=== PATIENT | female | born 1945 | race Caucasian/White ===

== ENCOUNTER 2021-01-14 06:03 | Outpatient (REF) | payer MEDICARE, OTHER, SELFPAY ==
--- NOTE | ~2021-01-14 | XR_ITS ---
EXAMINATION: XR CHEST CLINICAL INFORMATION: ESSential hypertension COMPARISON: Chest x-ray June 2020 TECHNIQUE: 2 views of the chest were obtained. FINDINGS: No significant abnormality is noted involving the heart, lungs, mediastinum, bony thorax or soft tissues. XR/XR chest 2V IMPRESSION: No acute disease. Previously noted left lung opacity and volume loss has cleared
[2021-01-14 11:03] LABS: MANUAL DIFF FLAG NO
[2021-01-14 11:14] LABS: Basophils Absolute Auto 0.1 X10*3/uL (0.0-0.2); Basophils Percent Auto 1.5 % (0-2); Eosinophils Absolute Auto 0.1 X10*3/uL (0.0-0.4); Eosinophils Percent Auto 1.8 % (0-4); Hematocrit 38.4 % (37-47); Hemoglobin 12.8 g/dl (12.0-16.0); Lymphocytes Absolute Auto 1.3 X10*3/uL (1.2-4.9); Mean Corpuscular HGB Conc 33.3 g/dl (31.0-35.0); Mean Platelet Volume 9.9 fL (9.4-12.3); Monocytes Absolute Auto 0.4 X10*3/uL (0.1-1.2); Monocytes Percent Auto 11.3 % (2-11); Neutrophils Percent Auto 51.4 % (45-73); Platelet Count 297 X10*3/uL (160-400); Red Blood Count 4.13 X10*6/uL (4.20-5.50); Red Cell Distribution Width 12.7 % (11.0-16.0); White Blood Count 3.9 X10*3/uL (4.8-10.8)
[2021-01-14 11:22] LABS: Glucose Urine UA NEG (NEG); Leukocyte Esterase Urine 2+ (NEG); Nitrite Urine POS (NEG); Urine Blood TRACE (NEG); Urine Ketones NEG (NEG); Urine Protein NEG (NEG-TRACE)
[2021-01-14 11:25] LABS: Appearance Urine HAZY; Color Urine YELLOW
[2021-01-14 11:35] LABS: Bacteria Urine 2+ /LPF; Mucus Urine 1+ /LPF; Squamous Epithelial Cell Urine 1+ /LPF; WBC Urine 30-49 /HPF (0-4)
[2021-01-14 11:41] LABS: Creatinine Urine 94.22 mg/dL; Microalbum/Creatinine Ratio Ur 8.4 ug/mg cr
[2021-01-14 11:45] LABS: Estimated Average Glucose 131 mg/dL; Hemoglobin A1C 150.6971 umol/L; Hemoglobin A1c % 6.2 %
[2021-01-14 11:46] LABS: Alanine Aminotransferase 21 U/L (0-31); Albumin Level 4.1 g/dL (3.5-5.0); Alkaline Phosphatase 73 U/L (39-117); Anion Gap 12 (12-20); Aspartate Amino Transferase 22 U/L (5-31); Bilirubin Total 0.5 mg/dL (0.0-1.0); Blood Urea Nitrogen 12 mg/dL (9-16); Calcium 9.1 mg/dL (8.4-10.2); Carbon Dioxide 28 mmol/L (22-29); Chloride 105 mmol/L (96-108); Cholesterol 255 mg/dL; Estimated Glomerular Filt Rate 59; Glucose Fasting 129 mg/dL (60-99); Potassium 4.2 mmol/L (3.3-5.1); Sodium 141 mmol/L (135-145); Total Protein 7.2 g/dL (6.5-8.0); Triglycerides 74 mg/dL
[2021-01-14 11:49] LABS: Thyroid Stimulating Hormone 2.24 uIU/mL (0.32-4.0); Vitamin D 25-OH Total 48.8 ng/mL (>30)
[2021-01-14 12:09] LABS: HDL Cholesterol 86 mg/dL; LDL Cholesterol Calculated 155 mg/dl
== END 2021-01-14 06:04 | disposition home or self-care (01) ==
LOC: HO.HMGCLDS 06:03
PROVIDERS: PCP Internal Medicine; Visit Provider Internal Medicine
DX: I10 Essential (primary) hypertension (principal); E78.00 Pure hypercholesterolemia, unspecified; E03.9 Hypothyroidism, unspecified; E11.9 Type 2 diabetes mellitus without complications
CPT/HCPCS: 36415; 71046; 80053; 80061; 81001; 82043; 82306; 83036; 84443; 85025

== ENCOUNTER 2021-04-05 11:02 | Outpatient (REF) | payer MEDICARE, OTHER, SELFPAY ==
[2021-04-05 14:02] LABS: Glucose Urine UA NEG (NEG); Leukocyte Esterase Urine 3+ (NEG); Nitrite Urine POS (NEG); UACC Culture Trigger YES; Urine Blood TRACE (NEG); Urine Ketones NEG (NEG); Urine Protein NEG (NEG-TRACE)
[2021-04-05 14:04] LABS: Appearance Urine CLOUDY; Color Urine YELLOW
[2021-04-05 14:24] LABS: RBC Urine 0-2 /HPF (0); UACC CULT YES; WBC Urine TNTC /HPF (0-4)
[2021-04-05 14:25] LABS: Bacteria Urine 3+ /LPF; Renal Epithelial Cells Urine TRACE /LPF; Squamous Epithelial Cell Urine 1+ /LPF; WBC Clumps Urine NOTED
== END 2021-04-05 11:03 | disposition home or self-care (01) ==
LOC: HO.HMGCLDS 11:02
PROVIDERS: PCP Internal Medicine; Visit Provider Internal Medicine
DX: R30.0 Dysuria (principal)
CPT/HCPCS: 81001; 87086; 87088; 87186

== ENCOUNTER 2021-07-27 06:47 | Outpatient (REF) | payer MEDICARE, OTHER, SELFPAY ==
[2021-07-27 11:23] LABS: MANUAL DIFF FLAG NO
[2021-07-27 11:25] LABS: Appearance Urine HAZY; Color Urine STRAW; Glucose Urine UA NEG (NEG); Leukocyte Esterase Urine 3+ (NEG); Nitrite Urine POS (NEG); PH 5.5 (5.0-8.0); Urine Blood TRACE (NEG); Urine Ketones NEG (NEG); Urine Protein NEG (NEG-TRACE)
[2021-07-27 11:32] LABS: Basophils Percent Auto 0.9 % (0-2); Eosinophils Absolute Auto 0.1 X10*3/uL (0.0-0.4); Eosinophils Percent Auto 2.1 % (0-4); Hematocrit 36.8 % (37-47); Imm Gran Abs Auto 0.01 X10*3/uL (0.00-0.03); Imm Gran Pct Auto 0.2 % (0.0-0.4); Lymphocytes Absolute Auto 0.4 X10*3/uL (1.2-4.9); Lymphocytes Percent Auto 8.9 % (20-40); Mean Corpuscular HGB Conc 32.6 g/dl (31.0-35.0); Mean Corpuscular Hemoglobin 30.3 pg (27.0-33.0); Mean Corpuscular Volume 92.9 fL (80-98); Mean Platelet Volume 9.7 fL (9.4-12.3); Monocytes Absolute Auto 0.4 X10*3/uL (0.1-1.2); Monocytes Percent Auto 8.3 % (2-11); Neutrophils Absolute Auto 3.7 X10*3/uL (2.0-8.3); Neutrophils Percent Auto 79.6 % (45-73); Platelet Count 282 X10*3/uL (160-400); Red Blood Count 3.96 X10*6/uL (4.20-5.50); Red Cell Distribution Width 13.3 % (11.0-16.0); White Blood Count 4.7 X10*3/uL (4.8-10.8)
[2021-07-27 11:49] LABS: Alanine Aminotransferase 16 U/L (0-31); Albumin Level 3.9 g/dL (3.5-5.0); Alkaline Phosphatase 65 U/L (39-117); Anion Gap 16 (12-20); Aspartate Amino Transferase 21 U/L (5-31); Bilirubin Total 0.5 mg/dL (0.0-1.0); Blood Urea Nitrogen 12 mg/dL (9-16); Calcium 9.4 mg/dL (8.4-10.2); Carbon Dioxide 26 mmol/L (22-29); Chloride 105 mmol/L (96-108); Cholesterol 242 mg/dL; Estimated Glomerular Filt Rate 48; Glucose Fasting 97 mg/dL (60-99); HDL Cholesterol 80 mg/dL; LDL Cholesterol Calculated 148 mg/dl; Potassium 4.5 mmol/L (3.3-5.1); Sodium 142 mmol/L (135-145); Triglycerides 72 mg/dL
[2021-07-27 12:00] LABS: Estimated Average Glucose 128 mg/dL; Hemoglobin A1c % 6.1 %
[2021-07-27 12:07] LABS: Creatinine Urine 49.22 mg/dL; Microalbum/Creatinine Ratio Ur 81.2 ug/mg cr
[2021-07-27 12:14] LABS: Thyroid Stimulating Hormone 2.38 uIU/mL (0.32-4.0); Vitamin D 25-OH Total 49.6 ng/mL (>30)
[2021-07-27 12:35] LABS: Squamous Epithelial Cell Urine TRACE /LPF; WBC Clumps Urine NOTED
[2021-07-27 12:36] LABS: Bacteria Urine 2+ /LPF; Renal Epithelial Cells Urine TRACE /LPF
[2021-07-27 12:37] LABS: WBC Urine 50-75 /HPF (0-4)
[2021-07-27 12:38] LABS: RBC Urine 0 /HPF (0)
[2021-07-27 16:58] LABS: Appearance Urine HAZY; Color Urine YELLOW; Glucose Urine UA NEG (NEG); Leukocyte Esterase Urine 2+ (NEG); Nitrite Urine POS (NEG); Specific Gravity - Urine 1.015 (1.005-1.025); UACC Culture Trigger YES; Urine Blood NEG (NEG); Urine Ketones NEG (NEG); Urine Protein NEG (NEG-TRACE)
[2021-07-27 17:52] LABS: Mucus Urine 1+ /LPF; Renal Epithelial Cells Urine 1+ /LPF; Squamous Epithelial Cell Urine 2+ /LPF; WBC Clumps Urine NOTED
[2021-07-27 17:53] LABS: Bacteria Urine 3+ /LPF; RBC Urine 0-2 /HPF (0)
== END 2021-07-27 06:48 | disposition home or self-care (01) ==
LOC: HO.HMGCLDS 06:47
PROVIDERS: PCP Internal Medicine; Visit Provider Internal Medicine
DX: N39.0 Urinary tract infection, site not specified (principal); I10 Essential (primary) hypertension; E78.00 Pure hypercholesterolemia, unspecified; E03.9 Hypothyroidism, unspecified; E11.9 Type 2 diabetes mellitus without complications
CPT/HCPCS: 36415; 80053; 80061; 81001; 81003; 82043; 82306; 83036; 84443; 85025; 87086; 87088; 87186

== ENCOUNTER 2021-12-29 14:11 | Outpatient (REF) | payer MEDICARE, OTHER, SELFPAY ==
--- NOTE | ~2021-12-29 | MM_ITS ---
EXAMINATION: MM SCREENING DIGITAL BREAST TOMOSYNTHESIS, RIGHT CLINICAL INFORMATION: Screening. Asymptomatic. Status post left mastectomy. COMPARISON: Mammography: June 01, 2020 and studies dating back to November 24, 2013 TECHNIQUE: Digital breast tomosynthesis is performed in both the craniocaudal and mediolateral oblique views along with computer-aided detection (CAD). Synthesized 2D images are generated from the tomosynthesis. FINDINGS: The right breast is heterogeneously dense, which may obscure small masses (ACR BI-RADS breast composition Category c). There are no significant masses, abnormal calcifications, or other abnormalities. MM/MM tomosynthesis screening RT IMPRESSION: There are no significant changes from prior study. ASSESSMENT: BI-RADS 1: Negative RECOMMENDATION: Routine annual mammography screening. This patient's information was entered into a reminder system with a target due date for their next mammogram.
== END 2021-12-29 14:12 | disposition home or self-care (01) ==
LOC: HO.MAMMO 14:11
PROVIDERS: PCP Nurse Practitioner Family; Visit Provider Nurse Practitioner Family
DX: Z12.31 Encounter for screening mammogram for malignant neoplasm of breast (principal)
CPT/HCPCS: 77063; 77067

== ENCOUNTER 2022-02-15 06:10 | Outpatient (REF) | payer MEDICARE, OTHER, SELFPAY ==
[2022-02-15 11:15] LABS: MANUAL DIFF FLAG NO
[2022-02-15 11:33] LABS: Basophils Absolute Auto 0.1 X10*3/uL (0.0-0.2); Basophils Percent Auto 1.3 % (0-2); Eosinophils Absolute Auto 0.1 X10*3/uL (0.0-0.4); Hematocrit 38.3 % (37.0-47.0); Hemoglobin 12.8 g/dl (12.0-16.0); Imm Gran Abs Auto 0.01 X10*3/uL (0.00-0.03); Imm Gran Pct Auto 0.2 % (0.0-0.4); Lymphocytes Absolute Auto 1.2 X10*3/uL (1.2-4.9); Lymphocytes Percent Auto 27.2 % (20-40); Mean Corpuscular HGB Conc 33.4 g/dl (31.0-35.0); Mean Corpuscular Hemoglobin 30.6 pg (27.0-33.0); Mean Corpuscular Volume 91.6 fL (80.0-98.0); Monocytes Absolute Auto 0.5 X10*3/uL (0.1-1.2); Monocytes Percent Auto 11.9 % (2-11); Neutrophils Absolute Auto 2.6 x10*3/uL (2.0-8.3); Neutrophils Percent Auto 57.4 % (45-73); Platelet Count 344 X10*3/uL (160-400); Red Blood Count 4.18 X10*6/uL (4.20-5.50); Red Cell Distribution Width 12.6 % (11.0-16.0); White Blood Count 4.5 X10*3/uL (4.8-10.8)
[2022-02-15 11:53] LABS: Alanine Aminotransferase 17 U/L (0-31); Alkaline Phosphatase 70 U/L (39-117); Anion Gap 14 (12-20); Aspartate Amino Transferase 23 U/L (5-31); Bilirubin Total 0.7 mg/dL (0.0-1.0); Blood Urea Nitrogen 13 mg/dL (9-16); Calcium 9.4 mg/dL (8.4-10.2); Carbon Dioxide 26 mmol/L (22-29); Chloride 105 mmol/L (96-108); Cholesterol 310 mg/dL; Estimated Glomerular Filt Rate 42; Glucose Fasting 132 mg/dL (60-99); HDL Cholesterol 78 mg/dL; LDL Cholesterol Calculated 217 mg/dl; Potassium 3.9 mmol/L (3.3-5.1); Sodium 141 mmol/L (135-145); Total Protein 7.4 g/dL (6.5-8.0); Triglycerides 78 mg/dL
[2022-02-15 11:59] LABS: TSH reflex Free T4 2.46 uIU/mL (0.32-4.0)
[2022-02-15 12:08] LABS: Creatinine Urine 68.69 mg/dL; Microalbum/Creatinine Ratio Ur 52.4 ug/mg cr
[2022-02-15 12:10] LABS: Estimated Average Glucose 123 mg/dL; Hemoglobin A1c % 5.9 %
== END 2022-02-15 06:11 | disposition home or self-care (01) ==
LOC: HO.HMGCLDS 06:10
PROVIDERS: Visit Provider Nurse Practitioner Family
DX: I10 Essential (primary) hypertension (principal); E03.9 Hypothyroidism, unspecified; R73.03 Prediabetes; E78.00 Pure hypercholesterolemia, unspecified; Z76.89 Persons encountering health services in other specified circumstances
CPT/HCPCS: 36415; 80053; 80061; 82043; 82306; 83036; 84443; 85025

== ENCOUNTER 2022-05-22 06:11 | Emergency (ER) | payer MEDICARE, OTHER, SELFPAY ==
--- NOTE | 2022-05-22 | ECG_ITS ---
Test Reason : SOB Blood Pressure : / mmHG Vent. Rate : 077 BPM Atrial Rate : 077 BPM P-R Int : 188 ms QRS Dur : 086 ms QT Int : 408 ms P-R-T Axes : 085 -13 059 degrees QTc Int : 461 ms Normal sinus rhythm with sinus arrhythmia Moderate voltage criteria for LVH, may be normal variant ( R in aVL , [place] product ) Nonspecific ST abnormality Abnormal ECG When compared with ECG of 07-AUG-2008 14:18, No significant change was found Referred By: Generic ED Physician Electronically Signed By:Jose Osorio
[2022-05-22] MEDS: diphenhydrAMINE HCL 50 MG/ML VIAL IVPUSH (06:19)
[2022-05-22] MEDS: methylPREDNISolone Sod Succ 125 MG/2 ML VIAL IVPUSH (06:20)
[2022-05-22] MEDS: EPINEPHrine 1 MG/ML VIAL 0.3 MG IM (06:21)
[2022-05-22] MEDS: Famotidine/PF 20 MG/2 ML VIAL IVPUSH (06:22)
[2022-05-22 06:23] VITALS: BP 196/81; PULSE 82; RESP 12; O2SAT 99; BMI 24.7
[2022-05-22 06:25] VITALS: BP 185/74; PULSE 89; RESP 22; O2SAT 98
--- NOTE | 2022-05-22 06:35 | PC.NURSE ---
pt is alert and verbal, at bedside. pt has extensive tongue swelling new onset this morning. reports not being able to understand pt earlier this morning.
--- NOTE | 2022-05-22 07:19 | ED.SOB ---
HPI - SOB/Dyspnea General Chief Complaint: Dyspnea Stated Complaint: swollen tongue, can't swallow or breathe Time Seen by Provider: 05/22/22 07:19 Source: patient Mode of arrival: ambulatory History of Present Illness HPI Narrative: 76-year-old female with history of hypertension currently on losartan who presents who presents with a waking at 04:00 with tongue swelling, woke her who immediately brought her in. Patient denies any new medications or foods, but not torse is that she takes losartan for her blood pressure. At this time patient denies any chest pain, palpitations and denies any shortness of breath but does have some difficulty with swallowing. She denies any rash Related Data Home Medications Medication Instructions Recorded Confirmed cholecalciferol (vitamin D3) 25 25 mcg PO DAILY 12/05/21 03/06/22 mcg (1,000 unit) capsule [id number]-[id number]-crhjiw tablet 1 tab PO DAILY 12/05/21 03/06/22 Previous Rx's Medication Instructions Recorded omega-3 fatty acids 1,000 mg 1,000 mg PO DAILY #90 caps 02/20/22 capsule levothyroxine 50 mcg tablet 50 mcg PO DAILY #90 tabs 03/06/22 losartan 100 mg tablet 100 mg PO DAILY #90 tabs 03/06/22 hydrochlorothiazide 12.5 mg tablet 12.5 mg PO DAILY #14 tabs 05/22/22 Allergies Allergy/AdvReac Type Severity Reaction Status Date / Time Sulfa (Sulfonamide Allergy Unknown ITCHING Verified 03/06/22 14:18 Antibiotics) Review of Systems Review of Systems: pertinent positives and negatives as stated in HPI and 10 point review of systems is otherwise negative. [facility] Past Medical History Source: nursing notes reviewed Surgical History History of cataract surgery History of colonoscopy History of hysterectomy History of lumpectomy History of mastectomy History of tibial fracture Family History Family History Mother Breast cancer Father Dementia Social History Social History Housing: House Alcohol intake: current Alcohol intake frequency: a few times a month Alcohol type: other Patient Tobacco Use Status: Never used Tobacco e-Cigarette/Vaping Use: Never Used Second Hand Smoke Exposure: No Advance Directives: No Advance Directives Information Provided: Yes service: No Current occupational status: employed Current occupational exposures/hazards: No Cognitive needs: No Hearing needs: No Vision needs: No Physical Exam Vital Signs: Vital Signs: Last Vital Signs Pulse 89 05/22/22 06:25 Resp 22 H 05/22/22 06:25 BP 185/74 H 05/22/22 06:25 Pulse Ox 98 05/22/22 06:25 O2 Del Method 05/22/22 06:25 BMI result Body Mass Index 24.7 VITAL SIGNS: Reviewed. GENERAL: Well developed, well nourished, in no acute distress. HEAD: Normocephalic/atraumatic EYES: PERRLA, EOMI EARS: Ext canals without abnormality OROPHARYNX: no oral lesions noted, posterior pharynx clear, enlarged tongue with some involvement of the oral floor, no lip or facial swelling NECK: Supple, no adenopathy LUNGS: Normal breath sounds. No adventitious sounds or accessory muscle use. SpO2<98> CARDIOVASCULAR: Regular rate and rhythm without noted murmurs ABDOMEN: Soft, non-tender, non-distended with bowel sounds. MUSCULOSKELETAL: No tenderness, deformities, or effusions noted on gross inspection. EXTREMITIES: No cyanosis, clubbing or edema. SKIN: Inspection of the skin reveals no rashes NEUROLOGIC: Alert and oriented x 4. Strength and sensation to light touch were grossly intact x 4. Course Course Course Narrative: 76-year-old female with history and clinical presentation consistent with Mat/ Arb associated angioedema and patient received Solu-Medrol, Benadryl, Pepcid, and 0.3 epi IM. Two peripheral lines were obtained and patient was observed for a short period of time to ensure improvement no evidence of stridor and patient continued to improve with the ability to protrude the tongue and speech became more legible. Patient will be observed for 4 hours and total and instructed to stay off of losartan. Sign-out to Dr Nair f/u Obs for 4hrs which will end at 1030. MDM - SOB/Dyspnea ECG Data Attestation: I personally reviewed and interpreted this ECG as follows: Prior ECG tracings: available for review Interpretation: Sinus rhythm with sinus arrhythmia, HR- 77, no STEMI, normal sinus rhythm with sinus arrhythmia, HR- 77, no STEMI, MO / QRS /QTC is within normal limits. Critical Care Time Critical Care Time Critical Care Time: Yes Total Critical Care Time: 30 Attestation: I personally attest to this time spent taking care of the patient. 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 - You have been provided 14 days of an alternative - please call your primary care provider today to discuss the swelling of her tongue and the switch in blood pressure medications. Return to the ER with worsening symptoms. Prescriptions: New hydrochlorothiazide 12.5 mg tablet 12.5 mg PO DAILY Qty: 14 0RF No Action omega-3 fatty acids 1,000 mg capsule 1,000 mg PO DAILY Qty: 90 0RF utuhjryjglww-jbfelwhc-zeraga Tablet 1 tab PO DAILY cholecalciferol (vitamin D3) 25 mcg (1,000 unit) capsule 25 mcg PO DAILY levothyroxine 50 mcg tablet 50 mcg PO DAILY Qty: 90 0RF losartan 100 mg tablet 100 mg PO DAILY Qty: 90 0RF
--- NOTE | 2022-05-22 08:08 | PC.NURSE ---
pt feeling better, sts tongue is less swollen after medicinces. rr even/unlabored, tolerating water through straw without issue, good swallow. per provider, pt needs to be monitored until 1030 this am. wctm.
[2022-05-22 08:31] VITALS: BP 132/60; PULSE 75; RESP 17; O2SAT 97
== END 2022-05-22 09:37 | disposition home or self-care (01) ==
PROVIDERS: Emergency Provider Student in an Organized Health Care Education/Training Program
DX: R06.02 Shortness of breath (principal); Z79.899 Other long term (current) drug therapy
CPT/HCPCS: 93005; 96372; 96374; 96375; 99284; 99285; J0171; J1200; J2930

== ENCOUNTER 2022-06-13 10:33 | Outpatient (REF) | payer MEDICARE, OTHER, SELFPAY ==
--- NOTE | ~2022-06-13 | XR_ITS ---
EXAMINATION: XR SHOULDER, RIGHT CLINICAL INFORMATION: Pain COMPARISON: None TECHNIQUE: Four views of the right shoulder. FINDINGS: Bone alignment is normal. No fracture or dislocation is seen. The glenohumeral joint is normal. There is arthritis at the acromioclavicular joint. Soft tissues are normal. There is question of small pulmonary nodules, particularly appreciated on the [place] view. XR/XR shoulder RT min 2V IMPRESSION: Arthritis at the acromioclavicular joint. Question pulmonary nodules. Follow-up chest x-ray recommended. Findings will be communicated by the [place] work flow skill labor.
== END 2022-06-13 10:34 | disposition home or self-care (01) ==
LOC: HO.HMGCX 10:33
PROVIDERS: PCP Physician Assistant; Visit Provider Physician Assistant
DX: M25.511 Pain in right shoulder (principal)
CPT/HCPCS: 73030

== ENCOUNTER 2022-06-15 07:47 | Outpatient (REF) | payer MEDICARE, OTHER, SELFPAY ==
--- NOTE | ~2022-06-15 | XR_ITS ---
EXAMINATION: XR CHEST CLINICAL INFORMATION: Solitary pulmonary nodule COMPARISON: Right shoulder radiograph from 06/13/2022, chest radiograph from 01/14/2021 TECHNIQUE: 2 views of the chest were obtained. FINDINGS: Chronic interstitial lung markings. Biapical pleural parenchymal scarring. Stable elevation the right hemidiaphragm. No pneumothorax. Trachea is midline. Cardiac mediastinal silhouette is not enlarged. Aorta demonstrates tortuosity. No large pleural effusion. Degenerative changes of the thoracolumbar spine. Soft tissues are unremarkable. XR/XR chest 2V IMPRESSION: 1. Chronic interstitial lung markings. 2. Biapical pleural parenchymal scarring. 3. Stable elevation the right hemidiaphragm. 4. If high clinical concern for pulmonary nodules can consider cross-sectional imaging for further evaluation.
== END 2022-06-15 07:48 | disposition home or self-care (01) ==
LOC: HO.HMGCX 07:47
PROVIDERS: PCP Physician Assistant; Visit Provider Physician Assistant
DX: R91.1 Solitary pulmonary nodule (principal)
CPT/HCPCS: 71046

== ENCOUNTER 2022-07-06 12:57 | Outpatient (REF) | payer MEDICARE, OTHER, SELFPAY ==
--- NOTE | ~2022-07-06 | US_ITS ---
EXAMINATION: US EXTRACRANIAL CAROTID DUPLEX, BILATERAL CLINICAL INFORMATION: Left carotid bruit COMPARISON: None TECHNIQUE: Real-time ultrasound and Doppler techniques (integrating B-mode 2-D vascular images, Doppler spectral analysis and color-flow Doppler imaging) were utilized to interrogate the extracranial carotid arteries, the vertebral arteries and proximal subclavian arteries bilaterally. The degree of stenosis is determined by criteria similar to NASCET. FINDINGS: Right Side: 1. There is mild atherosclerotic plaque seen in the bifurcation/proximal ICA region. 2. The common carotid artery PSV proximally is 124 cm/s and distally 101 cm/s. 3. The proximal internal carotid artery velocities are 70 cm/s systolic and 18 cm/s diastolic. 4. The proximal external carotid artery PSV is 139 cm/s. 5. The vertebral artery shows antegrade flow. 6. The subclavian artery waveforms are normal. Left Side: 1. There is mild atherosclerotic plaque seen in the bifurcation/proximal ICA region. 2. The common carotid artery PSV proximally is 127 cm/s and distally 83 cm/s. 3. The proximal internal carotid artery velocities are 122 cm/s systolic and 24 cm/s diastolic. 4. The proximal external carotid artery PSV is 87 cm/s. 5. The vertebral artery shows antegrade flow. 6. The subclavian artery waveforms are normal. US/US carotid duplex BI IMPRESSION: 1. RIGHT: Minimal, non-hemodynamically significant stenosis of the proximal right internal carotid artery corresponding to a 0-49% stenosis by velocity criteria. 2. LEFT: Minimal, non-hemodynamically significant stenosis of the proximal left internal carotid artery corresponding to a 0-49% stenosis by velocity criteria.
== END 2022-07-06 12:58 | disposition home or self-care (01) ==
LOC: HO.HMGCX 12:57
PROVIDERS: PCP Physician Assistant; Visit Provider Physician Assistant
DX: R09.89 Other specified symptoms and signs involving the circulatory and respiratory systems (principal)
CPT/HCPCS: 93880

== ENCOUNTER 2022-07-12 07:04 | Outpatient (REF) | payer MEDICARE, OTHER, SELFPAY ==
[2022-07-12 11:34] LABS: Hematocrit 36.1 % (37.0-47.0); Mean Corpuscular HGB Conc 33.2 g/dl (31.0-35.0); Mean Corpuscular Hemoglobin 30.2 pg (27.0-33.0); Mean Corpuscular Volume 90.7 fL (80.0-98.0); Mean Platelet Volume 9.2 fL (9.4-12.3); Platelet Count 367 X10*3/uL (160-400); Red Blood Count 3.98 X10*6/uL (4.20-5.50); Red Cell Distribution Width 13.2 % (11.0-16.0); White Blood Count 4.6 X10*3/uL (4.8-10.8)
[2022-07-12 11:38] LABS: Estimated Average Glucose 131 mg/dL; Hemoglobin A1c % 6.2 %
[2022-07-12 12:06] LABS: TSH reflex Free T4 2.57 uIU/mL (0.32-4.0)
[2022-07-12 12:22] LABS: Alanine Aminotransferase 15 U/L (0-31); Albumin Level 4.1 g/dL (3.5-5.0); Alkaline Phosphatase 85 U/L (39-117); Anion Gap 16 (12-20); Aspartate Amino Transferase 19 U/L (5-31); Bilirubin Total 0.3 mg/dL (0.0-1.0); Blood Urea Nitrogen 13 mg/dL (9-16); Calcium 9.7 mg/dL (8.4-10.2); Carbon Dioxide 29 mmol/L (22-29); Chloride 101 mmol/L (96-108); Cholesterol 320 mg/dL; Estimated Glomerular Filt Rate 44; Glucose Fasting 143 mg/dL (60-99); HDL Cholesterol 82 mg/dL; LDL Cholesterol Calculated 218 mg/dl; Potassium 4.4 mmol/L (3.3-5.1); Sodium 142 mmol/L (135-145); Total Protein 7.7 g/dL (6.5-8.0); Triglycerides 101 mg/dL
== END 2022-07-12 07:05 | disposition home or self-care (01) ==
LOC: HO.HMGCLDS 07:04
PROVIDERS: PCP Physician Assistant; Visit Provider Physician Assistant
DX: E03.9 Hypothyroidism, unspecified (principal); R73.03 Prediabetes; I10 Essential (primary) hypertension
CPT/HCPCS: 36415; 80053; 80061; 83036; 84443; 85027

== ENCOUNTER → 2022-08-09 07:46 | Outpatient (BNVA) | payer MEDICARE, OTHER, SELFPAY | PROVIDERS: PCP Physician Assistant; Visit Provider Physician Assistant | DX: M19.011 Primary osteoarthritis, right shoulder (principal); M75.81 Other shoulder lesions, right shoulder | CPT/HCPCS: 20610; 99202; J1040 ==

== ENCOUNTER 2022-08-11 09:00 | Outpatient (RCR) | payer MEDICARE, OTHER, SELFPAY ==
[2022-07-07 08:49] VITALS: BP 160/84
--- NOTE | 2022-07-07 11:00 | MHC.PT.EP ---
[facility] [place] Office [place] Office [place] Office [address] [phone] F: [phone] F: [phone] F: [phone] F: [phone] Physical Therapy Plan of Care Date of Evaluation: Date of Surgery: Diagnosis: pain in R shoulder Assessment: 76 y/o RHD female referred to PT with R shoulder pain. Her anterior R shoulder pain started one month after she retired in which she had increased weedwhacking and yardwork. It is worse at night and early in the morning. It disturbs her sleep. 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 Examination shows decreased R shoulder A/PROM with pain, decreased R shoulder strength, increased pain, (+) drop arm test, and impaired postural awareness. S/s consistent with impingement and possible RTC tear. SHe is a god candidate for PT due to motivation and PLOF. Frequency and Duration: The patient will be seen 2x/week for 6 weeks Short Term Goals: 3 weeks COmpliant and I with HEP Improve R shoulder active flexion to 130 with pain < 3/10 Community Nurse Goals: 6 weeks 1. I with HEP and self management of sx 2. Pt will be able to don/doff clothing with pain < 3/10 3. Pt will improve R shoulder strength to 4/5 to faciliate lifting Treatment Plan: Modalities to reduce pain, spasms and effusion. Manual therapy to restore motion and function. Therapeutic exercise to improve strength and flexibility. Neuromuscular re-education for posture and balance. Therapeutic activities to return to functional activities of daily living. Electronically signed by: Christy Juares PT Please sign and return to therapist. Thank you for your referral.
--- NOTE | 2022-08-11 11:09 | MHC.PT.DC ---
[facility] [place] Office [place] Office [place] Office [address] [phone] F: [phone] F: [phone] F: [phone] F: [phone] Physical Therapy Discharge Report Diagnosis: pain in R shoulder Date of Surgery: Date of Evaluation: 07/07/22 Date of Discharge: 08/11/22 Treatments to Date: 11 Cancellations to Date: 0 No Shows to Date: 0 Discharge Status: Achieved Goals Improved Function Independent with HEP Discharge Summary: Pt has made good progress and feels ready for d/c to I HEP. 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 Reviewed HEP and no further questions. Electronically signed by: Christy Juares PT Please sign and return to therapist. Thank you for your referral.
== END 2022-08-11 11:09 | disposition home or self-care (01) ==
LOC: HO.PTCHIC 09:00
PROVIDERS: PCP Physician Assistant; Visit Provider Physician Assistant
DX: M25.511 Pain in right shoulder (principal); G89.29 Other chronic pain
CPT/HCPCS: 97035; 97110; 97140; 97162

== ENCOUNTER 2022-08-18 07:19 | Outpatient (REF) | payer MEDICARE, OTHER, SELFPAY ==
[2022-08-18 11:46] LABS: Hemoglobin 12.2 g/dl (12.0-16.0); Mean Corpuscular HGB Conc 32.1 g/dl (31.0-35.0); Mean Corpuscular Hemoglobin 29.1 pg (27.0-33.0); Mean Corpuscular Volume 90.7 fL (80.0-98.0); Mean Platelet Volume 9.1 fL (9.4-12.3); Platelet Count 396 X10*3/uL (160-400); Red Blood Count 4.19 X10*6/uL (4.20-5.50); Red Cell Distribution Width 13.9 % (11.0-16.0); White Blood Count 7.1 X10*3/uL (4.8-10.8)
[2022-08-18 12:22] LABS: TSH reflex Free T4 1.29 uIU/mL (0.32-4.0)
[2022-08-18 12:29] LABS: Alanine Aminotransferase 18 U/L (0-31); Albumin Level 4.2 g/dL (3.5-5.0); Alkaline Phosphatase 84 U/L (39-117); Anion Gap 17 (12-20); Aspartate Amino Transferase 17 U/L (5-31); Bilirubin Total 0.3 mg/dL (0.0-1.0); Blood Urea Nitrogen 13 mg/dL (9-16); Calcium 9.6 mg/dL (8.4-10.2); Carbon Dioxide 28 mmol/L (22-29); Chloride 103 mmol/L (96-108); Cholesterol 276 mg/dL; Estimated Glomerular Filt Rate 51; Glucose Fasting 124 mg/dL (60-99); HDL Cholesterol 92 mg/dL; LDL Cholesterol Calculated 170 mg/dl; Potassium 4.8 mmol/L (3.3-5.1); Sodium 143 mmol/L (135-145); Total Protein 7.5 g/dL (6.5-8.0); Triglycerides 70 mg/dL
== END 2022-08-18 07:20 | disposition home or self-care (01) ==
LOC: HO.HMGCLDS 07:19
PROVIDERS: PCP Physician Assistant; Visit Provider Physician Assistant
DX: E78.2 Mixed hyperlipidemia (principal); R91.1 Solitary pulmonary nodule; E03.9 Hypothyroidism, unspecified
CPT/HCPCS: 36415; 80048; 80053; 80061; 84443; 85027

== ENCOUNTER 2022-08-23 09:41 | Outpatient (REF) | payer MEDICARE, OTHER, SELFPAY ==
--- NOTE | ~2022-08-23 | MR_ITS ---
EXAMINATION: MR SHOULDER WITHOUT CONTRAST, RIGHT CLINICAL INFORMATION: Right shoulder pain COMPARISON: Radiographs 06/13/2022 TECHNIQUE: MRI of the shoulder without contrast was performed on a high-field scanner. FINDINGS: ROTATOR CUFF: Supraspinatus tendinosis with mild ill-defined undersurface partial tearing and a small interstitial insertional partial tear. The rotator cuff is otherwise intact. No muscle atrophy or fatty infiltration. BICEPS: Normal. CORACOACROMIAL ARCH: The undersurface of the acromion is laterally downsloping with no subacromial spur. 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 Mild subacromial subdeltoid bursitis. LABRUM/CAPSULE: No definite labral tear. The anterior inferior labrum is slightly thickened and intermediate in signal. There is also intermediate signal throughout the rotator cuff interval. These findings could indicate adhesive capsulitis. GLENOHUMERAL JOINT/MARROW: Small degenerative cyst of the anterior superior humeral head. Small joint effusion with prominent fluid in the subcoracoid bursa. MR/MR shoulder RT wo con IMPRESSION: 1. Supraspinatus tendinosis with mild ill-defined undersurface partial tearing and a small interstitial insertional partial tear. 2. Laterally downsloping acromion. 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 3. Possible adhesive capsulitis. 4. Mild glenohumeral osteoarthritis with a small joint effusion.
== END 2022-08-23 09:42 | disposition home or self-care (01) ==
LOC: HO.MRI 09:41
PROVIDERS: Visit Provider Physician Assistant
DX: M75.101 Unspecified rotator cuff tear or rupture of right shoulder, not specified as traumatic (principal)
CPT/HCPCS: 73221

== ENCOUNTER 2022-08-28 07:43 | Outpatient (REF) | payer MEDICARE, OTHER, SELFPAY ==
--- NOTE | ~2022-08-28 | CT_ITS ---
EXAMINATION: CT CHEST WITH CONTRAST CLINICAL INFORMATION: Pulmonary nodule COMPARISON: Previous chest x-ray most recent June 2022 and right shoulder x-ray June 2022 TECHNIQUE: Multidetector volumetric CT imaging of the chest was obtained after the administration of 65 mL of Omnipaque 350 intravenous contrast without immediate adverse reactions. Axial MIP volume rendering provided. Sagittal and coronal reformatted images were obtained. This CT examination was performed using dose optimization techniques as appropriate, variously including the following: *Automated exposure control *Adjustment of mA and/or kV according to patient size (this includes techniques or standardized protocols for targeted exams where dose is matched to indication/reason for exam; i.e. extremities or head) *Use of iterative reconstruction technique DLP: 83 mGy-cm FINDINGS: LUNGS: There is asymmetric left apical pleural and parenchymal scarring. There are some bronchograms seen. There is a 4 mm calcified left upper lobe nodule axial image 102 series 5. There is a 7 mm calcified superior segment right lower lobe nodule axial image 102 series 5. There is a 5 mm calcified superior segment right lower lobe nodule axial image 126 series 5. MEDIASTINUM: The mediastinum is normal. CORONARY ARTERY CALCIFICATION: Mild coronary artery and aortic valve calcification. PLEURA: There is no pleural effusion. No pleural mass or thickening. AXILLA: No lymphadenopathy. Postsurgical changes to the left breast. UPPER ABDOMEN: Unremarkable OSSEOUS STRUCTURES: There are degenerative changes of the spine. There may be an old right superior third rib fracture near the articulation with the transverse process. CT/CT chest w IV con IMPRESSION: Calcified bilateral pulmonary nodules probably representing calcified granulomas. Asymmetric left apical pleural thickening with air bronchograms. This is gradually increasing compared to older exams. The left breast is absent related to previous chest wall radiation. Clinical correlation recommended. Continued chest CT follow-up recommended. Mild coronary artery and aortic valve calcification. Fleischner guidelines were followed.
[2022-08-28] MEDS: iohexoL 350 MG/ML 100 ML INFUS..BTL IV (08:39)
== END 2022-08-28 07:44 | disposition home or self-care (01) ==
LOC: HO.CT 07:43
PROVIDERS: PCP Physician Assistant; Visit Provider Physician Assistant
DX: R91.1 Solitary pulmonary nodule (principal)
CPT/HCPCS: 71260; Q9967

== ENCOUNTER 2022-11-09 08:08 | Outpatient (REF) | payer MEDICARE, OTHER, SELFPAY ==
[2022-11-09 11:25] LABS: Appearance Urine Sl Cloudy; Color Urine Yellow; Glucose Urine UA Negative (Negative); Leukocyte Esterase Urine Large (3+) (Negative); Nitrite Urine Positive (Negative); UMIC TRIGGER UACC YES; Urine Blood Trace (Negative); Urine Ketones Negative (Negative); Urine Protein Negative (Neg-Trace)
[2022-11-09 11:26] LABS: Bacteria Urine 4+ (None Seen); Hyaline Casts Urine 0-2 /LPF (0-2); RBC Urine 0-2 /HPF (0-2); UACC Culture Trigger YES; WBC Urine 21-50 /HPF (0-5)
[2022-11-09 11:38] LABS: Hematocrit 37.2 % (37.0-47.0); Hemoglobin 12.1 g/dl (12.0-16.0); Mean Corpuscular HGB Conc 32.5 g/dl (31.0-35.0); Mean Corpuscular Hemoglobin 28.9 pg (27.0-33.0); Mean Platelet Volume 9.4 fL (9.4-12.3); Platelet Count 315 X10*3/uL (160-400); Red Blood Count 4.18 X10*6/uL (4.20-5.50); Red Cell Distribution Width 14.1 % (11.0-16.0)
[2022-11-09 12:18] LABS: Alanine Aminotransferase 20 U/L (0-31); Albumin Level 4.3 g/dL (3.5-5.0); Alkaline Phosphatase 81 U/L (39-117); Anion Gap 16 (12-20); Aspartate Amino Transferase 24 U/L (5-31); Bilirubin Total 0.5 mg/dL (0.0-1.0); Blood Urea Nitrogen 11 mg/dL (9-16); Calcium 9.4 mg/dL (8.4-10.2); Carbon Dioxide 26 mmol/L (22-29); Chloride 102 mmol/L (96-108); Cholesterol 275 mg/dL; Estimated Glomerular Filt Rate 47; Glucose Fasting 149 mg/dL (60-99); HDL Cholesterol 96 mg/dL; LDL Cholesterol Calculated 166 mg/dl; Potassium 4.4 mmol/L (3.3-5.1); Sodium 140 mmol/L (135-145); TSH reflex Free T4 1.27 uIU/mL (0.32-4.0); Total Protein 7.5 g/dL (6.5-8.0); Triglycerides 66 mg/dL
== END 2022-11-09 08:09 | disposition home or self-care (01) ==
LOC: HO.HMGCLDS 08:08
PROVIDERS: PCP Physician Assistant; Visit Provider Physician Assistant
DX: E78.2 Mixed hyperlipidemia (principal); N39.0 Urinary tract infection, site not specified
CPT/HCPCS: 36415; 80053; 80061; 81001; 84443; 85027; 87086; 87088; 87186

== ENCOUNTER 2023-01-04 09:16 | Outpatient (REF) | payer MEDICARE, OTHER, SELFPAY ==
--- NOTE | ~2023-01-04 | MM_ITS ---
EXAMINATION: MM SCREENING DIGITAL BREAST TOMOSYNTHESIS, RIGHT CLINICAL INFORMATION: Screening. Asymptomatic. Status post left mastectomy. COMPARISON: Mammography: December 29, 2021 and studies dating back to November 06, 2013 TECHNIQUE: Digital breast tomosynthesis is performed in both the craniocaudal and mediolateral oblique views along with computer-aided detection (CAD). Synthesized 2D images are generated from the tomosynthesis. FINDINGS: There are scattered areas of fibroglandular density (ACR BI-RADS breast composition Category b). There are no significant masses, abnormal calcifications, or other abnormalities. MM/MM tomosynthesis screening RT IMPRESSION: No significant changes from prior exam. ASSESSMENT: BI-RADS 1: Negative RECOMMENDATION: Routine annual mammography screening. This patient's information was entered into a reminder system with a target due date for their next mammogram.
== END 2023-01-04 09:17 | disposition home or self-care (01) ==
LOC: HO.MAMMO 09:16
PROVIDERS: PCP Physician Assistant; Visit Provider Nurse Practitioner Family
DX: Z12.31 Encounter for screening mammogram for malignant neoplasm of breast (principal)
CPT/HCPCS: 77063; 77067

== ENCOUNTER 2023-02-06 09:52 | Outpatient (REF) | payer MEDICARE, OTHER, SELFPAY ==
--- NOTE | ~2023-02-06 | XR_ITS ---
EXAMINATION: XR HUMERUS, LEFT XR SHOULDER, LEFT CLINICAL INDICATION: Strain. Pain. COMPARISON: None available. TECHNIQUE: 3 views left humerus and 4 views left shoulder. FINDINGS: LEFT SHOULDER: The glenohumeral joint and AC joint space is maintained. No visible fracture, dislocation or subluxation seen. The soft tissues are normal. LEFT HUMERUS: There is no visible acute fracture or bony abnormality. 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 XR/XR humerus LT IMPRESSION: 1. Unremarkable left shoulder exam. 2. Unremarkable left humerus exam. 3. 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
--- NOTE | ~2023-02-06 | XR_ITS ---
EXAMINATION: XR HUMERUS, LEFT XR SHOULDER, LEFT CLINICAL INDICATION: Strain. Pain. COMPARISON: None available. TECHNIQUE: 3 views left humerus and 4 views left shoulder. FINDINGS: LEFT SHOULDER: The glenohumeral joint and AC joint space is maintained. No visible fracture, dislocation or subluxation seen. The soft tissues are normal. LEFT HUMERUS: There is no visible acute fracture or bony abnormality. 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 XR/XR shoulder LT min 2V IMPRESSION: 1. Unremarkable left shoulder exam. 2. Unremarkable left humerus exam. 3. 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
--- NOTE | 2023-02-06 09:57 | ECG_ITS ---
Test Reason : preop Blood Pressure : / mmHG Vent. Rate : 068 BPM Atrial Rate : 068 BPM P-R Int : 196 ms QRS Dur : 090 ms QT Int : 406 ms P-R-T Axes : 091 022 074 degrees QTc Int : 431 ms Normal sinus rhythm Normal ECG When compared with ECG of 22-MAY-2022 06:34, No significant change was found Referred By: Rehan Guillaume Electronically Signed By:Jose Osorio
[2023-02-06 10:56] LABS: Hemoglobin 13.5 g/dl (12.0-16.0); Mean Corpuscular HGB Conc 34.6 g/dl (31.0-35.0); Mean Corpuscular Hemoglobin 29.8 pg (27.0-33.0); Mean Corpuscular Volume 86.1 fL (80.0-98.0); Mean Platelet Volume 9.3 fL (9.4-12.3); Platelet Count 349 X10*3/uL (160-400); Red Blood Count 4.53 X10*6/uL (4.20-5.50); Red Cell Distribution Width 13.6 % (11.0-16.0); White Blood Count 5.5 X10*3/uL (4.8-10.8)
[2023-02-06 11:00] LABS: Estimated Average Glucose 137 mg/dL; Hemoglobin A1c % 6.4 %
[2023-02-06 11:07] LABS: Appearance Urine Clear; Color Urine Yellow; Glucose Urine UA Negative (Negative); Leukocyte Esterase Urine Large (3+) (Negative); Nitrite Urine Positive (Negative); Specific Gravity - Urine <= 1.005 (1.005-1.025); UMIC TRIGGER UACC YES; Urine Blood Negative (Negative); Urine Ketones Negative (Negative); Urine Protein Negative (Neg-Trace)
[2023-02-06 11:08] LABS: Prothrombin Time 11.3 SEC (10.0-13.1)
[2023-02-06 11:12] LABS: Anion Gap 14 (12-20); Blood Urea Nitrogen 12 mg/dL (9-16); Calcium 10.1 mg/dL (8.4-10.2); Carbon Dioxide 31 mmol/L (22-29); Chloride 97 mmol/L (96-108); Estimated Glomerular Filt Rate 47; Glucose Random 133 mg/dL (60-115); Potassium 3.8 mmol/L (3.3-5.1); Sodium 138 mmol/L (135-145)
[2023-02-06 11:29] LABS: Bacteria Urine 4+ (None Seen); Hyaline Casts Urine 0-2 /LPF (0-2); RBC Urine 0-2 /HPF (0-2); UACC Culture Trigger YES; WBC Urine >50 /HPF (0-5)
== END 2023-02-06 09:53 | disposition home or self-care (01) ==
LOC: HO.LAB 09:52
PROVIDERS: PCP Physician Assistant; Visit Provider Physician Assistant
DX: Z01.818 Encounter for other preprocedural examination (principal); R73.03 Prediabetes; S46.212A Strain of muscle, fascia and tendon of other parts of biceps, left arm, initial encounter
CPT/HCPCS: 36415; 73030; 73060; 80048; 81001; 81003; 83036; 85027; 85610; 87086; 87088; 87186; 93005

== ENCOUNTER 2023-05-30 10:52 | Outpatient (REF) | payer MEDICARE, OTHER, SELFPAY ==
[2023-05-30 13:07] LABS: Appearance Urine Clear; Color Urine Yellow; Glucose Urine UA Negative (Negative); Leukocyte Esterase Urine Large (3+) (Negative); Nitrite Urine Negative (Negative); Specific Gravity - Urine <= 1.005 (1.005-1.025); UMIC TRIGGER UA YES; Urine Blood Negative (Negative); Urine Ketones Negative (Negative); Urine Protein Negative (Neg-Trace)
[2023-05-30 13:10] LABS: Bacteria Urine 1+ (None Seen); Hyaline Casts Urine 0-2 /LPF (0-2); RBC Urine 0-2 /HPF (0-2); Squamous Epithelial Cell Urine 0-2 /HPF (0-2); WBC Urine 21-50 /HPF (0-5)
== END 2023-05-30 10:53 | disposition home or self-care (01) ==
LOC: HO.HMGCLDS 10:52
PROVIDERS: PCP Physician Assistant; Visit Provider Physician Assistant
DX: N39.0 Urinary tract infection, site not specified (principal)
CPT/HCPCS: 81001; 87086; 87088; 87186

== ENCOUNTER 2023-06-11 10:00 | Outpatient (AMB) | payer MEDICARE, OTHER, SELFPAY ==
[2023-06-11 10:33] VITALS: BP 134/62; PULSE 63; TEMP 35.6; O2SAT 98
--- NOTE | 2023-06-11 10:33 | MHC.OFFWIV ---
Intake Vital Signs 06/11/23 10:33 Height 5 ft 2 in BP 134/62 Blood Pressure Location Lt brachial Position Sitting Pulse 63 Pulse Source Pulse Oximeter Temp 96.1 F L Temp Source Temporal Artery Scan Pulse Oximetry (%) 98 Oxygen Delivery Method Room Air Intake Visit Reasons: EST/uti since sunday Intake Note: Pt is here c/o frequent urination and burning sensation since Sunday. Patient Tobacco Use Status: Never used Tobacco Allergies Hycgukh-YCQ-JcO Reductase Inhibitor Allergy (Intermediate, Verified 06/11/23 11:21) Itching Sulfa (Sulfonamide Antibiotics) Allergy (Unknown, Verified 06/11/23 11:21) ITCHING Losartan Allergy (Severe, Uncoded 06/11/23 11:21) Anaphylaxis Medication List - Last Reconciled 06/11/23 by Osei Wooten MD amlodipine 10 mg PO DAILY 90 days cholecalciferol (vitamin D3) 25 mcg PO DAILY ciprofloxacin HCl 250 mg PO BID 3 days epinephrine 0.3 mg (0.3 mL) IM Q10M PRN ezetimibe (Zetia) 10 mg PO DAILY 90 days hydrochlorothiazide 12.5 mg PO DAILY 90 days levothyroxine 50 mcg PO DAILY metformin ER 500 mg PO DAILY 30 days svdctjsaujpb-guyofein-wrbxdb 1 tab PO DAILY omega-3 fatty acids 1,000 mg PO DAILY NS Do you need a note to return to daycare/school/sports/work: No HPI EST/uti since sunday HPI Details Patient presents for a sick visit. Reports symptoms of increased frequency of urination, burning on urination and discomfort in the suprapubic area. Symptoms started in the past few days. No fevers or chills. No nausea or vomiting. [facility] Surgical History History of cataract surgery History of colonoscopy History of hysterectomy History of lumpectomy History of mastectomy History of tibial fracture Family History Mother Breast cancer Father Dementia Social History Housing: House Alcohol intake: current Alcohol intake frequency: a few times a month Alcohol type: other Patient Tobacco Use Status: Never used Tobacco e-Cigarette/Vaping Use: Never Used Second Hand Smoke Exposure: No service: No Current occupational status: employed Current occupational exposures/hazards: No Cognitive needs: No Hearing needs: No Vision needs: No Physical Exam Vital Signs: Last Vital Signs Temp 96.1 F L 06/11/23 10:33 Pulse 63 06/11/23 10:33 BP 134/62 06/11/23 10:33 Pulse Ox 98 06/11/23 10:33 Oxygen Delivery Method Room Air 06/11/23 10:33 General: Yes bladder normal to inspection, Yes bladder normal to palpation and Yes no CVA tenderness Bimanual exam- vagina & uterus: bladder normal to palpation Back/Spine/Pelvis Back: no CVA tenderness Results AMB Urinalysis, Automated UA Leukoctes 500 Renard/uL Last Edit by Bee Whitaker CMA on 06/11/23 10:38 UA Nitrite Negative Last Edit by Bee Whitaker CMA on 06/11/23 10:38 UA Urobilinogen 0.2 mg/dL Last Edit by Bee Whitaker CMA on 06/11/23 10:38 UA Protein 0 mg/dL Last Edit by Bee Whitaker CMA on 06/11/23 10:38 UA pH 7.0 Last Edit by Bee Whitaker CMA on 06/11/23 10:38 UA Blood 0 Jose/uL Last Edit by Bee Whitaker CMA on 06/11/23 10:38 UA Specific [place] 1.010 Last Edit by Bee Whitaker CMA on 06/11/23 10:38 UA Ketone Negative Last Edit by Bee Whitaker CMA on 06/11/23 10:38 UA Bilirubin 0 mg/dL Last Edit by Bee Whitaker CMA on 06/11/23 10:38 UA Glucose 0 mg/dL Last Edit by Bee Whitaker CMA on 06/11/23 10:38 Results Reviewed Results Reviewed: Laboratory Last Values Urine pH (Auto) 7.0 06/11/23 10:37 Specific [place] (Auto) 1.010 06/11/23 10:37 Urine Protein (Auto) 0 mg/dL 06/11/23 10:37 Glucose (UA)(Auto) 0 mg/dL 06/11/23 10:37 Urine Ketones (Auto) Negative 06/11/23 10:37 Urine Blood (Auto) 0 Jose/uL 06/11/23 10:37 Urine Nitrite (Auto) Negative 06/11/23 10:37 Urine Bilirubin (Auto) 0 mg/dL 06/11/23 10:37 Urine Urobilinogen (Auto) 0.2 mg/dL 06/11/23 10:37 Leukocyte Esterase (Auto) 500 Renard/uL 06/11/23 10:37 Assessment & Plan Assessment & Plan (1) Recurrent urinary tract infection: Code(s): N39.0 - Urinary tract infection, site not specified Plan: Take antibiotics and Pyridium as directed. Increase fluid intake. If symptoms of burning persist, new onset of fever or lower back pain, to follow-up at the clinic. Orders: Orders AMB Urinalysis Automated Today Z13.9 - Encounter for screening, unspecified Coding Level of Care Code Est Pt Level 3 (58375) Diagnoses Recurrent urinary tract infection N39.0
== END 2023-06-11 12:32 | disposition home or self-care (01) ==
PROVIDERS: PCP Physician Assistant; Visit Provider Internal Medicine
DX: N39.0 Urinary tract infection, site not specified (principal); R35.0 Frequency of micturition
CPT/HCPCS: 81003; 99213

== ENCOUNTER 2023-07-16 10:34 | Outpatient (AMB) | payer MEDICARE, OTHER, SELFPAY ==
--- NOTE | 2023-07-16 10:39 | A.OFFPC_ITS ---
Vital Signs 07/16/23 10:41 Height 5 ft 2 in Weight 136 lb 8 oz BMI 25.0 BP 144/68 H Blood Pressure Location Lt brachial Position Sitting Respiration 15 Pulse 60 Pulse Source Pulse Oximeter Pulse Oximetry (%) 97 Oxygen Delivery Method Room Air Intake Visit Reasons: f/u HTN/ HLD Intake Note: Patient is here to follow up on HTN AND HLD. Service Tester Required: No Accompanied by: Self / Same As Patient Allergies Eyogrkv-JBH-HoI Reductase Inhibitor Allergy (Intermediate, Verified 07/16/23 10:49) Itching Sulfa (Sulfonamide Antibiotics) Allergy (Unknown, Verified 07/16/23 10:49) ITCHING Losartan Allergy (Severe, Uncoded 07/16/23 10:43) Anaphylaxis Medication List - Last Reconciled 07/16/23 by Rehan Guillaume PA-C amlodipine 10 mg PO DAILY 90 days cholecalciferol (vitamin D3) 25 mcg PO DAILY epinephrine 0.3 mg (0.3 mL) IM Q10M PRN hydrochlorothiazide 12.5 mg PO DAILY 90 days levothyroxine 50 mcg PO DAILY metformin ER 500 mg PO DAILY 30 days dxuzakftaasg-xscnfrgo-zenwtt 1 tab PO DAILY omega-3 fatty acids 1,000 mg PO DAILY NS Tobacco use date assessed: 01/11/23 Fall risk assessment: No Falls in past year Last assessed Fall Risk: 07/16/23 Dental Screening Dental Screen Date: 07/16/23 Did you have a dental visit in the last 12 months?: Yes Did you have a dental problem in the last 6 months where you did not have access to dental care?: No Was dental information given to patient?: Patient has dentist HPI f/u HTN/ HLD HPI Details Patient is a 77-year-old female here today for follow-up visit. Patient has a past medical history significant for pre diabetes, uncontrolled hypertension, hypothyroidism, history breast cancer. Concerns--> reports having chronic left foot pain. Has seen a rock splitter in the past and was told she has a bone issue in the 5th metatarsal. Would like to reestablish care with a rock splitter for evaluation. ..Hypertension:? Has been suboptimally c ontrolled. ?.? She does monitor at times at home and does report systolic readings 140-150. She continues on amlodipine 10 mg.?. .. Impaired glucose metabolism: Most recent A1c is 6.4 , Todays A1c is 5.9.. Patient continues on metformin 500 mg ER. .. Hyperlipidemia:? Patient continues to have elevated total cholesterol and LDL.? Has not been able to tolerate statins due to GI upset and itching.? She has started using [place] threes [facility] Medical History (Updated 07/17/23 @ 07:39 by Rehan Guillaume PA-C) Recurrent urinary tract infection Surgical History History of mastectomy History of lumpectomy History of tibial fracture History of colonoscopy History of cataract surgery History of hysterectomy Family History Mother Breast cancer Father Dementia Social History Housing: House Alcohol intake: current Alcohol intake frequency: a few times a month Alcohol type: other Patient Tobacco Use Status: Never used Tobacco e-Cigarette/Vaping Use: Never Used Second Hand Smoke Exposure: No service: No Current occupational status: employed Current occupational exposures/hazards: No Cognitive needs: No Hearing needs: No Vision needs: No Questionnaire Thrive Questionnaire Date Thrive assessed: 01/11/23 ELFEGO-7 AMB Questionnaire ELFEGO-7 Date ELFEGO - 7 assessed: 01/11/23 Source: Developed by Drs. Martin Johnson, Constance Ross, Juan Garrido and colleagues, with an educational louis from [employer]. Review of Systems Const Denies headache(s) Eyes Denies loss of vision ENT Denies vertigo, Denies dizziness, Denies headache(s) and Denies sore throat Card Denies chest pain, Denies leg edema and Denies lightheadedness Resp Denies cough, Denies hemoptysis and Denies wheezing GI Denies abdominal pain, Denies melena, Denies constipation, Denies diarrhea and Denies vomiting Denies urinary frequency, Denies dysuria and Denies urinary urgency Musc Denies arthralgias, Denies joint swelling, Denies numbness and Denies tingling Neuro Denies Abnormal speech present, Denies behavioral changes, Denies vertigo, Denies dizziness, Denies headache(s), Denies loss of vision, Denies memory loss, Denies numbness and Denies tingling Psych Denies anxiety, Denies behavioral changes, Denies depression, Denies memory loss and Denies panic attacks Hal/Lymph Denies easy bleeding and Denies easy bruising Aller/Immun Denies wheezing Physical exam (Primary Care) Vital Signs: Last Vital Signs Pulse 60 07/16/23 10:41 Resp 15 07/16/23 10:41 BP 144/68 H 07/16/23 10:41 Pulse Ox 97 07/16/23 10:41 Oxygen Delivery Method Room Air 07/16/23 10:41 BMI result Body Mass Index 25.0 Tobacco/Smoking Status: Tobacco use Status Tobacco use date assessed 01/11/23 07/16/23 10:48 Patient Tobacco Use Status Never used Tobacco 07/16/23 10:48 e-Cigarette/Vaping Use Never Used 07/16/23 10:48 Thrive Assessment: Date of Thrive Assessment Date Thrive assessed 01/11/23 07/16/23 10:48 Const General: healthy appearing, no acute distress, alert and awake Nutritional Appearance: well nourished Orientation/consciousness: oriented to person, oriented to place and oriented to time HENMT Ears: TM's normal bilaterally General nose exam: Normal nasal mucous membranes and turbinates present Eyes Conjunctivae: conjunctivae normal Sclerae: sclerae normal Pupils: Equal, round and reactive pupils present Neck Neck: Yes no lymphadenopathy and Yes no JVD Thyroid: Thyroid normal Carotids: no bruits Resp Effort & Inspection: normal respiratory effort and not tachypneic Auscultation: no crackles, no rales, no rhonchi and no wheezes Cardio Rate: regular rate Rhythm: regular rhythm Heart sounds: no murmurs and normal S1 and S2 GI Palpation (GI): Soft to palpation, nontender, no hepatomegaly and no splenomegaly Auscultation: normal bowel sounds Skin General skin exam: no rashes or lesions noted and dry skin Neuro General: oriented to person, oriented to place and oriented to time Cranial nerves: Yes Equal, round and reactive pupils present Speech: No Abnormal speech present Gait exam (Neuro): Normal gait present Motor exam (neuro): no tremor noted Extrem Right upper extremity: full ROM Left upper extremity: full ROM Right lower extremity: full ROM; no edema Left lower extremity: full ROM; no edema Psych Mental Status: mental status grossly normal Speech and movement: Normal speech and movement present Affect: normal affect Attitude: cooperative Thought process: Normal thought process present Results AMB Hemoglobin A1c AMB Hemoglobin A1c 5.7 % Last Edit by MORAIMA Hampton on 07/16/23 10:50 Results Reviewed Results Reviewed: Laboratory Last Values Hgb A1c (Clinic) 5.7 % (4.0-6.0) 07/16/23 10:36 Assessment and Plan Assessment & Plan (1) HLD (hyperlipidemia): Code(s): E78.5 - Hyperlipidemia, unspecified Qualifiers: Hyperlipidemia type: mixed hyperlipidemia Qualified Code(s): E78.2 - Mixed hyperlipidemia Plan: Patient's most recent labs continues to show elevated total cholesterol. Has not been able to tolerate statin therapy. Has been using [place] threes. Again advised on lifestyle modifications of her diet to reduce high cholesterol foods. Will continue to follow lipid panel (2) Essential hypertension: Code(s): I10 - Essential (primary) hypertension Plan: Patient's blood pressure acceptable today in office. Will continue her current dose antihypertensive medication with goal blood pressure to be below 140/90 (3) Impaired glucose metabolism: Code(s): R73.09 - Other abnormal glucose Plan: Patient's A1c today of 5.9 from 6.4. Continues on metformin 500 mg daily. Will continue to follow fasting blood sugar and A1c to assure normal. (4) Arthralgia of left foot: Code(s): M25.572 - Pain in left ankle and joints of left foot Plan: Patient continues to have left foot pain particularly over her 5th toe. Has seen a rock splitter in the past and was told she needed surgery for bone issue. She would like to reestablish care with a rock splitter as she continues to have left foot pain. Has modified her shoes to wearing wider set shoes. Orders: Orders AMB Hemoglobin A1c 07/16/23 Z13.1 - Encounter for screening for diabetes mellitus TSH reflex Free T4 07/16/23 E03.9 - Hypothyroidism, unspecified Comprehensive [place]. Panel Fast 07/16/23 I10 - Essential (primary) hypertension Lipid Panel 07/16/23 E78.2 - Mixed hyperlipidemia Referrals Podiatry Referral M25.572 - Pain in left ankle and joints of left foot Coding Level of Care Code Est Pt Level 4 (89111) Diagnoses Mixed hyperlipidemia E78.2 Hyperlipidemia type: mixed hyperlipidemia Essential hypertension I10 Impaired glucose metabolism R73.09 Arthralgia of left foot M25.572
[2023-07-16 10:41] VITALS: BP 144/68; PULSE 60; RESP 15; O2SAT 97; BMI 25.0
== END 2023-07-16 11:06 | disposition home or self-care (01) ==
PROVIDERS: Visit Provider Physician Assistant
DX: R73.09 Other abnormal glucose (principal)
CPT/HCPCS: 83036; 99214

== ENCOUNTER 2023-07-18 08:15 | Outpatient (REF) | payer MEDICARE, OTHER, SELFPAY ==
[2023-07-18 12:32] LABS: Alanine Aminotransferase 15 U/L (0-31); Albumin Level 4.2 g/dL (3.5-5.0); Alkaline Phosphatase 73 U/L (39-117); Anion Gap 13 (12-20); Aspartate Amino Transferase 23 U/L (5-31); Bilirubin Total 0.4 mg/dL (0.0-1.0); Blood Urea Nitrogen 11 mg/dL (9-16); Calcium 9.7 mg/dL (8.4-10.2); Carbon Dioxide 29 mmol/L (22-29); Chloride 104 mmol/L (96-108); Cholesterol 279 mg/dL (<200); Estimated Glomerular Filt Rate 47; Glucose Fasting 133 mg/dL (60-99); HDL Cholesterol 92 mg/dL (>40); LDL Cholesterol Calculated 168 mg/dL (<100); Potassium 3.5 mmol/L (3.3-5.1); Sodium 142 mmol/L (135-145); Total Protein 7.7 g/dL (6.5-8.0); Triglycerides 96 mg/dL (<150)
[2023-07-18 12:54] LABS: TSH reflex Free T4 3.14 uIU/mL (0.32-4.0)
== END 2023-07-18 08:16 | disposition home or self-care (01) ==
LOC: HO.HMGCLDS 08:15
PROVIDERS: PCP Physician Assistant; Visit Provider Physician Assistant
DX: E03.9 Hypothyroidism, unspecified (principal); I10 Essential (primary) hypertension; E78.2 Mixed hyperlipidemia
CPT/HCPCS: 36415; 80053; 80061; 84443

== ENCOUNTER 2023-07-20 08:50 | Outpatient (AMB) | payer MEDICARE, OTHER, SELFPAY ==
--- NOTE | 2023-07-20 08:51 | A.OFFVIS_ITS ---
Intake Intake Visit Reasons: recurrent UTIs Intake Note: New pt seen in office today for recurrent UTI's. Accompanied by: Self / Same As Patient Allergies Bqxsnos-TRN-NrA Reductase Inhibitor Allergy (Intermediate, Verified 07/20/23 08:55) Itching Sulfa (Sulfonamide Antibiotics) Allergy (Unknown, Verified 07/20/23 08:55) ITCHING Losartan Allergy (Severe, Uncoded 07/20/23 08:55) Anaphylaxis HPI HPI Comments History of Present Illness Details Lizzeth is a 77-year-old female who presents today to the office to establish as a new patient for an evaluation of recurrent urinary tract infections. 07/20/2023? She presents today for an evaluation of recurrent urinary tract infections. She has seen Edwin Sparks for urinary tract infections. She was advised to take antibiotics and Pyridium as directed during that time. She states that she had urinary tract infections in the past. She denies any burning sensation while urination today. She has not been taking Pyridium. Patient has a history of total vaginal hysterectomy, apical repair, with left uterosacral ligament suspension and right sacrospinous ligament suspen, with midurethral sling TVT done on 11/18/2017. She states about a week later they had to reoperate to loosen the sling as she was in retention. Currently she is asymptomatic, denies dysuria, urgency. urine is nitrite positive I have discussed sending urine for Microgen I reviewed the urine culture results from 05/30/2023 which came back Enteroc occus faecalis? > 100,000 cfu/mL. Bladder scan PVR today 0 mL. Plan: Will send urine for culture and Microgen US of the kidneys was ordered. Follow-up in office Cystoscopy in 1 month. [facility] Medical History (Updated 07/20/23 @ 10:13 by Tina Vela MD) Recurrent urinary tract infection Surgical History History of mastectomy History of lumpectomy History of tibial fracture History of colonoscopy History of cataract surgery History of hysterectomy Family History Mother Breast cancer Father Dementia Social History Housing: House Alcohol intake: current Alcohol intake frequency: a few times a month Alcohol type: other Patient Tobacco Use Status: Never used Tobacco e-Cigarette/Vaping Use: Never Used Second Hand Smoke Exposure: No service: No Current occupational status: employed Current occupational exposures/hazards: No Cognitive needs: No Hearing needs: No Vision needs: No Review of Systems Const All systems reviewed & are unremarkable except as noted in HPI and below Reports no additional complaints Eyes Reports no additional complaints ENT Reports no additional complaints Card Denies dyspnea Resp Denies cough and Denies dyspnea GI Reports no additional complaints Reports no additional complaints Musc Reports no additional complaints Skin/Breast Denies rash and Denies unusual bruising Neuro Reports no additional complaints Psych Reports no additional complaints Endo Reports no additional complaints Hal/Lymph Reports no additional complaints Aller/Immun Reports no additional complaints Physical Exam Const General: cooperative, healthy appearing and no acute distress Orientation/consciousness: patient oriented x3 HEENT Head: Yes normal to inspection, Yes normocephalic and Yes atraumatic Eyes Conjunctivae: conjunctivae normal Neck Neck: Yes normal visual inspection and Yes trachea midline Chest Chest palpation & inspection: normal inspection of the chest Resp Effort & Inspection: normal respiratory effort Cardio Rate: regular rate GI Inspection: Yes normal to inspection Palpation (GI): Soft to palpation Skin General skin exam: no rashes or lesions noted Neuro General: patient oriented x3 Extrem General: No edema Psych Appearance: grossly normal Office Procedures Post Void Residual Post Residual Void Post Void Residual (PVR): 0 12001-[id number] Void Residual by ultrasound Results AMB Urinalysis, Automated UA Leukoctes 500 Renard/uL Last Edit by MORAIMA Rodriguez on 07/20/23 09:12 UA Nitrite Positive Last Edit by MORAIMA Rodriguez on 07/20/23 09: 12 UA Urobilinogen 0.2 mg/dL Last Edit by MORAIMA Rodriguez on 3 09:12 UA Protein 0 mg/dL Last Edit by MORAIMA Rodriguez on 07/20/23 09:12 UA pH 6.0 Last Edit by MORAIMA Rodriguez on 07/20/23 09:12 UA Blood 0 Jose/uL Last Edit by MORAIMA Rodriguez on 07/20/23 09:12 UA Specific [place] 1.010 Last Edit by Clare Pagan MORAIMA on 09:12 UA Ketone Negative Last Edit by Clare Pagan MORAIMA on 07/20/23 09:1 2 UA Bilirubin 0 mg/dL Last Edit by Clare Pagan MOARIMA on 07/20/23 09: 12 UA Glucose 0 mg/dL Last Edit by Clare Luoca [facility] on 07/20/23 09:12 Results Reviewed Results Reviewed: Laboratory Last Values Urine pH (Auto) 6.0 07/20/23 09:03 Specific [place] (Auto) 1.010 07/20/23 09:03 Urine Protein (Auto) 0 mg/dL 07/20/23 09:03 Glucose (UA)(Auto) 0 mg/dL 07/20/23 09:03 Urine Ketones (Auto) Negative 07/20/23 09:03 Urine Blood (Auto) 0 Jose/uL 07/20/23 09:03 Urine Nitrite (Auto) Positive 07/20/23 09:03 Urine Bilirubin (Auto) 0 mg/dL 07/20/23 09:03 Urine Urobilinogen (Auto) 0.2 mg/dL 07/20/23 09:03 Leukocyte Esterase (Auto) 500 Renard/uL 07/20/23 09:03 Ordered:? Urine Culture? Procedure?Result?Verified?Site ? Urine Culture? Final?06/01/23 ? ? ?Organism 1?Enterococcus faecalis ? Quant?> 100,000 cfu/mL ? E faecalis? M.I.C.? ? RX? --------- ---?Ampicillin?<=2? S?Levofloxacin?0.5? S?Nitrofurantoin?<=16?S?Tetracycline?>=16?R?Vancomycin?1? S? ? ? Assessment & Plan Assessment & Plan (1) Recurrent urinary tract infection: Code(s): N39.0 - Urinary tract infection, site not specified (2) Cystitis: Code(s): N30.90 - Cystitis, unspecified without hematuria Plan Will send urine for culture. US of the kidneys was ordered. Follow-up in office Cystoscopy in 1 month. Orders: Orders AMB Post Void Residual by ultrasound Today Z13.9 - Encounter for screening, unspecified AMB Urinalysis Automated Today Z13.9 - Encounter for screening, unspecified Patient Instructions: The patient had an opportunity to ask questions regarding treatment plan. All questions were answered. Imaging, Laboratory studies and physical exam results were discussed and reviewed in detail. No major barriers to understanding were identified. The patient expressed understanding and agreement with the above treatment plan.? ? ? The patient is aware they should contact our office by phone for worsening of their current condition or the appearance of new symptoms. Compliance is encouraged with any medications and followup testing that is ordered.? ? ? It is a privilege to be allowed the opportunity to participate in the urologic care of your patient. If you have any questions or concerns regarding treatment for the above conditions please do not hesitate to contact me. The office telephone contact is [phone].? ? ? This note is constructed in part using voice recognition software. While every e ffort has been made to ensure accuracy jute bag clipper errors may have been included.? ? ? Yours sincerely,? ? ? Tina Vela MD? ? ? Coding Level of Care Code New Pt Level 4 (88224) Diagnoses Recurrent urinary tract infection N39.0 Cystitis N30.90 CPT Codes Post Residual Void - PVR CPT Code: 46712-Tpyf Void Residual by ultrasound ([id number])
== END 2023-07-20 10:19 | disposition home or self-care (01) ==
PROVIDERS: PCP Physician Assistant; Visit Provider Urology
DX: N39.0 Urinary tract infection, site not specified (principal); N30.90 Cystitis, unspecified without hematuria; Z13.9 Encounter for screening, unspecified
CPT/HCPCS: 99204

== ENCOUNTER 2023-07-20 08:50 | Outpatient (REF) | payer MEDICARE, OTHER, SELFPAY | END 2023-07-20 08:51 | disposition home or self-care (01) | LOC: HO.LNP 08:50 | PROVIDERS: PCP Physician Assistant; Visit Provider Urology | DX: N30.90 Cystitis, unspecified without hematuria (principal) | CPT/HCPCS: 51798; 81003; 87086; 87088; 87186 ==

== ENCOUNTER 2023-08-03 09:35 | Outpatient (REF) | payer MEDICARE, OTHER, SELFPAY ==
--- NOTE | ~2023-08-03 | US_ITS ---
EXAMINATION: US RETROPERITONEAL LIMITED (RENAL ONLY) CLINICAL INFORMATION: Cystitis, unspecified without hematuria. COMPARISON: Ultrasound abdomen complete 07/04/2018. TECHNIQUE: Real-time imaging of the kidneys. FINDINGS: RIGHT KIDNEY: 8.2 x 5.5 x 5.0 cm (SAG x AP x TRV). The kidney is normal in size, contour, and echogenicity. There are persistent lobulations. Renal cortical thickness is normal. No calculi or focal parenchymal lesions. No hydronephrosis. LEFT KIDNEY: 9.4 x 5.9 x 5.0 cm (SAG x AP x TRV). The kidney is normal in size, contour, and echogenicity. There are persistent lobulations. Renal cortical thickness is normal. No calculi or focal parenchymal lesions. There is mild pelviectasis, without adore hydronephrosis. US/US renal BI IMPRESSION: Unremarkable examination.
== END 2023-08-03 09:36 | disposition home or self-care (01) ==
LOC: HO.HMGCX 09:35
PROVIDERS: PCP Physician Assistant; Visit Provider Urology
DX: N30.90 Cystitis, unspecified without hematuria (principal)
CPT/HCPCS: 76775

== ENCOUNTER 2023-08-22 10:14 | Outpatient (AMB) | payer MEDICARE, OTHER, SELFPAY ==
--- NOTE | 2023-08-22 10:16 | A.OFFVIS_ITS ---
Intake Intake Visit Reasons: 1m/cysto/US Intake Note: Patient presents today for a CYSTOSCOPY Procedure: US Booked for 08/03/2023. Meds: Nitro & Augmentin Allergies to Antibiotic: Sulfa Blood Thinner: None Urinalysis test cleared for Cysto Disposable Uro-G Cystoscope Cannula: Lot: [id number] Exp: 03/18/2025 Allergies Jghlqkx-BWW-AiI Reductase Inhibitor Allergy (Intermediate, Verified 07/20/23 08:55) Itching Sulfa (Sulfonamide Antibiotics) Allergy (Unknown, Verified 07/20/23 08:55) ITCHING Losartan Allergy (Severe, Uncoded 07/20/23 08:55) Anaphylaxis Medication List - Last Reconciled 08/22/23 by Tina Vela MD amlodipine 10 mg PO DAILY 90 days amoxicillin-pot clavulanate 500-125 mg (Augmentin) 1 tab PO BID 5 days cholecalciferol (vitamin D3) 25 mcg PO DAILY cranberry extract 425 mg orally one to 2 x daily with meals; administer with meals doxycycline hyclate 100 mg PO BID 5 days epinephrine 0.3 mg (0.3 mL) IM Q10M PRN hydrochlorothiazide 12.5 mg PO DAILY 90 days levothyroxine 50 mcg PO DAILY metformin ER 500 mg PO DAILY 30 days mztzswiiykjk-uhhyngxx-ygwxbe 1 tab PO DAILY nitrofurantoin monohyd/m-cryst 100 mg (Macrobid) 100 mg PO BID 7 days omega-3 fatty acids 1,000 mg PO DAILY NS HPI HPI Comments History of Present Illness Details Lizzeth is a 77-year-old female who presents today to the office for a follow-up. 08/22/23? She is followed today for a Cystoscopy procedure. She was last seen by me on 07/20/23 for cystitis.? Urine for culture and Microgen was sent at that time. US of the kidneys was ordered and she was advised to follow-up in office Cystoscopy. The Patient has a history of total vaginal hysterectomy, apical repair, with left uterosacral ligament suspension and right sacrospinous ligament suspen, with midurethral sling TVT done on 11/18/2017. She states about a week later they had to reoperate to loosen the sling as she was in retention. I reviewed the renal US results from 08/03/23 revealed? no calculi or focal parenchymal lesions.? I reviewed the urine culture results from 07/20/23 which came back Escherichia coli > 100,000 cfu/mL. 08/22/23: Cystoscopy procedure: Consent was obtained for cystoscopy procedure. Cystoscopy findings: Urethral meatus was tight and required urethral dilation, it was dilated from 14 [place] to 20 [place]; bladder was visualized; there was no suspicious bladder lesions noted; there was no mesh visualized in the bladder, on the left lateral wall there were some changes of the bladder wall to small diverticuli. Review of charts: Last visit: 07/20/2023? reviewed the urine culture results from 05/30/2023 which came back Enterococcus faecalis? > 100,000 cfu/mL. Bladder scan PVR today 0 mL. 08/22/23: Plan: I will empirically place her on Doxycycline 100 mg BID for 5 days due to urethral dilation. Pt has history of breast cancer and I will hold on any estrogen therapy. Empirically start her on cranberry supplementation. Follow up in 3 months. [facility] Medical History (Updated 08/30/23 @ 20:46 by Tina Vela MD) Recurrent urinary tract infection Surgical History History of mastectomy History of lumpectomy History of tibial fracture History of colonoscopy History of cataract surgery History of hysterectomy Family History Mother Breast cancer Father Dementia Social History Housing: House Alcohol intake: current Alcohol intake frequency: a few times a month Alcohol type: other Patient Tobacco Use Status: Never used Tobacco e-Cigarette/Vaping Use: Never Used Second Hand Smoke Exposure: No service: No Current occupational status: employed Current occupational exposures/hazards: No Cognitive needs: No Hearing needs: No Vision needs: No Office Procedures Cystoscopy Consent Discussed risk and benefit or proposed procedure with the patient. Information consent for procedure given to the patient. Discussed technical aspects, risks, benefits and alternatives in full. Addressed all of the patient's questions and concerns regarding the procedure. The patient demonstrated knowledge and understanding. They wish to proceed with this procedure. Preparation The patient was prepped in the usual manner. A asbestos siding installer was present and in the room. Genitalia was prepped with betadine solution in a sterile manner. Lidocaine Jelly 2% was placed into the urethra and 16Fr flexible Olympus cystoscope was inserted into the meatus after adequate lubrication. Procedure Time out per protocol performed. Bladder Inspection Bladder Inspection: The bladder was inspected in its entirety with utilization retroflexion displaying: Tumor(s): none Trabeculation: mild Mucosal Erthema: N/A Orifices: normal shape and position Urethra: normal Cystoscopy findings: Urethral meatus was tight and required urethral dilation, it was dilated from 14 [place] to 20 [place]; bladder was visualized; there was no suspicious bladder lesions noted; there was no mesh visualized in the bladder, on the left lateral wall there were some changes of the bladder wall to small diverticuli. [id number] DISPOSABLE SCOPE URO-G FLEXIBLE SCOPE Procedure code (CPT) selection complete Office Meds lidocaine HCl 2 % mucosal jelly in applicator Performing Provider: Tina Vela MD [place] [facility] [place] [facility] [place] [facility] Administered by: Arian Bowden LPN on 08/22/23 10:58 Dose Route Admin Location Dispensed Lot Number Expiration Date ND Research Statistician 10 mL intra-urethral 20 mL naproxen 500 mg tablet Performing Provider: Tina Vela MD Performing Location: [facility] [place] [place] [facility] Administered by: Arian Bowden LPN on 08/22/23 10:58 Dose Route Admin Location Dispensed Lot Number Expiration Date ND Research Statistician 500 mg PO 1 tab ciprofloxacin HCl 500 mg tablet Performing Provider: Tina Vela MD Performing Location: [facility] [place] [facility] Administered by: Arian Bowden LPN on 08/22/23 10:58 Dose Route Admin Location Dispensed Lot Number Expiration Date ND Research Statistician 500 mg PO 1 tab Results AMB Urinalysis, Automated UA Leukoctes 0 Renard/uL Last Edit by JOSE Harkins on 08/22/23 10:50 UA Nitrite Negative Last Edit by Agustina Calvo, RMA on 08/22/23 10:50 UA Urobilinogen 0.2 mg/dL Last Edit by Agustina Calvo, RMA on 08/22/23 10:5 0 UA Protein 0 mg/dL Last Edit by Agustina Calvo, RMA on 08/22/23 10:50 UA pH 6.5 Last Edit by Agustina Calvo, RMA on 08/22/23 10:50 UA Blood 0 Jose/uL Last Edit by Agustina Calvo, RMA on 08/22/23 10:50 UA Specific [place] 1.010 Last Edit by Agustina Calvo, A on 08/22/23 10: 50 UA Ketone Negative Last Edit by Agustina Calvo, RMA on 08/22/23 10:50 UA Bilirubin 0 mg/dL Last Edit by Agustina Calvo, A on 08/22/23 10:50 UA Glucose 0 mg/dL Last Edit by Agustina Calvo, A on 08/22/23 10:50 Results Reviewed Results Reviewed: Laboratory Last Values Urine pH (Auto) 6.5 08/22/23 10:49 Specific [place] (Auto) 1.010 08/22/23 10:49 Urine Protein (Auto) 0 mg/dL 08/22/23 10:49 Glucose (UA)(Auto) 0 mg/dL 08/22/23 10:49 Urine Ketones (Auto) Negative 08/22/23 10:49 Urine Blood (Auto) 0 Jose/uL 08/22/23 10:49 Urine Nitrite (Auto) Negative 08/22/23 10:49 Urine Bilirubin (Auto) 0 mg/dL 08/22/23 10:49 Urine Urobilinogen (Auto) 0.2 mg/dL 08/22/23 10:49 Leukocyte Esterase (Auto) 0 Renard/uL 08/22/23 10:49 Ordered:? Urine Culture? Procedure?Result?Verified?Site ? Urine Culture? Final?07/22/23-834 ? ? ?Organism 1?Escherichia coli ? Quant?> 100,000 cfu/mL ? E coli? M.I.C.? ? RX? --------- ---?Ampicillin?8? S?Ceftriaxone? <=0.25? ? ?S?Gentamicin?<=1? S?Levofloxacin?>=8? R?Nitrofurantoin?<=16?S?Trimethoprim/Sulfamethoxazole? >=320? ? ? R?? Date of Service: 08/03/23 EXAMINATION:? US RETROPERITONEAL LIMITED (RENAL ONLY) CLINICAL INFORMATION: Cystitis, unspecified without hematuria. COMPARISON:? Ultrasound abdomen complete 07/04/2018. FINDINGS: RIGHT KIDNEY: 8.2 x 5.5 x 5.0 cm (SAG x AP x TRV). The kidney is normal in size, contour, and echogenicity. There are persistent lobulations. Renal cortical thickness is normal. No calculi or focal parenchymal lesions. No hydronephrosis. LEFT KIDNEY: 9.4 x 5.9 x 5.0 cm (SAG x AP x TRV). The kidney is normal in size, contour, and echogenicity. There are persistent lobulations. Renal cortical thickness is normal. No calculi or focal parenchymal lesions. There is mild pelviectasis, without adore hydronephrosis. IMPRESSION:? Unremarkable examination. 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 Pt has history of breast cancer and I will hold on any estrogen therapy. Empirically start her on cranberry supplementation. Follow up in 3 months. Orders: Orders AMB Urinalysis Automated 08/22/23 Z13.9 - Encounter for screening, unspecified AMB Cystoscopy 08/22/23 N30.90 - Cystitis, unspecified without hematuria Medications: New doxycycline hyclate 100 mg PO BID 10 tabs 0RF 5 days cranberry extract 425 mg orally one to 2 x daily with meals; administer with meals 60 caps 3RF Patient Instructions: The patient had an opportunity to ask questions regarding treatment plan. All questions were answered. Imaging, Laboratory studies and physical exam results were discussed and reviewed in detail. No major barriers to understanding were identified. The patient expressed understanding and agreement with the above treatment plan.? ? ? The patient is aware they should contact our office by phone for worsening of their current condition or the appearance of new symptoms. Compliance is encouraged with any medications and followup testing that is ordered.? ? ? It is a privilege to be allowed the opportunity to participate in the urologic care of your patient. If you have any questions or concerns regarding treatment for the above conditions please do not hesitate to contact me. The office telephone contact is [phone].? ? ? This note is constructed in part using voice recognition software. While every effort has been made to ensure accuracy typesetting supervisor errors may have been included.? ? ? Yours sincerely,? ? ? Tina Vela MD? ? 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
== END 2023-08-22 11:50 | disposition home or self-care (01) ==
PROVIDERS: PCP Physician Assistant; Visit Provider Urology
DX: N30.90 Cystitis, unspecified without hematuria (principal); Z13.9 Encounter for screening, unspecified
CPT/HCPCS: 52000

== ENCOUNTER → 2023-08-22 10:14 | Outpatient (BNVA) | payer MEDICARE, OTHER, SELFPAY | PROVIDERS: PCP Physician Assistant; Visit Provider Urology | DX: N39.0 Urinary tract infection, site not specified (principal); N30.90 Cystitis, unspecified without hematuria; Q64.31 Congenital bladder neck obstruction | CPT/HCPCS: 52000; 81003 ==

== ENCOUNTER 2023-09-20 08:54 | Outpatient (REF) | payer MEDICARE, OTHER, SELFPAY ==
[2023-09-20 11:16] LABS: Hemoglobin 13.4 g/dl (12.0-16.0); Mean Corpuscular HGB Conc 34.4 g/dl (31.0-35.0); Mean Corpuscular Hemoglobin 30.2 pg (27.0-33.0); Mean Corpuscular Volume 87.8 fL (80.0-98.0); Mean Platelet Volume 9.6 fL (9.4-12.3); Platelet Count 348 X10*3/uL (160-400); Red Blood Count 4.44 X10*6/uL (4.20-5.50); Red Cell Distribution Width 13.6 % (11.0-16.0); White Blood Count 4.1 X10*3/uL (4.8-10.8)
[2023-09-20 11:54] LABS: Alanine Aminotransferase 22 U/L (0-31); Albumin Level 4.4 g/dL (3.5-5.0); Alkaline Phosphatase 78 U/L (39-117); Anion Gap 13 (12-20); Aspartate Amino Transferase 31 U/L (5-31); Bilirubin Total 0.6 mg/dL (0.0-1.0); Blood Urea Nitrogen 10 mg/dL (9-16); Calcium 9.6 mg/dL (8.4-10.2); Carbon Dioxide 29 mmol/L (22-29); Chloride 101 mmol/L (96-108); Cholesterol 289 mg/dL (<200); Estimated Glomerular Filt Rate 50; Glucose Fasting 130 mg/dL (60-99); HDL Cholesterol 96 mg/dL (>40); LDL Cholesterol Calculated 176 mg/dL (<100); Potassium 3.3 mmol/L (3.3-5.1); Sodium 140 mmol/L (135-145); Total Protein 8.1 g/dL (6.5-8.0); Triglycerides 88 mg/dL (<150)
[2023-09-20 11:56] LABS: TSH reflex Free T4 2.26 uIU/mL (0.32-4.0)
[2023-09-20 17:04] LABS: Creatinine Urine 86.07 mg/dL
== END 2023-09-20 08:55 | disposition home or self-care (01) ==
LOC: HO.HMGCLDS 08:54
PROVIDERS: PCP Physician Assistant; Visit Provider Physician Assistant
DX: Z13.89 Encounter for screening for other disorder (principal)
CPT/HCPCS: 36415; 80053; 80061; 82043; 82570; 84443; 85027

== ENCOUNTER 2023-09-20 11:03 | Outpatient (AMB) | payer MEDICARE, OTHER, SELFPAY ==
[2023-09-20 11:33] VITALS: BP 150/82; PULSE 77; O2SAT 98; BMI 24.9
--- NOTE | 2023-09-20 11:33 | A.OFFPC_ITS ---
Vital Signs 09/20/23 11:33 Height 5 ft 2 in Weight 136 lb BMI 24.9 BP 150/82 H Blood Pressure Location Lt brachial Position Sitting Pulse 77 Pulse Source Pulse Oximeter Pulse Oximetry (%) 98 Oxygen Delivery Method Room Air Intake Visit Reasons: 10/03 hammer toe repair/ exostectomy surgery Allergies Peqmebv-ZGJ-YlY Reductase Inhibitor Allergy (Intermediate, Verified 09/20/23 11:34) Itching Sulfa (Sulfonamide Antibiotics) Allergy (Unknown, Verified 09/20/23 11:34) ITCHING Losartan Allergy (Severe, Uncoded 09/20/23 11:34) Anaphylaxis Medication List - Last Reconciled 09/20/23 by Prabhjot Flores MD amlodipine 10 mg PO DAILY 90 days cholecalciferol (vitamin D3) 25 mcg PO DAILY cranberry extract 425 mg orally one to 2 x daily with meals; administer with meals epinephrine 0.3 mg (0.3 mL) IM Q10M PRN hydrochlorothiazide 12.5 mg PO DAILY 90 days levothyroxine 50 mcg PO DAILY metformin ER 500 mg PO DAILY 30 days iqjfdbjgoxtr-nwrmxsji-pxzjix 1 tab PO DAILY omega-3 fatty acids 1,000 mg PO DAILY NS Tobacco use date assessed: 01/11/23 Fall risk assessment: No Falls in past year Last assessed Fall Risk: 09/20/23 Dental Screening Dental Screen Date: 09/20/23 Did you have a dental visit in the last 12 months?: Yes Did you have a dental problem in the last 6 months where you did not have access to dental care?: No Was dental information given to patient?: Patient has dentist HPI 10/03 hammer toe repair/ exostectomy surgery HPI Details 77-year-old female with a history of hyp ertension impaired glucose tolerance hypothyroidism left breast cancer status post mastectomy hammertoe hy percholesterolemia coming in for follow-up today. This is the 1st time I am seeing the patient. Patient follows up with urology following cystoscopy history of vaginal hysterectomy noted to have urethral Najma jacob type and dilatation done no suspicious lesions. pre op planned surgery L foot surgery 10/03/2023 Dr. Florina Clarke podiatry. 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 Cystitis Arthralgia of left foot Strain of left biceps Pre-op evaluation Right shoulder pain Pre-diabetes Recurrent urinary tract infection Surgical History History of mastectomy History of lumpectomy History of tibial fracture History of colonoscopy History of cataract surgery History of hysterectomy Family History Mother Breast cancer Father Dementia Social History (Updated 09/20/23 @ 12:20 by Prabhjot Flores MD) Housing: House Alcohol intake: current Alcohol intake frequency: a few times a month Alcohol type: other Patient Tobacco Use Status: Never used Tobacco e-Cigarette/Vaping Use: Never Used Second Hand Smoke Exposure: No service: No Current occupational status: employed Current occupational exposures/hazards: No Cognitive needs: No Hearing needs: No Vision needs: No Questionnaire PHQ-9 Over the last 2 weeks, how often have you been bothered by any of the following problems? 1. Little interest or pleasure in doing things: not at all 2. Feeling down, depressed, or hopeless: not at all 3. Trouble falling or staying asleep, or sleeping too much: not at all 4. Feeling tired or having little energy: not at all 5. Poor appetite or overeating: not at all 6. Feeling bad about yourself - or that you are a failure or have let yourself or your family down: not at all 7. Trouble concentrating on things, such as reading the newspaper or watching television: not at all 8. Moving or speaking so slowly that other people could have noticed. Or the opposite - being so fidgety or restless that you have been moving around a lot more than usual: not at all 9. Thoughts that you would be better off or of hurting yourself in some w ay: not at all Total score: 0 Depression Screening Interpretation: Negative Depression Screening Done: Yes 68035 - PHQ-9 Billing: Yes Source: Developed by Drs. Martin Johnson, Constance Ross, Juan Garrido and colleagues, with an educational louis from [employer]. Thrive Questionnaire Date Thrive assessed: 01/11/23 AUDIT C Alcohol Use Questionnaire (AUDIT-C) 1. How often do you have a drink containing alcohol?: Never 3. How often do you have six or more drinks on one occasion?: Never Total Score: 0 ELFEGO-7 AMB Questionnaire ELFEGO-7 Date ELFEGO - 7 assessed: 01/11/23 Source: Developed by Drs. Martin Johnson, Constance Ross, Juan Garrido and colleagues, with an educational luois from [employer]. Review of Systems Const Denies poor appetite and Denies weakness Eyes Denies no additional complaints ENT Reports Normal hearing present, Denies dizziness, Denies nasal congestion, D enies tinnitus and Denies sore throat Card Denies chest pain, Denies syncope, Denies rapid heart rate and Denies dyspnea Resp Denies cough and Denies dyspnea GI Denies change in stool character, Reports constipation, Denies diarrhea, Denies nausea and Denies vomiting Denies urinary frequency, Denies difficulty voiding and Denies dysuria Neuro Reports Normal hearing present, Denies confusion, Denies dizziness, Denies syncope and Denies weakness Psych Denies confusion Physical exam (Primary Care) Vital Signs: Last Vital Signs Pulse 77 09/20/23 11:33 BP 150/82 H 09/20/23 11:33 Pulse Ox 98 09/20/23 11:33 Oxygen Delivery Method Room Air 09/20/23 11:33 BMI result Body Mass Index 24.9 Tobacco/Smoking Status: Tobacco use Status Tobacco use date assessed 01/11/23 09/20/23 11:35 Patient Tobacco Use Status Never used Tobacco 09/20/23 12:20 e-Cigarette/Vaping Use Never Used 09/20/23 12:20 PHQ-9: PHQ-9 Score PHQ-9: Total score 0 09/20/23 18:55 Depression Screening Interpretation: Negative Thrive Assessment: Date of Thrive Assessment Date Thrive assessed 01/11/23 09/20/23 11:35 Const General: alert; No acute distress or confusion Orientation/consciousness: No confusion Eyes Conjunctivae: conjunctivae normal Resp Auscultation: clear to auscultation bilaterally Cardio Rate: regular rate Rhythm: regular rhythm GI Inspection: Yes normal to inspection Neuro General: No confusion Cranial nerves: Yes Normal hearing present Extrem General: Yes normal to inspection and No edema Assessment and Plan Assessment & Plan (1) Preop exam for internal medicine: Code(s): Z01.818 - Encounter for other preprocedural examination Plan: Patient with the age belong to the intermediate risk group for any cardiac complications. Blood work evaluated, ekg pending (2) Impaired glucose metabolism: Code(s): R73.09 - Other abnormal glucose Plan: Decrease the amount of carbohydrate intake, pasta, bread, rice and potatoes are all sugar and that is aside from all the sweet stuff, remember that fruits are good but they are Sweet also. Discussed with the patient the hemoglobin A1c as well as the metformin medication (3) HLD (hyperlipidemia): Code(s): E78.5 - Hyperlipidemia, unspecified Qualifiers: Hyperlipidemia type: mixed hyperlipidemia Qualified Code(s): E78.2 - Mixed hyperlipidemia Plan: Avoid fried foods, chicken skin, eggs, butter margarine, pastries and meat. Be it pork or beef they have a lot of cholesterol LDL goal of less than 130 and patient's number is very high at 176 again discussed about diet as patient is statin intolerant and declined taking the Zetia (4) Hx of hammer toe correction: Comment: implant and arthroplast of right foot in 03/2001 Code(s): Z98.890 - Other specified postprocedural states; Z87.39 - Personal history of other diseases of the musculoskeletal system and connective tissue Plan: EKG result pending (5) Hypothyroidism: Code(s): E03.9 - Hypothyroidism, unspecified Qualifiers: Hypothyroidism type: unspecified Qualified Code(s): E03.9 - Hypothyroidism, unspecified Plan: Continue with thyroid medication (6) Essential hypertension: Code(s): I10 - Essential (primary) hypertension Plan: Continue with blood pressure medication. Decrease salt intake and exercise patient was advised to take the blood pressure medication and continue to monitor at home. Patient states blood pressure at home is controlled. Orders: Orders ECG 12 lead EKG Today Z01.818 - Encounter for other preprocedural examination Medications: Changed From metformin ER 500 mg PO DAILY 30 days 30 tabs 3RF R73.03 - Prediabetes To metformin ER 500 mg PO DAILY 90 tabs 3RF 90 days R73.03 - Prediabetes Coding Level of Care Code Est Pt Level 4 (59443) Diagnoses Preop exam for internal medicine Z01.818 Impaired glucose metabolism R73.09 Mixed hyperlipidemia E78.2 Hyperlipidemia type: mixed hyperlipidemia Hx of hammer toe correction Z98.890; Z87.39 Hypothyroidism, unspecified type E03.9 Hypothyroidism type: unspecified Essential hypertension I10
== END 2023-09-20 12:35 | disposition home or self-care (01) ==
PROVIDERS: PCP Physician Assistant; Visit Provider Internal Medicine
DX: Z01.818 Encounter for other preprocedural examination (principal); R73.09 Other abnormal glucose; E78.2 Mixed hyperlipidemia; Z98.890 Other specified postprocedural states; Z87.39 Personal history of other diseases of the musculoskeletal system and connective tissue; E03.9 Hypothyroidism, unspecified; I10 Essential (primary) hypertension
CPT/HCPCS: 99214

== ENCOUNTER → 2023-09-20 13:43 | Outpatient (REF) | payer MEDICARE, OTHER, SELFPAY ==
--- NOTE | 2023-09-20 13:50 | ECG_ITS ---
Test Reason : preop Blood Pressure : / mmHG Vent. Rate : 070 BPM Atrial Rate : 070 BPM P-R Int : 202 ms QRS Dur : 090 ms QT Int : 410 ms P-R-T Axes : 090 021 086 degrees QTc Int : 442 ms Normal sinus rhythm Nonspecific ST abnormality Inferior leads Lateral leads Nonspecific T wave abnormality Abnormal ECG When compared with ECG of 06-FEB-2023 10:09, Nonspecific T wave abnormality, worse in Lateral leads Referred By: Prabhjot Flores Electronically Signed By:LOLIS BRUNO MD
== END ==
LOC: HO.CARD 13:43
PROVIDERS: PCP Internal Medicine; Visit Provider Internal Medicine
DX: Z01.818 Encounter for other preprocedural examination (principal)
CPT/HCPCS: 36415; 80053; 80061; 82043; 82570; 84443; 85027; 93005

== ENCOUNTER 2023-11-23 13:30 | Outpatient (AMB) | payer MEDICARE, OTHER, SELFPAY ==
--- NOTE | 2023-11-23 13:57 | MHC.OFFVIS ---
Intake Intake Visit Reasons: 3m/recuurent UTIs Intake Note: Patient presents today for a follow-up on: Recurrent UTI's Meds- none Allergies to Antibiotic- Sulfa Blood Thinner- None Patient Symptoms: Patient stated finished taking AZO and and is doing very well. 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 Accompanied by: Self / Same As Patient Allergies Ogqqkat-END-FdW Reductase Inhibitor Allergy (Intermediate, Verified 09/20/23 11:34) Itching Sulfa (Sulfonamide Antibiotics) Allergy (Unknown, Verified 09/20/23 11:34) ITCHING Losartan Allergy (Severe, Uncoded 09/20/23 11:34) Anaphylaxis Medication List - Last Reconciled 11/23/23 by Tina Vela MD amlodipine 10 mg PO DAILY 90 days cholecalciferol (vitamin D3) 25 mcg PO DAILY cranberry extract 425 mg orally one to 2 x daily with meals; administer with meals epinephrine 0.3 mg (0.3 mL) IM Q10M PRN ezetimibe (Zetia) 10 mg PO DAILY 90 days hydrochlorothiazide 12.5 mg PO DAILY 90 days levothyroxine 50 mcg PO DAILY metformin ER 500 mg PO DAILY 90 days jjkggbvhcnjz-mqcedsil-bqdjav 1 tab PO DAILY omega-3 fatty acids 1,000 mg PO DAILY NS HPI HPI Comments History of Present Illness Details Lizzeth is a 77-year-old female who presents today to the office for a follow-up. 11/23/23- - Lizzeth states she is doing well. Denies recurrent UTI symptoms. She ran out of cranberry and had a problem getting it refilled, she has changed her insurance coverage. I will still send a new script but if it is not covered she will get it OTC. Review of chart: 08/22/23? She is followed today for a Cystoscopy procedure. She was last seen by me on 07/20/23 for cystitis.? The Patient has a history of total vaginal hysterectomy, apical repair, with left uterosacral ligament suspension and right sacrospinous ligament suspen, with midurethral sling TVT done on 11/18/2017. She states about a week later they had to re-operate to loosen the sling as she was in retention. 08/22/23: Cystoscopy findings: Urethral meatus was tight and required urethral dilation, it was dilated from 14 Beninese to 20 [place]; bladder was visualized; there was no suspicious bladder lesions noted; there was no mesh visualized in the bladder, on the left lateral wall there were some changes of the bladder wall to small diverticuli. US results from 08/03/23 revealed? no calculi or focal parenchymal lesions.? Urine culture results from 07/20/23 which came back Escherichia coli > 100,000 cfu/mL. Urine culture results from 05/30/2023 which came back Enterococcus faecalis? > 100,000 cfu/mL. 08/22/23: Plan: I will empirically place her on Doxycycline 100 mg BID for 5 days due to urethral dilation. Pt has history of breast cancer and I will hold on any estrogen therapy. Empirically start her on cranberry supplementation. Follow up in 3 months. 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 Cystitis Arthralgia of left foot Strain of left biceps Pre-op evaluation Right shoulder pain Pre-diabetes Recurrent urinary tract infection Surgical History History of mastectomy History of lumpectomy History of tibial fracture History of colonoscopy History of cataract surgery History of hysterectomy Family History Mother Breast cancer Father Dementia Social History Housing: House Alcohol intake: current Alcohol intake frequency: a few times a month Alcohol type: other Patient Tobacco Use Status: Never used Tobacco e-Cigarette/Vaping Use: Never Used Second Hand Smoke Exposure: No service: No Current occupational status: employed Current occupational exposures/hazards: No Cognitive needs: No Hearing needs: No Vision needs: No Review of Systems Const All systems reviewed & are unremarkable except as noted in HPI and below Reports no additional complaints Eyes Reports no additional complaints ENT Reports no additional complaints Card Denies dyspnea Resp Denies cough and Denies dyspnea GI Reports no additional complaints Reports no additional complaints Musc Reports no additional complaints Skin/Breast Denies rash and Denies unusual bruising Neuro Reports no additional complaints Psych Reports no additional complaints Endo Reports no additional complaints Hal/Lymph Reports no additional complaints Aller/Immun Reports no additional complaints Results AMB Urinalysis, Automated UA Leukoctes 0 Renard/uL Last Edit by [facility], [facility] on 11/23/23 14:21 UA Nitrite Negative Last Edit by [facility], [facility] on 11/23/23 14:21 UA Urobilinogen 0.2 mg/dL Last Edit by [facility], [facility] on 11/23/23 14:21 UA Protein 0 mg/dL Last Edit by [facility], [facility] on 11/23/23 14:21 UA pH 7.0 Last Edit by [facility], [facility] on 11/23/23 14:21 UA Blood 0 Jose/uL Last Edit by [facility], [facility] on 11/23/23 14:21 UA Specific [place] 1.015 Last Edit by [facility], [facility] on 11/23/23 14:21 UA Ketone Negative Last Edit by [facility], [facility] on 11/23/23 14:21 UA Bilirubin 0 mg/dL Last Edit by [facility], [facility] on 11/23/23 14:21 UA Glucose 0 mg/dL Last Edit by [facility], [facility] on 11/23/23 14:21 Results Reviewed Results Reviewed: Laboratory Last Values Urine pH (Auto) 7.0 11/23/23 14:00 Specific [place] (Auto) 1.015 11/23/23 14:00 Urine Protein (Auto) 0 mg/dL 11/23/23 14:00 Glucose (UA)(Auto) 0 mg/dL 11/23/23 14:00 Urine Ketones (Auto) Negative 11/23/23 14:00 Urine Blood (Auto) 0 Jose/uL 11/23/23 14:00 Urine Nitrite (Auto) Negative 11/23/23 14:00 Urine Bilirubin (Auto) 0 mg/dL 11/23/23 14:00 Urine Urobilinogen (Auto) 0.2 mg/dL 11/23/23 14:00 Leukocyte Esterase (Auto) 0 Renard/uL 11/23/23 14:00 Assessment & Plan Assessment & Plan (1) Recurrent urinary tract infection: Code(s): N39.0 - Urinary tract infection, site not specified (2) Cystitis: Code(s): N30.90 - Cystitis, unspecified without hematuria (3) 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
== END 2023-11-23 14:52 | disposition home or self-care (01) ==
PROVIDERS: PCP Physician Assistant; Visit Provider Urology
DX: N39.0 Urinary tract infection, site not specified (principal); N30.90 Cystitis, unspecified without hematuria; Q64.31 Congenital bladder neck obstruction; R33.9 Retention of urine, unspecified
CPT/HCPCS: 99214

== ENCOUNTER → 2023-11-23 13:30 | Outpatient (BNVA) | payer MEDICARE, OTHER, SELFPAY | PROVIDERS: PCP Physician Assistant; Visit Provider Urology | DX: N39.0 Urinary tract infection, site not specified (principal); Q64.31 Congenital bladder neck obstruction | CPT/HCPCS: 81003; 99212 ==

== ENCOUNTER 2024-01-03 09:44 | Outpatient (REF) | payer MEDICARE, OTHER, SELFPAY ==
[2024-01-03 13:41] LABS: Appearance Urine Clear; Color Urine Yellow; Glucose Urine UA Negative (Negative); Leukocyte Esterase Urine Large (3+) (Negative); Nitrite Urine Negative (Negative); Specific Gravity - Urine <= 1.005 (1.005-1.025); UMIC TRIGGER UA YES; Urine Blood Negative (Negative); Urine Ketones Negative (Negative); Urine Protein Negative (Neg-Trace)
[2024-01-03 13:44] LABS: Bacteria Urine Trace (None Seen); Hyaline Casts Urine 0-2 /LPF (0-2); RBC Urine 0-2 /HPF (0-2); Squamous Epithelial Cell Urine 0-2 /HPF (0-2); WBC Urine >50 /HPF (0-5)
== END 2024-01-03 09:45 | disposition home or self-care (01) ==
LOC: HO.HMGCLDS 09:44
PROVIDERS: PCP Physician Assistant; Visit Provider Urology
DX: N39.0 Urinary tract infection, site not specified (principal)
CPT/HCPCS: 81001; 87086; 87088; 87186

== ENCOUNTER 2024-01-07 06:36 | Outpatient (REF) | payer MEDICARE, OTHER, SELFPAY ==
--- NOTE | ~2024-01-07 | MM_ITS ---
EXAMINATION: MM SCREENING DIGITAL BREAST TOMOSYNTHESIS, BILATERAL CLINICAL INFORMATION: Screening. Asymptomatic. The patient is status post left mastectomy. COMPARISON: Mammography: This study is compared with prior exams dating back to 2018. TECHNIQUE: Digital breast tomosynthesis is performed in both the craniocaudal and mediolateral oblique views along with computer-aided detection (CAD). Synthesized 2D images are generated from the tomosynthesis. FINDINGS: There are scattered areas of fibroglandular density (ACR BI-RADS breast composition Category b). There are no significant masses, abnormal calcifications, or other abnormalities. MM/MM tomosynthesis screening RT IMPRESSION: No mammographic evidence of malignancy. ASSESSMENT: BI-RADS BI-RADS 1 - Negative RECOMMENDATION: Routine annual mammography screening. 1 year F/U This examination should not preclude the clinical evaluation of a suspicious palpable abnormality. This patient's information was entered into a reminder system with a target due date for their next mammogram.
[2024-01-07 12:17] LABS: Alanine Aminotransferase 19 U/L (0-31); Alkaline Phosphatase 73 U/L (39-117); Anion Gap 15 (12-20); Aspartate Amino Transferase 23 U/L (5-31); Bilirubin Total 0.4 mg/dL (0.0-1.0); Blood Urea Nitrogen 11 mg/dL (9-16); Calcium 9.5 mg/dL (8.4-10.2); Carbon Dioxide 29 mmol/L (22-29); Chloride 102 mmol/L (96-108); Cholesterol 260 mg/dL (<200); Estimated Glomerular Filt Rate 58; Glucose Fasting 131 mg/dL (60-99); HDL Cholesterol 90 mg/dL (>40); LDL Cholesterol Calculated 154 mg/dL (<100); Potassium 3.6 mmol/L (3.3-5.1); Sodium 142 mmol/L (135-145); TSH reflex Free T4 3.42 uIU/mL (0.32-4.0); Total Protein 7.4 g/dL (6.5-8.0); Triglycerides 80 mg/dL (<150)
[2024-01-07 12:35] LABS: Creatinine Urine 61.94 mg/dL; Microalbum/Creatinine Ratio Ur 24.2 ug/mg cr (<30)
== END 2024-01-07 06:37 | disposition home or self-care (01) ==
LOC: HO.MAMMO 06:36
PROVIDERS: PCP Physician Assistant; Visit Provider Physician Assistant
DX: I10 Essential (primary) hypertension (principal); E78.2 Mixed hyperlipidemia; E03.9 Hypothyroidism, unspecified; Z12.31 Encounter for screening mammogram for malignant neoplasm of breast
CPT/HCPCS: 36415; 77063; 77067; 80053; 80061; 82043; 82570; 84443

== ENCOUNTER → 2024-01-07 08:45 | Outpatient (BNV) | payer MEDICARE, OTHER, SELFPAY | PROVIDERS: PCP Physician Assistant; Visit Provider Radiology Diagnostic Radiology | DX: Z12.31 Encounter for screening mammogram for malignant neoplasm of breast (principal) | CPT/HCPCS: 77063; 77067 ==

== ENCOUNTER 2024-01-16 10:08 | Outpatient (AMB) | payer MEDICARE, OTHER, SELFPAY ==
--- NOTE | 2024-01-16 10:55 | MHC.PC.OV ---
Vital Signs 01/16/24 11:07 Height 5 ft 2 in Weight 138 lb 8 oz BMI 25.3 BP 142/68 H Blood Pressure Location Lt brachial Position Sitting Respiration 16 Pulse 78 Pulse Source Pulse Oximeter Pulse Oximetry (%) 98 Oxygen Delivery Method Room Air Intake Visit Reasons: pe Intake Note: Patient is here today for a physical. 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 Accompanied by: Self / Same As Patient Allergies Ozwaztg-ONU-HeM Reductase Inhibitor Allergy (Intermediate, Verified 01/16/24 11:23) Itching Sulfa (Sulfonamide Antibiotics) Allergy (Unknown, Verified 01/16/24 11:23) ITCHING Losartan Allergy (Severe, Uncoded 01/16/24 10:56) Anaphylaxis Medication List - Last Reconciled 01/16/24 by Rehan Guillaume PA-C amlodipine 10 mg PO DAILY 90 days cholecalciferol (vitamin D3) 25 mcg PO DAILY cranberry extract 425 mg orally one to 2 x daily with meals; administer with meals epinephrine 0.3 mg (0.3 mL) IM Q10M PRN ezetimibe (Zetia) 10 mg PO DAILY 90 days hydrochlorothiazide 12.5 mg PO DAILY 90 days levothyroxine 50 mcg PO DAILY metformin ER 500 mg PO DAILY 90 days jrwbaumxkesb-vopcpzmc-lfdbxe 1 tab PO DAILY omega-3 fatty acids 1,000 mg PO DAILY NS Tobacco use date assessed: 01/16/24 Fall risk assessment: No Falls in past year Last assessed Fall Risk: 01/16/24 Dental Screening Dental Screen Date: 01/16/24 Did you have a dental visit in the last 12 months?: Yes Did you have a dental problem in the last 6 months where you did not have access to dental care?: No Was dental information given to patient?: Patient has dentist HPI pe HPI Details Patient is a 77-year-old female here today for follow-up visit. Patient has a past medical history significant for pre diabetes, uncontrolled hypertension, hypothyroidism, history breast cancer. Concerns--> ..Hypertension:? Has been fairly well controlled according to home readings which are ranging 110 to 130 systolic she is asymptomatic without any chest pain, headaches or vision issues. Today's blood pressure slightly elevated in office ? She continues on amlodipine 10 mg.?. .. Impaired glucose metabolism: Most recent A1c is 6.4 Patient continues on metformin 500 mg ER. She does report some dietary indiscretion over the winter months. .. Hyperlipidemia:? Patient continues to have elevated total cholesterol and LDL though has improved since starting Zetia on a few time a week basis.. ? Has not been able to tolerate statins due to GI upset and itching.? She is also using [place] threes. Fortunately HDL above 90 .. Vaccines:Up-to-date with COVID vaccines, declines flu and pneumonia vaccines, Had shingles (zostavax), Needs Td though declines at this time. . 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 Cystitis Arthralgia of left foot Strain of left biceps Pre-op evaluation Right shoulder pain Pre-diabetes Recurrent urinary tract infection Surgical History History of mastectomy History of lumpectomy History of tibial fracture History of colonoscopy History of cataract surgery History of hysterectomy Family History Mother Breast cancer Father Dementia Social History (Updated 01/16/24 @ 11:29 by Rehan Guillaume PA-C) Housing: House Alcohol intake: current Alcohol intake frequency: a few times a month Alcohol type: other Patient Tobacco Use Status: Never used Tobacco e-Cigarette/Vaping Use: Never Used Second Hand Smoke Exposure: No service: No Current occupational status: retired Current occupational exposures/hazards: No Cognitive needs: No Hearing needs: No Vision needs: No Questionnaire PHQ-9 Over the last 2 weeks, how often have you been bothered by any of the following problems? 1. Little interest or pleasure in doing things: not at all 2. Feeling down, depressed, or hopeless: not at all 3. Trouble falling or staying asleep, or sleeping too much: not at all 4. Feeling tired or having little energy: not at all 5. Poor appetite or overeating: not at all 6. Feeling bad about yourself - or that you are a failure or have let yourself or your family down: not at all 7. Trouble concentrating on things, such as reading the newspaper or watching television: not at all 8. Moving or speaking so slowly that other people could have noticed. Or the opposite - being so fidgety or restless that you have been moving around a lot more than usual: not at all 9. Thoughts that you would be better off or of hurting yourself in some way: not at all Total score: 0 Depression Screening Interpretation: Negative Depression Screening Done: Yes 78450 - PHQ-9 Billing: Yes Source: Developed by Drs. Martin Johnson, Constance Ross, Juan Garrido and colleagues, with an educational louis from [employer]. Thrive Questionnaire Date Thrive assessed: 01/16/24 I am a: Patient What is your living situation today?: I have a steady place to live Within the past 12 months, did the food you bought not last and you didn't have the money to get more?: Never true Within the past 12 months, did you worry whether your food would run out before you got money to buy more?: Never true Do you have trouble paying for medicines?: No Do you have trouble getting transportation to medical appointments?: No Do you have trouble paying your heating and electricity bill?: No Do you have trouble taking care of your child, family member or friend?: No Do you have trouble with day-to-day activities such as bathing, preparing meals, shopping, managing finances, etc.?: No Are you currently unemployed and looking for a job?: No Are you interested in more education?: No Please select the resources that you would like help with: None Currently or been in a relationship where the following occur: no concerns reported THRIVE Score: 0 AUDIT C Alcohol Use Questionnaire (AUDIT-C) 1. How often do you have a drink containing alcohol?: Never 3. How often do you have six or more drinks on one occasion?: Never Total Score: 0 ELFEGO-7 AMB Questionnaire ELFEGO-7 Date ELFEGO - 7 assessed: 01/16/24 Feeling nervous, anxious, or on edge: 0 = Not at all Not being able to stop or control worryin = Not at all Worrying too much about different things: 0 = Not at all Trouble relaxin = Not at all Being so restless that it is hard to sit still: 0 = Not at all Becoming easily annoyed or irritable: 0 = Not at all Feeling afraid as if something awful might happen: 0 = Not at all Total ELFEGO-7 score (0-4 normal; 5-9 mild; 10-14 moderate; 15-21 severe): 0 Source: Developed by Drs. Martin Johnson, Constance Ross, Juan Garrido and colleagues, with an educational louis from [employer]. ELFEGO-7 Assessment Billing ELFEGO-7 Assessment Tool: ELFEGO-7 Assessment 65531 Review of Systems Const Denies body aches, Denies chills, Denies excessive sweating, Denies fatigue, Denies fever(s) and Denies headache(s) Eyes Denies blurry vision ENT Denies dysphagia, Denies vertigo, Denies dizziness, Denies headache(s), Denies hearing loss and Denies tinnitus Card Denies chest pain, Denies chest pain with activity, Denies syncope, Denies irregular heart rhythm and Denies dyspnea Resp Denies chest congestion, Denies cough, Denies hemoptysis, Denies dyspnea and Denies wheezing GI Denies abdominal pain, Denies melena, Denies hematochezia, Denies coffee ground emesis, Denies dysphagia, Denies diarrhea, Denies nausea and Denies vomiting Denies urinary frequency, Denies dysuria, Denies urinary hesitancy and Denies urinary urgency Musc Denies arthralgias, Denies limited range of motion, Denies muscle cramps and Denies muscle weakness Skin/Breast Denies rash and Denies skin ulcer Neuro Denies Abnormal speech present, Denies confusion, Denies vertigo, Denies dizziness, Denies syncope, Denies headache(s), Denies memory loss and Denies seizure-like activity Psych Denies anxiety, Denies confusion, Denies depression, Denies memory loss, Denies panic attacks and Denies paranoia Endo Denies excessive sweating, Denies fatigue, Denies flushing, Denies polydipsia and Denies polyuria Aller/Immun Denies wheezing Physical exam (Primary Care) Vital Signs: Last Vital Signs Pulse 78 01/16/24 11:07 Resp 16 01/16/24 11:07 BP 142/68 H 01/16/24 11:07 Pulse Ox 98 01/16/24 11:07 Oxygen Delivery Method Room Air 01/16/24 11:07 BMI result Body Mass Index 25.3 Tobacco/Smoking Status: Tobacco use Status Tobacco use date assessed 01/16/24 01/16/24 10:57 Patient Tobacco Use Status Never used Tobacco 01/16/24 10:57 e-Cigarette/Vaping Use Never Used 01/16/24 10:57 PHQ-9: PHQ-9 Score PHQ-9: Total score 0 01/16/24 11:06 Depression Screening Interpretation: Negative Thrive Assessment: Date of Thrive Assessment Date Thrive assessed 01/16/24 01/16/24 10:57 Currently or been in a relationship where the following occur: no concerns reported Const General: cooperative, comfortable, no acute distress, alert and awake; No confusion Orientation/consciousness: oriented to person, oriented to place, patient oriented x3 and No confusion HENMT Head: Yes normocephalic Ears: external ears normal and TM's normal bilaterally Face and sinus: No sinus tenderness Mouth: Normal oral and palatal mucosa present and tongue normal Teeth and gingiva: dentition normal and gingiva normal Throat: Yes posterior oropharynx normal, Yes tonsils normal and Yes uvula midline Eyes Conjunctivae: conjunctivae normal Sclerae: sclerae normal Pupils: Equal, round and reactive pupils present EOM: EOMs intact bilaterally Direct Ophthalmoscopy: No no photophobia Neck Neck: Yes no lymphadenopathy, No tender and Yes no JVD Thyroid: Thyroid normal Carotids: no bruits Chest Chest palpation & inspection: no tenderness Resp Effort & Inspection: normal respiratory effort, no audible wheezes, not labored and no stridor Auscultation: no crackles, no rales, no rhonchi and no wheezes Cardio Jugular venous distension: no JVD Rate: regular rate, not bradycardic and not tachycardic Rhythm: regular rhythm Bruits: no carotid bruits Peripheral pulses: Peripheral pulses 2+ throughout GI Inspection: Yes normal to inspection, No abdominal wall ecchymosis and No visible herniation Palpation (GI): Soft to palpation, nontender, no guarding, not rigid and No hepatosplenomegaly present Auscultation: normoactive bowel sounds General: Yes no CVA tenderness Back/Spine/Pelvis Back: no CVA tenderness and No back tenderness Cervical Spine: cervical ROM normal Thoracic/Lumbar Spine: thoracic and lumbar spine normal to inspection, straight leg raise negative bilaterally, No thoraco-lumbar ROM limited and No lumbar spinal tenderness Skin Lesions: no lesions Rashes: no rashes Wounds: no wounds Neuro General: oriented to person, oriented to place, patient oriented x3, CN's II-XI intact bilaterally and No confusion Cranial nerves: Yes Equal, round and reactive pupils present and Yes Normal accommodation reflex present Cognition (Neuro): normal cognition Speech: No Abnormal speech present Gait exam (Neuro): Normal gait present Motor exam (neuro): 5/5 motor strength present throughout Extrem Right upper extremity: full ROM; no cyanosis Left upper extremity: full ROM; no cyanosis Right lower extremity: no edema Left lower extremity: no edema Psych Appearance: grossly normal Mental Status: mental status grossly normal Affect: normal affect Attitude: cooperative Thought process: Normal thought process present Results AMB Hemoglobin A1c AMB Hemoglobin A1c 6.4 % Last Edit by MORAIMA Hampton on 01/16/24 11:14 Results Reviewed Results Reviewed: Laboratory Last Values Hgb A1c (Clinic) 6.4 % (4.0-6.0) H 01/16/24 10:54 Assessment and Plan Assessment & Plan (1) Annual physical exam: Code(s): Z00.00 - Encounter for general adult medical examination without abnormal findings (2) HLD (hyperlipidemia): Code(s): E78.5 - Hyperlipidemia, unspecified Qualifiers: Hyperlipidemia type: mixed hyperlipidemia Qualified Code(s): E78.2 - Mixed hyperlipidemia Plan: Patient's most recent labs continues to remain elevated total cholesterol though has improved. Has not been able to tolerate statin therapy. Has been using [place] threes in using Zetia 3 to 4 times a week. Again advised on lifestyle modifications of her diet to reduce high cholesterol foods. Will continue to follow lipid panel (3) Essential hypertension: Code(s): I10 - Essential (primary) hypertension Plan: Patient's blood pressure slightly elevated today in office, she does bring in home readings which range 110 to 130 systolic.. She otherwise is asymptomatic without any headache, dizziness or vision issues. Will continue her current dose antihypertensive medication with goal blood pressure to be below 140/90 (4) Impaired glucose metabolism: Code(s): R73.09 - Other abnormal glucose Plan: Most recent A1c is 6.4. Continues on metformin 500 mg daily. Will continue to follow fasting blood sugar and A1c to assure normal. Orders: Orders Lipid Panel Today E78.2 - Mixed hyperlipidemia Hemoglobin A1c Today R73.09 - Other abnormal glucose Comprehensive [place]. Panel Fast Today I10 - Essential (primary) hypertension Complete Blood Count no Diff Today I10 - Essential (primary) hypertension AMB Hemoglobin A1c Today R73.09 - Other abnormal glucose TSH reflex Free T4 Today E03.9 - Hypothyroidism, unspecified Coding Level of Care Code Est Pt Prev Care >65y(31879) Diagnoses Annual physical exam Z00.00 Mixed hyperlipidemia E78.2 Hyperlipidemia type: mixed hyperlipidemia Essential hypertension I10 Impaired glucose metabolism R73.09 Additional Codes ELFEGO-7 Assessment Billing - ELFEGO-7 Assessment Tool: ELFEGO-7 Assessment [id number] ([id number])
[2024-01-16 11:07] VITALS: BP 142/68; PULSE 78; RESP 16; O2SAT 98; BMI 25.3
== END 2024-01-16 11:41 | disposition home or self-care (01) ==
PROVIDERS: PCP Physician Assistant; Visit Provider Physician Assistant
DX: Z00.00 Encounter for general adult medical examination without abnormal findings (principal); E78.2 Mixed hyperlipidemia; I10 Essential (primary) hypertension; R73.09 Other abnormal glucose
CPT/HCPCS: 83036; 99397

== ENCOUNTER 2024-01-25 09:49 | Outpatient (REF) | payer MEDICARE, OTHER, SELFPAY ==
[2024-01-25 13:09] LABS: Appearance Urine Clear; Color Urine Yellow; Glucose Urine UA Negative (Negative); Leukocyte Esterase Urine Large (3+) (Negative); Nitrite Urine Negative (Negative); PH 7.5 (5.0-9.0); Specific Gravity - Urine <= 1.005 (1.005-1.025); UMIC TRIGGER UA YES; Urine Blood Negative (Negative); Urine Ketones Negative (Negative); Urine Protein Negative (Neg-Trace)
[2024-01-25 13:12] LABS: Bacteria Urine 4+ (None Seen); Hyaline Casts Urine 0-2 /LPF (0-2); RBC Urine 0-2 /HPF (0-2); Squamous Epithelial Cell Urine 0-2 /HPF (0-2); WBC Urine >50 /HPF (0-5)
== END 2024-01-25 09:50 | disposition home or self-care (01) ==
LOC: HO.HMGCLDS 09:49
PROVIDERS: PCP Physician Assistant; Visit Provider Urology
DX: N39.0 Urinary tract infection, site not specified (principal)
CPT/HCPCS: 81001; 87086; 87088; 87186

== ENCOUNTER 2024-03-05 11:10 | Outpatient (AMB) | payer MEDICARE, OTHER, SELFPAY ==
--- NOTE | 2024-03-05 11:18 | AM.OFFWIN_ITS ---
Intake Vital Signs 03/05/24 11:22 Height 5 ft 2 in Weight 140 lb BMI 25.6 BP 132/82 Blood Pressure Location Rt brachial Position Sitting Pulse 72 Pulse Source Pulse Oximeter Temp 97.4 F Temp Source Temporal Artery Scan Pulse Oximetry (%) 97 Oxygen Delivery Method Room Air Intake Visit Reasons: EP cough congestion Intake Note: pt is here for cough, congestion for few days Patient Tobacco Use Status: Never used Tobacco Allergies [id number] Reductase Inhibitor Allergy (Intermediate, Verified 03/05/24 11:22) Itching Sulfa (Sulfonamide Antibiotics) Allergy (Unknown, Verified 03/05/24 11:22) ITCHING Losartan Allergy (Severe, Uncoded 01/16/24 10:56) Anaphylaxis Do you need a note to return to daycare/school/sports/work: No HPI HPI Comments History of Present Illness Details 78 y/o female patient who presents to [facility] in clinic with c/o cough and chest congestion for few days now. home with similar symptoms. Denies fevers, chills, nausea or vomiting. She has been using OTC remedies with no relief. 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 Cystitis Arthralgia of left foot Strain of left biceps Pre-op evaluation Right shoulder pain Pre-diabetes Recurrent urinary tract infection Surgical History History of mastectomy History of lumpectomy History of tibial fracture History of colonoscopy History of cataract surgery History of hysterectomy Family History Mother Breast cancer Father Dementia Social History (Updated 01/16/24 @ 11:29 by Rehan Guillaume PA-C) Housing: House Alcohol intake: current Alcohol intake frequency: a few times a month Alcohol type: other Patient Tobacco Use Status: Never used Tobacco e-Cigarette/Vaping Use: Never Used Second Hand Smoke Exposure: No service: No Current occupational status: retired Current occupational exposures/hazards: No Cognitive needs: No Hearing needs: No Vision needs: No Review of Systems Const All systems reviewed & are unremarkable except as noted in HPI and below Physical Exam Vital Signs: Last Vital Signs Temp 97.4 F 03/05/24 11:22 Pulse 72 03/05/24 11:22 BP 132/82 03/05/24 11:22 Pulse Ox 97 03/05/24 11:22 Oxygen Delivery Method Room Air 03/05/24 11:22 BMI result Body Mass Index 25.6 Const General: comfortable and no acute distress Orientation/consciousness: patient oriented x3 HEENT Head: Yes normocephalic and Yes atraumatic Ears: external ears normal and TM's normal bilaterally General nose exam: Normal nasal mucous membranes and turbinates present Face and sinus: Yes sinuses nontender Mouth: moist mucous membranes Throat: Yes posterior oropharynx normal Resp Effort & Inspection: normal respiratory effort, able to speak in complete sentences, no audible wheezes and Actively coughing Auscultation: clear to auscultation bilaterally, no crackles, no rales, no rhonchi and no wheezes Cardio Rate: regular rate Rhythm: regular rhythm Neuro General: patient oriented x3, gait normal and moves all extremities Psych Speech and movement: Normal speech and movement present Assessment & Plan Assessment & Plan (1) Cough in adult: Code(s): R05.9 - Cough, unspecified Plan: - OTC cough remedies - Hydrate with warm fluids - Take medication as directed (2) Upper respiratory infection: Code(s): J06.9 - Acute upper respiratory infection, unspecified Qualifiers: URI type: acute pharyngitis Pharyngitis/tonsillitis etiology: unsp ecified etiology Qualified Code(s): J02.9 - Acute pharyngitis, unspecified Plan: - SARs - Rest Orders: Orders SARS-CoV2/FLU/RSV Today J02.9 - Acute pharyngitis, unspecified, R05.9 - Cough, unspecified Medications: New acetaminophen 1,000 mg (2 x 500 mg) PO Q6H PRN 30 caps 0RF pain (scale score 4- 6) J02.9 - Acute pharyngitis, unspecified azithromycin 500 mg PO DAILY 3 days 3 tabs 0RF cough J02.9 - Acute pharyngitis, unspecified, R05.9 - Cough, unspecified benzonatate 100 mg PO TID 30 caps 0RF cough R05.9 - Cough, unspecified Coding Level of Care Code Est Pt Level 3 (74275) Diagnoses Cough in adult R05.9 Acute pharyngitis, unspecified etiology J02.9 URI type: acute pharyngitis Pharyngitis/tonsillitis etiology: unspecified etiology Time Spent (min) 15
[2024-03-05 11:22] VITALS: BP 132/82; PULSE 72; TEMP 36.3; O2SAT 97; BMI 25.6
== END 2024-03-05 12:14 | disposition home or self-care (01) ==
PROVIDERS: PCP Physician Assistant; Visit Provider Nurse Practitioner Family
DX: R05.9 Cough, unspecified (principal); J02.9 Acute pharyngitis, unspecified
CPT/HCPCS: 99213

== ENCOUNTER 2024-03-05 11:32 | Outpatient (REF) | payer MEDICARE, OTHER, SELFPAY ==
[2024-03-05 14:16] LABS: Influenza A PCR NEGATIVE (Negative); Influenza B PCR NEGATIVE (Negative); Resp Syncy Virus RNA Qual PCR NEGATIVE (Negative); SARS COV2 PCR INHOUSE NEGATIVE (Negative)
== END 2024-03-05 11:33 | disposition home or self-care (01) ==
LOC: HO.LAB 11:32
PROVIDERS: Visit Provider Nurse Practitioner Family
DX: R05.9 Cough, unspecified (principal); J02.9 Acute pharyngitis, unspecified
CPT/HCPCS: 0241U

== ENCOUNTER 2024-03-25 08:55 | Outpatient (AMB) | payer MEDICARE, OTHER, SELFPAY ==
--- NOTE | 2024-03-25 08:58 | AM.OFFWIN_ITS ---
Intake Vital Signs 03/25/24 08:59 Height 5 ft 2 in Weight 138 lb BMI 25.2 BP 130/70 Blood Pressure Location Lt brachial Position Sitting Pulse 83 Pulse Source Pulse Oximeter Temp 97.2 F Temp Source Temporal Artery Scan Pulse Oximetry (%) 97 Oxygen Delivery Method Room Air Intake Visit Reasons: EST/ dry heaving/throwing up (lobby masked) Intake Note: pt is here today for dry heaving and throwing up started yesterday Patient Tobacco Use Status: Never used Tobacco Allergies [id number] Reductase Inhibitor Allergy (Intermediate, Verified 03/25/24 10:10) Itching Sulfa (Sulfonamide Antibiotics) Allergy (Unknown, Verified 03/25/24 10:10) ITCHING Losartan Allergy (Severe, Uncoded 01/16/24 10:56) Anaphylaxis Do you need a note to return to daycare/school/sports/work: No HPI HPI Comments History of Present Illness Details 78-year-old female presents today compla ining of 2 days of nausea vomiting and diarrhea. She is also complaining of right lower quadrant pain. She states she is unable to keep down water. 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 Cystitis Arthralgia of left foot Strain of left biceps Pre-op evaluation Right shoulder pain Pre-diabetes Recurrent urinary tract infection Surgical History History of mastectomy History of lumpectomy History of tibial fracture History of colonoscopy History of cataract surgery History of hysterectomy Family History Mother Breast cancer Father Dementia Social History Housing: House Alcohol intake: current Alcohol intake frequency: a few times a month Alcohol type: other Patient Tobacco Use Status: Never used Tobacco e-Cigarette/Vaping Use: Never Used Second Hand Smoke Exposure: No Advance Directives: No Advance Directives Information Provided: No service: No Current occupational status: retired Current occupational exposures/hazards: No Cognitive needs: No Hearing needs: No Vision needs: No Review of Systems Const All systems reviewed & are unremarkable except as noted in HPI and below Reports poor appetite Eyes Reports no additional complaints ENT Reports no additional complaints Card Reports no additional complaints Resp Reports no additional complaints GI Reports abdominal pain, Reports diarrhea, Reports nausea and Reports vomiting Physical Exam Vital Signs: Last Vital Signs Temp 97.2 F 03/25/24 08:59 Pulse 83 03/25/24 08:59 BP 130/70 03/25/24 08:59 Pulse Ox 97 03/25/24 08:59 Oxygen Delivery Method Room Air 03/25/24 08:59 BMI result Body Mass Index 25.2 Const General: in distress mild HEENT Head: Yes normal to inspection, Yes normocephalic and Yes atraumatic Ears: hearing grossly normal bilaterally General nose exam: Normal external nose present Resp Effort & Inspection: normal respiratory effort Auscultation: clear to auscultation bilaterally Cardio Rate: regular rate Rhythm: regular rhythm Heart sounds: S1 normal heart sound present and S2 normal heart sound present GI Inspection: Yes normal to inspection Palpation (GI): Tenderness to palpation present (GI) in the RLQ Auscultation: Hyperactive bowel sounds present Assessment & Plan Assessment & Plan (1) Dehydration: Code(s): E86.0 - Dehydration Plan: The patient was sent to the emergency department for evaluation or abdominal pain but also probable IVs for her dehydration. The patient understood and was transported by her (2) Abdominal pain: Code(s): R10.9 - Unspecified abdominal pain Plan: See plan Plan See plan Coding Level of Care Code Est Pt Level 3 (24201) Diagnoses Dehydration E86.0 Abdominal pain R10.9
[2024-03-25 08:59] VITALS: BP 130/70; PULSE 83; TEMP 36.2; O2SAT 97; BMI 25.2
== END 2024-03-25 09:51 | disposition home or self-care (01) ==
PROVIDERS: PCP Physician Assistant; Visit Provider Physician Assistant Medical
DX: E86.0 Dehydration (principal); R10.9 Unspecified abdominal pain
CPT/HCPCS: 99213

== ENCOUNTER 2024-03-25 09:59 | Emergency (ER) | payer MEDICARE, OTHER, SELFPAY ==
--- NOTE | ~2024-03-25 | CT_ITS ---
EXAMINATION: CT ABDOMEN AND PELVIS WITH CONTRAST CLINICAL INFORMATION: Right lower quadrant pain, concern for appendicitis. COMPARISON: Abdominal ultrasound 07/04/2018. TECHNIQUE: Multidetector volumetric images were obtained from the superior aspect of the liver through the pubic symphysis following administration 85 mL of Omnipaque 350 intravenous contrast. Sagittal and coronal reformatted images were obtained on the technologist's workstation. Oral contrast: No This CT examination was performed using dose optimization techniques as appropriate, variously including the following: *Automated exposure control *Adjustment of mA and/or kV according to patient size (this includes techniques or standardized protocols for targeted exams where dose is matched to indication/reason for exam; i.e. extremities or head) *Use of iterative reconstruction technique DLP: 415 mGy-cm FINDINGS: LUNG BASES: A coarse subpleural reticular opacities are present in left right lung bases and are most likely represent subpleural scarring and/or atelectasis. LIVER, GALLBLADDER, AND BILIARY TREE: The liver is normal in size, shape, and attenuation. No focal hepatic lesion or biliary ductal dilatation is present. The gallbladder is unremarkable with no evidence of radiopaque gallstones, gallbladder wall thickening, or obvious pericholecystic inflammatory changes. PANCREAS: Unremarkable. SPLEEN: Unremarkable. ADRENAL GLANDS: Unremarkable. KIDNEYS AND URETERS: A 2 mm calculus is present in the inferior pole the left kidney. No left-sided hydronephrosis or perinephric inflammatory changes. Bilaterally symmetric nephrographic enhancement is visualized. No right-sided hydronephrosis or perinephric inflammatory changes. No right-sided ureterectasis. No no ureteral calculi identified making allowances for minimal scattered pelvic phleboliths. BLADDER: Unremarkable. GASTROINTESTINAL TRACT: The appendix is normal in appearance (series 3 image 439). Concentric mural thickening of the sigmoid colon and descending colon is identified mild reticulation of the sigmoid mesentery is visualized. A small number of sigmoid diverticula are noted. No free intraperitoneal fluid or gas collections identified. Small hiatal hernia is present. No pneumatosis intestinalis. No portal venous gas. ABDOMINAL WALL: Right lower quadrant abdominal wall sutures are noted. LYMPH NODES: Normal. VASCULAR: Moderate scattered calcific atherosclerosis. The origin of the superior mesenteric artery is patent. Inferior mesenteric artery origin is not visualized though this examination is not tailored for precise angiographic evaluation of structures at this size. PELVIC VISCERA: Uterus is absent. No adnexal lesions noted. OSSEOUS STRUCTURES: Diffuse osteopenia. No vertebral body compression deformities identified. CT/CT abdomen pelvis w IV con IMPRESSION: *Findings suspicious for uncomplicated diverticulitis or ischemic colitis. Concentric mural thickening and inflammatory changes are present throughout the proximal sigmoid colon and distal descending colon. A small number scattered sigmoid diverticula are noted. Inflammatory changes are most pronounced within the proximal sigmoid colon. No free to peritoneal fluid or gas collections identified. The relative focal prominence of inflammatory changes within the sigmoid colon and sigmoid mesentery suggest that findings are more likely to represent uncomplicated diverticulitis. *Normal appearance of the appendix. *Single nonobstructing punctate 2 mm calculus within the inferior pole the left kidney. No hydronephrosis or ureterectasis.
[2024-03-25 10:08] VITALS: BP 157/53; PULSE 76; RESP 16; TEMP 36.4; O2SAT 97; BMI 24.5
[2024-03-25 10:24] LABS: MANUAL DIFF FLAG NO
[2024-03-25 10:25] LABS: Appearance Urine Clear; Basophils Percent Auto 0.3 % (0-2); Color Urine Yellow; Eosinophils Percent Auto 0.1 % (0-4); Glucose Urine UA Negative (Negative); Hematocrit 39.5 % (37.0-47.0); Hemoglobin 14.1 g/dl (12.0-16.0); Imm Gran Abs Auto 0.02 X10*3/uL (0.00-0.03); Imm Gran Pct Auto 0.2 % (0.0-0.4); Leukocyte Esterase Urine Moderate (2+) (Negative); Lymphocytes Absolute Auto 0.7 X10*3/uL (1.2-4.9); Lymphocytes Percent Auto 7.8 % (20-40); Mean Corpuscular HGB Conc 35.7 g/dl (31.0-35.0); Mean Corpuscular Hemoglobin 31.5 pg (27.0-33.0); Mean Corpuscular Volume 88.2 fL (80.0-98.0); Monocytes Absolute Auto 0.5 X10*3/uL (0.1-1.2); Neutrophils Absolute Auto 7.8 x10*3/uL (2.0-8.3); Neutrophils Percent Auto 86.6 % (45-73); Nitrite Urine Negative (Negative); PH 7.5 (5.0-9.0); Platelet Count 382 X10*3/uL (160-400); Red Blood Count 4.48 X10*6/uL (4.20-5.50); Red Cell Distribution Width 13.5 % (11.0-16.0); Specific Gravity - Urine 1.015 (1.005-1.025); UMIC TRIGGER UACC YES; Urine Blood Negative (Negative); Urine Ketones Negative (Negative); Urine Protein Trace mg/dL (Neg-Trace)
[2024-03-25 10:28] LABS: Bacteria Urine None Seen (None Seen); Hyaline Casts Urine 0-2 /LPF (0-2); RBC Urine 0-2 /HPF (0-2); UACC Culture Trigger YES
[2024-03-25 10:38] LABS: Alanine Aminotransferase 25 U/L (0-31); Albumin Level 4.3 g/dL (3.5-5.0); Alkaline Phosphatase 83 U/L (39-117); Anion Gap 17 (12-20); Aspartate Amino Transferase 30 U/L (5-31); Bilirubin Direct 0.2 mg/dL (0.0-0.5); Bilirubin Total 0.6 mg/dL (0.0-1.0); Blood Urea Nitrogen 11 mg/dL (9-16); Calcium 9.9 mg/dL (8.4-10.2); Carbon Dioxide 29 mmol/L (22-29); Chloride 101 mmol/L (96-108); Creatinine Clr Calc Pharmacy 37.8; Estimated Glomerular Filt Rate 52; Glucose Random 170 mg/dL (60-115); Lipase 19 U/L (8-78); Potassium 3.5 mmol/L (3.3-5.1); Sodium 143 mmol/L (135-145); Total Protein 8.2 g/dL (6.5-8.0)
--- NOTE | 2024-03-25 11:59 | ED_ITS ---
HPI - General Adult General Chief complaint: Abdominal Pain Stated complaint: Vomiting, abd pain Time Seen by Provider: 03/25/24 11:59 Source: patient and family (patient's ) Mode of arrival: ambulatory Limitations: no limitations History of Present Illness ED Provider: Olivia Qiu PA-C HPI narrative: Patient is a 78 year old assigned female at with a history of breast cancer s/p left mastectomy, HTN, and hypothyroidism presenting to the emergency department today with right lower quadrant abdominal pain, nausea, and vomiting. Patient states that over the last day she has had right lower quadrant abdominal pain with nausea and vomiting. Patient states that she continues to have normal bowel movements. Patient denies any dizziness, lightheadedness, fever, chills, blurry vision, double vision, loss of vision, chest pain, difficulty breathing, shortness of breath, back pain, night sweats, pain with urination, increased urinary frequency, increased urinary urgency, blood in her urine or stool, syncope or a near syncopal episode, recent trauma or falls, bowel incontinence, bladder incontinence, bowel retention, bladder retention, or any other complaints at this time. Onset (ago): day(s) (1) Location: abdomen Radiation: non-radiation Severity: moderate Severity scale (1-10): 5 Quality: aching Pain Consistency: constant Relieving factors: none Exacerbating factors: none Associated symptoms: nausea/vomiting Treatments prior to arrival: none Related Data Home Medications ?Medication ?Instructions ?Recorded ?Confirmed cholecalciferol (vitamin D3) 25 25 mcg PO DAILY 12/05/21 01/16/24 mcg (1,000 unit) capsule [id number]-[id number] tablet 1 tab PO DAILY 12/05/21 01/16/24 Previous Rx's ?Medication ?Instructions ?Recorded epinephrine 0.3 mg/0.3 mL 0.3 mg (0.3 mL) IM Q10M PRN 05/11/23 injection syringe anaphylaxis #2 ea metformin 500 mg tablet,extended 500 mg PO DAILY 90 days #90 tabs 09/20/23 release 24 hr ezetimibe 10 mg tablet (Zetia) 10 mg PO DAILY 90 days #90 tabs 10/17/23 amlodipine 10 mg tablet 10 mg PO DAILY 90 days #90 tabs 11/22/23 cranberry extract 425 mg capsule 425 mg PO .COMPLEX #60 caps 11/23/23 levothyroxine 50 mcg tablet 50 mcg PO DAILY #90 tabs 12/10/23 hydrochlorothiazide 12.5 mg tablet 12.5 mg PO DAILY 90 days #90 tabs 02/11/24 acetaminophen 500 mg capsule 1,000 mg (2 x 500 mg) PO Q6H PRN 03/05/24 pain (scale score 4-6) #30 caps cephalexin 500 mg capsule 500 mg PO Q8H #21 caps 04/15/24 Allergies Allergy/AdvReac Type Severity Reaction Status Date / Time Chhmvny-VVI-KwU Reductase Allergy Intermediate Itching Verified 04/15/24 08:27 Inhibitor Sulfa (Sulfonamide Allergy Unknown ITCHING Verified 04/15/24 08:27 Antibiotics) Losartan Allergy Severe Anaphylaxis Uncoded 04/15/24 08:27 Review of Systems 2 Constitutional: Constitutional: Reports no additional constitutional complaints, Denies chills, Denies fever(s) and Denies night sweats Eyes: Eyes: Reports no additional eye complaints, Denies blurry vision, Denies change in vision, Denies diplopia, Denies eye discharge, Denies loss of vision and Denies eye pain ENT: Denies dizziness Cardiovascular: Cardiovascular: Reports no additional cardiovascular complaints, Denies chest pain, Denies lightheadedness, Denies Loss of Consciousness and Denies dyspnea Respiratory: Respiratory: Reports no additional respiratory complaints and Denies dyspnea Gastrointestinal: Gastrointestinal: Reports no additional gastrointestinal complaints, Reports abdominal pain, Denies melena, Denies hematochezia, Denies change in bowel habits, Denies change in stool character, Reports nausea and Reports vomiting Genitourinary: Genitourinary: Denies hematuria, Denies urinary frequency, Denies dysuria, Denies urinary incontinence, Denies urinary hesitancy and Denies urinary urgency Musculoskeletal: Musculoskeletal: Reports no additional musculoskeletal complaints, Denies numbness and Denies tingling Neurologic: Denies dizziness, Denies loss of vision, Denies numbness and Denies tingling Psychiatric: Psychiatric: Reports no additional psychiatric complaints Endocrine: Endocrine: Reports no additional endocrine complaints Hematologic/Lymphatic: Hematologic/Lymphatic: Reports no additional hematologic/lymphatic complaints Allergic/Immunologic: Allergic/Immunologic: Reports no additional allergic/immunologic complaints PMFSH Past Medical History Attestation statement: The following information was validated with the patient. 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 Cystitis Arthralgia of left foot Strain of left biceps Pre-op evaluation Right shoulder pain Pre-diabetes Recurrent urinary tract infection Surgical History History of mastectomy History of lumpectomy History of tibial fracture History of colonoscopy History of cataract surgery History of hysterectomy Family History Family History Mother Breast cancer Father Dementia Social History Social History Housing: House Alcohol intake: current Alcohol intake frequency: a few times a month Alcohol type: other Patient Tobacco Use Status: Never used Tobacco e-Cigarette/Vaping Use: Never Used Second Hand Smoke Exposure: No service: No Current occupational status: retired Current occupational exposures/hazards: No Cognitive needs: No Hearing needs: No Vision needs: No Physical Exam ED Vital Signs: Vital Signs - 24 hr 03/25/24 10:08 03/25/24 15:14 03/25/24 15:47 Temperature 97.6 F 98.2 F 98.2 F Pulse Rate 76 68 68 Respiratory Rate 16 16 16 Blood Pressure 157/53 H 147/61 H 147/61 H Pulse Oximetry 97 97 97 Oxygen Delivery Method Room Air Room Air Room Air BMI result Body Mass Index 24.5 Const General: cooperative, no acute distress, alert and awake Nutritional Appearance: well nourished Orientation/consciousness: patient oriented x3 Limitations: no limitations HENMT Head: Yes normal to inspection and Yes atraumatic Ears: hearing grossly normal bilaterally and external ears normal General nose exam: Normal external nose present, no nasal discharge noted and no epistaxis Face and sinus: Yes normal facial exam, No abrasion and No laceration Mouth: Normal oral and palatal mucosa present, no drooling and no muffled voice Eyes General: appearance normal, both eyes and all related structures Periorbital: periorbital findings normal Eyelids: Yes eyelids normal Conjunctivae: conjunctivae normal Pupils: Equal, round and reactive pupils present EOM: EOMs intact bilaterally Neck Neck: Yes normal visual inspection, Yes full ROM and Yes no lymphadenopathy Chest Chest palpation & inspection: normal inspection of the chest Resp Effort & Inspection: normal respiratory effort and able to speak in complete sentences GI Inspection: Yes normal to inspection Palpation (GI): Soft to palpation, not firm, Tenderness to palpation present (GI) in the RLQ, no guarding and not rigid Neuro General: patient oriented x3 and moves all extremities Cranial nerves: Yes Equal, round and reactive pupils present Cognition (Neuro): normal cognition Motor exam (neuro): 5/5 motor strength present throughout Sensory Exam: Normal double simultaneous stimulation for sensation Coordination: [id number]-[id number] test normal Extrem General: Yes normal to inspection, Yes full ROM and Yes capillary refill normal Psych Appearance: grossly normal Mental Status: mental status grossly normal Affect: normal affect Attitude: cooperative Thought process: Normal thought process present Thought content: Normal thought content present Insight: Good insight present (Psych) Medications Administered Discontinued Medications Generic Name Dose Route Start Last Admin Trade Name Freq PRN Reason Stop Dose Admin Amoxicillin/Clavulanate Potassium 875 mg 03/25/24 15:23 03/25/24 15:42 Amoxicillin/Potassium Clav 875 Mg Tablet PO 03/25/24 15:24 875 mg ONCE ONE Administration Sodium Chloride 1,000 mls @ 999 mls/hr 03/25/24 12:15 03/25/24 15:32 Ns IV 03/25/24 13:15 Infused .Q1H1M SG Infusion Iohexol 100 ml 03/25/24 12:42 03/25/24 12:43 Iohexol 350 Mg/Ml 100 Ml Infus..Btl IV 03/25/24 12:43 85 ml ONCE ONE Administration Ondansetron HCl 4 mg 03/25/24 12:04 03/25/24 12:33 Ondansetron Hcl 4 Mg/2 Ml Vial IVPUSH 03/25/24 12:05 4 mg ONCE ONE Administration Ondansetron HCl 4 mg 03/25/24 15:23 03/25/24 15:42 Ondansetron Hcl 4 Mg/2 Ml Vial IVPUSH 03/25/24 15:24 4 mg ONCE ONE Administration Medical Decision Making Medical Decision Making MDM Narrative: Patient is a 78 year old assigned female at with a history of breast cancer s/p left mastectomy, HTN, and hypothyroidism presenting to the emergency department today with abdominal pain, nausea, and vomiting. Patient's physical exam was as noted in the physical exam portion of this note. Patient's blood work was unremarkable. Patient's urine showed no acute process. Patient's abdomen/pelvis CT showed diverticulitis. I explained my physical exam findings as well as all test results to the patient and the patient's . I answered all questions asked by the patient and the patient's . I stressed the importance of the patient taking her medication as prescribed. I stressed the importance of the patient following up with her primary care provider. I stressed the importance of the patient returning to the emergency department immediately if her symptoms were to worsen or if she were to develop any dizziness, shortness of breath, difficulty breathing, chest pain, blurry vision, loss of vision, nausea, vomiting, abdominal pain, fever, chills, back pain, or any other complaints. Patient and the patient's verbalized agreement and understanding with this treatment plan and discharge. Differential Diagnosis Differential Diagnoses: The differential diagnosis associated with the presentation includes Abdominal pain Diverticulitis Appendicitis Admission/Observation Consideration of admission/observation: Escalation of care including admission/observation considered Patient would have been admitted to the hospital had her work up had any findings where hospital admission was appropriate and her clinical presentation warranted hospital admission. Lab Data [facility] Lab Attestation statement: I reviewed the patient's lab results. My interpretation of these results are in the [facility] Rationale portion of this note. 03/25/24 10:19 03/25/24 10:18 Labs: Lab Results 03/25/24 03/25/24 Range/Units 10:18 10:19 WBC 9.0 (4.8-10.8) X10*3/uL RBC 4.48 (4.20-5.50) X10*6/uL Hgb 14.1 (12.0-16.0) g/dl Hct 39.5 (37.0-47.0) % MCV 88.2 (80.0-98.0) fL MCH 31.5 (27.0-33.0) pg MCHC 35.7 H (31.0-35.0) g/dl RDW 13.5 (11.0-16.0) % Plt Count 382 (160-400) X10*3/uL MPV 9.0 L (9.4-12.3) fL Immature Gran % (Auto) 0.2 (0.0-0.4) % Neut % (Auto) 86.6 H (45-73) % Lymph % (Auto) 7.8 L (20-40) % [place] % (Auto) 5.0 (2-11) % Eos % (Auto) 0.1 (0-4) % Baso % (Auto) 0.3 (0-2) % Lymph # (Auto) 0.7 L (1.2-4.9) X10*3/uL [place] # (Auto) 0.5 (0.1-1.2) X10*3/uL Eos # (Auto) 0.0 (0.0-0.4) X10*3/uL Baso # (Auto) 0.0 (0.0-0.2) X10*3/uL Abs Immat Gran (auto) 0.02 (0.00-0.03) X10*3/uL Absolute Neuts (auto) 7.8 (2.0-8.3) x10*3/uL Absolute Nucleated RBC 0.000 (0.0-0.012) X10*3/uL Nucleated RBC % (auto) 0.0 (0.0-0.2) /100WBC Sodium 143 (135-145) mmol/L Potassium 3.5 (3.3-5.1) mmol/L Chloride 101 (96-108) mmol/L Carbon Dioxide 29 (22-29) mmol/L Anion Gap 17 (12-20) BUN 11 (9-16) mg/dL Creatinine 1.03 (0.5-1.4) mg/dL Estim Creat Clear Calc 37.8 Estimated GFR 52 Random Glucose 170 H (60-115) mg/dL Calcium 9.9 (8.4-10.2) mg/dL Total Bilirubin 0.6 (0.0-1.0) mg/dL Direct Bilirubin 0.2 (0.0-0.5) mg/dL AST 30 (5-31) U/L ALT 25 (0-31) U/L Alkaline Phosphatase 83 (39-117) U/L Total Protein 8.2 H (6.5-8.0) g/dL Albumin 4.3 (3.5-5.0) g/dL Lipase 19 (8-78) U/L Urine Color Yellow Urine Appearance Clear Urine pH 7.5 (5.0-9.0) Ur Specific [place] 1.015 (1.005-1.025) Urine Protein Trace (Neg-Trace) mg/dL Urine Glucose (UA) Negative (Negative) mg/dL Urine Ketones Negative (Negative) mg/dL Urine Blood Negative (Negative) Urine Nitrite Negative (Negative) Ur Leukocyte Esterase Moderate (2+) H (Negative) Urine RBC 0-2 (0-2) /HPF Urine WBC 6-10 H (0-5) /HPF Ur Squamous Epith Cells 3-5 (0-2) /HPF Urine Bacteria None Seen (None Seen) Hyaline Casts 0-2 (0-2) /LPF Independent Interpretation I performed an independent interpretation of an: CT Scan Interpretation: My interpretation is in agreement with the radiologist's impression of this imaging study. - EXAMINATION: CT ABDOMEN AND PELVIS WITH CONTRAST CLINICAL INFORMATION: Right lower quadrant pain, concern for appendicitis. COMPARISON: Abdominal ultrasound 07/04/2018. TECHNIQUE: Multidetector volumetric images were obtained from the superior aspect of the liver through the pubic symphysis following administration 85 mL of Omnipaque 350 intravenous contrast. Sagittal and coronal reformatted images were obtained on the technologist's workstation. Oral contrast: No This CT examination was performed using dose optimization techniques as appropriate, variously including the following: *Automated exposure control *Adjustment of mA and/or kV according to patient size (this includes techniques or standardized protocols for targeted exams where dose is matched to indication/reason for exam; i.e. extremities or head) *Use of iterative reconstruction technique DLP: 415 mGy-cm FINDINGS: LUNG BASES: A coarse subpleural reticular opacities are present in left right lung bases and are most likely represent subpleural scarring and/or atelectasis. LIVER, GALLBLADDER, AND BILIARY TREE: The liver is normal in size, shape, and attenuation. No focal hepatic lesion or biliary ductal dilatation is present. The gallbladder is unremarkable with no evidence of radiopaque gallstones, gallbladder wall thickening, or obvious pericholecystic inflammatory changes. PANCREAS: Unremarkable. SPLEEN: Unremarkable. ADRENAL GLANDS: Unremarkable. KIDNEYS AND URETERS: A 2 mm calculus is present in the inferior pole the left kidney. No left-sided hydronephrosis or perinephric inflammatory changes. Bilaterally symmetric nephrographic enhancement is visualized. No right-sided hydronephrosis or perinephric inflammatory changes. No right-sided ureterectasis. No no ureteral calculi identified making allowances for minimal scattered pelvic phleboliths. BLADDER: Unremarkable. GASTROINTESTINAL TRACT: The appendix is normal in appearance (series 3 image 439). Concentric mural thickening of the sigmoid colon and descending colon is identified mild reticulation of the sigmoid mesentery is visualized. A small number of sigmoid diverticula are noted. No free intraperitoneal fluid or gas collections identified. Small hiatal hernia is present. No pneumatosis intestinalis. No portal venous gas. ABDOMINAL WALL: Right lower quadrant abdominal wall sutures are noted. LYMPH NODES: Normal. VASCULAR: Moderate scattered calcific atherosclerosis. The origin of the superior mesenteric artery is patent. Inferior mesenteric artery origin is not visualized though this examination is not tailored for precise angiographic evaluation of structures at this size. PELVIC VISCERA: Uterus is absent. No adnexal lesions noted. OSSEOUS STRUCTURES: Diffuse osteopenia. No vertebral body compression deformities identified. CT/CT abdomen pelvis w IV con IMPRESSION: *Findings suspicious for uncomplicated diverticulitis or ischemic colitis. Concentric mural thickening and inflammatory changes are present throughout the proximal sigmoid colon and distal descending colon. A small number scattered sigmoid diverticula are noted. Inflammatory changes are most pronounced within the proximal sigmoid colon. No free to peritoneal fluid or gas collections identified. The relative focal prominence of inflammatory changes within the sigmoid colon and sigmoid mesentery suggest that findings are more likely to represent uncomplicated diverticulitis. *Normal appearance of the appendix. *Single nonobstructing punctate 2 mm calculus within the inferior pole the left kidney. No hydronephrosis or ureterectasis. Dictated By: Juan Woodson MD Signed By: Electronically signed by Juan Woodson MD 03/25/24 6916 Radiology Impression Discussion of test interpretation with radiology: I have reviewed the radiologist's reading. Independent Historian Clinical information obtained from an independent historian. History obtained from or confirmed by: Spouse (patient's provided additional history and confirmed the history provided by the patient.) Prescription Management I considered prescription management with: Antibiotic (patient prescribed an antibiotic for diverticulitis) Chronic Conditions Patient?s care impacted by: Hypertension Critical Care Time Critical Care Time Critical Care Time: Yes Total Critical Care Time: 35 Attestation: I spent 35 minutes of Critical Care Time with this patient. This does not include time spent on separately reported billable procedures. Discharge Plan Discharge Clinical Impression: Diverticulitis Patient Disposition: Home, Self-Care Instructions: Diverticulitis (ED), Diverticulitis Diet (ED) Additional Instructions: Take your antibiotic as prescribed. Follow up with your primary care provider. Return to the emergency department immediately if your symptoms worsen or if you develop any dizziness, shortness of breath, difficulty breathing, chest pain, blurry vision, loss of vision, nausea, vomiting, abdominal pain, fever, chills, back pain, or any other complaints. Prescriptions: No Action epinephrine 0.3 mg/0.3 mL syringe 0.3 mg IM Q10M PRN (Reason: anaphylaxis) Qty: 2 0RF Rx Instructions: for 2 doses ezetimibe [Zetia] 10 mg tablet 10 mg PO DAILY 90 Days Qty: 90 2RF amlodipine 10 mg tablet 10 mg PO DAILY 90 Days Qty: 90 1RF levothyroxine 50 mcg tablet 50 mcg PO DAILY Qty: 90 1RF hydrochlorothiazide 12.5 mg tablet 12.5 mg PO DAILY 90 Days Qty: 90 1RF pskngvxliczr-syllgplm-qxhkeg Tablet 1 tab PO DAILY cholecalciferol (vitamin D3) 25 mcg (1,000 unit) capsule 25 mcg PO DAILY acetaminophen 500 mg capsule 1,000 mg PO Q6H PRN (Reason: pain (scale score 4-6)) Qty: 30 0RF metformin 500 mg tablet extended release 24 hr 500 mg PO DAILY 90 Days Qty: 90 3RF cephalexin 500 mg capsule 500 mg PO Q8H Qty: 21 0RF cranberry extract 425 mg capsule 425 mg PO .COMPLEX Qty: 60 10RF Rx Instructions: 425 mg orally one to 2 x daily with meals; administer with meals Referrals: Rehan Guillaume PA-C [Primary Care Provider] - Interventions: ED Discharge Assessment Last Done: 03/25/24 15:47 Discharge Date/Time: 03/25/24 15:48 Print Language: Amharic
[2024-03-25] MEDS: 0.9 % Sodium Chloride 1,000 ML 999 ML IV (12:31)
[2024-03-25] MEDS: ondansetron HCL 4 MG/2 ML VIAL IVPUSH ×2 (12:33→15:42)
[2024-03-25] MEDS: iohexoL 350 MG/ML 100 ML INFUS..BTL IV (12:43)
[2024-03-25 15:14] VITALS: BP 147/61; PULSE 68; RESP 16; TEMP 36.8; O2SAT 97
[2024-03-25] MEDS: Amoxicillin/Potassium Clav 875 MG TABLET PO (15:42)
[2024-03-25 15:47] VITALS: BP 147/61; PULSE 68; RESP 16; TEMP 36.8; O2SAT 97
== END 2024-03-25 15:48 | disposition home or self-care (01) ==
PROVIDERS: Emergency Provider Emergency Medicine; PCP Physician Assistant
DX: R10.31 Right lower quadrant pain (principal); I10 Essential (primary) hypertension; E03.9 Hypothyroidism, unspecified; R11.2 Nausea with vomiting, unspecified; K57.92 Diverticulitis of intestine, part unspecified, without perforation or abscess without bleeding
CPT/HCPCS: 36415; 74177; 80048; 80076; 81001; 83690; 85025; 87086; 96361; 96374; 96376; 99284; 99285; J2405; Q9967

== ENCOUNTER 2024-04-15 08:13 | Outpatient (AMB) | payer MEDICARE, OTHER, SELFPAY ==
[2024-04-15 08:23] VITALS: BP 122/78; PULSE 72; TEMP 36.4; O2SAT 99; BMI 23.9
--- NOTE | 2024-04-15 08:23 | AM.OFFWIN_ITS ---
Intake Vital Signs 04/15/24 08:23 Height 5 ft 3 in Weight 135 lb BMI 23.9 BP 122/78 Blood Pressure Location Rt brachial Position Sitting Pulse 72 Pulse Source Pulse Oximeter Temp 97.6 F Temp Source Oral Pulse Oximetry (%) 99 Oxygen Delivery Method Room Air Intake Visit Reasons: EP ?UTI Intake Note: pt here c/o burning sensation while urinating, urgency. No fever Patient Tobacco Use Status: Never used Tobacco Allergies Lrnkgwa-BRA-JbQ Reductase Inhibitor Allergy (Intermediate, Verified 04/15/24 08:27) Itching Sulfa (Sulfonamide Antibiotics) Allergy (Unknown, Verified 04/15/24 08:27) ITCHING Losartan Allergy (Severe, Uncoded 04/15/24 08:27) Anaphylaxis Do you need a note to return to daycare/school/sports/work: No HPI HPI Comments History of Present Illness Details This is a 78-year-old female presenting for evaluation of dysuria and urinary frequency that started this morning. Patient denies having any fevers, chills, abdominal pain or flank pain. Patient has not taken any medication for treatment of her discomfort. Of note, patient was treated for an acute urinary tract infection at the end of March 2024. 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 Cystitis Arthralgia of left foot Strain of left biceps Pre-op evaluation Right shoulder pain Pre-diabetes Recurrent urinary tract infection Surgical History History of mastectomy History of lumpectomy History of tibial fracture History of colonoscopy History of cataract surgery History of hysterectomy Family History Mother Breast cancer Father Dementia Social History Housing: House Alcohol intake: current Alcohol intake frequency: a few times a month Alcohol type: other Patient Tobacco Use Status: Never used Tobacco e-Cigarette/Vaping Use: Never Used Second Hand Smoke Exposure: No service: No Current occupational status: retired Current occupational exposures/hazards: No Cognitive needs: No Hearing needs: No Vision needs: No Review of Systems Const All systems reviewed & are unremarkable except as noted in HPI and below Denies body aches, Denies chills and Denies fever(s) Eyes Reports no additional complaints ENT Reports no additional complaints Card Reports no additional complaints Resp Reports no additional complaints GI Denies abdominal pain Reports no additional complaints, Denies hematuria, Reports dysuria, Denies urinary incontinence, Denies urinary hesitancy and Denies urinary urgency Musc Reports no additional complaints Skin/Breast Reports system reviewed and no additional complaints, except as documented Neuro Reports no additional complaints Psych Reports no additional complaints Physical Exam Vital Signs: Last Vital Signs Temp 97.6 F 04/15/24 08:23 Pulse 72 04/15/24 08:23 BP 122/78 04/15/24 08:23 Pulse Ox 99 04/15/24 08:23 Oxygen Delivery Method Room Air 04/15/24 08:23 BMI result Body Mass Index 23.9 Patient is afebrile. Const General: cooperative, healthy appearing, comfortable and no acute distress Nutritional Appearance: average body habitus Orientation/consciousness: patient oriented x3 Limitations: no limitations GI Inspection: Yes normal to inspection Palpation (GI): Soft to palpation, nontender, no guarding and Other GI palpation findings present (no CVAT bilaterally) Auscultation: normal bowel sounds General: Yes Bimanual renal exam normal bilaterally, Yes bladder normal to palpation and Yes no CVA tenderness Bimanual exam- vagina & uterus: bladder normal to palpation Back/Spine/Pelvis Back: no CVA tenderness Skin General skin exam: no rashes or lesions noted Neuro General: patient oriented x3 Psych Appearance: grossly normal Mental Status: mental status grossly normal Insight: Good insight present (Psych) Judgement: Good judgement present (Psych) Results AMB Urinalysis, Automated UA Leukoctes 70 Renard/uL Last Edit by Eagle Shepherd CMA on 04/15/24 08:34 UA Nitrite Negative Last Edit by Eagle Shepherd CMA on 04/15/24 08:34 UA Urobilinogen 0.2 mg/dL Last Edit by Eagle Shepherd CMA on 04/15/24 08:34 UA Protein 15 mg/dL Last Edit by Eagle Shepherd CMA on 04/15/24 08:34 UA pH 7.5 Last Edit by Eagle Shepherd CMA on 04/15/24 08:34 UA Blood 200 Jose/uL Last Edit by Eagle Shepherd CMA on 04/15/24 08:34 UA Specific [place] 1.005 Last Edit by Eagle Shepherd CMA on 04/15/24 08:34 UA Ketone Negative Last Edit by Eagle Shepherd CMA on 04/15/24 08:34 UA Bilirubin 0 mg/dL Last Edit by Eagle Shepherd CMA on 04/15/24 08:34 UA Glucose 0 mg/dL Last Edit by Eagle Shepherd CMA on 04/15/24 08:34 Results Reviewed Results Reviewed: Laboratory Last Values Urine pH (Auto) 7.5 04/15/24 08:33 Specific [place] (Auto) 1.005 04/15/24 08:33 Urine Protein (Auto) 15 mg/dL 04/15/24 08:33 Glucose (UA)(Auto) 0 mg/dL 04/15/24 08:33 Urine Ketones (Auto) Negative 04/15/24 08:33 Urine Blood (Auto) 200 Jose/uL 04/15/24 08:33 Urine Nitrite (Auto) Negative 04/15/24 08:33 Urine Bilirubin (Auto) 0 mg/dL 04/15/24 08:33 Urine Urobilinogen (Auto) 0.2 mg/dL 04/15/24 08:33 Leukocyte Esterase (Auto) 70 Renard/uL 04/15/24 08:33 Urinalysis reviewed with patient; urine culture pending. Assessment & Plan Assessment & Plan (1) Dysuria: Comment: Urine culture pending at this time given her most recent acute urinary tract infection. Code(s): R30.0 - Dysuria Plan: Keflex q.8 hours x7 days. Urine culture pending. Orders: Orders Urine Culture Today Gracia Vaz PA-C R30.0 - Dysuria AMB Urinalysis Automated Today Esther Humphrey PA-C Z13.9 - Encounter for screening, unspecified Medications: New cephalexin 500 mg PO Q8H 21 caps 0RF Gracia Vaz PA-C Coding Level of Care Code Est Pt Level 3 (16647) Diagnoses Dysuria R30.0 Time Spent (min) 20
== END 2024-04-15 09:14 | disposition home or self-care (01) ==
PROVIDERS: PCP Physician Assistant; Visit Provider Physician Assistant
DX: R30.0 Dysuria (principal)
CPT/HCPCS: 81003; 99213

== ENCOUNTER 2024-04-15 08:59 | Outpatient (REF) | payer MEDICARE, OTHER, SELFPAY | END 2024-04-15 09:00 | disposition home or self-care (01) | LOC: HO.LAB 08:59 | PROVIDERS: Visit Provider Physician Assistant | DX: Z13.9 Encounter for screening, unspecified (principal) | CPT/HCPCS: 87086 ==

== ENCOUNTER 2024-05-22 08:31 | Outpatient (AMB) | payer MEDICARE, OTHER, SELFPAY ==
--- NOTE | 2024-05-22 08:34 | A.OFFVIS_ITS ---
Intake Visit Reasons: 6m follow up Intake Note: Patient presents today for a 6m follow-up Meds- cranberry extract Allergies to Antibiotic- Sulfa Blood Thinner- None Patient Symptoms: Patient stated finished taking AZO and and is doing very well. 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 She states she is doing well. She has had recurrent UTIs and lower urinary tract symptoms of urgency and urinary hesitancy. The patient has history of pelvic surgery including TVT that needed to be loosen due to urinary retention. Workup included cystoscopy on 08/22/2023 urethral dilation was done at that time. The patient states she has been doing well since urethral dilation. The patient is currently managed with daily cranberry supplements. Urinalysis 2+ blood, leukocytes trace. Review of chart: 11/23/23- - Lizzeth states she is doing well. Denies recurrent UTI symptoms. She ran out of cranberry and had a problem getting it refilled, she has changed her insurance coverage. I will still send a new script but if it is not covered she will get it OTC. 08/22/23? She is followed today for a Cystoscopy procedure. She was last seen by me on 07/20/23 for cystitis.? The Patient has a history of total vaginal hysterectomy, apical repair, with left uterosacral ligament suspension and right sacrospinous ligament suspen, with midurethral sling TVT done on 11/18/2017. She states about a week later they had to re-operate to loosen the sling as she was in retention. Cystoscopy findings: Urethral meatus was tight and required urethral dilation, it was dilated from 14 Mexican to 20 Mexican; bladder was visualized; there was no suspicious bladder lesions noted; there was no mesh visualized in the bladder, on the left lateral wall there were some changes of the bladder wall to small diverticuli. Doxycycline 100 mg BID for 5 days due to urethral dilation. Pt has history of breast cancer and I will hold on any estrogen therapy. Empirically start her on cranberry supplementation. US results from 08/03/23 revealed? no calculi or focal parenchymal lesions.? Urine culture results from 07/20/23 which came back Escherichia coli > 100,000 cfu/mL. Urine culture results from 05/30/2023 which came back Enterococcus faecalis? > 100,000 cfu/mL. 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 Cystitis Arthralgia of left foot Strain of left biceps Pre-op evaluation Right shoulder pain Pre-diabetes Recurrent urinary tract infection Surgical History History of mastectomy History of lumpectomy History of tibial fracture History of colonoscopy History of cataract surgery History of hysterectomy Family History Mother Breast cancer Father Dementia Social History Housing: House Alcohol intake: current Alcohol intake frequency: a few times a month Alcohol type: other Patient Tobacco Use Status: Never used Tobacco e-Cigarette/Vaping Use: Never Used Second Hand Smoke Exposure: No service: No Current occupational status: retired Current occupational exposures/hazards: No Cognitive needs: No Hearing needs: No Vision needs: No Review of Systems Const All systems reviewed & are unremarkable except as noted in HPI and below Reports no additional complaints Eyes Reports no additional complaints ENT Reports no additional complaints Card Reports no additional complaints Resp Reports no additional complaints GI Reports no additional complaints Reports as per HPI Musc Reports no additional complaints Skin/Breast Reports system reviewed and no additional complaints, except as documented Neuro Reports no additional complaints Psych Reports no additional complaints Endo Reports no additional complaints Hal/Lymph Reports no additional complaints Aller/Immun Reports no additional complaints Results AMB Urinalysis, Automated UA Leukoctes 15 Renard/uL Last Edit by MORAIMA Jean-Baptiste on 05/22/24 09:44 UA Nitrite Negative Last Edit by MORAIMA Jean-Baptiste on 05/22/24 09:44 UA Urobilinogen 0.2 mg/dL Last Edit by MORAIMA Jean-Baptiste on 05/22/24 09:4 4 UA Protein 15 mg/dL Last Edit by MORAIMA Jean-Baptiste on 05/22/24 09:44 UA pH 6.0 Last Edit by MORAIMA Jean-Baptiste on 05/22/24 09:44 UA Blood 80 Jose/uL Last Edit by MORAIMA Jean-Baptiste on 05/22/24 09:44 UA Specific [place] 1.015 Last Edit by MORAIMA Jean-Baptiste on 05/22/24 09: 44 UA Ketone Negative Last Edit by MORAIMA Jean-Baptiste on 05/22/24 09:44 UA Bilirubin 0 mg/dL Last Edit by MORAIMA Jean-Baptiste on 05/22/24 09:44 UA Glucose 0 mg/dL Last Edit by MORAIMA Jean-Baptiste on 05/22/24 09:44 Results Reviewed Results Reviewed: Laboratory Last Values Urine pH (Auto) 6.0 05/22/24 09:43 Specific [place] (Auto) 1.015 05/22/24 09:43 Urine Protein (Auto) 15 mg/dL 05/22/24 09:43 Glucose (UA)(Auto) 0 mg/dL 05/22/24 09:43 Urine Ketones (Auto) Negative 05/22/24 09:43 Urine Blood (Auto) 80 Jose/uL 05/22/24 09:43 Urine Nitrite (Auto) Negative 05/22/24 09:43 Urine Bilirubin (Auto) 0 mg/dL 05/22/24 09:43 Urine Urobilinogen (Auto) 0.2 mg/dL 05/22/24 09:43 Leukocyte Esterase (Auto) 15 Renard/uL 05/22/24 09:43 Ordered:? Urine Culture? Procedure?Result?Verified?Site ? Urine Culture? Final?07/22/23 ? ? ?Organism 1?Escherichia coli ? Quant?> 100,000 cfu/mL ? E coli? M.I.C.? ? RX? --------- ---?Ampicillin?8? S?Ceftriaxone? <=0.25? ? ?S?Gentamicin?<=1? S?Levofloxacin?>=8? R?Nitrofurantoin?<=16?S?Trimethoprim/Sulfamethoxazole? >=320? ? ? R?? Date of Service: 08/03/23 EXAMINATION:? US RETROPERITONEAL LIMITED (RENAL ONLY) CLINICAL INFORMATION: Cystitis, unspecified without hematuria. COMPARISON:? Ultrasound abdomen complete 07/04/2018. FINDINGS: RIGHT KIDNEY: 8.2 x 5.5 x 5.0 cm (SAG x AP x TRV). The kidney is normal in size, contour, and echogenicity. There are persistent lobulations. Renal cortical thickness is normal. No calculi or focal parenchymal lesions. No hydronephrosis. LEFT KIDNEY: 9.4 x 5.9 x 5.0 cm (SAG x AP x TRV). The kidney is normal in size, contour, and echogenicity. There are persistent lobulations. Renal cortical thickness is normal. No calculi or focal parenchymal lesions. There is mild pelviectasis, without adore hydronephrosis. IMPRESSION:? Unremarkable examination. 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
== END 2024-05-22 09:17 | disposition home or self-care (01) ==
PROVIDERS: PCP Physician Assistant; Visit Provider Urology
DX: N39.0 Urinary tract infection, site not specified (principal); Q64.31 Congenital bladder neck obstruction; N30.91 Cystitis, unspecified with hematuria; Z13.9 Encounter for screening, unspecified
CPT/HCPCS: 99213

== ENCOUNTER → 2024-05-22 08:31 | Outpatient (BNVA) | payer MEDICARE, OTHER, SELFPAY | PROVIDERS: PCP Physician Assistant; Visit Provider Urology | DX: N30.91 Cystitis, unspecified with hematuria (principal); Q64.31 Congenital bladder neck obstruction | CPT/HCPCS: 81003; 99212 ==

== ENCOUNTER 2024-07-10 07:26 | Outpatient (REF) | payer MEDICARE, OTHER, SELFPAY ==
[2024-07-10 10:20] LABS: Hematocrit 37.3 % (37.0-47.0); Hemoglobin 13.2 g/dl (12.0-16.0); Mean Corpuscular HGB Conc 35.4 g/dl (31.0-35.0); Mean Corpuscular Hemoglobin 31.4 pg (27.0-33.0); Mean Corpuscular Volume 88.6 fL (80.0-98.0); Mean Platelet Volume 9.7 fL (9.4-12.3); Platelet Count 312 X10*3/uL (160-400); Red Blood Count 4.21 X10*6/uL (4.20-5.50); Red Cell Distribution Width 13.4 % (11.0-16.0); White Blood Count 4.3 X10*3/uL (4.8-10.8)
[2024-07-10 10:37] LABS: Estimated Average Glucose 126 mg/dL
[2024-07-10 10:57] LABS: Alanine Aminotransferase 21 U/L (0-31); Albumin Level 4.1 g/dL (3.5-5.0); Alkaline Phosphatase 66 U/L (39-117); Anion Gap 14 (12-20); Aspartate Amino Transferase 23 U/L (5-31); Bilirubin Total 0.4 mg/dL (0.0-1.0); Blood Urea Nitrogen 9 mg/dL (9-16); Calcium 9.5 mg/dL (8.4-10.2); Carbon Dioxide 27 mmol/L (22-29); Chloride 104 mmol/L (96-108); Cholesterol 263 mg/dL (<200); Estimated Glomerular Filt Rate > 60; Glucose Fasting 113 mg/dL (60-99); HDL Cholesterol 85 mg/dL (>40); LDL Cholesterol Calculated 159 mg/dL (<100); Potassium 3.3 mmol/L (3.3-5.1); Sodium 142 mmol/L (135-145); Total Protein 7.5 g/dL (6.5-8.0); Triglycerides 97 mg/dL (<150)
[2024-07-10 11:06] LABS: Creatinine Urine 52.76 mg/dL; Microalbumin Urine < 5.0 mg/L
== END 2024-07-10 07:27 | disposition home or self-care (01) ==
LOC: HO.HMGCLDS 07:26
PROVIDERS: PCP Physician Assistant; Visit Provider Physician Assistant
DX: E78.2 Mixed hyperlipidemia (principal); I10 Essential (primary) hypertension; E03.9 Hypothyroidism, unspecified; R73.09 Other abnormal glucose
CPT/HCPCS: 36415; 80053; 80061; 82043; 82570; 83036; 84443; 85027

== ENCOUNTER 2024-07-23 14:53 | Outpatient (AMB) | payer MEDICARE, OTHER, SELFPAY ==
--- NOTE | 2024-07-23 14:59 | A.OFFPC_ITS ---
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 Accompanied by: Self / Same As Patient Allergies Aqfxdbt-DXA-NuV Reductase Inhibitor Allergy (Intermediate, Verified 07/23/24 15:23) Itching Sulfa (Sulfonamide Antibiotics) Allergy (Unknown, Verified 07/23/24 15:23) ITCHING Losartan Allergy (Severe, Uncoded 07/23/24 15:23) Anaphylaxis Medication List - Last Reconciled 07/23/24 by Rehan Guillaume PA-C acetaminophen 1,000 mg (2 x 500 mg) PO Q6H PRN amlodipine 10 mg PO DAILY 90 days cholecalciferol (vitamin D3) 25 mcg PO DAILY cranberry extract 425 mg orally one to 2 x daily with meals; administer with meals epinephrine 0.3 mg (0.3 mL) IM Q10M PRN ezetimibe (Zetia) 10 mg PO DAILY 90 days hydrochlorothiazide 12.5 mg PO DAILY 90 days levothyroxine 50 mcg PO DAILY metformin ER 500 mg PO DAILY 90 days fhyeujjaocdn-pumfvubi-uxqgai 1 tab PO DAILY Tobacco use date assessed: 01/16/24 Fall risk assessment: No Falls in past year Last assessed Fall Risk: 07/23/24 Dental Screening Dental Screen Date: 01/16/24 HPI follow up htn HPI Details Patient is a 77-year-old female here today for follow-up visit. Patient has a past medical history significant for pre diabetes, uncontrolled hypertension, hypothyroidism, history breast cancer. Concerns--> patient reports over last 2 days having a sore throat. She is interested in getting for [employer] , she reports she was at a wedding recently ..Hypertension:? Has been fairly well co ntrolled according to home readings which are ranging 110 to 130 systolic she is asymptomatic without any chest pain, headaches or vision issues. Today's blood pressure slightly elevated in office ? She continues on amlodipine 10 mg.?. .. Impaired glucose metabolism: Most recent A1c has improved to 6.0 from 6.4. Patient continues on metformin 500 mg ER. She does report some dietary indiscretion over the winter months. .. Hyperlipidemia:? She has only been using Zetia and a few day week basis. Most recent lipid panel showing elevated total cholesterol and LDL. She has now started using Zetia on a daily basis in hopes to reduce her cholesterol further. ? Has not been able to tolerate statins due to GI upset and itching.? She is also using [place] threes. 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 Cystitis Arthralgia of left foot Strain of left biceps Pre-op evaluation Right shoulder pain Pre-diabetes Recurrent urinary tract infection Surgical History History of mastectomy History of lumpectomy History of tibial fracture History of colonoscopy History of cataract surgery History of hysterectomy Family History Mother Breast cancer Father Dementia Social History Housing: House Alcohol intake: current Alcohol intake frequency: a few times a month Alcohol type: other Patient Tobacco Use Status: Never used Tobacco e-Cigarette/Vaping Use: Never Used Second Hand Smoke Exposure: No service: No Current occupational status: retired Current occupational exposures/hazards: No Cognitive needs: No Hearing needs: No Vision needs: No Questionnaire Thrive Questionnaire Date Thrive assessed: 01/16/24 Are you currently unemployed and looking for a job?: No ELFEGO-7 AMB Questionnaire ELFEGO-7 Date ELFEGO - 7 assessed: 01/16/24 Source: Developed by Drs. Martin Johnson, Constance Ross, Juan Garrido and colleagues, with an educational louis from [employer]. Review of Systems Const Denies headache(s) Eyes Denies loss of vision ENT Denies vertigo, Denies dizziness, Denies headache(s) and Denies sore throat Card Denies chest pain, Denies leg edema and Denies lightheadedness Resp Denies cough, Denies hemoptysis and Denies wheezing GI Denies abdominal pain, Denies melena, Denies constipation, Denies diarrhea and Denies vomiting Denies urinary frequency, Denies dysuria and Denies urinary urgency Musc Denies arthralgias, Denies joint swelling, Denies numbness and Denies tingling Neuro Denies Abnormal speech present, Denies behavioral changes, Denies vertigo, Denies dizziness, Denies headache(s), Denies loss of vision, Denies memory loss, Denies numbness and Denies tingling Psych Denies anxiety, Denies behavioral changes, Denies depression, Denies memory loss and Denies panic attacks Hal/Lymph Denies easy bleeding and Denies easy bruising Aller/Immun Denies wheezing Physical exam (Primary Care) Vital Signs: Last Vital Signs Pulse 80 07/23/24 15:05 BP 138/70 07/23/24 15:05 Pulse Ox 95 07/23/24 15:05 Oxygen Delivery Method Room Air 07/23/24 15:05 BMI result Body Mass Index 24.1 Tobacco/Smoking Status: Tobacco use Status Tobacco use date assessed 01/16/24 07/23/24 15:00 Patient Tobacco Use Status Never used Tobacco 07/23/24 15:00 e-Cigarette/Vaping Use Never Used 07/23/24 15:00 Thrive Assessment: Date of Thrive Assessment Date Thrive assessed 01/16/24 07/23/24 15:00 Const General: healthy appearing, no acute distress, alert and awake Nutritional Appearance: well nourished Orientation/consciousness: oriented to person, oriented to place and oriented to time HENID Ears: TM's normal bilaterally General nose exam: Normal nasal mucous membranes and turbinates present Eyes Conjunctivae: conjunctivae normal Sclerae: sclerae normal Pupils: Equal, round and reactive pupils present Neck Neck: Yes no lymphadenopathy and Yes no JVD Thyroid: Thyroid normal Carotids: no bruits Resp Effort & Inspection: normal respiratory effort and not tachypneic Auscultation: no crackles, no rales, no rhonchi and no wheezes Cardio Rate: regular rate Rhythm: regular rhythm Heart sounds: no murmurs and normal S1 and S2 GI Palpation (GI): Soft to palpation, nontender, no hepatomegaly and no splenomegaly Auscultation: normal bowel sounds Skin General skin exam: no rashes or lesions noted and dry skin Neuro General: oriented to person, oriented to place and oriented to time Cranial nerves: Yes Equal, round and reactive pupils present Speech: No Abnormal speech present Gait exam (Neuro): Normal gait present Motor exam (neuro): no tremor noted Extrem Right upper extremity: full ROM Left upper extremity: full ROM Right lower extremity: full ROM; no edema Left lower extremity: full ROM; no edema Psych Mental Status: mental status grossly normal Speech and movement: Normal speech and movement present Affect: normal affect Attitude: cooperative Thought process: Normal thought process present Assessment and Plan Assessment & Plan (1) Upper respiratory infection: Code(s): J06.9 - Acute upper respiratory infection, unspecified Qualifiers: Pharyngitis/tonsillitis etiology: unspecified etiology URI type: acute pharyngitis Qualified Code(s): J02.9 - Acute pharyngitis, unspecified Plan: Will test for COVID due to recent acute onset sore throat. (2) HLD (hyperlipidemia): Code(s): E78.5 - Hyperlipidemia, unspecified Qualifiers: Hyperlipidemia type: mixed hyperlipidemia Qualified Code(s): E78.2 - Mixed hyperlipidemia Plan: Patient's most recent labs continues to remain elevated total cholesterol though has improved. Has not been able to tolerate statin therapy. She has been using Zetia on an kqkgv-erfhr-nwi basis though has not been that effective on reducing her cholesterol. She is using Zetia a daily basis in hopes to reduce her cholesterol. . Again advised on lifestyle modifications of her diet to reduce high cholesterol foods. Will continue to follow lipid panel (3) Essential hypertension: Code(s): I10 - Essential (primary) hypertension Plan: Patient's blood pressure acceptable today in office. She does blood pressure at home and reports readings 110 to 130 systolic.. She otherwise is asymptomatic without any headache, dizziness or vision issues. Will continue her current dose antihypertensive medication with goal blood p ressure to be below 140/90 (4) Impaired glucose metabolism: Code(s): R73.09 - Other abnormal glucose Plan: Continues on metformin 500 mg daily. Most recent A1c is 6.0. Patient's fasting blood sugar improved to 113.. Will continue to follow fasting blood sugar and A1c to assure normal. Orders: Orders Microalbumin, Random (w Creat) 6 Months I10 - Essential (primary) hypertension SARS-CoV2/FLU/RSV 07/23/24 J06.9 - Acute upper respiratory infection, unspecified Hemoglobin A1c 6 Months R73.09 - Other abnormal glucose Comprehensive [place]. Panel Fast 6 Months R73.09 - Other abnormal glucose Lipid Panel 6 Months E78.2 - Mixed hyperlipidemia TSH reflex Free T4 6 Months E03.9 - Hypothyroidism, unspecified Complete Blood Count no Diff 6 Months I10 - Essential (primary) hypertension Medications: Refilled hydrochlorothiazide 12.5 mg PO DAILY 90 days 90 tabs 1RF I10 - Essential (primary) hypertension metformin ER 500 mg PO DAILY 90 days 90 tabs 3RF R73.03 - Prediabetes ezetimibe (Zetia) 10 mg PO DAILY 90 days 90 tabs 2RF E78.5 - Hyperlipidemia, unspecified Patient Instructions: Goal: A1c to remain below 6.5, total cholesterol to be below 230 Barrier: Adherence to physical activity and healthy eating habits Coding Level of Care Code Est Pt Level 4 (84437) Diagnoses Acute pharyngitis, unspecified etiology J02.9 Pharyngitis/tonsillitis etiology: unspecified etiology URI type: acute pharyngitis Mixed hyperlipidemia E78.2 Hyperlipidemia type: mixed hyperlipidemia Essential hypertension I10 Impaired glucose metabolism R73.09
[2024-07-23 15:05] VITALS: BP 138/70; PULSE 80; O2SAT 95; BMI 24.1
== END 2024-07-23 15:37 | disposition home or self-care (01) ==
PROVIDERS: PCP Physician Assistant; Visit Provider Physician Assistant
DX: J02.9 Acute pharyngitis, unspecified (principal); E78.2 Mixed hyperlipidemia; I10 Essential (primary) hypertension; R73.09 Other abnormal glucose

== ENCOUNTER 2024-07-23 14:53 | Outpatient (REF) | payer MEDICARE, OTHER, SELFPAY ==
[2024-07-23 16:54] LABS: Influenza A PCR NEGATIVE (Negative); Influenza B PCR NEGATIVE (Negative); Resp Syncy Virus RNA Qual PCR NEGATIVE (Negative); SARS COV2 PCR INHOUSE NEGATIVE (Negative)
== END 2024-07-23 14:54 | disposition home or self-care (01) ==
LOC: HO.LAB 14:53
PROVIDERS: PCP Physician Assistant; Visit Provider Physician Assistant
DX: J02.9 Acute pharyngitis, unspecified (principal); E78.2 Mixed hyperlipidemia; I10 Essential (primary) hypertension; R73.09 Other abnormal glucose; Z79.84 Long term (current) use of oral hypoglycemic drugs
CPT/HCPCS: 0241U; 99212

== ENCOUNTER 2024-08-14 12:36 | Outpatient (AMB) | payer MEDICARE, OTHER, SELFPAY ==
--- NOTE | 2024-08-14 12:38 | AM.OFFWIN_ITS ---
Intake Vital Signs 08/14/24 12:39 Height 5 ft 3 in Weight 127 lb BMI 22.5 BP 118/82 Blood Pressure Location Lt brachial Position Sitting Pulse 70 Pulse Source Pulse Oximeter Temp 97.7 F Temp Source Oral Pulse Oximetry (%) 98 Oxygen Delivery Method Room Air Intake Visit Reasons: EP Cold symptoms, cough 3 weeks Intake Note: Patient here for cough that has been present for about 3 weeks. Patient Tobacco Use Status: Never used Tobacco Allergies Oargrxd-TUX-ZyY Reductase Inhibitor Allergy (Intermediate, Verified 08/14/24 12:44) Itching Sulfa (Sulfonamide Antibiotics) Allergy (Unknown, Verified 08/14/24 12:44) ITCHING Losartan Allergy (Severe, Uncoded 08/14/24 12:44) Anaphylaxis Do you need a note to return to daycare/school/sports/work: No HPI HPI Comments History of Present Illness Details Patient is a 78-year-old female complaining of 3 weeks of a cough and cold symptoms. She said it started with a sore throat and then turned into a cough. She says the sore throat in the other symptoms she had have all resolved in the only thing that lingers is this cough. She describes the cough is productive with white phlegm. She denies any fevers, shortness of breath, trouble breathing, sinus pain, ear pain or head congestion. She denies a history of asthma or COPD. She denies any sick contacts. Her is with her and he is wondering if she should have a chest x-ray. 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 Cystitis Arthralgia of left foot Strain of left biceps Pre-op evaluation Right shoulder pain Pre-diabetes Recurrent urinary tract infection Surgical History History of mastectomy History of lumpectomy History of tibial fracture History of colonoscopy History of cataract surgery History of hysterectomy Family History Mother Breast cancer Father Dementia Social History Housing: House Alcohol intake: current Alcohol intake frequency: a few times a month Alcohol type: other Patient Tobacco Use Status: Never used Tobacco e-Cigarette/Vaping Use: Never Used Second Hand Smoke Exposure: No service: No Current occupational status: retired Current occupational exposures/hazards: No Cognitive needs: No Hearing needs: No Vision needs: No Review of Systems Const All systems reviewed & are unremarkable except as noted in HPI and below Physical Exam Vital Signs: Last Vital Signs Temp 97.7 F 08/14/24 12:39 Pulse 70 08/14/24 12:39 BP 118/82 08/14/24 12:39 Pulse Ox 98 08/14/24 12:39 Oxygen Delivery Method Room Air 08/14/24 12:39 BMI result Body Mass Index 22.5 Const General: cooperative, healthy appearing, comfortable and no acute distress Orientation/consciousness: patient oriented x3 Limitations: no limitations HEENT Head: Yes normal to inspection Ears: hearing grossly normal bilaterally, external ears normal and TM's normal bilaterally General nose exam: Normal external nose present, Normal nares present and No nasal discharge present Face and sinus: Yes normal facial exam and Yes sinuses nontender Mouth: Normal oral and palatal mucosa present and moist mucous membranes Throat: Yes tonsils normal, Yes uvula midline and Yes posterior oropharynx abnormal (Erythema) Eyes General: appearance normal, both eyes and all related structures Neck Neck: Yes normal visual inspection Resp Effort & Inspection: normal respiratory effort, able to speak in complete sentences, Actively coughing, no respiratory distress, not tachypneic, no tripod positioning and no use of accessory muscles Auscultation: clear to auscultation bilaterally Cardio Rate: regular rate Rhythm: regular rhythm Heart sounds: normal S1 and S2 Skin General skin exam: no rashes or lesions noted Neuro General: patient oriented x3 Extrem General: Yes normal to inspection and Yes no clubbing, cyanosis or edema Assessment & Plan Assessment & Plan (1) Atypical pneumonia: Code(s): J18.9 - Pneumonia, unspecified organism Plan: Vital signs are stable, patient is well-appearing and lungs are clear. Likely atypical pneumonias so I sent a Z-Hi to her pharmacy. No indication for a chest x-ray Plan See above Medications: New azithromycin For 250 mg dose pack: take 500 mg today (day 1), then 250 mg for 4 days (days 2-5) PO 6 tabs 0RF Coding Level of Care Code Est Pt Level 3 (60071) Diagnoses Atypical pneumonia J18.9
[2024-08-14 12:39] VITALS: BP 118/82; PULSE 70; TEMP 36.5; O2SAT 98; BMI 22.5
== END 2024-08-14 12:58 | disposition home or self-care (01) ==
PROVIDERS: PCP Physician Assistant; Visit Provider Physician Assistant
DX: J18.9 Pneumonia, unspecified organism (principal)

== ENCOUNTER → 2024-08-14 12:36 | Outpatient (BNVA) | payer MEDICARE, OTHER, SELFPAY | PROVIDERS: PCP Physician Assistant; Visit Provider Physician Assistant | DX: J18.9 Pneumonia, unspecified organism (principal) | CPT/HCPCS: 99212 ==

== ENCOUNTER 2024-09-11 12:33 | Emergency (ER) | payer MEDICARE, OTHER, SELFPAY ==
--- NOTE | ~2024-09-11 | XR_ITS ---
EXAMINATION: XR SHOULDER, LEFT CLINICAL INFORMATION: Pain status post fall COMPARISON: February 06, 2023 TECHNIQUE: 4 views of left shoulder . FINDINGS: There is fracture through the distal clavicle with minimal displacement of fragments but there is no fracture in the left proximal shoulder or scapula is seen. Visualized ribs are intact as well. There is sclerotic lesion in proximal left humerus consistent with enchondroma XR/XR shoulder LT min 2V IMPRESSION: Fracture of the distal clavicle on the left. No abnormal findings in the proximal humerus and shoulder. 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 Electronically signed by: Raymond Nair MD 09/11/2024 02:33 PM EST
--- NOTE | ~2024-09-11 | XR_ITS ---
EXAMINATION: XR CLAVICLE, LEFT CLINICAL INFORMATION: Pain status post fall COMPARISON: Left shoulder from February 06, 2026 TECHNIQUE: 2 views of the left clavicle. FINDINGS: There is mildly displaced fractures of the distal clavicle without intra-articular involvement. Acromioclavicular joint is unremarkable. Visualized superior ribs and partially visualized left humerus are unremarkable XR/XR clavicle LT IMPRESSION: Mildly displaced fracture of left distal clavicle Electronically signed by: Raymond Nair MD 09/11/2024 02:29 PM [facility]
[2024-09-11 12:58] VITALS: BP 160/69; PULSE 68; RESP 20; TEMP 36.2; O2SAT 100; BMI 24.7
--- NOTE | 2024-09-11 12:58 | ED.FALL ---
HPI - Fall General Chief Complaint: Extremity Problem Stated Complaint: fall, shoulder pain Time Seen by Provider: 09/11/24 13:18 Source: patient, RN notes reviewed and old records reviewed Mode of arrival: ambulatory History of Present Illness ED Provider: Mitzy Morse PA-C HPI Narrative: 78-year-old female with a past medical history of breast CA s/p left mastectomy, HTN, hypothyroid, presenting to the ED complaining of left shoulder pain and ecchymosis s/p mechanical trip and fall 6 days ago. States slipped in bathroom on tile and fell backwards into corner of the wall. Denies head trauma or LOC. Denies taking anticoagulation. Denies symptoms prior to fall. Reports pain with shoulder ROM. Denies numbness, tingling, weakness. Related Data Home Medications ?Medication ?Instructions ?Recorded ?Confirmed cholecalciferol (vitamin D3) 25 25 mcg PO DAILY 12/05/21 07/23/24 mcg (1,000 unit) capsule xdyrwfittmvi-aewcsggc-lqcqlr tablet 1 tab PO DAILY 12/05/21 07/23/24 Previous Rx's ?Medication ?Instructions ?Recorded epinephrine 0.3 mg/0.3 mL 0.3 mg (0.3 mL) IM Q10M PRN 05/11/23 injection syringe anaphylaxis #2 ea cranberry extract 425 mg capsule 425 mg PO .COMPLEX #60 caps 11/23/23 acetaminophen 500 mg capsule 1,000 mg (2 x 500 mg) PO Q6H PRN 03/05/24 pain (scale score 4-6) #30 caps amlodipine 10 mg tablet 10 mg PO DAILY 90 days #90 tabs 06/18/24 ezetimibe 10 mg tablet (Zetia) 10 mg PO DAILY 90 days #90 tabs 07/23/24 hydrochlorothiazide 12.5 mg tablet 12.5 mg PO DAILY 90 days #90 tabs 07/23/24 metformin 500 mg tablet,extended 500 mg PO DAILY 90 days #90 tabs 07/23/24 release 24 hr azithromycin 250 mg tablet See Rx Instructions PO .COMPLEX #6 08/14/24 tabs levothyroxine 50 mcg tablet 50 mcg PO DAILY #90 tabs 09/08/24 Allergies Allergy/AdvReac Type Severity Reaction Status Date / Time Iwcbvby-PHX-SvI Reductase Allergy Intermediate Itching Verified 09/11/24 13:01 Inhibitor Sulfa (Sulfonamide Allergy Unknown ITCHING Verified 09/11/24 13:01 Antibiotics) Losartan Allergy Severe Anaphylaxis Uncoded 09/11/24 13:01 Review of Systems Review of Systems: Yes all other systems are reviewed and are negative Constitutional: Constitutional: Reports as per [facility] Past Medical History Attestation statement: The following information was validated with the patient. 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 Cystitis Arthralgia of left foot Strain of left biceps Pre-op evaluation Right shoulder pain Pre-diabetes Recurrent urinary tract infection Surgical History History of mastectomy History of lumpectomy History of tibial fracture History of colonoscopy History of cataract surgery History of hysterectomy Family History Family History Mother Breast cancer Father Dementia Social History Social History Housing: House Alcohol intake: current Alcohol intake frequency: a few times a month Alcohol type: other Patient Tobacco Use Status: Never used Tobacco e-Cigarette/Vaping Use: Never Used Second Hand Smoke Exposure: No Advance Directives: No Advance Directives Information Provided: Yes service: No Current occupational status: retired Current occupational exposures/hazards: No Cognitive needs: No Hearing needs: No Vision needs: No Physical Exam Vital Signs: Vital Signs: Last Vital Signs Temp 97.2 F 09/11/24 12:58 Pulse 68 09/11/24 12:58 Resp 20 09/11/24 12:58 BP 160/69 H 09/11/24 12:58 Pulse Ox 100 09/11/24 12:58 O2 Del Method Room Air 09/11/24 12:58 BMI result Body Mass Index 24.7 Const: General: cooperative, healthy appearing and no acute distress Orientation/consciousness: patient oriented x3 Limitations: no limitations HEENT: Head: Yes normal to inspection and Yes atraumatic Ears: hearing grossly normal bilaterally General nose exam: Normal external nose present Face and sinus: Yes normal facial exam Eyes: General: appearance normal, both eyes and all related structures EOM: EOMs intact bilaterally Neck: Neck: Yes normal visual inspection and Yes no meningeal signs Resp: Effort & Inspection: normal respiratory effort and no respiratory distress Cardio: Rate: regular rate Back/Spine/Pelvis: Other: No midline cervical/thoracic/lumbar spinous tenderness/step-off or deformity Skin: Rashes: no rashes Wounds: no wounds Neuro: General: patient oriented x3, tone normal, moves all extremities, no meningeal signs, no focal motor deficits and CN's II-XI intact bilaterally Cranial nerves: Yes CN's II-XII intact bilaterally Gait exam (Neuro): Normal gait present Extrem: Other: Left shoulder with mild swelling and healing ecchymosis. Diffusely tender to palpation. ROM intact with discomfort. Neurovascularly intact distally. Course Course Course Narrative: This is an RME: Additional HPI, ROS, PE not included below will be deferred to primary provider. RME assessment and note performed by: Kay Loomis PA-C This is a 36-dtlz-vof-female, with a hx of history of breast cancer s/p left mastectomy, HTN, and hypothyroidism, who presents to the ER with complaints of left shoulder pain x 6 days. She had a mechanical fall on sunday where she stepped backwards in the bathroom and fell into the wall and landing onto her left shoulder. Denies hitting her head or LOC. Denies any dizziness, headaches, chest pain or shortness for breath. She was feeling well prior to the fall. Plan: X-ray left shoulder and left clavicle XR shoulder LT min 2V IMPRESSION: Fracture of the distal clavicle on the left. No abnormal findings in the proximal humerus and shoulder. 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 XR clavicle LT IMPRESSION: Mildly displaced fracture of left distal clavicle > patient placed in sling, recommended close ortho follow-up Results discussed with patient including worrisome signs and symptoms and strict return precautions, and when to return to the emergency department. They verbalized understanding and feel safe for discharge at this time. Procedures Orthopedic Splinting/Casting Injury #1: Side: left Upper Extremity Injury Location: clavicle Upper Extremity Immobilizer: sling/shoulder immobilizer Medical Decision Making Medical Decision Making MDM Narrative: 78-year-old female with a past medical history of breast CA s/p left mastectomy, HTN, hypothyroid, presenting to the ED complaining of left shoulder pain and ecchymosis s/p mechanical trip and fall 6 days ago. On exam vital signs stable, NAD, nontoxic appearing, physical exam as above. Concern for fracture vs strain. Low suspicion for dislocation. Low suspicion for atypical ACS. Plan: X-rays Please refer to course for remaining clinical decision making, interpretation of labs/imaging results, and discussions with consultants and/or family members. Differential Diagnosis Differential Diagnoses: The differential diagnosis associated with the presentation includes As above Independent Interpretation I performed an independent interpretation of an: Plain X-Ray Radiology Impression Discussion of test interpretation with radiology: I have reviewed the radiologist's reading. External Record Review External record reviewed: Inpatient record, Office record, Outpatient record, Prior outpatient labs, Prior outpatient radiology, Primary care record and Outside ED record Tests considered The following testing was considered but not selected: As above Prescription Management I considered prescription management with: Pain Medication Chronic Conditions Patient?s care impacted by: Cancer Social Determinants Patient?s care significantly limited by Social Determinants of Health including: Other Social Determinant of Health Discharge Plan Discharge Clinical Impression: Closed fracture of distal clavicle Patient Disposition: Home, Self-Care Instructions: Clavicle Fracture (ED) Additional Instructions: You have a mildly displaced fracture of your left distal clavicle Please wear sling at all times, you may only take off to shower You need to follow-up with the sports specialist, please call to make an appointment Ice Take ibuprofen and Tylenol as needed for pain/swelling If area becomes numb, increasingly painful or swollen return to the ED Prescriptions: No Action epinephrine 0.3 mg/0.3 mL syringe 0.3 mg IM Q10M PRN (Reason: anaphylaxis) Qty: 2 0RF Rx Instructions: for 2 doses amlodipine 10 mg tablet 10 mg PO DAILY 90 Days Qty: 90 0RF levothyroxine 50 mcg tablet 50 mcg PO DAILY Qty: 90 0RF nokwjmqpehin-gsgyfiju-jpoctz Tablet 1 tab PO DAILY cholecalciferol (vitamin D3) 25 mcg (1,000 unit) capsule 25 mcg PO DAILY acetaminophen 500 mg capsule 1,000 mg PO Q6H PRN (Reason: pain (scale score 4-6)) Qty: 30 0RF ezetimibe [Zetia] 10 mg tablet 10 mg PO DAILY 90 Days Qty: 90 2RF hydrochlorothiazide 12.5 mg tablet 12.5 mg PO DAILY 90 Days Qty: 90 1RF metformin 500 mg tablet extended release 24 hr 500 mg PO DAILY 90 Days Qty: 90 3RF azithromycin 250 mg tablet See Rx Instructions PO .COMPLEX Qty: 6 0RF Rx Instructions: For 250 mg dose pack: take 500 mg today (day 1), then 250 mg for 4 days (days 2-5) PO cranberry extract 425 mg capsule 425 mg PO .COMPLEX Qty: 60 10RF Rx Instructions: 425 mg orally one to 2 x daily with meals; administer with meals Referrals: [facility] – [place] [facility] [Provider Group] - 1 week Print Language: Syriac
[2024-09-11 15:23] VITALS: BP 157/65; PULSE 61; RESP 17; TEMP 35.8; O2SAT 98
[2024-09-11 15:44] VITALS: BP 157/65; PULSE 61; RESP 17; TEMP 35.8; O2SAT 98
== END 2024-09-11 15:44 | disposition home or self-care (01) ==
PROVIDERS: Emergency Provider Emergency Medicine; PCP Physician Assistant
DX: S42.032A Displaced fracture of lateral end of left clavicle, initial encounter for closed fracture (principal); M25.512 Pain in left shoulder; I10 Essential (primary) hypertension; W01.0XXA Fall on same level from slipping, tripping and stumbling without subsequent striking against object, initial encounter; Y93.89 Activity, other specified; Y92.002 Bathroom of unspecified non-institutional (private) residence as the place of occurrence of the external cause; Y99.8 Other external cause status; Z79.899 Other long term (current) drug therapy
CPT/HCPCS: 29105; 73000; 73030; 99283; 99284

== ENCOUNTER 2024-09-25 10:51 | Outpatient (AMB) | payer MEDICARE, OTHER, SELFPAY ==
--- NOTE | 2024-09-25 11:26 | MHC.OFFVIS ---
Intake Visit Reasons: FC- Closed fx of L distal clavicle DOI 09/05/24 Intake Note: Lizzeth is a 78 year old right hand dominant female who presents today with a sling for a evaluation of her left clavicle fx , DOI 09/05/24. Patient states she slipped in the bathroom on the tile and fell backwards into corner of the wall. She mentions her pain is feeling better today.Denies numbness and tingling. Allergies Ooggahx-RIT-VtK Reductase Inhibitor Allergy (Intermediate, Verified 09/25/24 11:28) Itching Sulfa (Sulfonamide Antibiotics) Allergy (Unknown, Verified 09/25/24 11:28) ITCHING Losartan Allergy (Severe, Uncoded 09/11/24 13:01) Anaphylaxis HPI HPI FC- Closed fx of L distal clavicle DOI 09/05/24: Details: 78-year-old right hand dominant female who presents in the office today for an evaluation of left distal clavicle fracture. The patient presented to the ED on 09/11/24 status post a mechanical trip and fell backwards into the corner of the bathroom wall on the tile, which occurred on 09/05/24. X-rays of the left shoulder and left clavicle were obtained in the ER. She was recommended to wear the sling and may take off to shower. She was advised to take OTC ibuprofen or Tylenol PRN for pain relief. While in the office today, the patient presents with a sling. She reports improved pain today. She denies any numbness or tingling sensation in the left upper extremity. 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 Cystitis Arthralgia of left foot Strain of left biceps Pre-op evaluation Right shoulder pain Pre-diabetes Recurrent urinary tract infection Surgical History History of mastectomy History of lumpectomy History of tibial fracture History of colonoscopy History of cataract surgery History of hysterectomy Family History Mother Breast cancer Father Dementia Social History Housing: House Alcohol intake: current Alcohol intake frequency: a few times a month Alcohol type: other Patient Tobacco Use Status: Never used Tobacco e-Cigarette/Vaping Use: Never Used Second Hand Smoke Exposure: No service: No Current occupational status: retired Current occupational exposures/hazards: No Cognitive needs: No Hearing needs: No Vision needs: No Review of Systems Const All systems reviewed & are unremarkable except as noted in HPI and below Physical Exam Const General: cooperative, healthy appearing and no acute distress Resp Effort & Inspection: normal respiratory effort and able to speak in complete sentences Cardio Rate: regular rate Peripheral pulses: Peripheral pulses 2+ throughout GI Palpation (GI): Soft to palpation Skin Lesions: no lesions Rashes: no rashes Extrem Other: Left clavicle: No obvious or palpable deformity. No evidence of skin tint. No skin breaks. Able to reach the end range of motion with forward flexion and abduction. No discomfort with cross body reach. NVI. Office Procedures AMB Fracture Care Fracture Billing Code: Fracture Billing Code Assessment & Plan Assessment & Plan (1) Closed fracture of distal clavicle: Comment: Closed fracture of the left distal clavicle, DOI 09/05/24. Code(s): S42.033A - Displaced fracture of lateral end of unspecified clavicle, initial encounter for closed fracture Category: Medical Plan Ms. Farley is a 78-year-old right hand dominant female who presents in the office today for an evaluation of left distal clavicle fracture. The patient presented to the ED on 09/11/24 status post a mechanical trip and fell backwards into the corner of the bathroom wall on the tile, which occurred on 09/05/24. X-rays of the left shoulder and left clavicle were obtained in the ER. She was recommended to wear the sling and may take off to shower. She was advised to take OTC ibuprofen or Tylenol PRN for pain relief. While in the office today, the patient presents with a sling. She reports improved pain today. She denies any numbness or tingling sensation in the left upper extremity. The patient may use the sling as needed for comfort. She was encouraged to come out of the sling regularly to work on range of motion. She reports she rarely wears her sling and also mentions experiencing mild soreness occasionally and she does wear the sling at that time. We discussed the role of physical therapy; however, we declined at this time due to having full range of motion and mild discomfort. Follow-up will be in 4 weeks with repeat x-rays, or sooner if needed. X-rays of the left shoulder, obtained on 09/11/24, revealed: Fracture of the distal clavicle on the left. No abnormal findings in the proximal humerus and shoulder. 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 X-rays of the left clavicle, obtained on 09/11/24, revealed: Mildly displaced fracture of left distal clavicle Patient Instructions: Scribed by Mila De Luna medical records technician, for Wen Quispe PA-C on 09/25/24 at 11:50 am EST. Coding Level of Care Code New Pt Level 4 (62254) Diagnoses Closed fracture of distal clavicle S42.033A CPT Codes Fracture Care - Fracture Billing Code: Fracture Billing Code ([id number])
== END 2024-09-25 11:44 | disposition home or self-care (01) ==
PROVIDERS: PCP Physician Assistant; Visit Provider Physician Assistant
DX: S42.032A Displaced fracture of lateral end of left clavicle, initial encounter for closed fracture (principal)
CPT/HCPCS: 99203

== ENCOUNTER → 2024-09-25 10:51 | Outpatient (BNVA) | payer MEDICARE, OTHER, SELFPAY | PROVIDERS: PCP Physician Assistant; Visit Provider Physician Assistant | DX: S42.033A Displaced fracture of lateral end of unspecified clavicle, initial encounter for closed fracture (principal) | CPT/HCPCS: 99202 ==

== ENCOUNTER 2024-10-14 08:12 | Outpatient (REF) | payer MEDICARE, OTHER, SELFPAY | END 2024-10-14 08:13 | disposition home or self-care (01) | LOC: HO.LNP 08:12 | PROVIDERS: PCP Physician Assistant; Visit Provider Internal Medicine | DX: N30.01 Acute cystitis with hematuria (principal) | CPT/HCPCS: 81003; 87086; 99212 ==

== ENCOUNTER 2024-10-14 08:12 | Outpatient (AMB) | payer MEDICARE, OTHER, SELFPAY ==
[2024-10-14 08:15] VITALS: BP 140/90; PULSE 69; TEMP 36.3; O2SAT 96
--- NOTE | 2024-10-14 08:15 | AM.OFFWIN_ITS ---
Intake Vital Signs 10/14/24 08:15 Weight 135 lb BP 140/90 H Blood Pressure Location Lt brachial Position Sitting Pulse 69 Pulse Source Pulse Oximeter Temp 97.3 F Temp Source Oral Pulse Oximetry (%) 96 Oxygen Delivery Method Room Air Intake Visit Reasons: EP UTI Intake Note: Patient here for burning on urination and discomfort that started last night. Patient Tobacco Use Status: Never used Tobacco Allergies Jtrqvys-IOW-TnZ Reductase Inhibitor Allergy (Intermediate, Verified 10/14/24 08:20) Itching Sulfa (Sulfonamide Antibiotics) Allergy (Unknown, Verified 10/14/24 08:20) ITCHING Losartan Allergy (Severe, Uncoded 10/14/24 08:20) Anaphylaxis Medication List - Last Reconciled 10/14/24 by Stefanie Giraldo MD acetaminophen 1,000 mg (2 x 500 mg) PO Q6H PRN amlodipine 10 mg PO DAILY 90 days cholecalciferol (vitamin D3) 25 mcg PO DAILY cranberry extract 425 mg orally one to 2 x daily with meals; administer with meals epinephrine 0.3 mg (0.3 mL) IM Q10M PRN ezetimibe (Zetia) 10 mg PO DAILY 90 days hydrochlorothiazide 12.5 mg PO DAILY 90 days levothyroxine 50 mcg PO DAILY metformin ER 500 mg PO DAILY 90 days vrvhcsbkzlqo-vppohzvs-dbquit 1 tab PO DAILY Do you need a note to return to daycare/school/sports/work: No HPI EP UTI HPI Details Chief Complaint The patient presents with urinary symptoms. History of Present Illness The patient is a 78-year-old female presenting with symptoms indicative of a urinary tract infection. She reports that these symptoms commenced suddenly the previous night and described them as particularly severe. She experiences dysuria and an increased frequency of urination but denies any associated fever, chills, or abdominal and back pain. The patient recalls having a previous episode of a urinary tract infection around April or May of the current year. A urine sample was already provided for analysis during this visit. UA shows signs of infection along with blood in the Plan For the diagnosed urinary tract infection, an antibiotic has been prescribed, tailored to treat the infection. A urine culture will be conducted to ensure the appropriateness of the prescribed antibiotic. The patient has chosen not to take additional analgesics for numbing purposes, expressing confidence that increased fluid intake, specifically water, and the antibiotic treatment will suffice in addressing her symptoms. Monitoring the patient?s response to treatment and adjusting based on culture results will be planned in subsequent visits if needed. 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 Cystitis Arthralgia of left foot Strain of left biceps Pre-op evaluation Right shoulder pain Pre-diabetes Recurrent urinary tract infection Surgical History History of mastectomy History of lumpectomy History of tibial fracture History of colonoscopy History of cataract surgery History of hysterectomy Family History Mother Breast cancer Father Dementia Social History Housing: House Alcohol intake: current Alcohol intake frequency: a few times a month Alcohol type: other Patient Tobacco Use Status: Never used Tobacco e-Cigarette/Vaping Use: Never Used Second Hand Smoke Exposure: No service: No Current occupational status: retired Current occupational exposures/hazards: No Cognitive needs: No Hearing needs: No Vision needs: No Review of Systems Const All systems reviewed & are unremarkable except as noted in HPI and below Physical Exam Vital Signs: Last Vital Signs Temp 97.3 F 10/14/24 08:15 Pulse 69 10/14/24 08:15 BP 140/90 H 10/14/24 08:15 Pulse Ox 96 10/14/24 08:15 Oxygen Delivery Method Room Air 10/14/24 08:15 Const General: no acute distress Orientation/consciousness: patient oriented x3 Eyes General: appearance normal, both eyes and all related structures Resp Effort & Inspection: normal respiratory effort and able to speak in complete sentences GI Other: No abdominal pain General: Yes no CVA tenderness Back/Spine/Pelvis Back: no CVA tenderness Neuro General: patient oriented x3 Psych Mental Status: mental status grossly normal Results AMB Urinalysis, Automated UA Leukoctes 500 Renard/uL Last Edit by MORAIMA Walker on 10/14/24 08: 51 UA Nitrite Positive Last Edit by MORAIMA Walker on 10/14/24 08:51 UA Urobilinogen 4 mg/dL Last Edit by MORAIMA Walker on 10/14/24 08: 51 UA Protein 0 mg/dL Last Edit by [facility] on 10/14/24 08:51 UA pH 6.5 Last Edit by [facility] on 10/14/24 08:51 UA Blood 80 Jose/uL Last Edit by Josi Niño [facility] on 10/14/24 08:51 UA Specific [place] 1.005 Last Edit by Josi Niño [facility] on 10/14/24 08:51 UA Ketone Positive Last Edit by Josi Niño [facility] on 10/14/24 08:51 UA Bilirubin 2 mg/dL Last Edit by Josi Niño [facility] on 10/14/24 08:51 UA Glucose 0 mg/dL Last Edit by Josi Niño [facility] on 10/14/24 08:51 Results Reviewed Results Reviewed: Laboratory Last Values Urine pH (Auto) 6.5 10/14/24 08:50 Specific [place] (Auto) 1.005 10/14/24 08:50 Urine Protein (Auto) 0 mg/dL 10/14/24 08:50 Glucose (UA)(Auto) 0 mg/dL 10/14/24 08:50 Urine Ketones (Auto) Positive 10/14/24 08:50 Urine Blood (Auto) 80 Jose/uL 10/14/24 08:50 Urine Nitrite (Auto) Positive 10/14/24 08:50 Urine Bilirubin (Auto) 2 mg/dL 10/14/24 08:50 Urine Urobilinogen (Auto) 4 mg/dL 10/14/24 08:50 Leukocyte Esterase (Auto) 500 Renard/uL 10/14/24 08:50 Assessment & Plan Assessment & Plan (1) Acute cystitis with hematuria: Code(s): N30.01 - Acute cystitis with hematuria Plan Chief Complaint The patient presents with urinary symptoms. History of Present Illness The patient is a 78-year-old female presenting with symptoms indicative of a urinary tract infection. She reports that these symptoms commenced suddenly the previous night and described them as particularly severe. She experiences dysuria and an increased frequency of urination but denies any associated fever, chills, or abdominal and back pain. The patient recalls having a previous episode of a urinary tract infection around April or May of the current year. A urine sample was already provided for analysis during this visit. UA shows signs of infection along with blood in the Plan For the diagnosed urinary tract infection, an antibiotic has been prescribed, tailored to treat the infection. A urine culture will be conducted to ensure the appropriateness of the prescribed antibiotic. The patient has chosen not to take additional analgesics for numbing purposes, expressing confidence that increased fluid intake, specifically water, and the antibiotic treatment will suffice in addressing her symptoms. Monitoring the patient?s response to treatment and adjusting based on culture results will be planned in subsequent visits if needed. Orders: Orders Urine Culture Today N30.01 - Acute cystitis with hematuria AMB Urinalysis Automated Today Z13.9 - Encounter for screening, unspecified Medications: New nitrofurantoin monohyd/m-cryst 100 mg (Macrobid) must administer with a meal/food 100 mg PO Q12H 5 days 10 caps 0RF Coding Level of Care Code Est Pt Level 3 (61472) Diagnoses Acute cystitis with hematuria N30.01
--- OUTSIDE RECORDS SUMMARY | 2024-10-15 18:44 | XMS_ITS ---
Author Organization [facility] Address [address] [place] [address] Care Team Providers Care Senior Care Provider Name Role Phone Rehan Guillaume Primary Care Provider Unavailab Saba Callejas Unavailable [phone] Angela Henriquez Unavailable [phone] Allergies Allergen (clinical drug ingredient) Drug/Non Drug Allergy documented on EMR Reaction Allergy Type Onset Date Status sulfamethoxazole / trimethoprim Bactrim Unknown Drug Allergy Active losartan Losartan Potassium anaphylaxis Drug Allergy Active Substance with 7-bwpzgzz-3-methylglutar yl-coenzyme A reductase inhibitor mechanism of action (substance) Statins itching Drug Allergy Active Substance with sulfonamide structure and antibacterial mechanism of action (substance) Sulfa Antibiotics itching Drug Allergy Active REASON FOR VISIT PCP: 09/2023, PCP - 09/2023, Post-op Medications Medication SIG (Take, Route, Frequency, Duration) Notes Start Date End Date Status Losartan Potassium 100 MG 1 tablet Orall y Once a day for 30 day(s) Not-Taking Levothyroxine Sodium 50 MCG 1 tablet in the morning on an empty stomach Orally Once a day for 30 day(s) Active Ibuprofen 800 MG 1 tablet Orally Three times a day for 14 days 09/19/2023 Not-Taking amLODIPine Besylate 10 MG 1 tablet Orall y Once a day Active metFORMIN HCl 500 MG 1 tablet with a magnus l Orally Once a day for 30 day(s) Active [place] 3 1000 MG 1 capsule Orally Once a day Active Multivitamin-Minerals Active hydroCHLOROthiazide 12.5 MG 1 capsule in the morning Orally Once a day Active EPINEPHrine 0.3 MG/0.3ML as directed Injection Active Vitamin D3 25 MCG (1000 UT) 1 capsule Or ally Once a day Active Social History Tobacco Use: Social History Observation Description Date Details (start date - stop date) Never Smoker NA - NA Tobacco Use/Smoking Question Answer Notes Are you a: nonsmoker Additional Findings: Tobacco Non-User Current no n-smoker Alcohol Screen Question Answer Notes Did you have a drink contain ing alcohol in the past year? Yes How often did you have a dri nk containing alcohol in the past year? 2 to 3 times a week (3 points) How often did you have 6 or more drinks on one occasion in the past year? Weekly (3 points) Points 6 Interpretation Positive Tobacco use other than smoking: Question Answer Notes Are you an other tobacco user? No Vital Signs Height 5 ft 2 in in 10/31/2023 Weight 135 lbs 10/31/2023 BMI 24.69 kg/m2 10/31/2023 Encounters Encounter Location Date [facility] [address] [place] [address] 10/31/2023 Angela Henriquez Type 2 diabetes mellitus without complications E11.9 and Other hammer toe(s) (acquired), left foot M20.42 Assessments Encounter Date Diagnosis (ICD Code) Assessment Notes Treatment Notes Treatment Clinical Notes Section Notes 10/31/2023 Type 2 diabetes mellitus without complications (ICD-10 - E11.9) 10/31/2023 Other hammer toe(s) (acquired), left foot (ICD-10 - M20.42) Plan Of Treatment Next Appt Details Follow Up: prn, Reason: Progress Notes * Lizzeth RAMIREZ GDOB:1945 (77 yo F)Acc No.[id number]:10/31/2023 Progress Notes Patient:?Lizzeth Ramirez Umu Provider:?Angela Henriquez DPM :1945???Age:77 Y???Sex:Female D ate:10/31/2023 Address:[address] [place] [address] Pcp:Rehan Guillaume Subjective: * Chief Complaints: * ???PCP: CP - 09/2023 Post-op * HPI: ???Post-op:?The patient presents for post-op of?Hammertoe repair , Exostectomy , 5th , Left.?Date of Surgery?:?10/03/2023 ?Current symptoms include?Pt denies fever, chills, nausea, calf pain, SOB, or increased anxiety, Pt states pain has resolved.? Pt presents WB in sneaker without issues. * ROS:?General/Constitutional:?Nausea?denies, denies, denies.?Vomiting?denies, denies, denies.?Hunger Thirst?denies, denies, denies.?Loss appetite?denies, denies, denies.?Chills?denies, denies, denies.?Fatigue?denies, denies, denies.?Fever?denies, denies, denies.?Night Sweats?denies, denies, denies.?Unexplained weight loss?denies, denies, denies.?Unexplained weight gain?denies, denies, denies.?HEENTM:?Dentures?denies, denies, denies.?Dizziness?denies, denies, denies.?Glasses/contacts?admits, admits, admits.?Retinopathy?denies, denies, denies.?Blurred/double vision?denies, denies, denies.?TMJ?denies, denies, denies.?Discharge/drainage?denies, denies, denies.?Implants?denies, denies, denies.?Sore throat?denies, denies, denies.?Dental implants?admits, admits, admits.?Hard of hearing ?denies, denies, denies.?Difficulty chewing/swallowing/speaking denies, denies, denies.?Nose bleeds?denies, denies, denies.?Sore mouth?denies, denies, denies.?Respiratory:?On Oxygen?denies, denies, denies.?Pneumonia/pleurisy?denies, denies, denies.?Bronchitis?denies, denies, denies.?Emphysema?denies, denies, denies.?Coughing?denies, denies, denies.?Cough blood?denies, denies, denies.?Shortness of breath?denies, denies, denies.?Wheezing?denies, denies, denies.?Cardiovascular:?Pacemaker?denies, denies, denies.?MVP?denies, denies, denies.?WPW?denies, denies, denies.?CHF?denies, denies, denies.?Heart attack?denies, denies, denies.?Septal defect?denies, denies, denies.?Rapid beat denies, denies, denies.?Chest pain ?denies, denies, denies.?Atrial Fib.?denies, denies, denies.?Murmur/Palpitations?denies, denies, denies.?Gastrointestinal:?Hemorrhoids?denies, denies, denies.?Stomach/Abdominal pain?denies, denies, denies.?Dark blood stool?denies, denies, denies.?Irritable bowel ?denies, denies, denies.?Constipation?denies, denies, denies.?Diarrhea?denies, denies, denies.?Hematology:?Swelling?denies, denies, denies.?Clots?denies, denies, denies.?Varicose Veins?denies, denies, denies.?Bruising?denies, denies, denies.?Bleeding problem?denies, denies, denies.?Genitourinary:?Blood urine?denies, denies, denies.?Frequent/Painfu/urination/bladder control?denies, denies, denies.?Kidney stones?denies, denies, denies.?Infection (UTI)?denies, denies, denies.?Nephropathy?denies, denies, denies. sex trans dis (STD)?denies, denies, denies.?Prostate?denies, denies, denies.?Musculoskeletal:?Hammertoes?denies, denies, denies.?Bunions?denies, denies, denies.?Back Pain?denies, denies, denies.?Muscle Cramps/ Resting?denies, denies, denies.?Muscle cramps / walking?denies, denies, denies.?Generalized aches and pains?denies, denies, denies.?Weakness?denies, denies, denies.?Integ.:?Quintanilla?denies, denies, denies.?Scars?denies, denies, denies.?Corns/calluses?admits, admits, admits.?Ingrown nails?admits, admits, admits.?Painful nails?admits,admits,admits.?Open Sores?denies, denies, denies.?Rashes?denies, denies, denies.?Neurologic:?Difficulty sleeping?denies, denies, denies.?Brain disorder?denies, denies, denies.?Numbness?denies, denies, denies.?Balance trouble?denies, denies, denies.?Confusion?denies, denies, denies.?Fainting/blackouts?denies, denies, denies.?Tingling?denies, denies, denies.?Tremors?denies, denies, denies.? * Medical History:? * Surgical History:?Left Breas t Surgery-Cancer- Lumpectomy( wide local excision) and axillary node dissection 11/26/1989Breast Cyst Removed- benign 07/13/1992Hammertoe Implant and arthroplasty 04/04/2001colonoscopy 07/08/13,08/13/15,06/30/2020Left breast cancer mastectomy with tram/ flap reconstruction 12/25/2013- 01/08/2014Repeat debridement of flap 01/08/14ataract surgery left eye 09/14/16hysterectomy uterosacral ligament suspension, transvaginal tape and cystoscopy 11/15/17ling tape fixed 12/14/17cataract surgery right eye 11/15/2020mastectomy fractured tibia Hammertoe L5th, Exostectomy L5th P/B * Hospitalization/Major Diagno stic Procedure:?[facility]- Pneumonia and Pleurisy 3 days 02/22/1990[facility]- Pelvic Ultrasound 10/06/2004[facility]- Bone Density Scan 12/25/2006Bradycardia, right distal tibia and fibula fractured closed reduction and cast 03/30/2007[facility]- right tibia intramedullary nailing for fracture 11/27/2007[facility]- tibial infection, abscess, right lower leg, incision and drainage of abscess 08/13/2008[facility]- Chest X-ray 05/23/2021[facility]- UTI 05/27/2021 * Family History:?Mother: dece ased, breast cancer, diagnosed with Family history of arthritis, Unspecified essential hypertension, Other malignant neoplasm of unspecified site, Other specified conditions influencing health status.?Father: , dementia.? * Social History:?Tobacco Use:?Tobacco Use/Smoking?Are you a:?nonsmoker ?Additional Findings: Tobacco Non-User?Current non-smoker ?Tobacco use other than smoking?Are you an other tobacco user??No ???Drugs/Alcohol:?Drugs?Have you used drugs other than those for medical reasons in the past 12 months??No ?Alcohol Screen?Did you have a drink containing alcohol in the past year??Yes ?How often did you have a drink containing alcohol in the past year??2 to 3 times a week (3 points) ?How often did you have 6 or more drinks on one occasion in the past year??Weekly (3 points) ?Points?6 ?Interpretation?Positive ???Miscellaneous:?Caffeine: yes, frequency:3 cups per day. ?Children: yes, 1. ?Exercise: yes, house work. ?Marital status: . 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 * Medications:?TakingOmega 3 1 000 MG Capsule 1 capsule Orally Once a dayMultivitamin-Minerals hydroCHLOROthiazide 12.5 MG Capsule 1 capsule in the morning Orally Once a dayEPINEPHrine 0.3 MG/0.3ML Solution Prefilled Syringe as directed Injection Vitamin D3 25 MCG (1000 UT) Capsule 1 capsule Orally Once a dayamLODIPine Besylate 10 MG Tablet 1 tablet Orally Once a daymetFORMIN HCl 500 MG Tablet 1 tablet with a meal Orally Once a dayLevothyroxine Sodium 50 MCG Tablet 1 tablet in the morning on an empty stomach Orally Once a dayTaking [place] 3 1000 MG Capsule 1 capsule Orally Once a dayTaking Multivitamin-Minerals Taking hydroCHLOROthiazide 12.5 MG Capsule 1 capsule in the morning Orally Once a dayTaking EPINEPHrine 0.3 MG/0.3ML Solution Prefilled Syringe as directed Injection Taking Vitamin D3 25 MCG (1000 UT) Capsule 1 capsule Orally Once a dayTaking amLODIPine Besylate 10 MG Tablet 1 tablet Orally Once a dayTaking metFORMIN HCl 500 MG Tablet 1 tablet with a meal Orally Once a dayTaking Levothyroxine Sodium 50 MCG Tablet 1 tablet in the morning on an empty stomach Orally Once a dayNot-Taking/PRNIbuprofen 800 MG Tablet 1 tablet Orally Three times a dayLosartan Potassium 100 MG Tablet 1 tablet Orally Once a dayMedication List reviewed and reconciled with the patientNot-Taking/PRN Ibuprofen 800 MG Tablet 1 tablet Orally Three times a dayNot-Taking/PRN Losartan Potassium 100 MG Tablet 1 tablet Orally Once a dayMedication List reviewed and reconciled with the patient * Allergies:?BactrimStatins: i tchingSulfa Antibiotics: itchingLosartan Potassium: anaphylaxisyes[Allergies Verified] Objective: * Vitals:?Ht: 5 ft 2 in, Wt: 1 35, BMI:24.69, Shoe size: 8.5. * ???Past Orders: ???Lab:HEMOGLOBIN A1C (GLYCO HEMOGLOBIN) (Order Date - 07/16/2023) (Collection Date - 07/16/2023) ? Value Reference Range ?HEMOGLOBIN A1C % (HH) 5.7 * Examination: ???Ophthalmology Referral: ?DIABETES EYE EXAM?Dermatologic: ?SURGICAL SITE?Incision edges are well aligned and adhered, CFT intact , No signs or symptoms consistent with infection , No Pain on palpation/ecchymosis/ minimal toe edema, (-), erythema/hematoma/dehiscence/cellulitis.?Orthopedic: ?DIGITAL DEFORMITIES:?alignment of toe is rectus in all plains.? Assessment: * Assessment: 1.?Other hammer toe(s) (acqu ired), left foot - M20.42 (Primary)?2.?Type 2 diabetes mellitus without complications - E11.9? Plan: * Treatment: * Procedure Codes:? * Preventive Medicine:? ??Counseling:?Post-op:?I reviewed with the patient the usual surgical post-op course. The patient is to call with any questions/complications, and will follow-up as needed continue with , return to accom firm-soled shoe for stability and support, gradually increase activity to tolerance.? * Follow Up:?prn * Images: * Sign off status: Completed true * Provider:?Angela Henriquez DPM Date:? Generated for Jojo zayas/Nirmal/Claudette on:?10/15/2024 06:44 PM EST History and Physical Notes * HPI (History of Present Illness) Category Sub-Category Detail Notes Category Not es Post-op The patient presents for post-op of Hammertoe repair , Exostectomy , 5th , Left Pt presents WB in sneaker without issues Current symptoms include Pt denies fever , chills, nausea, calf pain, SOB, or increased anxiety, Pt states pain has resolved Date of Surgery :: 10/03/2023 Examination Category Sub-Category Detail Notes Category Not es Dermatologic SURGICAL SITE Incision edges a re well aligned and adhered, CFT intact , No signs or symptoms consistent with infection , No Pain on palpation/ecchymosis/ minimal toe edema, (-), erythema/hematoma/dehiscen ce/cellulitis Orthopedic DIGITAL DEFORMITIES: alignment o f toe is rectus in all plains Ophthalmology Referral DIABETES EYE EXAM Diabeti c Retinopathy Screening:: Yes Findings of Diabetic Eye Exam:: no retin opathy
--- OUTSIDE RECORDS SUMMARY | 2024-10-15 18:45 | XMS_ITS ---
Author Organization [facility] Address [address] [place] [address] Care Team Providers Care Boat Person Name Role Phone Rehan Guillaume Primary Care Provider Unavailab Saba Callejas Unavailable [phone] Angela Henriquez Unavailable [phone] Encounters Encounter Location Date Provider Diagnosis [facility] [address] [place] [address] 10/16/2023 Angela Henriquez Plan Of Treatment No Information Progress Notes * Lizzeth RAMIREZ GDOB:1945 (78 yo F)Acc No.[id number]:10/16/2023 Progress Notes Patient:?Lizzeth RAMIREZ Provider:?Angela Henriquez DPM :1945???Age:77 Y???Sex:Female D ate:10/16/2023 Address:[address] [place] [address] Pcp:Rehan Guillaume Subjective: * Chief Complaints: * ??? * Medical History:? Objective: * Vitals:? Assessment: Plan: * Treatment: * Images: * The named appointment provid er may or may not be the originator of this progress note, and it is not deemed complete until electronically signed by the appointment provider. Sign off status: Pending * Provider:?Angela Henriquez DPM Date:?10/2023 Generated for Printi ng/Faxing/eTransmitting on:?10/15/2024 06:44 PM EST
--- OUTSIDE RECORDS SUMMARY | 2024-10-15 18:45 | XMS_ITS ---
Author Organization [facility] Address [address] [place] [address] Care Team Providers Care Circuit Court Magistrate Name Role Phone Rehan Guillaume Primary Care Provider Unavailab Saba Callejas Unavailable [phone] Angela Henriquez Unavailable [phone] Allergies Allergen (clinical drug ingredient) Drug/Non Drug Allergy documented on EMR Reaction Allergy Type Onset Date Status sulfamethoxazole / trimethoprim Bactrim Unknown Drug Allergy Active losartan Losartan Potassium anaphylaxis Drug Allergy Active Substance with 2-ocmhmwj-8-methylglutar yl-coenzyme A reductase inhibitor mechanism of action [...] Once a day for 30 day(s) Not-Taking Multivitamin-Minerals Active [place] 3 1000 MG 1 capsule Orally Once a day Active hydroCHLOROthiazide 12.5 MG 1 capsule in the morning Orally Once a day Active EPINEPHrine 0.3 MG/0.3ML as directed Injection Active metFORMIN HCl 500 MG 1 tablet with a magnus l Orally Once a day for 30 day(s) Active amLODIPine Besylate 10 MG 1 tablet Orall y Once a day Active Ibuprofen 800 MG 1 tablet Orally Three times a day for 14 days 09/19/2023 Active Levothyroxine Sodium 50 MCG 1 tablet in the morning on an empty stomach Orally Once a day for 30 day(s) Active Vitamin D3 25 MCG (1000 UT) [...] Signs Height 5 ft 2 in in 10/12/2023 Weight 135 lbs 10/12/2023 BMI 24.69 kg/m2 10/12/2023 Encounters Encounter Location Date Provider Diagnosis [facility] [address] [place] [address] 10/12/2023 Angela Henriquez Other hammer toe(s) (acquired), left foot M20.42 ; Type 2 diabetes mellitus without complications E11.9 and Hypertrophy of bone, left ankle and foot M89.372 Assessments Encounter Date Diagnosis (ICD Code) Assessment Notes Treatment Notes Treatment Clinical Notes Section Notes 10/12/2023 Other hammer toe(s) (acquired), left foot (ICD-10 - M20.42) 10/12/2023 Type 2 diabetes mellitus without complications (ICD-10 - E11.9) 10/12/2023 Hypertrophy of bone, left ankle and foot (ICD-10 - M89.372) Plan Of Treatment Next Appt Details Follow Up: 3 Weeks, Reason: Procedure Notes * Category Sub-Category Detail Notes Dressing Change: Type: dry sterile anatoliy ssing , incorporating digital splintage to maintain position , a light compressive dressing Topical: bacitacin applied Removal of: sutures performed wi th sterile forceps/suture scissors or #15 blade, area cleaned with alcohol prior to removal , steri-strips applied Progress Notes * Lizzeth RAMIREZ GDOB:1945 (77 yo F)Acc No.[id number]:10/12/2023 Progress Notes Patient:?Lizzeth Ramirez Provider:?Angela Henriquez DPM :1945???Age:77 Y???Sex:Female D ate:10/12/2023 Address:[address] [place] [address] [place], [id number] Pcp:Rehan Guillaume Subjective: * Chief Complaints: * ???PCP: CP - 09/2023 Post-op * HPI: ???Post-op:?The patient presents for post-op of?Hammertoe repair , Exostectomy , 5th , Left.?Date of Surgery?:?10/03/2023 ?Current symptoms include?Pt denies fever, chills, nausea, calf pain, SOB, or increased anxiety, Pt states pain under control with Tylenol.? Pt presents WB in surgical shoe and walker. Pt states she took a shower yesterday and relates she kept foot out of the shower, howver dressing got wet again. * ROS:?General/Constitutional:?Nausea?denies, denies.?Vomiting?denies, denies.?Hunger Thirst?denies, denies.?Loss appetite?denies, denies.?Chills?denies, denies.?Fatigue?denies, denies.?Fever?denies, denies.?Night Sweats denies, denies.?Unexplained weight loss?denies, denies.?Unexplained weight gain?denies, denies.?HEENTM:?Dentures?denies, denies.?Dizziness?denies, denies.?Glasses/contacts?admits, admits.?Retinopathy?denies, denies.?Blurred/double vision?denies, denies.?TMJ?denies, denies.?Discharge/drainage?denies, denies.?Implants?denies, denies.?Sore throat?denies, denies.?Dental implants?admits, admits.?Hard of hearing ?denies, denies.?Difficulty chewing/swallowing/speaking?denies, denies.?Nose bleeds?denies, denies.?Sore mouth?denies, denies.?Respiratory:?On Oxygen?denies, denies.?Pneumonia/pleurisy?denies, denies.?Bronchitis?denies, denies.?Emphysema?denies, denies.?Coughing?denies, denies.?Cough blood?denies, denies.?Shortness of breath?denies, denies.?Wheezing?denies, denies.?Cardiovascular:?Pacemaker?denies, denies.?MVP?denies, denies.?WPW?denies, denies.?CHF?denies, denies.?Heart attack?denies, denies.?Septal defect?denies, denies.?Rapid beat?denies, denies.?Chest pain ?denies, denies.?Atrial Fib.?denies, denies.?Murmur/Palpitations?denies, denies.?Gastrointestinal:?Hemorrhoids?denies, denies.?Stomach/Abdominal pain?denies, denies.?Dark blood stool?denies, denies.?Irritable bowel ?denies, denies.?Constipation?denies, denies.?Diarrhea?denies, denies.?Hematology:?Swelling?denies, denies.?Clots?denies, denies.?Varicose Veins?denies, denies.?Bruising?denies, denies.?Bleeding problem?denies, denies.?Genitourinary:?Blood urine?denies, denies.?Frequent/Painfu/urination/bladder control?denies, denies.?Kidney stones?denies, denies.?Infection (UTI)?denies, denies.?Nephropathy?denies, denies.?sex trans dis (STD)?denies, denies.?Prostate?denies, denies.?Musculoskeletal:?Hammertoes?denies, denies.?Bunions?denies, denies.?Back Pain?denies, denies.?Muscle Cramps/ Resting?denies, denies.?Muscle cramps / walking?denies, denies.?Generalized aches and pains?denies, denies.?Weakness?denies, denies.?Integ.:?Quintanilla?denies, denies.?Scars?denies, denies.?Corns/calluses?admits, admits.?Ingrown nails?admits, admits.?Painful nails?admits,admits.?Open Sores?denies, denies.?Rashes?denies, denies.?Neurologic:?Difficulty sleeping?denies, denies.?Brain disorder?denies, denies.?Numbness?denies, denies.?Balance trouble?denies, denies.?Confusion?denies, denies.?Fainting/blackouts?denies, denies.?Tingling?denies, denies.?Tremors?denies, denies.? * Medical History:? * Surgical History:?Left [...] and Pleurisy 3 days 02/22/1990[facility]- Pelvic Ultrasound 10/06/2004[facility]- Bone Density Scan 12/25/2006Bradycardia, right distal tibia [...] yes, house work. ?Marital status: . 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 * Medications:?TakingOmega 3 1 000 MG Capsule [...] on an empty stomach Orally Once a dayIbuprofen 800 MG Tablet 1 tablet Orally Three times a dayTaking [place] 3 1000 MG Capsule 1 capsule Orally [...] an empty stomach Orally Once a dayTaking Ibuprofen 800 MG Tablet 1 tablet Orally Three times a dayNot-Taking/PRNLosartan Potassium 100 MG Tablet 1 tablet Orally Once a dayNot-Taking/PRN Losartan Potassium 100 MG Tablet 1 tablet Orally Once a day * Allergies:?BactrimStatins: i tchingSulfa Antibiotics: itchingLosartan Potassium: anaphylaxisyes[Allergies Verified] Objective: * Vitals:?Ht: 5 ft 2 in, Wt:13 5, BMI:24.69, Shoe size:8.5, BS:not taken. * ???Past Orders: ???Lab:HEMOGLOBIN A1C (GLYCO HEMOGLOBIN) (Order Date - 07/16/2023) (Collection Date - 07/16/2023) ? Value Reference Range ?HEMOGLOBIN A1C % (HH) 5.7 * Examination: ???Ophthalmology Referral: ?DIABETES EYE EXAM?Dressing: ?APPEARANCE?intact, no malodor , wet.?Dermatologic: ?SURGICAL SITE?Skin and Sutures intact, Incision edges are well aligned and adhered, CFT intact , No signs or symptoms consistent with infection , (+), Pain on palpation/ecchymosis/edema, (-), erythema/hematoma/dehiscence/cellulitis.?Orthopedic: ?DIGITAL DEFORMITIES:?alignment of toe is rectus in all plains, internal fixation is intact.? Assessment: * Assessment: 1.?Other hammer toe(s) (acqu ired), left foot - M20.42 (Primary)?2.?Type 2 diabetes mellitus without complications - E11.9?3.?Hypertrophy of bone, left ankle and foot - M89.372? Plan: * Treatment: * Procedures:?Dressing Change::?Type:?dry sterile dressing , incorporating digital splintage to maintain position , a light compressive dressing.?Topical:?bacitacin applied.?Removal of:?sutures performed with sterile forceps/suture scissors or #15 blade, area cleaned with alcohol prior to removal , steri-strips applied.? * Procedure Codes:? * Preventive Medicine:? ??Counseling:?Post-op:?I reviewed with the patient the usual surgical post-op course. The patient is to call with any questions/complications, and will follow-up as scheduled, post-op shoe and limited ambulation, perform ROM (3-4 times a day; 20-25 reps each) exercises at the foot joint and ankle, return to accom firm-soled shoe for stability and support over next week or two as foot improves, gradually increase activity to tolerance, Pt can begin showering per usual starting tomorrow, can apply abx ointment to incisions to help with scarring, Pt to continue to ice and elevate foot to help with post op swelling and pain.? * Follow Up:?3 Weeks * Images: * Sign off status: Completed true * Provider:?Angela Henriquez DPM Date:?06/2023 Generated for Jojo zayas/Nirmal/eTransmitting on:?10/15/2024 06:44 PM EST History and Physical Notes * HPI (History of Present Illness) Category Sub-Category Detail Notes Category Not es Post-op The patient presents for post-op of Hammertoe repair , Exostectomy , 5th , Left Pt presents WB in surgical shoe and walker. Pt states she took a shower yesterday and relates she kept foot out of the shower, howver dressing got wet again Current symptoms include Pt denies fever , chills, nausea, calf pain, SOB, or increased anxiety, Pt states pain under control with Tylenol Date of Surgery :: 10/03/2023 Examination Category Sub-Category Detail Notes Category Not es Dermatologic SURGICAL SITE Skin and Sutures intact, Incision edges are well aligned and adhered, CFT intact , No signs or symptoms consistent with infection , (+), Pain on palpation/ecchymosis/edema , (-), erythema/hematoma/dehiscen ce/cellulitis Orthopedic DIGITAL DEFORMITIES: alignment o f toe is rectus in all plains, internal fixation is intact Ophthalmology Referral DIABETES EYE EXAM Diabeti c Retinopathy Screening:: Yes Findings of Diabetic Eye Exam:: no retin opathy Dressing APPEARANCE intact, no malodor , wet
--- OUTSIDE RECORDS SUMMARY | 2024-10-15 18:45 | XMS_ITS | Patient Health Record ---
[facility] Address [address] [place] [address] Care Team Providers Care Video Production Engineer Name Role Phone Rehan Guillaume Primary Care Provider Unavailab bethany Saba Diane Unavailable [phone] BonAngela munoz Unavailable [phone] Allergies Allergen (clinical drug ingredient) Drug/Non Drug Allergy documented on EMR Reaction Allergy Type Onset Date Status sulfamethoxazole / trimethoprim Bactrim Unknown Drug Allergy Active losartan Losartan Potassium anaphylaxis Drug Allergy Active Substance with 5-ptedhwd-7-methylglutar yl-coenzyme A reductase inhibitor mechanism of action (substance) Statins itching Drug Allergy Active Substance with sulfonamide structure and antibacterial mechanism of action (substance) Sulfa Antibiotics itching Drug Allergy Active Reason For Referral No Information Medications Medication SIG (Take, Route, Frequency, Duration) Notes Start Date End Date Status [place] 3 1000 MG 1 capsule Orally Once a day Active Multivitamin-Minerals Active Losartan Potassium 100 MG 1 tablet Orall y Once a day for 30 day(s) Not-Taking hydroCHLOROthiazide 12.5 MG 1 capsule in the morning Orally Once a day Active EPINEPHrine 0.3 MG/0.3ML as directed Injection Active Vitamin D3 25 MCG (1000 UT) 1 capsule Or ally Once a day Active Levothyroxine Sodium 50 MCG 1 tablet [...] Once a day for 30 day(s) Active Immunizations Vaccine Route Administration Date Status Comme nts COVID-19 Pfizer BioNTech Vaccine Unknown 09/08/2021 Administered 1st 01/23/2021 2nd 02/13/2021 Social History Tobacco Use: Social History Observation [...] Are you an other tobacco user? No Problems Problem Type SNOMED Code ICD Code Onset Dates Problem Status W/U Status Risk Notes Problem Ulcer of toe (525941202) 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.521) Active confirmed Problem Acquired hammer toe of left foot (311077265937913 3) Other hammer toe(s) (acquired), left foot (M20.42) Active confirmed Problem Type II diabetes mellitus without complication (667368885) Type 2 diabetes mellitus without complications (E11.9) Active confirmed Vital Signs Height 5 ft 2 in in 10/31/2023 Weight 135 lbs 10/31/2023 BMI 24.69 kg/m2 10/31/2023 Encounters Encounter Location Date Provider Diagnosis [facility] [address] [place] [address] 10/31/2023 Angela Henriquez Type 2 diabetes mellitus without complications E11.9 and Other hammer toe(s) (acquired), left foot M20.42 Assessments Encounter Date Diagnosis (ICD Code) Assessment Notes Treatment Notes Treatment Clinical Notes Section Notes 10/31/2023 Other hammer toe(s) (acquired), left foot (ICD-10 - M20.42) 10/31/2023 Type 2 diabetes mellitus without complications (ICD-10 - E11.9) Plan Of Treatment Pending Test Test Name Order Date Hemoglobin A1c 09/26/2023 X ray : Foot, left 3V 08/01/2023 X ray : Foot, left 3V 10/05/2023 33021- Debride <25 sq cm 12/05/2021 Insurance Providers Payer Name Payer Address Payer Phone Subscriber Number Group Number Insured Name Patient Relationship to Insured Coverage Start Date Coverage End Date Medicare National Govt Sv[employer] [address] [place] [phone] [id number] Lizzeth Farley Self - patient is the insured [employer] Medicare Supplement [address] [place] [address] [id number] Lizzeth Farley Self - patient is the insured Medical (General) History Medical History History ICD Code Cancer Diabetic High blood pressure thyroid Measles Mumps Chicken pox Bone implants/screws chemotherapy 06/17/90-07/30/90 Surgical History Surgery Date(Month/Year) Left Breast Surgery-Cancer- Lumpectomy( wide local excision) and axillary node dissection 11/26/1989 Breast Cyst Removed- benign 07/13/1992 Hammertoe Implant and arthroplasty 04/04 colonoscopy 07/08/13,08/13/15, Left breast cancer mastectom y with tram/ flap reconstruction 12/25/2013-01/08/2014 Repeat debridement of flap 01/08/14 cataract surgery left eye 09/14/16 hysterectomy uterosacral lig ament suspension, transvaginal tape and cystoscopy 11/15/17 sling tape fixed 12/14/17 cataract surgery right eye 11/15/2020 mastectomy fractured tibia Hammertoe L5th, Exostectomy L5th P/B Hospital[place] History Reason Date([place] [facility] [place] and [place] 3 [place] [facility] [place]06[place] [facility] [place] 12/25/2006 Bradycardia, right distal ti vero and fibula fractured closed reduction and cast 03/30/2007 [facility] [place] tibia intramedullary nailing for fracture 11/27/2007 [facility] [place] infection, absce ss, right lower leg, incision and drainage of abscess 08/13/2008 [facility]- Chest X-ray 05/23/2021 [facility]- UTI 05/27/2021
== END 2024-10-14 08:40 | disposition home or self-care (01) ==
PROVIDERS: PCP Physician Assistant; Visit Provider Internal Medicine
DX: N30.01 Acute cystitis with hematuria (principal); Z13.9 Encounter for screening, unspecified

== ENCOUNTER 2024-10-23 08:35 | Outpatient (AMB) | payer MEDICARE, OTHER, SELFPAY ==
--- NOTE | 2024-10-23 08:46 | A.OFFVIS_ITS ---
Intake Visit Reasons: OV- Closed fx of L distal clavicle DOI 09/05/24 Intake Note: Lizzeth is a 78 year old right hand dominant female who presents today with a sling for a follow up of her left clavicle fx , DOI 09/05/24. Patient states she is doing great today. She mentions that at times she gets some discomfort on her clavicle but it is getting better. Allergies Sxoaate-WCQ-OaU Reductase Inhibitor Allergy (Intermediate, Verified 10/23/24 09:01) Itching Sulfa (Sulfonamide Antibiotics) Allergy (Unknown, Verified 10/23/24 09:01) ITCHING Losartan Allergy (Severe, Uncoded 10/14/24 08:20) Anaphylaxis HPI HPI OV- Closed fx of L distal clavicle DOI 09/05/24: Details: 78-year-old ytqso-ueyo-ojpgenty female who presents in the office today for a follow-up of left distal clavicle fracture, status post a mechanical trip and fell backwards into the corner of the bathroom wall on the tile, which occurred on 09/05/24. I last saw the patient in the office on 09/25/24, when she was encouraged to come out of the sling regularly to work on range of motion. She was recommended to use the sling for comfort or when she experiences soreness. We discussed the role of physical therapy; however, the patient declined at that time due to having a full range of motion and discomfort. While in the office today, the patient reports she is doing ?great?; however, she mentions experiencing mild discomfort occasionally on her left clavicle which is improving. 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 Cystitis Arthralgia of left foot Strain of left biceps Pre-op evaluation Right shoulder pain Pre-diabetes Recurrent urinary tract infection Surgical History History of mastectomy History of lumpectomy History of tibial fracture History of colonoscopy History of cataract surgery History of hysterectomy Family History Mother Breast cancer Father Dementia Social History Housing: House Alcohol intake: current Alcohol intake frequency: a few times a month Alcohol type: other Patient Tobacco Use Status: Never used Tobacco e-Cigarette/Vaping Use: Never Used Second Hand Smoke Exposure: No service: No Current occupational status: retired Current occupational exposures/hazards: No Cognitive needs: No Hearing needs: No Vision needs: No Review of Systems Const All systems reviewed & are unremarkable except as noted in HPI and below Physical Exam Const General: cooperative, healthy appearing and no acute distress Resp Effort & Inspection: normal respiratory effort and able to speak in complete sentences Cardio Rate: regular rate Peripheral pulses: Peripheral pulses 2+ throughout GI Palpation (GI): Soft to palpation Skin Lesions: no lesions Rashes: no rashes Extrem Other: Left clavicle: No obvious or palpable deformity. No evidence of skin tenting or skin breakdown. Able to reach the end range of motion with forward flexion and abduction. No discomfort with cross body reach. NVI. Assessment & Plan Assessment & Plan (1) Closed fracture of distal clavicle: Comment: Closed fracture of the left distal clavicle, DOI 09/05/24. Code(s): S42.033A - Displaced fracture of lateral end of unspecified clavicle, initial encounter for closed fracture Category: Medical Plan Ms. Farley is a 78-year-old egmlm-blrs-xayyencm female who presents in the office today for a follow-up of left distal clavicle fracture, status post a mechanical trip and fell backwards into the corner of the bathroom wall on the tile, which occurred on 09/05/24. I last saw the patient in the office on 09/25/24, when she was encouraged to come out of the sling regularly to work on range of motion. She was recommended to use the sling for comfort or when she experiences soreness. We discussed the role of physical therapy; however, the patient declined at that time due to having a full range of motion and discomfort. While in the office today, the patient reports she is doing ?great?; however, she mentions experiencing mild discomfort occasionally on her left clavicle which is improving. The patient has no concerns in regards to her range of motion or pain. I did educate the patient that she should refrain from any heavy lifting, pushing or pulling for the next 4 weeks. Her x-rays showed bony callous formation around the fracture site and this will continue to progress the next weeks. Follow-up will be PRN with Orthopedics, or sooner if needed. X-rays of the left clavicle, which were obtained while in the office today and were reviewed by me, Wen Quispe PA-C, revealed: Bone callous around the fracture site. Orders: Orders XR clavicle LT Today M89.8X1 - Other specified disorders of bone, shoulder Patient Instructions: Scribed by Mila De Luna, durable medical equipment repairer, for Wen Quispe PA-C on 10/23/24 at 9:30 am EST. Coding Level of Care Code Est Pt Level 3 (31485) Diagnoses Closed fracture of distal clavicle S42.033A
--- OUTSIDE RECORDS SUMMARY | 2024-10-23 08:49 | XMS_ITS ---
Author Organization [facility] Address [address] [place] [address] Care Team Providers Care [facility] Nurse Name Role Phone Rehan Guillaume Primary Care Provider Unavailab Saba Callejas Unavailable [phone] Angela Henriquez Unavailable [phone] Encounters Encounter Location Date Provider Diagnosis [facility] [address] [place] [address] 10/16/2023 Angela Henriquez Plan Of Treatment No Information Progress Notes * Lizzeth RAMIREZ GDOB:1945 (78 yo F)Acc No.[id number]:10/16/2023 Progress Notes Patient:?Lizzeth RAMIREZ Provider:?Angela Henriquez DPM :1945???Age:77 Y???Sex:Female D ate:10/16/2023 Address:[address] [place] [address] Pcp:Rehan Guillaume Subjective: * Chief Complaints: * ??? * Medical History:? Objective: * Vitals:? Assessment: Plan: * Treatment: * Images: * The named appointment provid er may or may not be the originator of this progress note, and it is not deemed complete until electronically signed by the appointment provider. Sign off status: Pending * Provider:?Angela Henriquez DPM Date:?10/2023 Generated for Printi ng/Faxing/eTransmitting on:?10/23/2024 08:49 AM EST
--- OUTSIDE RECORDS SUMMARY | 2024-10-23 08:49 | XMS_ITS ---
Author Organization [facility] Address [address] [place] [address] Care Team Providers Care Facer Operator Name Role Phone Rehan Guillaume Primary Care Provider Unavailab Saba Callejas Unavailable [phone] Angela Henriquez Unavailable [phone] Allergies Allergen (clinical drug ingredient) Drug/Non Drug Allergy documented on EMR Reaction Allergy Type Onset Date Status sulfamethoxazole / trimethoprim Bactrim Unknown Drug Allergy Active losartan Losartan Potassium anaphylaxis Drug Allergy Active Substance with 0-rgwllog-3-methylglutar yl-coenzyme A reductase inhibitor mechanism of action [...] Once a day for 30 day(s) Active [place] 3 1000 MG 1 capsule Orally Once [...] 10/31/2023 Encounters Encounter Location Date [facility] [address] [place] [address] 10/31/2023 Angela Henriquez Type 2 diabetes mellitus [...] * Lizzeth RAMIREZ GDOB:1945 (77 yo F)Acc No.[id number]:10/31/2023 Progress Notes Patient:?Lizzeth Ramirez Umu Provider:?Angela Henriquez DPM :1945???Age:77 Y???Sex:Female D ate:10/31/2023 Address:[address] [place] [address] Pcp:Rehan Guillaume Subjective: * Chief Complaints: * [...] house work. ?Marital status: . 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 * Medications:?TakingOmega 3 1 000 MG Capsule [...] an empty stomach Orally Once a dayTaking [place] 3 1000 MG Capsule 1 capsule Orally [...] Henriquez DPM Date:? Generated for Jojo zayas/Nirmal/Claudette on:?10/23/2024 08:49 AM EST History and Physical Notes * HPI [...]
--- OUTSIDE RECORDS SUMMARY | 2024-10-23 08:50 | XMS_ITS | Patient Health Record ---
Author Organization [facility] Address [address] [place] [address] Care Team Providers Care Harness Inspector Name Role Phone Rehan Guillaume Primary Care Provider Unavailab bethany Saba Diane Unavailable [phone] BonAngela munoz Unavailable [phone] Allergies Allergen (clinical drug ingredient) Drug/Non Drug Allergy documented on EMR Reaction Allergy Type Onset Date Status sulfamethoxazole / trimethoprim Bactrim Unknown Drug Allergy Active losartan Losartan Potassium anaphylaxis Drug Allergy Active Substance with 6-njubqus-9-methylglutar yl-coenzyme A reductase inhibitor mechanism of action (substance) Statins itching Drug Allergy Active Substance with sulfonamide structure and antibacterial mechanism of action (substance) Sulfa Antibiotics itching Drug Allergy Active Reason For Referral No Information Medications Medication SIG (Take, Route, Frequency, Duration) Notes Start Date End Date Status [place] 3 1000 MG 1 capsule Orally Once [...] Status Risk Notes Problem Ulcer of toe (282532355) 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.521) Active confirmed Problem Acquired hammer toe of left foot (948480632318608 3) Other hammer toe(s) (acquired), left foot (M20.42) Active confirmed Problem Type II diabetes mellitus without complication (090947779) Type 2 diabetes mellitus without complications (E11.9) Active confirmed Vital Signs Height 5 ft 2 in in 10/31/2023 Weight 135 lbs 10/31/2023 BMI 24.69 kg/m2 10/31/2023 Encounters Encounter Location Date Provider Diagnosis [facility] [address] [place] [address] 10/31/2023 Angela Henriquez Type 2 diabetes mellitus [...] X ray : Foot, left 3V 10/05/2023 03658- Debride <25 sq cm 12/05/2021 Insurance Providers Payer Name Payer Address Payer Phone Subscriber Number Group Number Insured Name Patient Relationship to Insured Coverage Start Date Coverage End Date Medicare National Govt Svcs Inc [address] [place] [phone] [id number] Lizzeth Farley Self - patient is the insured [employer] Medicare Supplement [address] [place] [address] [id number] Lizzeth Farley Self - patient is the [...] Exostectomy L5th P/B Hospitalization History Reason Date(Month/Year) [facility] [place]- Pneumonia and Pleurisy 3 days 02/[address] [facility] [place]- Pelvic Ultrasound 10/06/[address] [facility] [place]- Bone Density Scan 12/25/2006 Bradycardia, right distal ti vero and fibula fractured closed reduction and cast 03/30/[address] [facility] [place]- right tibia intramedullary nailing for fracture 11/27/[address] [facility] [place]- tibial infection, absce ss, right lower leg, incision and drainage of abscess 08/13/2008 [facility] Chest X-[facility] 05/23/2021 [facility]- UTI 05/27/2021
--- OUTSIDE RECORDS SUMMARY | 2024-10-23 08:50 | XMS_ITS ---
Author Organization [facility] Address [address] [place] [address] Care Team Providers Care Spray Gun Operator Name Role Phone Rehan Guillaume Primary Care Provider Unavailab aSba Callejas Unavailable [phone] Angela Henriquez Unavailable [phone] Allergies Allergen (clinical drug ingredient) Drug/Non Drug Allergy documented on EMR Reaction Allergy Type Onset Date Status sulfamethoxazole / trimethoprim Bactrim Unknown Drug Allergy Active losartan Losartan Potassium anaphylaxis Drug Allergy Active Substance with 6-hiemdtg-9-methylglutar yl-coenzyme A reductase inhibitor mechanism of action [...] day for 30 day(s) Not-Taking Multivitamin-Minerals Active [place] 3 1000 MG 1 capsule Orally Once [...] 10/12/2023 Encounters Encounter Location Date Provider Diagnosis [facility] [place] [address] [place] [address] 10/12/2023 Angela Henriquez Other hammer toe(s) (acquired), [...] * Lizzeth RAMIREZ GDOB:1945 (77 yo F)Acc No.[id number]:10/12/2023 Progress Notes Patient:?Lizzeth Ramirez Provider:?Angela Henriquez DPM :1945???Age:77 Y???Sex:Female D ate:10/12/2023 Address:[address] [place] [address] [place], [place] Pcp:Rehan Guillaume Subjective: * Chief Complaints: * [...] yes, house work. ?Marital status: . 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 * Medications:?TakingOmega 3 1 000 MG Capsule [...] 1 tablet Orally Three times a dayTaking [place] 3 1000 MG Capsule 1 capsule Orally [...] Henriquez DPM Date:?06/2023 Generated for Jojo zayas/Nirmal/eTransmitting on:?10/23/2024 08:49 AM EST History and Physical [...]
== END 2024-10-23 09:15 | disposition home or self-care (01) ==
PROVIDERS: PCP Physician Assistant; Visit Provider Physician Assistant
DX: S42.033D Displaced fracture of lateral end of unspecified clavicle, subsequent encounter for fracture with routine healing (principal)
CPT/HCPCS: 99213

== ENCOUNTER → 2024-10-23 08:44 | Outpatient (BNV) | payer MEDICARE, OTHER, SELFPAY | PROVIDERS: Visit Provider Radiology Diagnostic Radiology | DX: M89.8X1 Other specified disorders of bone, shoulder (principal) | CPT/HCPCS: 73000 ==

== ENCOUNTER 2024-10-23 11:08 | Outpatient (REF) | payer MEDICARE, OTHER, SELFPAY ==
--- NOTE | ~2024-10-23 | XR_ITS ---
EXAMINATION: XR CLAVICLE, LEFT CLINICAL INFORMATION: M89.8X1 - Other specified disorders of bone, shoulder COMPARISON: None available. TECHNIQUE: Two views of the left clavicle. FINDINGS: Redemonstration of oblique distal clavicular fracture with mild dorsal superior displacement of the distal fragment, and no significant override. Degree of displacement is unchanged. There is otherwise gross anatomic alignment. Fracture margins demonstrate mild blunting with early/subtle periosteal new bone formation suggesting early healing. No bridging bony callus at this time and fracture lines are still visualized. The glenohumeral joint appears normal. The subacromial space is preserved. Redemonstration of benign enchondroma in the left proximal humerus. Remainder of the bony and soft tissue structures appear normal. XR/XR clavicle LT IMPRESSION: 1. Distal left clavicular fracture with similar mild displacement, unchanged alignment, and evidence of early bony healing. 2. Benign enchondroma left proximal humeral metadiaphysis. Electronically signed by: Elmer Waldron MD 10/23/2024 04:01 PM HAY
--- OUTSIDE RECORDS SUMMARY | 2024-10-24 11:20 | XMS_ITS | Patient Health Record ---
Author Organization [facility] Address [address] [place] [address] Care Team Providers Care Insulation Nozzleman Name Role Phone Rehan Guillaume Primary Care Provider Unavailab bethany Saba Diane Unavailable [phone] BonAngela munoz Unavailable [phone] Allergies Allergen (clinical drug ingredient) Drug/Non Drug Allergy documented on EMR Reaction Allergy Type Onset Date Status sulfamethoxazole / trimethoprim Bactrim Unknown Drug Allergy Active losartan Losartan Potassium anaphylaxis Drug Allergy Active Substance with 1-vjpgfac-2-methylglutar yl-coenzyme A reductase inhibitor mechanism of action (substance) Statins itching Drug Allergy Active Substance with sulfonamide structure and antibacterial mechanism of action (substance) Sulfa Antibiotics itching Drug Allergy Active Reason For Referral No Information Medications Medication SIG (Take, Route, Frequency, Duration) Notes Start Date End Date Status [place] 3 1000 MG 1 capsule Orally Once [...] Status Risk Notes Problem Ulcer of toe (655400744) 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.521) Active confirmed Problem Acquired hammer toe of left foot (430956897224119 3) Other hammer toe(s) (acquired), left foot (M20.42) Active confirmed Problem Type II diabetes mellitus without complication (460482315) Type 2 diabetes mellitus without complications (E11.9) Active confirmed Vital Signs Height 5 ft 2 in in 10/31/2023 Weight 135 lbs 10/31/2023 BMI 24.69 kg/m2 10/31/2023 Encounters Encounter Location Date Provider Diagnosis [facility] [place] [address] [place] [address] 10/31/2023 Angela Henriquez Type 2 diabetes mellitus [...] X ray : Foot, left 3V 10/05/2023 67542- Debride <25 sq cm 12/05/2021 Insurance Providers Payer Name Payer Address Payer Phone Subscriber Number Group Number Insured Name Patient Relationship to Insured Coverage Start Date Coverage End Date Medicare National Govt Svcs Inc [address] [place] [phone] [id number] Lizzeth Farley Self - patient is the insured [employer] Medicare Supplement [address] [place] [address] [id number] Lizzeth Farley Self - patient is the [...] Exostectomy L5th P/B Hospitalization History Reason Date(Month/Year) [facility] [place]- Pneumonia and Pleurisy 3 days 02/22 [facility] [place]- Pelvic Ultrasound 10/06/2004 [facility] [place]- Bone Density Scan 12/25/2006 Bradycardia, right distal ti vero and fibula fractured closed reduction and cast 03/30/2007 [facility] [place]- right tibia intramedullary nailing for fracture 11/27/2007 [facility] [place]- tibial infection, absce ss, right lower leg, incision and drainage of abscess 08/13/2008 [facility]- Chest X-ray 05/23/2021 [facility] UTI 05/27/2021
--- OUTSIDE RECORDS SUMMARY | 2024-10-24 11:20 | XMS_ITS ---
Author Organization [facility] Address [address] [place] [address] Care Team Providers Care Airborne Mission Systems Superintendent Name Role Phone Rehan Guillaume Primary Care Provider Unavailab Saba Callejas Unavailable [phone] Angela Henriquez Unavailable [phone] Encounters Encounter Location Date Provider Diagnosis [facility] [address] [place] [address] 10/16/2023 Angela Henriquez Plan Of Treatment No Information Progress Notes * Lizzeth RAMIREZ GDOB:1945 (78 yo F)Acc No.[id number]:10/16/2023 Progress Notes Patient:?Lizzeth RAMIREZ Provider:?Angela Henriquez DPM :1945???Age:77 Y???Sex:Female D ate:10/16/2023 Address:[address] [place] [address] Pcp:Rehan Guillaume Subjective: * Chief Complaints: * ??? * Medical History:? Objective: * Vitals:? Assessment: Plan: * Treatment: * Images: * The named appointment provid er may or may not be the originator of this progress note, and it is not deemed complete until electronically signed by the appointment provider. Sign off status: Pending * Provider:?Angela Henriquez DPM Date:?10/2023 Generated for Printi ng/Faxing/eTransmitting on:?10/24/2024 11:20 AM EST
--- OUTSIDE RECORDS SUMMARY | 2024-10-24 11:20 | XMS_ITS ---
Author Organization [facility] Address [address] [place] [address] Care Team Providers Care Director Of Strategy & Mobile Name Role Phone Rehan Guillaume Primary Care Provider Unavailab Saba Callejas Unavailable [phone] Angela Henriquez Unavailable [phone] Allergies Allergen (clinical drug ingredient) Drug/Non Drug Allergy documented on EMR Reaction Allergy Type Onset Date Status sulfamethoxazole / trimethoprim Bactrim Unknown Drug Allergy Active losartan Losartan Potassium anaphylaxis Drug Allergy Active Substance with 7-uxragzf-6-methylglutar yl-coenzyme A reductase inhibitor mechanism of action [...] day for 30 day(s) Not-Taking Multivitamin-Minerals Active [place] 3 1000 MG 1 capsule Orally Once [...] 10/12/2023 Encounters Encounter Location Date Provider Diagnosis [facility] [place] [address] [place] [address] 10/12/2023 Angela Henriquez Other hammer toe(s) (acquired), [...] * Lizzeth RAMIREZ GDOB:1945 (77 yo F)Acc No.[id number]:10/12/2023 Progress Notes Patient:?Lizzeth Ramirez Provider:?Angela Henriquez DPM :1945???Age:77 Y???Sex:Female D ate:10/12/2023 Address:[address] [place] [address] [place], [place] Pcp:Rehan Guillaume Subjective: * Chief Complaints: * [...] yes, house work. ?Marital status: . 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 * Medications:?TakingOmega 3 1 000 MG Capsule [...] 1 tablet Orally Three times a dayTaking [place] 3 1000 MG Capsule 1 capsule Orally [...] Henriquez DPM Date:?06/2023 Generated for Jojo zayas/Nirmal/eTransmitting on:?10/24/2024 11:20 AM EST History and Physical Notes * [...]
--- OUTSIDE RECORDS SUMMARY | 2024-10-24 11:20 | XMS_ITS ---
Author Organization [facility] Address [address] [place] [address] Care Team Providers Care Spudder Name Role Phone Rehan Guillaume Primary Care Provider Unavailab Saba Callejas Unavailable [phone] Angela Henriquez Unavailable [phone] Allergies Allergen (clinical drug ingredient) Drug/Non Drug Allergy documented on EMR Reaction Allergy Type Onset Date Status sulfamethoxazole / trimethoprim Bactrim Unknown Drug Allergy Active losartan Losartan Potassium anaphylaxis Drug Allergy Active Substance with 8-hvawbqv-7-methylglutar yl-coenzyme A reductase inhibitor mechanism of action [...] Once a day for 30 day(s) Active [place] 3 1000 MG 1 capsule Orally Once [...] 10/31/2023 Encounters Encounter Location Date [facility] [address] [place] [address] 10/31/2023 Angela Henriquez Type 2 diabetes mellitus [...] * Lizzeth RAMIREZ GDOB:1945 (77 yo F)Acc No.[id number]:10/31/2023 Progress Notes Patient:?Lizzeth Ramirez Umu Provider:?Angela Henriquez DPM :1945???Age:77 Y???Sex:Female D ate:10/31/2023 Address:[address] [place] [address] Pcp:Rehan Guillaume Subjective: * Chief Complaints: * [...] house work. ?Marital status: . 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 * Medications:?TakingOmega 3 1 000 MG Capsule [...] an empty stomach Orally Once a dayTaking [place] 3 1000 MG Capsule 1 capsule Orally [...] Henriquez DPM Date:? Generated for Jojo zayas/Nirmal/Claudette on:?10/24/2024 11:20 AM EST History and Physical [...]
== END 2024-10-23 11:09 | disposition home or self-care (01) ==
LOC: HO.HOSX 11:08
PROVIDERS: Visit Provider Physician Assistant
DX: M89.8X1 Other specified disorders of bone, shoulder (principal); S42.033A Displaced fracture of lateral end of unspecified clavicle, initial encounter for closed fracture
CPT/HCPCS: 73000; 99212

== ENCOUNTER 2024-11-14 11:04 | Outpatient (REF) | payer MEDICARE, OTHER, SELFPAY ==
--- OUTSIDE RECORDS SUMMARY | 2024-11-14 12:18 | XMS_ITS ---
Author Organization [facility] Address [address] [place] [address] Care Team Providers Care Facilities Operations Technician Name Role Phone Rehan Guillaume Primary Care Provider Unavailab Saba Callejas Unavailable [phone] Angela Henriquez Unavailable [phone] Allergies Allergen (clinical drug ingredient) Drug/Non Drug Allergy documented on EMR Reaction Allergy Type Onset Date Status sulfamethoxazole / trimethoprim Bactrim Unknown Drug Allergy Active losartan Losartan Potassium anaphylaxis Drug Allergy Active Substance with 3-pqooahu-9-methylglutar yl-coenzyme A reductase inhibitor mechanism of action [...] Once a day for 30 day(s) Active [place] 3 1000 MG 1 capsule Orally Once [...] 10/31/2023 Encounters Encounter Location Date Provider [facility] [address] [place] [address] 10/31/2023 Angela Henriquez Type 2 diabetes mellitus [...] * Lizzeth RAMIREZ GDOB:1945 (77 yo F)Acc No.[id number]:10/31/2023 Progress Notes Patient:?Lizzeth Ramirez Umu Provider:?Angela Henriquez DPM :1945???Age:77 Y???Sex:Female D ate:10/31/2023 Address:[address] [place] [address] Pcp:Rehan Guillaume Subjective: * Chief Complaints: * [...] house work. ?Marital status: . 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 * Medications:?TakingOmega 3 1 000 MG Capsule [...] an empty stomach Orally Once a dayTaking [place] 3 1000 MG Capsule 1 capsule Orally [...] Henriquez DPM Date:? Generated for Jojo zayas/Nirmal/Claudette on:?11/14/2024 12:18 PM EST History and Physical Notes * [...]
== END 2024-11-14 11:05 | disposition home or self-care (01) ==
LOC: HO.LNP 11:04
PROVIDERS: PCP Physician Assistant; Visit Provider Internal Medicine
DX: N30.01 Acute cystitis with hematuria (principal)
CPT/HCPCS: 81003; 87086; 99212

== ENCOUNTER 2024-11-14 11:04 | Outpatient (AMB) | payer MEDICARE, OTHER, SELFPAY ==
--- OUTSIDE RECORDS SUMMARY | 2024-11-14 11:13 | XMS_ITS ---
Author Organization [facility] Address [address] [place] [address] Care Team Providers Care Engraving Plate Maker Name Role Phone Rehan Guillaume Primary Care Provider Unavailab Saba Callejas Unavailable [phone] Angela Henriquez Unavailable [phone] Allergies Allergen (clinical drug ingredient) Drug/Non Drug Allergy documented on EMR Reaction Allergy Type Onset Date Status sulfamethoxazole / trimethoprim Bactrim Unknown Drug Allergy Active losartan Losartan Potassium anaphylaxis Drug Allergy Active Substance with 4-jgsnnbm-2-methylglutar yl-coenzyme A reductase inhibitor mechanism of action [...] day for 30 day(s) Not-Taking Multivitamin-Minerals Active [place] 3 1000 MG 1 capsule Orally Once [...] 10/12/2023 Encounters Encounter Location Date Provider Diagnosis [facility] [place] [address] [place] [address] 10/12/2023 Angela Henriquez Other hammer toe(s) (acquired), [...] * Lizzeth RAMIREZ GDOB:1945 (77 yo F)Acc No.[id number]:10/12/2023 Progress Notes Patient:?Lizzeth Ramirez Provider:?Angela Henriquez DPM :1945???Age:77 Y???Sex:Female D ate:10/12/2023 Address:[address] [place] [address] [place], [place] Pcp:Rehan Guillaume Subjective: * Chief Complaints: * [...] yes, house work. ?Marital status: . 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 * Medications:?TakingOmega 3 1 000 MG Capsule [...] 1 tablet Orally Three times a dayTaking [place] 3 1000 MG Capsule 1 capsule Orally [...] Henriquez DPM Date:?06/2023 Generated for Jojo zayas/Nirmal/eTransmitting on:?11/14/2024 11:12 AM EST History and Physical Notes * [...]
--- OUTSIDE RECORDS SUMMARY | 2024-11-14 11:13 | XMS_ITS | Patient Health Record ---
Author [facility] Address [address] [place] [address] Care Team Providers Care Soap Drier Operator Name Role Phone Rehan Guillaume Primary Care Provider Unavailab bethany Saba Diane Unavailable [phone] Allergies Allergen (clinical drug ingredient) Drug/Non Drug Allergy documented on EMR Reaction Allergy Type Onset Date Status sulfamethoxazole / trimethoprim Bactrim Unknown Drug Allergy Active losartan Losartan Potassium anaphylaxis Drug Allergy Active Substance with 4-ecjangf-7-methylglutar yl-coenzyme A reductase inhibitor mechanism of action (substance) Statins itching Drug Allergy Active Substance with sulfonamide structure and antibacterial mechanism of action (substance) Sulfa Antibiotics itching Drug Allergy Active Reason For Referral No Information Medications Medication SIG (Take, Route, Frequency, Duration) Notes Start Date End Date Status [place] 3 1000 MG 1 capsule Orally Once [...] Route Administration Date Status Comme nts COVID-19 [employer] Vaccine Unknown 09/08/2021 Administered 1st 01/23/2021 2nd [...] Status Risk Notes Problem Ulcer of toe (956358666) 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.521) Active confirmed Problem Acquired hammer toe of left foot (566650841592354 3) Other hammer toe(s) (acquired), left foot (M20.42) Active confirmed Problem Type II diabetes mellitus without complication (163490942) Type 2 diabetes mellitus without complications (E11.9) Active confirmed Plan Of Treatment Pending Test Test Name Order Date Hemoglobin A1c 09/26/2023 X ray : Foot, left 3V 08/01/2023 X ray : Foot, left 3V 10/05/2023 16508- Debride <25 sq cm 12/05/2021 Insurance Providers Payer Name Payer Address Payer Phone Subscriber Number Group Number Insured Name Patient Relationship to Insured Coverage Start Date Coverage End Date Medicare National Govt Svcs Inc [address] [place] [phone] [id number] Lizzeth Farley Self - patient is the insured [employer] Medicare Supplement [address] [place] [address] [id number] Lizzeth Farley Self - patient is the [...] Exostectomy L5th P/B Hospitalization History Reason Date(Month/Year) [facility] [place] and Pleurisy 3 days 02/22 [facility] [place] Pelvic Ultrasound 10/06/2004 [facility]- Bone Density Scan 12/25/2006 Bradycardia, right distal ti vero and fibula fractured closed reduction and cast 03/30/2007 [facility] [place] right tibia intramedullary nailing for fracture 11/27/2007 [facility] [place] tibial infection, absce ss, right lower leg, incision and drainage of abscess 08/13/2008 [facility]- Chest X-ray 05/23/2021 [facility]- UTI 05/27/2021
--- OUTSIDE RECORDS SUMMARY | 2024-11-14 11:13 | XMS_ITS ---
Author Organization [facility] Address [address] [place] [address] Care Team Providers Care Zipper Cutter Name Role Phone Rehan Guillaume Primary Care Provider Unavailab Saba Callejas Unavailable [phone] Angela Henriquez Unavailable [phone] Encounters Encounter Location Date Provider Diagnosis [facility] [address] [place] [address] 10/16/2023 Angela Henriquez Plan Of Treatment No Information Progress Notes * Lizzeth RAMIREZ GDOB:1945 (78 yo F)Acc No.[id number]:10/16/2023 Progress Notes Patient:?Lizzeth RAMIREZ Provider:?Angela Henriquez DPM :1945???Age:77 Y???Sex:Female D ate:10/16/2023 Address:[address] [place] [address] Pcp:Rehan Guillaume Subjective: * Chief Complaints: * ??? * Medical History:? Objective: * Vitals:? Assessment: Plan: * Treatment: * Images: * The named appointment provid er may or may not be the originator of this progress note, and it is not deemed complete until electronically signed by the appointment provider. Sign off status: Pending * Provider:?Angela Henriquez DPM Date:?10/2023 Generated for Printi ng/Faxing/eTransmitting on:?11/14/2024 11:12 AM EST
--- NOTE | 2024-11-14 12:05 | AM.OFFWIN_ITS ---
Intake Vital Signs 11/14/24 12:07 BP 130/80 Blood Pressure Location Rt brachial Position Sitting Pulse 59 Pulse Source Pulse Oximeter Temp 97.7 F Temp Source Oral Pulse Oximetry (%) 99 Oxygen Delivery Method Room Air Intake Visit Reasons: EP ?UTI Intake Note: Patient here for painful urination, frequency which started last night. Patient Tobacco Use Status: Never used Tobacco Allergies Rccxuns-ZOK-OzP Reductase Inhibitor Allergy (Intermediate, Verified 11/14/24 12:05) Itching Sulfa (Sulfonamide Antibiotics) Allergy (Unknown, Verified 11/14/24 12:05) ITCHING Losartan Allergy (Severe, Uncoded 11/14/24 12:05) Anaphylaxis Medication List - Last Reconciled 11/14/24 by Stefanie Giraldo MD acetaminophen 1,000 mg (2 x 500 mg) PO Q6H PRN amlodipine 10 mg PO DAILY 90 days cholecalciferol (vitamin D3) 25 mcg PO DAILY cranberry extract 425 mg orally one to 2 x daily with meals; administer with meals epinephrine 0.3 mg (0.3 mL) IM Q10M PRN ezetimibe (Zetia) 10 mg PO DAILY 90 days hydrochlorothiazide 12.5 mg PO DAILY 90 days levothyroxine 50 mcg PO DAILY metformin ER 500 mg PO DAILY 90 days lxihnpkzuacn-ahklpvak-ezqacb 1 tab PO DAILY nitrofurantoin monohyd/m-cryst 100 mg (Macrobid) 100 mg PO Q12H 5 days Do you need a note to return to daycare/school/sports/work: No HPI EP ?UTI HPI Details Chief Complaint The patient presents for care due to recurrent urinary tract infections. History of Present Illness - The patient is a 78-year-old female pr esenting with recurrent urinary tract infections. - Current symptoms are less severe galen red to past occurrences. - Received a five-day antibiotic course previously. A ten-day course is planned for more effective management. - Unsuccessful use of cranberry pills fo r prevention. - Reports consistent consultation with a urologist for the matter several months prior, with no recent follow-up. - No new symptoms of back pain, fever, c hills, abdominal pain, or hematuria noted. - has appointment coming up with the uro logist in February as per patient. Problem List - Recurrent Urinary Tract Infections (UT Is) Plan The patient?s concern of recurrent urinary tract infections will be managed with a longer antibiotic treatment duration, extending from a five-day to a ten-day c ourse. Previous cranberry pill use for prevention is not yielding positive results, indicating the need for re-evaluation of preventive strategies. The patient should have a discussion with her urologist regarding the possible initiation of a prophylactic antibiotic regimen. Continued monitoring for the development of any additional symptoms is necessary. 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 Patient Instructions - Complete the full ten-day course of an tibiotics as prescribed. - Continue cranberry pills if desired bu t note their limited effectiveness as discussed. - Follow up with your urologist, Dr. Joselito harp, to address the frequency of urinary tract infections and explore daily antibiotic prophylaxis if appropriate. - Monitor for any new symptoms such as f ever, chills, abdominal pain, or blood in urine, and seek medical attention if they develop. 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 Review of Systems - Genitourinary: Reports recurrent urina ry tract infections. Denies new back pain, fever, chills, abdominal pain, or hematuria. 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 Cystitis Arthralgia of left foot Strain of left biceps Pre-op evaluation Right shoulder pain Pre-diabetes Recurrent urinary tract infection Surgical History History of mastectomy History of lumpectomy History of tibial fracture History of colonoscopy History of cataract surgery History of hysterectomy Family History Mother Breast cancer Father Dementia Social History Housing: House Alcohol intake: current Alcohol intake frequency: a few times a month Alcohol type: other Patient Tobacco Use Status: Never used Tobacco e-Cigarette/Vaping Use: Never Used Second Hand Smoke Exposure: No service: No Current occupational status: retired Current occupational exposures/hazards: No Cognitive needs: No Hearing needs: No Vision needs: No Physical Exam Vital Signs: Last Vital Signs Temp 97.7 F 11/14/24 12:07 Pulse 59 11/14/24 12:07 BP 130/80 11/14/24 12:07 Pulse Ox 99 11/14/24 12:07 Oxygen Delivery Method Room Air 11/14/24 12:07 Const General: no acute distress Orientation/consciousness: patient oriented x3 Eyes General: appearance normal, both eyes and all related structures Resp Effort & Inspection: normal respiratory effort and able to speak in complete sentences GI Other: No discomfort suprapubic General: Yes no CVA tenderness Back/Spine/Pelvis Back: no CVA tenderness Neuro General: patient oriented x3 Psych Mental Status: mental status grossly normal Results AMB Urinalysis, Automated UA Leukoctes 125 Renard/uL Last Edit by Josi Niño [facility] on 11/14/24 12: 17 UA Nitrite Negative Last Edit by KathyaPiyush Niño [facility] on 11/14/24 12:17 UA Urobilinogen 0.2 mg/dL Last Edit by Josi Niño [facility] on 11/14/24 12:17 UA Protein 0 mg/dL Last Edit by KathyaVilma Niño [facility] on 11/14/24 12:17 UA pH 7.0 Last Edit by KathyaiPyush Niño [facility] on 11/14/24 12:17 UA Blood 10 Jose/uL Last Edit by KathyaPiyush Niño [facility] on 11/14/24 12:17 UA Specific Zahl 1.000 Last Edit by Josi Niño [facility] on 11/14/24 12:17 UA Ketone Negative Last Edit by KathyaPiyush Niño [facility] on 11/14/24 12:17 UA Bilirubin 0 mg/dL Last Edit by KathyaPiyush Niño [facility] on 11/14/24 12:17 UA Glucose 0 mg/dL Last Edit by KathyaPiyush Niño [facility] on 11/14/24 12:17 Assessment & Plan Assessment & Plan (1) Acute cystitis with hematuria: Code(s): N30.01 - Acute cystitis with hematuria Plan The patient presents for care due to recurrent urinary tract infections. History of Present Illness - The patient is a 78-year-old female presenting with recurrent urinary tract infections. - Current symptoms are less severe compared to past occurrences. - Received a five-day antibiotic course previously. A ten-day course is planned for more effective management. - Unsuccessful use of cranberry pills for prevention. - Reports consistent consultation with a urologist for the matter several months prior, with no recent follow-up. - No new symptoms of back pain, fever, chills, abdominal pain, or hematuria noted. - has appointment coming up with the urologist in February as per patient. Problem List - Recurrent Urinary Tract Infections (UTIs) Plan The patient?s concern of recurrent urinary tract infections will be managed with a longer antibiotic treatment duration, extending from a five-day to a ten-day course. Previous cranberry pill use for prevention is not yielding positive results, indicating the need for re-evaluation of preventive strategies. The patient should have a discussion with her urologist regarding the possible initiation of a prophylactic antibiotic regimen. Continued monitoring for the development of any additional symptoms is necessary. 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 Patient Instructions - Complete the full ten-day course of antibiotics as prescribed. - Continue cranberry pills if desired but note their limited effectiveness as discussed. - Follow up with your urologist, Dr. Beth, to address the frequency of urinary tract infections and explore daily antibiotic prophylaxis if appropriate. - Monitor for any new symptoms such as fever, chills, abdominal pain, or blood in urine, and seek medical attention if they develop. 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 Orders: Orders Urine Culture Today N39.0 - Urinary tract infection, site not specified AMB Urinalysis Automated Today Z13.9 - Encounter for screening, unspecified Medications: Changed From nitrofurantoin monohyd/m-cryst 100 mg (Macrobid) must administer with a meal/food 100 mg PO Q12H 5 days 10 caps 0RF To nitrofurantoin monohyd/m-cryst 100 mg (Macrobid) must administer with a meal/food 100 mg PO Q12H 20 caps 0RF 10 days Coding Level of Care Code Est Pt Level 3 (60386) Diagnoses Acute cystitis with hematuria N30.01
[2024-11-14 12:07] VITALS: BP 130/80; PULSE 59; TEMP 36.5; O2SAT 99
== END 2024-11-14 14:20 | disposition home or self-care (01) ==
PROVIDERS: PCP Physician Assistant; Visit Provider Internal Medicine
DX: N30.01 Acute cystitis with hematuria (principal); Z13.9 Encounter for screening, unspecified

== ENCOUNTER 2024-12-22 12:39 | Outpatient (REF) | payer MEDICARE, OTHER, SELFPAY ==
--- OUTSIDE RECORDS SUMMARY | 2024-12-22 13:00 | XMS_ITS ---
Author Organization [facility] Address [address] [place] [address] Care Team Providers Care Coating Machine Helper Name Role Phone Rehan Guillaume Primary Care Provider Unavailab Saba Callejas Unavailable [phone] Angela Henriquez Unavailable [phone] Allergies Allergen (clinical drug ingredient) Drug/Non Drug Allergy documented on EMR Reaction Allergy Type Onset Date Status sulfamethoxazole / trimethoprim Bactrim Unknown Drug Allergy Active losartan Losartan Potassium anaphylaxis Drug Allergy Active Substance with 1-vijctfs-5-methylglutar yl-coenzyme A reductase inhibitor mechanism of action [...] day for 30 day(s) Not-Taking Multivitamin-Minerals Active [place] 3 1000 MG 1 capsule Orally Once [...] 10/12/2023 Encounters Encounter Location Date Provider Diagnosis [facility] [address] [place] [address] 10/12/2023 Angela Henriquez Other hammer toe(s) (acquired), [...] * Lizzeth RAMIREZ GDOB:1945 (77 yo F)Acc No.[id number]:10/12/2023 Progress Notes Patient:?Lizzeth Ramirez Provider:?Angela Henriquez DPM :1945???Age:77 Y???Sex:Female D ate:10/12/2023 Address:[address] [place] [address] [id number] Pcp:Rehan Guillaume Subjective: * Chief Complaints: * [...] yes, house work. ?Marital status: . 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 * Medications:?TakingOmega 3 1 000 MG Capsule [...] 1 tablet Orally Three times a dayTaking [place] 3 1000 MG Capsule 1 capsule Orally [...] Henriquez DPM Date:?06/2023 Generated for Jojo zayas/Nirmal/eTransmitting on:?12/22/2024 12:59 PM EST History and Physical Notes * [...]
[2024-12-22 15:54] LABS: Appearance Urine Cloudy; Color Urine Yellow; Glucose Urine UA Negative (Negative); Leukocyte Esterase Urine Large (3+) (Negative); Nitrite Urine Negative (Negative); Specific Gravity - Urine <= 1.005 (1.005-1.025); UMIC TRIGGER UACC YES; Urine Blood Trace (Negative); Urine Ketones Negative (Negative); Urine Protein Negative (Neg-Trace)
[2024-12-22 16:58] LABS: Bacteria Urine Trace (None Seen); Hyaline Casts Urine 0-2 /LPF (0-2); RBC Urine 0-2 /HPF (0-2); Squamous Epithelial Cell Urine 0-2 /HPF (0-2); UACC Culture Trigger YES; WBC Urine >50 /HPF (0-5)
== END 2024-12-22 12:40 | disposition home or self-care (01) ==
LOC: HO.LAB 12:39
PROVIDERS: PCP Physician Assistant; Visit Provider Nurse Practitioner Family
DX: N30.90 Cystitis, unspecified without hematuria (principal)
CPT/HCPCS: 81001; 81003; 87086; 87088; 87186; 99212

== ENCOUNTER 2024-12-22 12:39 | Outpatient (AMB) | payer MEDICARE, OTHER, SELFPAY ==
--- OUTSIDE RECORDS SUMMARY | 2024-12-22 12:41 | XMS_ITS ---
Author Organization [facility] Address [address] [place] [address] Care Team Providers Care Watch Manufacturing Supervisor Name Role Phone Rehan Guillaume Primary Care Provider Unavailab Saba Callejas Unavailable [phone] Angela Henriquez Unavailable [phone] Allergies Allergen (clinical drug ingredient) Drug/Non Drug Allergy documented on EMR Reaction Allergy Type Onset Date Status sulfamethoxazole / trimethoprim Bactrim Unknown Drug Allergy Active losartan Losartan Potassium anaphylaxis Drug Allergy Active Substance with 9-ajwyhrx-6-methylglutar yl-coenzyme A reductase inhibitor mechanism of action [...] Once a day for 30 day(s) Active [place] 3 1000 MG 1 capsule Orally Once [...] 10/31/2023 Encounters Encounter Location Date Provider [facility] [address] [place] [address] 10/31/2023 Angela Henriquez Type 2 diabetes mellitus [...] * Lizzeth RAMIREZ GDOB:1945 (77 yo F)Acc No.[id number]:10/31/2023 Progress Notes Patient:?Lizzeth Ramirez Umu Provider:?Angela Henriquez DPM :1945???Age:77 Y???Sex:Female D ate:10/31/2023 Address:[address] [place] [address] Pcp:Rehan Guillaume Subjective: * Chief Complaints: * [...] house work. ?Marital status: . 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 * Medications:?TakingOmega 3 1 000 MG Capsule [...] an empty stomach Orally Once a dayTaking [place] 3 1000 MG Capsule 1 capsule Orally [...] Henriquez DPM Date:? Generated for Jojo zayas/Nirmal/Claudette on:?12/22/2024 12:40 PM EST History and Physical Notes * [...]
--- OUTSIDE RECORDS SUMMARY | 2024-12-22 12:41 | XMS_ITS | Patient Health Record ---
Author Organization [facility] Address [address] [place] [address] Care Team Providers Care Business Continuity Management Director Name Role Phone Rehan Guillaume Primary Care Provider Unavailab bethany Saba Diane Unavailable [phone] Allergies Allergen (clinical drug ingredient) Drug/Non Drug Allergy documented on EMR Reaction Allergy Type Onset Date Status sulfamethoxazole / trimethoprim Bactrim Unknown Drug Allergy Active losartan Losartan Potassium anaphylaxis Drug Allergy Active Substance with 8-agipdcz-4-methylglutar yl-coenzyme A reductase inhibitor mechanism of action (substance) Statins itching Drug Allergy Active Substance with sulfonamide structure and antibacterial mechanism of action (substance) Sulfa Antibiotics itching Drug Allergy Active Reason For Referral No Information Medications Medication SIG (Take, Route, Frequency, Duration) Notes Start Date End Date Status Luck 3 1000 MG 1 capsule Orally Once [...] Route Administration Date Status Comme nts COVID-19 QintiNTech Vaccine Unknown 09/08/2021 Administered 1st 01/23/2021 2nd [...] Status Risk Notes Problem Ulcer of toe (770642394) 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.521) Active confirmed Problem Acquired hammer toe of left foot (851405345814455 3) Other hammer toe(s) (acquired), left foot (M20.42) Active confirmed Problem Type II diabetes mellitus without complication (350228975) Type 2 diabetes mellitus without complications (E11.9) Active confirmed Plan Of Treatment Pending Test Test Name Order Date Hemoglobin A1c 09/26/2023 X ray : Foot, left 3V 08/01/2023 X ray : Foot, left 3V 10/05/2023 12741- Debride <25 sq cm 12/05/2021 Insurance Providers Payer Name Payer Address Payer Phone Subscriber Number Group Number Insured Name Patient Relationship to Insured Coverage Start Date Coverage End Date Medicare National Govt Svcs Inc [address] ERICK Coleman [phone] [id number] Lizzeth Farley Self - patient is the insured [employer] Medicare Supplement [address] [place] Barros [phone] [id number] Lizzeth Farley Self - patient is the [...] Exostectomy L5th P/B Hospitalization History Reason Date(Month/Year) [facility]- Pneumonia and Pleurisy 3 days 02/22 [facility]- Pelvic Ultrasound 10/06/2004 [facility]- Bone Density Scan 12/25/2006 Bradycardia, right distal ti vero and fibula fractured closed reduction and cast 03/30/2007 [facility]- right tibia intramedullary nailing for fracture 11/27/2007 [facility]- tibial infection, absce ss, right lower leg, incision and drainage of abscess 08/13/2008 [facility]- Chest X-ray 05/23/2021 [facility]- UTI 05/27/2021
--- OUTSIDE RECORDS SUMMARY | 2024-12-22 12:41 | XMS_ITS ---
Author Organization [facility] Address [address] [place] [address] Care Team Providers Care Workers Compensation Claims Examiner Name Role Phone Rehan Guillaume Primary Care Provider Unavailab Saba Callejas Unavailable [phone] Angela Henriquez Unavailable [phone] Encounters Encounter Location Date Provider Diagnosis [facility] [address] [place] [address] 10/16/2023 Angela Henriquez Plan Of Treatment No Information Progress Notes * Lizzeth RAMIREZ GDOB:1945 (79 yo F)Acc No.[id number]:10/16/2023 Progress Notes Patient:?Lizzeth RAMIREZ Provider:?Angela Henriquez DPM :1945???Age:77 Y???Sex:Female D ate:10/16/2023 Address:[address] [place] [address] Pcp:Rehan Guillaume Subjective: * Chief Complaints: * ??? * Medical History:? Objective: * Vitals:? Assessment: Plan: * Treatment: * Images: * The named appointment provid er may or may not be the originator of this progress note, and it is not deemed complete until electronically signed by the appointment provider. Sign off status: Pending * Provider:?Angela Henriquez DPM Date:?10/2023 Generated for Printi ng/Faxing/eTransmitting on:?12/22/2024 12:40 PM EST
--- NOTE | 2024-12-22 12:44 | MHC.OFFWIV ---
Intake Vital Signs 12/22/24 12:45 Weight 140 lb BP 130/90 H Blood Pressure Location Rt brachial Position Sitting Temp 97.6 F Temp Source Oral Intake Visit Reasons: EP UTI? Intake Note: Patient here for burning on urination and frequency that has been present since sunday. Patient Tobacco Use Status: Never used Tobacco Allergies Uslozuc-TBH-GqZ Reductase Inhibitor Allergy (Intermediate, Verified 12/22/24 12:44) Itching Sulfa (Sulfonamide Antibiotics) Allergy (Unknown, Verified 12/22/24 12:44) ITCHING Losartan Allergy (Severe, Uncoded 12/22/24 12:44) Anaphylaxis Do you need a note to return to daycare/school/sports/work: No HPI HPI Comments History of Present Illness Details 79 y/o female patient who presents to the walk in clinic with c/o Urinary symptoms since Sunday. Pt reports Dysuria. Patient has a history of total vaginal hysterectomy, apical repair, with left uterosacral ligament suspension and right sacrospinous ligament suspension, with mid-urethral sling TVT done on 11/18/2017. She states about a week later they had to re-operate to loosen the sling as she was in retention. H/o Cervical CA. She does f/u with Urology who manages her urinary symptoms with Cranberry Supplements. Her next appointment in May. 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 Cystitis Arthralgia of left foot Strain of left biceps Pre-op evaluation Right shoulder pain Pre-diabetes Recurrent urinary tract infection Surgical History History of mastectomy History of lumpectomy History of tibial fracture History of colonoscopy History of cataract surgery History of hysterectomy Family History Mother Breast cancer Father Dementia Social History Housing: House Alcohol intake: current Alcohol intake frequency: a few times a month Alcohol type: other Patient Tobacco Use Status: Never used Tobacco e-Cigarette/Vaping Use: Never Used Second Hand Smoke Exposure: No service: No Current occupational status: retired Current occupational exposures/hazards: No Cognitive needs: No Hearing needs: No Vision needs: No Physical Exam Vital Signs: Last Vital Signs Temp 97.6 F 12/22/24 12:45 BP 130/90 H 12/22/24 12:45 Const General: cooperative and no acute distress Orientation/consciousness: patient oriented x3 General: Yes no CVA tenderness Back/Spine/Pelvis Back: no CVA tenderness Neuro General: patient oriented x3, gait normal and moves all extremities Psych Speech and movement: Normal speech and movement present Assessment & Plan Assessment & Plan (1) Cystitis: Code(s): N30.90 - Cystitis, unspecified without hematuria Plan: F/u with Urology as scheduled. Ordered Urinalysis with culture. Due to her recurrent UTI, ordered Cipro Orders: Orders UA CC w/rflx Micro + Cult Today N30.90 - Cystitis, unspecified without hematuria Medications: New ciprofloxacin HCl 500 mg PO Q12H 3 days 6 tabs 0RF N30.90 - Cystitis, unspecified without hematuria Coding Level of Care Code Est Pt Level 4 (40054) Diagnoses Cystitis N30.90 Time Spent (min) 20
[2024-12-22 12:45] VITALS: BP 130/90; TEMP 36.4
== END 2024-12-22 13:02 | disposition home or self-care (01) ==
PROVIDERS: PCP Physician Assistant; Visit Provider Nurse Practitioner Family
DX: N30.90 Cystitis, unspecified without hematuria (principal); Z13.9 Encounter for screening, unspecified

== ENCOUNTER 2025-01-13 07:06 | Outpatient (REF) | payer MEDICARE, OTHER, SELFPAY ==
[2025-01-13 10:27] LABS: Hematocrit 38.1 % (37.0-47.0); Hemoglobin 13.1 g/dl (12.0-16.0); Mean Corpuscular HGB Conc 34.4 g/dl (31.0-35.0); Mean Corpuscular Hemoglobin 30.5 pg (27.0-33.0); Mean Corpuscular Volume 88.8 fL (80.0-98.0); Platelet Count 355 X10*3/uL (160-400); Red Blood Count 4.29 X10*6/uL (4.20-5.50); Red Cell Distribution Width 13.4 % (11.0-16.0); White Blood Count 4.4 X10*3/uL (4.8-10.8)
[2025-01-13 10:42] LABS: Estimated Average Glucose 126 mg/dL; Total Hemoglobin (HGBA1C) 3431.4142 umol/L
[2025-01-13 10:48] LABS: Alanine Aminotransferase 24 U/L (0-31); Albumin Level 4.1 g/dL (3.5-5.0); Alkaline Phosphatase 71 U/L (39-117); Anion Gap 11 (12-20); Aspartate Amino Transferase 27 U/L (5-31); Bilirubin Total 0.6 mg/dL (0.0-1.0); Blood Urea Nitrogen 10 mg/dL (9-16); Calcium 9.4 mg/dL (8.4-10.2); Carbon Dioxide 29 mmol/L (22-29); Chloride 105 mmol/L (96-108); Cholesterol 256 mg/dL (<200); Estimated Glomerular Filt Rate 50; Glucose Fasting 116 mg/dL (60-99); HDL Cholesterol 90 mg/dL (>40); LDL Cholesterol Calculated 143 mg/dL (<100); Potassium 3.3 mmol/L (3.3-5.1); Sodium 142 mmol/L (135-145); Triglycerides 118 mg/dL (<150)
[2025-01-13 10:49] LABS: Creatinine Urine 46.86 mg/dL; Microalbumin Urine < 5.0 mg/L
[2025-01-13 11:03] LABS: TSH reflex Free T4 2.91 uIU/mL (0.32-4.0)
== END 2025-01-13 07:07 | disposition home or self-care (01) ==
LOC: HO.HMGCLDS 07:06
PROVIDERS: PCP Physician Assistant; Visit Provider Physician Assistant
DX: I10 Essential (primary) hypertension (principal); R73.09 Other abnormal glucose; E78.2 Mixed hyperlipidemia; E03.9 Hypothyroidism, unspecified
CPT/HCPCS: 36415; 80053; 80061; 82570; 83036; 84443; 85027

== ENCOUNTER 2025-01-17 08:34 | Emergency (ER) | payer MEDICARE, OTHER, SELFPAY ==
[2025-01-17 09:02] VITALS: BP 116/55; PULSE 67; RESP 18; TEMP 36.8; O2SAT 98; BMI 25.0
[2025-01-17 09:15] LABS: Appearance Urine Cloudy; Color Urine Dark Yellow; Glucose Urine UA Negative (Negative); Leukocyte Esterase Urine Large (3+) (Negative); Nitrite Urine Positive (Negative); Specific Gravity - Urine <= 1.005 (1.005-1.025); UMIC TRIGGER UACC YES; Urine Blood Moderate (2+) (Negative); Urine Ketones Negative (Negative); Urine Protein Trace mg/dL (Neg-Trace)
[2025-01-17 09:23] LABS: Bacteria Urine Trace (None Seen); Hyaline Casts Urine 0-2 /LPF (0-2); Squamous Epithelial Cell Urine 0-2 /HPF (0-2); UACC Culture Trigger YES; WBC Urine >50 /HPF (0-5)
--- NOTE | 2025-01-17 11:16 | ED_ITS ---
HPI - Female Genitourinary General Chief complaint: Urogenital-Female Stated complaint: quest UTI Time Seen by Provider: 01/17/25 11:16 Source: patient Mode of arrival: ambulatory Limitations: no limitations History of Present Illness ED Provider: Mark Vera DO HPI Narrative: 79-year-old female with past medical history of recurrent UTIs with a history of pelvic surgery including tension free vaginal tape who follows with urologist, Dr. Graham, and history of remote breast cancer,hypertension, hyperlipidemia, hypothyroidism and yex-jndnbxj-nprcoevnf diabetes on metformin presents to the emergency department due to symptoms that started at 01:00 which consists of dysuria, urinary urgency and frequency. Patient denies fevers, shaking chills, flank pain, abdominal pain, nausea, vomiting or diarrhea. She states her symptoms are consistent with her previous urinary tract infections. Previous urine culture shows E coli sensitive to cephalosporins. Patient is currently on cranberry supplementation for her recurrent UTIs. Related Data Home Medications ?Medication ?Instructions ?Recorded ?Confirmed cholecalciferol (vitamin D3) 25 25 mcg PO DAILY 12/05/21 11/14/24 mcg (1,000 unit) capsule zljobaaffhxp-cgmlborm-euqcby tablet 1 tab PO DAILY 12/05/21 11/14/24 Previous Rx's ?Medication ?Instructions ?Recorded epinephrine 0.3 mg/0.3 mL 0.3 mg (0.3 mL) IM Q10M PRN 05/11/23 injection syringe anaphylaxis #2 ea cranberry extract 425 mg capsule 425 mg PO .COMPLEX #60 caps 11/23/23 acetaminophen 500 mg capsule 1,000 mg (2 x 500 mg) PO Q6H PRN 03/05/24 pain (scale score 4-6) #30 caps ezetimibe 10 mg tablet (Zetia) 10 mg PO DAILY 90 days #90 tabs 07/23/24 hydrochlorothiazide 12.5 mg tablet 12.5 mg PO DAILY 90 days #90 tabs 07/23/24 metformin 500 mg tablet,extended 500 mg PO DAILY 90 days #90 tabs 07/23/24 release 24 hr levothyroxine 50 mcg tablet 50 mcg PO DAILY #90 tabs 12/09/24 amlodipine 10 mg tablet 10 mg PO DAILY 90 days #90 tabs 12/22/24 ciprofloxacin HCl 500 mg tablet 500 mg PO Q12H 3 days #6 tabs 12/22/24 cefuroxime axetil 500 mg tablet 500 mg PO BID 7 days #14 tabs 01/17/25 Allergies Allergy/AdvReac Type Severity Reaction Status Date / Time Rbzjnbh-LIR-MjM Reductase Allergy Intermediate Itching Verified 01/17/25 09:04 Inhibitor Sulfa (Sulfonamide Allergy Unknown ITCHING Verified 01/17/25 09:04 Antibiotics) Losartan Allergy Severe Anaphylaxis Uncoded 12/22/24 12:44 Review of Systems Review of Systems: Yes all other systems are reviewed and are negative [facility] Past Medical History Medical History 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 Cystitis Arthralgia of left foot Strain of left biceps Pre-op evaluation Right shoulder pain Pre-diabetes Recurrent urinary tract infection Surgical History History of mastectomy History of lumpectomy History of tibial fracture History of colonoscopy History of cataract surgery History of hysterectomy Family History Family History Mother Breast cancer Father Dementia Social History Social History Housing: House Alcohol intake: current Alcohol intake frequency: a few times a month Alcohol type: other Patient Tobacco Use Status: Never used Tobacco Smoked in Last 30 Days: No e-Cigarette/Vaping Use: Never Used Second Hand Smoke Exposure: No Use of substances other than those prescribed or required for medical reasons: No Advance Directives: No Advance Directives Information Provided: No service: No Current occupational status: retired Current occupational exposures/hazards: No Cognitive needs: No Hearing needs: No Vision needs: No Physical Exam Vital Signs: Vital Signs: Last Vital Signs Temp 98.2 F 01/17/25 09:02 Pulse 67 01/17/25 09:02 Resp 18 01/17/25 09:02 BP 116/55 L 01/17/25 09:02 Pulse Ox 98 01/17/25 09:02 O2 Del Method Room Air 01/17/25 09:02 BMI result Body Mass Index 25.0 Constitutional: Alert, oriented, speaking in full sentences HEENT: Normocephalic, atraumatic. Eyes: PERRL, EOMI Neck: Supple, nontender Chest: No chest wall tenderness Respiratory: Lungs clear to auscultation, no increased work of breathing Cardio: Regular rate and rhythm, no murmur, 2+ radial and DP pulses symmetrically GI: Soft, nondistended, nontender Back: Normal range of motion,Mild suprapubic tenderness to palpation. No CVA tenderness to palpation or percussion. Skin: No rash, no lesions Neuro: Alert and oriented to person, place and time, moves all 4 extremities, no focal deficits Extremities: No swelling or tenderness, full range of motion Psych: Calm, alert and cooperative, appropriate behavior Medical Decision Making Medical Decision Making MDM Narrative: Patient presenting with urinary symptoms and there is evidence of urinary tract infection noted on urinalysis with positive nitrate and leukocyte esterase as well as greater than 50 white blood cells per high-power field. There is a small amount of blood but this is likely concordant with hemorrhagic cystitis. In the absence of abdominal pain, flank pain or CVA tenderness to palpation or percussion, I do not suspect ureteral stone. I do not suspect pyelonephritis as well and the patient is afebrile. I do not suspect perirenal abscess. She is overall well-appearing and vitally stable. Given previous susceptibility to cephalosporins, the patient is provided a dose of cefuroxime here and a 7 day course with instructions to return with any worsening symptoms concerning for ascending infection as well as follow up with PCP and urologist. Admission/Observation Consideration of admission/observation: Escalation of care including admission/observation considered Lab Data Labs: Lab Results 01/17/25 Range/Units 09:10 Urine Color Dark Yellow Urine Appearance Cloudy Urine pH 8.0 (5.0-9.0) Ur Specific [place] <= 1.005 (1.005-1.025) Urine Protein Trace (Neg-Trace) mg/dL Urine Glucose (UA) Negative (Negative) mg/dL Urine Ketones Negative (Negative) mg/dL Urine Blood Moderate (2+) H (Negative) Urine Nitrite Positive H (Negative) Ur Leukocyte Esterase Large (3+) H (Negative) Urine RBC 3-5 H (0-2) /HPF Urine WBC >50 H (0-5) /HPF Ur Squamous Epith Cells 0-2 (0-2) /HPF Urine Bacteria Trace (None Seen) Hyaline Casts 0-2 (0-2) /LPF Discharge Plan Discharge Clinical Impression: Cystitis Patient Disposition: Home, Self-Care Instructions: Urinary Tract Infection in Women (ED) Additional Instructions: You were diagnosed today with a recurrent urinary tract infection. We gave you a dose of cefuroxime here which should cover this infection based on your previous urine cultures. We prescribed a 7 day course since you have required additional days in the past and the current treatment regimen is 5-7 days. If you develop fevers, flank pain, increased weakness or fatigue or any other acute symptoms, especially after 2 full days of antibiotics, please return to the emergency department. Please continue the cranberry supplementation, drink plenty of fluids and add blueberries ( high in antioxidants ) to your daily diet. Follow up with your primary care provider and urologist for further management and evaluation. Prescriptions: New cefuroxime axetil 500 mg tablet 500 mg PO BID 7 Days Qty: 14 0RF No Action epinephrine 0.3 mg/0.3 mL syringe 0.3 mg IM Q10M PRN (Reason: anaphylaxis) Qty: 2 0RF Rx Instructions: for 2 doses levothyroxine 50 mcg tablet 50 mcg PO DAILY Qty: 90 0RF amlodipine 10 mg tablet 10 mg PO DAILY 90 Days Qty: 90 0RF buoppqwkngvc-vyvnvzad-cxrvqh Tablet 1 tab PO DAILY cholecalciferol (vitamin D3) 25 mcg (1,000 unit) capsule 25 mcg PO DAILY acetaminophen 500 mg capsule 1,000 mg PO Q6H PRN (Reason: pain (scale score 4-6)) Qty: 30 0RF ezetimibe [Zetia] 10 mg tablet 10 mg PO DAILY 90 Days Qty: 90 2RF hydrochlorothiazide 12.5 mg tablet 12.5 mg PO DAILY 90 Days Qty: 90 1RF metformin 500 mg tablet extended release 24 hr 500 mg PO DAILY 90 Days Qty: 90 3RF ciprofloxacin HCl 500 mg tablet 500 mg PO Q12H 3 Days Qty: 6 0RF cranberry extract 425 mg capsule 425 mg PO .COMPLEX Qty: 60 10RF Rx Instructions: 425 mg orally one to 2 x daily with meals; administer with meals Print Language: Lithuanian
[2025-01-17] MEDS: cefuroxime axetiL 500 MG TABLET PO (11:52)
== END 2025-01-17 11:58 | disposition home or self-care (01) ==
PROVIDERS: Emergency Provider Emergency Medicine; PCP Physician Assistant
DX: N30.90 Cystitis, unspecified without hematuria (principal); E11.9 Type 2 diabetes mellitus without complications; I10 Essential (primary) hypertension; E78.5 Hyperlipidemia, unspecified; E03.9 Hypothyroidism, unspecified; Z87.440 Personal history of urinary (tract) infections; Z79.84 Long term (current) use of oral hypoglycemic drugs; Z79.899 Other long term (current) drug therapy
CPT/HCPCS: 81001; 87086; 99283; 99284

== ENCOUNTER 2025-01-20 08:34 | Outpatient (AMB) | payer MEDICARE, OTHER, SELFPAY ==
[2025-01-20 08:45] VITALS: BP 136/84; PULSE 57; RESP 18; TEMP 36.3; O2SAT 98; BMI 25.7
--- NOTE | 2025-01-20 08:45 | A.OFFPC_ITS ---
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 Accompanied by: Self / Same As Patient Allergies Hwasgsc-QHG-OjM Reductase Inhibitor Allergy (Intermediate, Verified 01/20/25 08:57) Itching Sulfa (Sulfonamide Antibiotics) Allergy (Unknown, Verified 01/20/25 08:57) ITCHING Losartan Allergy (Severe, Uncoded 01/20/25 08:57) Anaphylaxis Medication List - Last Reconciled 01/20/25 by Rehan Guillaume PA-C acetaminophen 1,000 mg (2 x 500 mg) PO Q6H PRN amlodipine 10 mg PO DAILY 90 days cefuroxime axetil 500 mg PO BID 7 days cholecalciferol (vitamin D3) 25 mcg PO DAILY cranberry extract 425 mg orally one to 2 x daily with meals; administer with meals epinephrine 0.3 mg (0.3 mL) IM Q10M PRN ezetimibe (Zetia) 10 mg PO DAILY 90 days hydrochlorothiazide 12.5 mg PO DAILY 90 days levothyroxine 50 mcg PO DAILY metformin ER 500 mg PO DAILY 90 days yjgfabcpmrza-feikuiwj-oanyye 1 tab PO DAILY Tobacco use date assessed: 01/20/25 Fall risk assessment: No Falls in past year Last assessed Fall Risk: 01/20/25 Dental Screening Dental Screen Date: 01/20/25 Did you have a dental visit in the last 12 months?: Yes Did you have a dental problem in the last 6 months where you did not have access to dental care?: No Was dental information given to patient?: Patient has dentist HPI 6mth f/u HPI Details Patient is a 79-year-old female here today for follow-up visit. Patient has a past medical history significant for pre diabetes, uncontrolled hypertension, hypothyroidism, history breast cancer. Concerns--> recurrent urinary tract infections (UTIs). She experiences sudden onset of symptoms, primarily burning sensation during urination, without additional urinary frequency or diarrhea. Initial treatment involves antibiotics. The patient is concerned about the persistence of infections despite medical interventions and has an upcoming urologist appointment. ..Hypertension:? Has been fairly well co ntrolled according to home readings which are ranging 110 to 130 systolic she is asymptomatic without any chest pain, headaches or vision issues. Today's blood pressure slightly elevated in office ? She continues on amlodipine 10 mg.?. .. Impaired glucose metabolism: Most recent A1c has improved to 6.0. Patient continues on metformin 500 mg ER. She does report some dietary indiscretion over the winter months. .. Hyperlipidemia:? She has only been using Zetia on a daily basis. Most recent lipid panel showing elevated total cholesterol and LDL. ? Has not been able to tolerate statins due to GI upset and itching.? She is also using Lamont threes. 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 Cystitis Arthralgia of left foot Strain of left biceps Pre-op evaluation Right shoulder pain Pre-diabetes Recurrent urinary tract infection Surgical History History of mastectomy History of lumpectomy History of tibial fracture History of colonoscopy History of cataract surgery History of hysterectomy Family History Mother Breast cancer Father Dementia Social History Housing: House Alcohol intake: current Alcohol intake frequency: a few times a month Alcohol type: other Patient Tobacco Use Status: Never used Tobacco e-Cigarette/Vaping Use: Never Used Second Hand Smoke Exposure: No service: No Current occupational status: retired Current occupational exposures/hazards: No Cognitive needs: No Hearing needs: No Vision needs: Yes Questionnaire PHQ-9 Over the last 2 weeks, how often have you been bothered by any of the following problems? 1. Little interest or pleasure in doing things: not at all 2. Feeling down, depressed, or hopeless: not at all 3. Trouble falling or staying asleep, or sleeping too much: not at all 4. Feeling tired or having little energy: not at all 5. Poor appetite or overeating: not at all 6. Feeling bad about yourself - or that you are a failure or have let yourself or your family down: not at all 7. Trouble concentrating on things, such as reading the newspaper or watching television: not at all 8. Moving or speaking so slowly that other people could have noticed. Or the opposite - being so fidgety or restless that you have been moving around a lot more than usual: not at all 9. Thoughts that you would be better off or of hurting yourself in some way: not at all Total score: 0 Depression Screening Interpretation: Negative Depression Screening Done: Yes 31644 - PHQ-9 Billing: Yes Source: Developed by Drs. Martin Johnson, Constance Ross, Juan Garrido and colleagues, with an educational louis from [employer]. Thrive Questionnaire Date Thrive assessed: 01/20/25 I am a: Patient What is your living situation today?: I have a steady place to live Within the past 12 months, did the food you bought not last and you didn't have the money to get more?: Never true Within the past 12 months, did you worry whether your food would run out before you got money to buy more?: Never true Do you have trouble paying for medicines?: No Do you have trouble getting transportation to medical appointments?: No Do you have trouble paying your heating and electricity bill?: No Do you have trouble taking care of your child, family member or friend?: No Do you have trouble with day-to-day activities such as bathing, preparing meals, shopping, managing finances, etc.?: No Are you currently unemployed and looking for a job?: No Are you interested in more education?: No Please select the resources that you would like help with: None Currently or been in a relationship where the following occur: No concerns reported THRIVE Score: 0 AUDIT C Alcohol Use Questionnaire (AUDIT-C) 2. How many drinks containing alcohol do you have on a typical day when you are drinking?: 1 or 2 3. How often do you have six or more drinks on one occasion?: Never Total Score: 0 ELFEGO-7 AMB Questionnaire ELFEGO-7 Date ELFEGO - 7 assessed: 01/20/25 Feeling nervous, anxious, or on edge: 0 = Not at all Not being able to stop or control worryin = Not at all Worrying too much about different things: 0 = Not at all Trouble relaxin = Not at all Being so restless that it is hard to sit still: 0 = Not at all Becoming easily annoyed or irritable: 0 = Not at all Feeling afraid as if something awful might happen: 0 = Not at all Total ELFEGO-7 score (0-4 normal; 5-9 mild; 10-14 moderate; 15-21 severe): 0 Source: Developed by Drs. Martin Johnson, Constance Ross, Juan Garrido and colleagues, with an educational louis from [employer]. ELFEGO-7 Assessment Billing ELFEGO-7 Assessment Tool: ELFEGO-7 Assessment 81361 Review of Systems Const Denies headache(s) Eyes Denies loss of vision ENT Denies vertigo, Denies dizziness, Denies headache(s) and Denies sore throat Card Denies chest pain, Denies leg edema and Denies lightheadedness Resp Denies cough, Denies hemoptysis and Denies wheezing GI Denies abdominal pain, Denies melena, Denies constipation, Denies diarrhea and Denies vomiting Denies urinary frequency, Reports dysuria and Reports urinary urgency Musc Denies arthralgias, Denies joint swelling, Denies numbness and Denies tingling Neuro Denies Abnormal speech present, Denies behavioral changes, Denies vertigo, Denies dizziness, Denies headache(s), Denies loss of vision, Denies memory loss, Denies numbness and Denies tingling Psych Denies anxiety, Denies behavioral changes, Denies depression, Denies memory loss and Denies panic attacks Hal/Lymph Denies easy bleeding and Denies easy bruising Aller/Immun Denies wheezing Physical exam (Primary Care) Vital Signs: Last Vital Signs Temp 97.3 F 01/20/25 08:45 Pulse 57 01/20/25 08:45 Resp 18 01/20/25 08:45 BP 136/84 01/20/25 08:45 Pulse Ox 98 01/20/25 08:45 Oxygen Delivery Method Room Air 01/20/25 08:45 BMI result Body Mass Index 25.7 Tobacco/Smoking Status: Tobacco use Status Tobacco use date assessed 01/20/25 01/20/25 08:54 Patient Tobacco Use Status Never used Tobacco 01/20/25 08:54 e-Cigarette/Vaping Use Never Used 01/20/25 08:54 PHQ-9: PHQ-9 Score PHQ-9: Total score 0 01/20/25 08:54 Depression Screening Interpretation: Negative Thrive Assessment: Date of Thrive Assessment Date Thrive assessed 01/20/25 01/20/25 08:54 Currently or been in a relationship where the following occur: No concerns reported Const General: healthy appearing, no acute distress, alert and awake Nutritional Appearance: well nourished Orientation/consciousness: oriented to person, oriented to place and oriented to time HENMT Ears: TM's normal bilaterally General nose exam: Normal nasal mucous membranes and turbinates present Eyes Conjunctivae: conjunctivae normal Sclerae: sclerae normal Pupils: Equal, round and reactive pupils present Neck Neck: Yes no lymphadenopathy and Yes no JVD Thyroid: Thyroid normal Carotids: no bruits Resp Effort & Inspection: normal respiratory effort and not tachypneic Auscultation: no crackles, no rales, no rhonchi and no wheezes Cardio Rate: regular rate Rhythm: regular rhythm Heart sounds: no murmurs and normal S1 and S2 GI Palpation (GI): Soft to palpation, nontender, no hepatomegaly and no splenomegaly Auscultation: normal bowel sounds Skin General skin exam: no rashes or lesions noted and dry skin Neuro General: oriented to person, oriented to place and oriented to time Cranial nerves: Yes Equal, round and reactive pupils present Speech: No Abnormal speech present Gait exam (Neuro): Normal gait present Motor exam (neuro): no tremor noted Extrem Right upper extremity: full ROM Left upper extremity: full ROM Right lower extremity: full ROM; no edema Left lower extremity: full ROM; no edema Psych Mental Status: mental status grossly normal Speech and movement: Normal speech and movement present Affect: normal affect Attitude: cooperative Thought process: Normal thought process present Coding Level of Care Code Est Pt Level 4 (93377) Diagnoses Recurrent UTI N39.0 Mixed hyperlipidemia E78.2 Hyperlipidemia type: mixed hyperlipidemia Hypothyroidism, unspecified type E03.9 Hypothyroidism type: unspecified Essential hypertension I10 Impaired glucose metabolism R73.09 Additional Codes ELFEGO-7 Assessment Billing - ELFEGO-7 Assessment Tool: ELFEGO-7 Assessment 87335 ([id number]) PHQ-9 - 39691 - PHQ-9 Billing: Yes ([id number]) Assessment & Plan Assessment & Plan (1) Recurrent UTI: Code(s): N39.0 - Urinary tract infection, site not specified Category: Medical Plan: Patient continues to have recurrent UTIs. Has upcoming appointment with her urologist. Recently placed on antibiotics for UTI. Recent culture was negative. Start up suppressive therapy and send for bladder ultrasound evaluate for any bladder mass. (2) HLD (hyperlipidemia): Code(s): E78.5 - Hyperlipidemia, unspecified Category: Medical Qualifiers: Hyperlipidemia type: mixed hyperlipidemia Qualified Code(s): E78.2 - Mixed hyperlipidemia Plan: Patient's most recent lipid panel showing borderline high cholesterol and elevated LDL. Fortunately HDL elevated. She continues with a ezetimibe daily. She is not interested in statin therapy due to intolerable side effects. (3) Hypothyroidism: Code(s): E03.9 - Hypothyroidism, unspecified Category: Medical Qualifiers: Hypothyroidism type: unspecified Qualified Code(s): E03.9 - Hypothyroidism, unspecified Plan: Patient's most recent TSH stable and we will continue current dose of levothyroxine. (4) Essential hypertension: Code(s): I10 - Essential (primary) hypertension Category: Medical Plan: Patient's blood pressure acceptable today in office. Continue current dose of antihypertensive medication with goal blood pressure to be below 140/90 (5) Impaired glucose metabolism: Code(s): R73.09 - Other abnormal glucose Category: Medical Plan: Patient's most recent fasting blood sugar 116 and A1c remains at 6.0. She continues on metformin and working on low carbohydrate low sugar diet. Will continue to follow fasting labs. Goal A1c is to remain below 6.0 Orders: Orders US bladder Today N39.0 - Urinary tract infection, site not specified Hemoglobin A1c Today R73.09 - Other abnormal glucose Lipid Panel Today E78.2 - Mixed hyperlipidemia Complete Blood Count no Diff Today E78.2 - Mixed hyperlipidemia TSH reflex Free T4 Today E03.9 - Hypothyroidism, unspecified Comprehensive [place]. Panel Fast Today R73.09 - Other abnormal glucose UA CC w/rflx Micro + Cult Today N39.0 - Urinary tract infection, site not specified, R30.0 - Dysuria Medications: New trimethoprim 100 mg PO DAILY 90 days 90 tabs 1RF N39.0 - Urinary tract infection, site not specified
--- OUTSIDE RECORDS SUMMARY | 2025-01-20 08:51 | XMS_ITS ---
Author Organization [facility] Address [address] [place] [address] Care Team Providers Care Histopathology Technician Name Role Phone Rehan Guillaume Primary Care Provider Unavailab Saba Callejas Unavailable [phone] Angela Henriquez Unavailable [phone] Allergies Allergen (clinical drug ingredient) Drug/Non Drug Allergy documented on EMR Reaction Allergy Type Onset Date Status Bactrim Unknown Drug Allergy Active losartan Losartan Potassium anaphylaxis Drug Allergy Active Substance with 6-ohehclc-6-methylglut aryl-coenzyme A reductase inhibitor mechanism of action (substance) [...] Once a day for 30 day(s) Active [place] 3 1000 MG 1 capsule Orally Once [...] 10/31/2023 Encounters Encounter Location Date [facility] [address] [place] [address] 10/31/2023 Angela Henriquez Type 2 diabetes mellitus [...] * Lizzeth RAMIREZ GDOB:1945 (77 yo F)Acc No.[id number]:10/31/2023 Progress Notes Patient:?Lizzeth Ramirez Umu Provider:?Angela Henriquez DPM :1945???Age:77 Y???Sex:Female D ate:10/31/2023 Address:[address] [place] [address] Pcp:Rehan Guillaume Subjective: * Chief Complaints: * [...] house work. ?Marital status: . 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 * Medications:?TakingOmega 3 1 000 MG Capsule [...] an empty stomach Orally Once a dayTaking [place] 3 1000 MG Capsule 1 capsule Orally [...] 5.7 * Examination: ???Ophthalmology Referral: ?DIABETES EYE EXAM?Diabetic Retinopathy Screening:?Yes ?Findings of Diabetic Eye Exam:?no retinopathy?Dermatologic: ?SURGICAL SITE?Incision edges are well aligned and [...] Henriquez DPM Date:? Generated for Jojo zayas/Nirmal/Claudette on:?01/20/2025 08:51 AM EDT History and Physical Notes * HPI (History [...]
--- OUTSIDE RECORDS SUMMARY | 2025-01-20 08:51 | XMS_ITS | Patient Health Record ---
Author Organization [facility] Address [address] [place] [address] Care Team Providers Care Buffer Nickel Name Role Phone Rehan Guillaume Primary Care Provider Unavailab bethany Saba Diane Unavailable [phone] Allergies Allergen (clinical drug ingredient) Drug/Non Drug Allergy documented on EMR Reaction Allergy Type Onset Date Status Bactrim Unknown Drug Allergy Active losartan Losartan Potassium anaphylaxis Drug Allergy Active Substance with 0-tuedrik-2-methylglut aryl-coenzyme A reductase inhibitor mechanism of action (substance) Statins itching Drug Allergy Active Substance with sulfonamide structure and antibacterial mechanism of action (substance) Sulfa Antibiotics itching Drug Allergy Active Reason For Referral No Information Medications Medication SIG (Take, Route, Frequency, Duration) Notes Start Date End Date Status [place] 3 1000 MG 1 capsule Orally Once [...] Status Risk Notes Problem Ulcer of toe (508338332) 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.521) Active confirmed Problem Acquired hammer toe of left foot (485582168759705 3) Other hammer toe(s) (acquired), left foot (M20.42) Active confirmed Problem Type II diabetes mellitus without complication (861450345) Type 2 diabetes mellitus without complications (E11.9) Active confirmed Plan Of Treatment Pending Test Test Name Order Date Hemoglobin A1c 09/26/2023 X ray : Foot, left 3V 08/01/2023 X ray : Foot, left 3V 10/05/2023 66495- Debride <25 sq cm 12/05/2021 Insurance Providers Payer Name Payer Address Payer Phone Subscriber Number Group Number Insured Name Patient Relationship to Insured Coverage Start Date Coverage End Date Medicare National Govt Svcs Inc [address] ER[place] [phone] [id number] Lizzeth Farley Self - patient is the insured [employer] Medicare Supplement [address] [place] [phone] [id number] Lizzeth Farley Self - patient is the [...] Exostectomy L5th P/B [place] History Reason Date(Month/Year) [facility] [place] [facility] [place] [facility] [place] 12/25/2006 Bradycardia, right distal ti vero and fibula fractured closed reduction and cast 03/30/2007 [facility] [place] tibia [place]amedullary [place] for fracture 11/27/2007 [facility] [place], absce ss, right lower leg, incision and drainage of abscess 08/13/2008 [facility]- Chest X-ray 05/23/2021 [facility]- UTI 05/27/2021
--- OUTSIDE RECORDS SUMMARY | 2025-01-20 08:51 | XMS_ITS ---
Author Organization [facility] Address [address] [place] [address] Care Team Providers Care Surgery Nurse Name Role Phone Rehan Guillaume Primary Care Provider Unavailab Saba Callejas Unavailable [phone] Angela Henriquez Unavailable [phone] Allergies Allergen (clinical drug ingredient) Drug/Non Drug Allergy documented on EMR Reaction Allergy Type Onset Date Status Bactrim Unknown Drug Allergy Active losartan Losartan Potassium anaphylaxis Drug Allergy Active Substance with 5-dsbbgbp-7-methylglut aryl-coenzyme A reductase inhibitor mechanism of action [...] day for 30 day(s) Not-Taking Multivitamin-Minerals Active [place] 3 1000 MG 1 capsule Orally Once [...] 10/12/2023 Encounters Encounter Location Date Provider Diagnosis [facility] [address] [place] [address] 10/12/2023 Angela Henriquez Other hammer toe(s) (acquired), [...] * Lizzeth RAMIREZ GDOB:1945 (77 yo F)Acc No.[id number]:10/12/2023 Progress Notes Patient:?Lizzeth Ramirez Umu Provider:?Angela Henriquez DPM :1945???Age:77 Y???Sex:Female D ate:10/12/2023 Address:[address] [place] [address] [place], [id number] Pcp:Rehan Guillaume Subjective: * Chief Complaints: * [...] stic Procedure:?[facility] [place] [facility] [place] [place] [place] 12/25/2006Bradycardia, right distal tibia and fibula fractured closed reduction and cast 03[place]30/[place] [place]ia intramedullary nailing for fracture 11[place] [place], abscess, right lower leg, incision [...] yes, house work. ?Marital status: . 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 * Medications:?TakingOmega 3 1 000 MG Capsule [...] 1 tablet Orally Three times a dayTaking [place] 3 1000 MG Capsule 1 capsule Orally [...] Retinopathy Screening:?Yes ?Findings of Diabetic Eye Exam:?no retinopathy?Dressing: ?APPEARANCE?intact, no malodor , wet.?Dermatologic: ?SURGICAL SITE?Skin [...] Provider:?Angela Henriquez DPM Date:?06/2023 Generated for Jojo zayas/Nirmal/Claudette on:?01/20/2025 08:50 AM EDT History and Physical Notes * [...]
--- OUTSIDE RECORDS SUMMARY | 2025-01-20 08:52 | XMS_ITS ---
Author Organization [facility] Address [address] [place] [address] Care Team Providers Care Rescue Boat Operator Name Role Phone Rehan Guillaume Primary Care Provider Unavailab Saba Callejas Unavailable [phone] Angela Henriquez Unavailable [phone] Encounters Encounter Location Date Provider Diagnosis [facility] [address] [place] [address] 10/16/2023 Angela Henriquez Plan Of Treatment No Information Progress Notes * Lizzeth RAMIREZ GDOB:1945 (79 yo F)Acc No.[id number]:10/16/2023 Progress Notes Patient:?Lizzeth RAMIREZ Provider:?Angela Henriquez DPM :1945???Age:77 Y???Sex:Female D ate:10/16/2023 Address:[address] [place] [address] Pcp:Rehan Guillaume Subjective: * Chief Complaints: * ??? * Medical History:? Objective: * Vitals:? Assessment: Plan: * Treatment: * Images: * The named appointment provid er may or may not be the originator of this progress note, and it is not deemed complete until electronically signed by the appointment provider. Sign off status: Pending * Provider:?Angela Henriquez DPM Date:?10/2023 Generated for Printi ng/Faxing/eTransmitting on:?01/20/2025 08:51 AM EDT
== END 2025-01-20 09:12 | disposition home or self-care (01) ==
LOC: HO.HMCH 08:35
PROVIDERS: PCP Physician Assistant; Visit Provider Physician Assistant
DX: N39.0 Urinary tract infection, site not specified (principal); E78.2 Mixed hyperlipidemia; E03.9 Hypothyroidism, unspecified; I10 Essential (primary) hypertension; R73.09 Other abnormal glucose

== ENCOUNTER → 2025-01-20 08:34 | Outpatient (BNVA) | payer MEDICARE, OTHER, SELFPAY | PROVIDERS: PCP Physician Assistant; Visit Provider Physician Assistant | DX: N39.0 Urinary tract infection, site not specified (principal); E78.2 Mixed hyperlipidemia; E03.9 Hypothyroidism, unspecified; I10 Essential (primary) hypertension; R73.09 Other abnormal glucose | CPT/HCPCS: 96127; 99212 ==

== ENCOUNTER 2025-02-03 14:14 | Outpatient (REF) | payer MEDICARE, OTHER, SELFPAY ==
--- NOTE | ~2025-02-03 | US_ITS ---
EXAMINATION: US BLADDER HISTORY: N39.0 - Urinary tract infection, site not specified COMPARISON: There are no prior studies for comparison. FINDINGS: Sonographic examination of the urinary bladder was performed before and after voiding. Before voiding, the urinary bladder measured 13.6 x 8.9 x 11.4, for an estimated volume of728 mL. After voiding, the urinary bladder measured 9.0 x 6.6 x 8.3, for an estimated volume of 257 mL. No intrinsic bladder abnormality is identified. Bilateral ureteral jets are identified. US/US bladder IMPRESSION: Post void bladder residual of 257 mL. No intrinsic bladder abnormality is identified. Electronically signed by: Martin Veronica MD 02/04/2025 07:35 AM EDT
--- OUTSIDE RECORDS SUMMARY | 2025-02-03 17:01 | XMS_ITS ---
Author Organization [facility] Address [address] [place] [address] Care Team Providers Care Cad Administrator Name Role Phone Rehan Guillaume Primary Care Provider Unavailab Saba Callejas Unavailable [phone] Angela Henriquez Unavailable [phone] Allergies Allergen (clinical drug ingredient) Drug/Non Drug Allergy documented on EMR Reaction Allergy Type Onset Date Status sulfamethoxazole / trimethoprim Bactrim Unknown Drug Allergy Active losartan Losartan Potassium anaphylaxis Drug Allergy Active Substance with 3-ikvnjzn-5-methylglutar yl-coenzyme A reductase inhibitor mechanism of action [...] day for 30 day(s) Not-Taking Multivitamin-Minerals Active [place] 3 1000 MG 1 capsule Orally Once [...] 10/12/2023 Encounters Encounter Location Date Provider Diagnosis [facility] [address] [place] [address] 10/12/2023 Angela Henriquez Other hammer toe(s) (acquired), [...] * Lizzeth RAMIREZ GDOB:1945 (77 yo F)Acc No.[id number]:10/12/2023 Progress Notes Patient:?Lizzeth Ramirez Provider:?Angela Henriquez DPM :1945???Age:77 Y???Sex:Female D ate:10/12/2023 Address:[address] [place] [address] [place], [id number] Pcp:Rehan Guillaume Subjective: * Chief Complaints: * [...] yes, house work. ?Marital status: . ?Occupation: [employer]. * Medications:?TakingOmega 3 1 000 MG Capsule [...] 1 tablet Orally Three times a dayTaking [place] 3 1000 MG Capsule 1 capsule Orally [...] Henriquez DPM Date:?06/2023 Generated for Jojo zayas/Nirmal/Claudette on:?02/03/2025 05:01 PM EDT History and Physical Notes * HPI [...]
--- OUTSIDE RECORDS SUMMARY | 2025-02-03 17:02 | XMS_ITS | Patient Health Record ---
[facility] Address [address] [place] [address] Care Team Providers Care Director Of Coding Name Role Phone Rehan Guillaume Primary Care Provider Unavailab bethany Saba Diane Unavailable [phone] Allergies Allergen (clinical drug ingredient) Drug/Non Drug Allergy documented on EMR Reaction Allergy Type Onset Date Status sulfamethoxazole / trimethoprim Bactrim Unknown Drug Allergy Active losartan Losartan Potassium anaphylaxis Drug Allergy Active Substance with 7-khyhvde-3-methylglutar yl-coenzyme A reductase inhibitor mechanism of action (substance) Statins itching Drug Allergy Active Substance with sulfonamide structure and antibacterial mechanism of action (substance) Sulfa Antibiotics itching Drug Allergy Active Reason For Referral No Information Medications Medication SIG (Take, Route, Frequency, Duration) Notes Start Date End Date Status [place] 3 1000 MG 1 capsule Orally Once [...] Route Administration Date Status Comme nts COVID-19 [employer] Vaccine Unknown 09/08/2021 Administered 1st 01/23/2021 2nd [...] Status Risk Notes Problem Ulcer of toe (982851654) 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.521) Active confirmed Problem Acquired hammer toe of left foot (770076773325638 3) Other hammer toe(s) (acquired), left foot (M20.42) Active confirmed Problem Type II diabetes mellitus without complication (831386955) Type 2 diabetes mellitus without complications (E11.9) Active confirmed Plan Of Treatment Pending Test Test Name Order Date Hemoglobin A1c 09/26/2023 X ray : Foot, left 3V 08/01/2023 X ray : Foot, left 3V 10/05/2023 19240- Debride <25 sq cm 12/05/2021 Insurance Providers Payer Name Payer Address Payer Phone Subscriber Number Group Number Insured Name Patient Relationship to Insured Coverage Start Date Coverage End Date Medicare National Govt Svcs Inc [address] [place] [phone] [id number] Lizzeth Farley Self - patient is the insured [employer] Medicare Supplement [address] [place] [phone] [id number] Lizzeth Farley Self - patient is the [...] Exostectomy L5th P/B Hospitalization History Reason Date(Month/Year) [facility] [place] Pneum[place] and Pleurisy 3 days 02/22 [facility] [place] Pelvic Ultrasound 10/06/2004 [facility]- Bone Density Scan 12/25/2006 Bradycardia, right distal ti vero and fibula fractured closed reduction and cast 03/30/2007 [facility] [place] right tibia intramedullary nailing for fracture 11/27/2007 [facility] [place] tibial infection, absce ss, right lower leg, incision and drainage of abscess 08/13/2008 [facility]- Chest X-ray 05/23/2021 [facility]- UTI 05/27/2021
--- OUTSIDE RECORDS SUMMARY | 2025-02-03 17:02 | XMS_ITS ---
Author Organization [facility] Address [address] [place] [address] Care Team Providers Care Supervisor Plating And Point Assembly Name Role Phone Rehan Guillaume Primary Care Provider Unavailab Saba Callejas Unavailable [phone] Angela Henriquez Unavailable [phone] Encounters Encounter Location Date Provider Diagnosis [facility] [address] [place] [address] 10/16/2023 Angela Henriquez Plan Of Treatment No Information Progress Notes * Lizzeth RAMIREZ GDOB:1945 (79 yo F)Acc No.[id number]:10/16/2023 Progress Notes Patient:?Lizzeth RAMIREZ Provider:?Angela Henriquez DPM :1945???Age:77 Y???Sex:Female D ate:10/16/2023 Address:[address] [place] [address] Pcp:Rehan Guillaume Subjective: * Chief Complaints: * ??? * Medical History:? Objective: * Vitals:? Assessment: Plan: * Treatment: * Images: * The named appointment provid er may or may not be the originator of this progress note, and it is not deemed complete until electronically signed by the appointment provider. Sign off status: Pending * Provider:?Angela Henriquez DPM Date:?10/2023 Generated for Printi ng/Faxing/eTransmitting on:?02/03/2025 05:01 PM EDT
--- OUTSIDE RECORDS SUMMARY | 2025-02-03 17:02 | XMS_ITS ---
Author Organization [facility] Address [address] [place] [address] Care Team Providers Care Boring Mill Set Up Operator Name Role Phone Rehan Guillaume Primary Care Provider Unavailab Saba Callejas Unavailable [phone] Angela Henriquez Unavailable [phone] Allergies Allergen (clinical drug ingredient) Drug/Non Drug Allergy documented on EMR Reaction Allergy Type Onset Date Status sulfamethoxazole / trimethoprim Bactrim Unknown Drug Allergy Active losartan Losartan Potassium anaphylaxis Drug Allergy Active Substance with 3-jtxffii-7-methylglutar yl-coenzyme A reductase inhibitor mechanism of action [...] Once a day for 30 day(s) Active [place] 3 1000 MG 1 capsule Orally Once [...] 10/31/2023 Encounters Encounter Location Date [facility] [address] [place] [address] 10/31/2023 Angela Henriquez Type 2 diabetes mellitus [...] * Lizzeth RAMIREZ GDOB:1945 (77 yo F)Acc No.[id number]:10/31/2023 Progress Notes Patient:?Lizzeth Ramirez Umu Provider:?Angela Henriquez DPM :1945???Age:77 Y???Sex:Female D ate:10/31/2023 Address:[address] [place] [address] Pcp:Rehan Guillaume Subjective: * Chief Complaints: * [...] house work. ?Marital status: . 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 * Medications:?TakingOmega 3 1 000 MG Capsule [...] an empty stomach Orally Once a dayTaking [place] 3 1000 MG Capsule 1 capsule Orally [...] Henriquez DPM Date:? Generated for Jojo zayas/Nirmal/Claudette on:?02/03/2025 05:01 PM [...]
== END 2025-02-03 14:15 | disposition home or self-care (01) ==
LOC: HO.HMGCX 14:14
PROVIDERS: PCP Physician Assistant; Visit Provider Physician Assistant
DX: N39.0 Urinary tract infection, site not specified (principal)
CPT/HCPCS: 76857

== ENCOUNTER → 2025-02-03 14:17 | Outpatient (BNV) | payer MEDICARE, OTHER, SELFPAY | PROVIDERS: PCP Physician Assistant; Visit Provider Radiology Diagnostic Radiology | DX: N39.0 Urinary tract infection, site not specified (principal) | CPT/HCPCS: 76857 ==

== ENCOUNTER 2025-02-05 15:36 | Outpatient (AMB) | payer MEDICARE, OTHER, SELFPAY ==
--- NOTE | 2025-02-05 12:47 | A.OFFVIS_ITS ---
Intake Visit Reasons: recurrent UTI Intake Note: Patient presents today for recurrent UTI Urology Meds- cranberry extract Allergies to Antibiotic- Sulfa Blood Thinner- None PVR:237ml Fitness Assistant Required: No Accompanied by: Self / Same As Patient Allergies [id number]-MDP-[id number] Reductase Inhibitor Allergy (Intermediate, Verified 02/05/25 15:49) Itching Sulfa (Sulfonamide Antibiotics) Allergy (Unknown, Verified 02/05/25 15:49) ITCHING Losartan Allergy (Severe, Uncoded 01/20/25 08:57) Anaphylaxis HPI Comments Details: 02/05/25-- History of Present Illness The patient is a 79-year-old female presenting with ongoing urinary tract issues following prior surgical interventions for stress urinary incontinence. Her history includes recurrent UTIs, managed initially with antibiotics such as ciprofloxacin and cefuroxime, with a recent prescription of trimethoprim for prophylactic purposes. The patient's history includes pelvic surgery involving transvaginal tape placement, later revised due to urinary retention. Her recent UTI treatment addressed a Pseudomonas infection, resolved with antibiotic care, as indicated by a follow-up urine culture showing no growth. Despite this resolution, she still experiences urinary discomfort and incomplete voiding. The urinalysis conducted currently indicates a post-void residual of 237 mL, consistent with prior findings, and suggests ongoing urinary retention. She reports urinary urgency and dysuria, with persistent discomfort while voiding. Urinary Symptoms Review - Urinary urgency and dysuria - Incomplete bladder emptying - Post-void residual of 237 mL - Symptoms begin post pelvic surgery for stress incontinence - Previous treatments include ciprofloxacin, cefuroxime, nitrofurantoin, and trimethoprim - Prophylactic trimethoprim currently used - Symptoms include burning sensation while urinating Results - Urine Culture (December 2024): Positive for Pseudomonas - Follow-up Urine Culture (January 2025): No bacterial growth - Bladder Ultrasound: Post-void residual of 257 mL - Current Urinalysis: Normal limits, with moderate post-void residual Discussion Notes I discussed with the patient her ongoing urinary symptoms and reviewed the previous management steps, including antibiotic treatments. We explored potential reasons for continued symptoms and agreed on further diagnostic evaluations, including a kidney ultrasound and office cystoscopy, to identify any underlying pathology contributing to urinary retention. Additionally, I affirmed the continuation of trimethoprim for suppressive therapy and introduced pyridium to alleviate dysuria symptoms. We spoke about the purpose and limitations of pyridium, emphasizing its symptomatic management of urinary burning. The patient consented to this plan after understanding the risks and benefits of the upcoming procedures. 05/22/24--Lizzeth is a 78-year-old female who presents today to the office for a follow-up. She states she is doing well. She has had recurrent UTIs and lower urinary tract symptoms of urgency and urinary hesitancy. The patient has history of pelvic surgery including TVT that needed to be loosen due to urinary retention. Workup included cystoscopy on 08/22/2023 urethral dilation was done at that time. The patient states she has been doing well since urethral dilation. The patient is currently managed with daily cranberry supplements. Urinalysis 2+ blood, leukocytes trace. 11/23/23- - Lizzeth states she is doing well. Denies recurrent UTI symptoms. She ran out of cranberry and had a problem getting it refilled, she has changed her insurance coverage. I will still send a new script but if it is not covered she will get it OTC. 08/22/23? She is followed today for a Cystoscopy procedure. She was last seen by me on 07/20/23 for cystitis.? The Patient has a history of total vaginal hysterectomy, apical repair, with left uterosacral ligament suspension and right sacrospinous ligament suspen, with midurethral sling TVT done on 11/18/2017. She states about a week later they had to re-operate to loosen the sling as she was in retention. Cystoscopy findings: Urethral meatus was tight and required urethral dilation, it was dilated from 14 Macanese to 20 Macanese; bladder was visualized; there was no suspicious bladder lesions noted; there was no mesh visualized in the bladder, on the left lateral wall there were some changes of the bladder wall to small diverticuli. Doxycycline 100 mg BID for 5 days due to urethral dilation. Pt has history of breast cancer and I will hold on any estrogen therapy. Empirically start her on cranberry supplementation. US results from 08/03/23 revealed? no calculi or focal parenchymal lesions.? Urine culture results from 07/20/23 which came back Escherichia coli > 100,000 cfu/mL. Urine culture results from 05/30/2023 which came back Enterococcus faecalis? > 100,000 cfu/mL. 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 Cystitis Arthralgia of left foot Strain of left biceps Pre-op evaluation Right shoulder pain Pre-diabetes Recurrent urinary tract infection Surgical History History of mastectomy History of lumpectomy History of tibial fracture History of colonoscopy History of cataract surgery History of hysterectomy Family History Mother Breast cancer Father Dementia Social History Housing: House Alcohol intake: current Alcohol intake frequency: a few times a month Alcohol type: other Patient Tobacco Use Status: Never used Tobacco e-Cigarette/Vaping Use: Never Used Second Hand Smoke Exposure: No service: No Current occupational status: retired Current occupational exposures/hazards: No Cognitive needs: No Hearing needs: No Vision needs: Yes Review of Systems Const All systems reviewed & are unremarkable except as noted in HPI and below Reports no additional complaints Eyes Reports no additional complaints ENT Reports no additional complaints Card Reports no additional complaints Resp Reports no additional complaints GI Reports no additional complaints Reports as per HPI Musc Reports no additional complaints Skin/Breast Reports system reviewed and no additional complaints, except as documented Neuro Reports no additional complaints Psych Reports no additional complaints Endo Reports no additional complaints Hal/Lymph Reports no additional complaints Aller/Immun Reports no additional complaints Results Reviewed Results Reviewed: Date of Service: 02/03/25 EXAMINATION: US BLADDER HISTORY: N39.0 - Urinary tract infection, site not specified COMPARISON: There are no prior studies for comparison. FINDINGS: Sonographic examination of the urinary bladder was performed before and after voiding. Before voiding, the urinary bladder measured 13.6 x 8.9 x 11.4, for an estimated volume of728 mL. After voiding, the urinary bladder measured 9.0 x 6.6 x 8.3, for an estimated volume of 257 mL. No intrinsic bladder abnormality is identified. Bilateral ureteral jets are identified. IMPRESSION: Post void bladder residual of 257 mL. No intrinsic bladder abnormality is identified. Collected: 12/22/24-UNK Status: COMP Req#: [id number] Received: 12/22/24 Source: [facility] Sp Desc: Clean Cat Subm Dr: Lizzeth Boudreaux NP Ordered: Urine Culture Procedure Result Verified Urine Culture Final 12/26/24 Organism 1 Pseudomonas aeruginosa Quant 50,000 to 100,000 cfu/mL Sofia Weber RX --------- --- Cefepime 0.5 S Ciprofloxacin 0.12 S Gentamicin <=1 S Meropenem 0.5 S Piperacillin/Tazobactam <=4 S Ordered:? Urine Culture? Procedure?Result?Verified?Site ? Urine Culture? Final?07/22/23 ? ? ?Organism 1?Escherichia coli ? Quant?> 100,000 cfu/mL ? E coli? M.I.C.? ? RX? --------- ---?Ampicillin?8? S?Ceftriaxone? <=0.25? ? ?S?Gentamicin?<=1? S?Levofloxacin?>=8? R?Nitrofurantoin?<=16?S?Trimethoprim/Sulfamethoxazole? >=320? ? ? R?? Date of Service: 08/03/23 EXAMINATION:? US RETROPERITONEAL LIMITED (RENAL ONLY) CLINICAL INFORMATION: Cystitis, unspecified without hematuria. COMPARISON:? Ultrasound abdomen complete 07/04/2018. FINDINGS: RIGHT KIDNEY: 8.2 x 5.5 x 5.0 cm (SAG x AP x TRV). The kidney is normal in size, contour, and echogenicity. There are persistent lobulations. Renal cortical thickness is normal. No calculi or focal parenchymal lesions. No hydronephrosis. LEFT KIDNEY: 9.4 x 5.9 x 5.0 cm (SAG x AP x TRV). The kidney is normal in size, contour, and echogenicity. There are persistent lobulations. Renal cortical thickness is normal. No calculi or focal parenchymal lesions. There is mild pelviectasis, without adore hydronephrosis. IMPRESSION:? Unremarkable examination. Assessment & Plan Assessment & Plan (1) Cystitis with hematuria: Code(s): N30.91 - Cystitis, unspecified with hematuria Category: Medical (2) Recurrent UTI: Code(s): N39.0 - Urinary tract infection, site not specified Category: Medical Plan Plan Continue suppressive trimethoprim daily and initiate pyridium for dysuria relief . A kidney ultrasound and office cystoscopy are warranted to investigate persistent urinary retention. Upon examination, we will focus on causal factors, potentially influenced by past surgeries. The patient has consented to these diagnostic investigations, understanding risks and benefits. Follow-up appointments will be arranged post-ultrasound, ensuring continued monitoring and adjustment of therapy as necessary. Patient Instructions - Continue trimethoprim at 100 mg daily. - Start pyridium as directed for urinary discomfort, taking with meals. - Prepare for kidney ultrasound; radiology will contact you. - Follow up after ultrasound for the cystoscopy appointment. - Monitor symptoms and seek care if experiencing increased pain or changes in urination. - Contact our office with questions or changes in symptoms. - Plan to discuss results and further treatments at your next visit. Orders: Orders US renal BI Today N39.0 - Urinary tract infection, site not specified Medications: New phenazopyridine (Pyridium) take with a meal 200 mg PO Q8H PRN 20 tabs 1RF pain with urination Patient Instructions: The patient had an opportunity to ask questions regarding treatment plan. The patient expressed understanding and agreement with the above treatment plan. The patient is aware they should contact our office by phone for worsening of their current condition or the appearance of new symptoms. Compliance is encouraged with any medications and followup testing that is ordered. It is a privilege to be allowed the opportunity to participate in the urologic care of your patient. If you have any questions or concerns regarding treatment for the above conditions please do not hesitate to contact me. The office telep nela contact is [phone]. This note is constructed in part using voice recognition software. While every effort has been made to ensure accuracy heavy machinery assembler errors may have been included. Yours sincerely, Tina Vela MD Scribe Plan - Not visible on output: Patient was informed and verbally consented to the use of an ambient scribe for clinic note documentation during this visit. Coding Level of Care Code Est Pt Level 4 (72460) Diagnoses Cystitis with hematuria N30.91 Recurrent UTI N39.0
--- OUTSIDE RECORDS SUMMARY | 2025-02-05 16:55 | XMS_ITS | Patient Health Record ---
[facility] Address [address] [place] [address] Care Team Providers Care Curator Of Collections Name Role Phone Rehan Guillaume Primary Care Provider Unavailab bethany Saba Diane Unavailable [phone] Allergies Allergen (clinical drug ingredient) Drug/Non Drug Allergy documented on EMR Reaction Allergy Type Onset Date Status sulfamethoxazole / trimethoprim Bactrim Unknown Drug Allergy Active losartan Losartan Potassium anaphylaxis Drug Allergy Active Substance with 0-psofxyl-9-methylglutar yl-coenzyme A reductase inhibitor mechanism of action (substance) Statins itching Drug Allergy Active Substance with sulfonamide structure and antibacterial mechanism of action (substance) Sulfa Antibiotics itching Drug Allergy Active Reason For Referral No Information Medications Medication SIG (Take, Route, Frequency, Duration) Notes Start Date End Date Status [place] 3 1000 MG 1 capsule Orally Once [...] Route Administration Date Status Comme nts COVID-19 Vets USANTech Vaccine Unknown 09/08/2021 Administered 1st 01/23/2021 2nd [...] Status Risk Notes Problem Ulcer of toe (755187103) 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.521) Active confirmed Problem Acquired hammer toe of left foot (649714411264282 3) Other hammer toe(s) (acquired), left foot (M20.42) Active confirmed Problem Type II diabetes mellitus without complication (049564125) Type 2 diabetes mellitus without complications (E11.9) Active confirmed Plan Of Treatment Pending Test Test Name Order Date Hemoglobin A1c 09/26/2023 X ray : Foot, left 3V 08/01/2023 X ray : Foot, left 3V 10/05/2023 53060- Debride <25 sq cm 12/05/2021 Insurance Providers Payer Name Payer Address Payer Phone Subscriber Number Group Number Insured Name Patient Relationship to Insured Coverage Start Date Coverage End Date Medicare National Govt Svcs Inc [address] [place] [phone] [id number] Lizzeth Farley Self - patient is the insured [employer] Medicare Supplement [address] [place] Barros [phone] [id number] Lizzeth Farley Self - patient is the [...] Exostectomy L5th P/B Hospital[place] History Reason Date(Month/[place] [facility] [place] and [place] 3 [place] [facility] [place] 10/06/2004 [facility]- Bone Density Scan 12/25/2006 Bradycardia, right distal ti vero and fibula fractured closed reduction and cast 03/30/2007 [facility] [place]amedullary nailing for fracture 11/27/2007 [facility] [place], absce ss, right lower leg, incision and drainage of abscess 08/13/2008 [facility]- Chest X-[facility] 05/23/2021 [facility]- UTI 05/27/2021
--- OUTSIDE RECORDS SUMMARY | 2025-02-05 16:55 | XMS_ITS ---
Author Organization [facility] Address [address] [place] [address] Care Team Providers Care Piano Regulator Name Role Phone Rehan Guillaume Primary Care Provider Unavailab Saba Callejas Unavailable [phone] Angela Henriquez Unavailable [phone] Allergies Allergen (clinical drug ingredient) Drug/Non Drug Allergy documented on EMR Reaction Allergy Type Onset Date Status sulfamethoxazole / trimethoprim Bactrim Unknown Drug Allergy Active losartan Losartan Potassium anaphylaxis Drug Allergy Active Substance with 2-tildaqa-7-methylglutar yl-coenzyme A reductase inhibitor mechanism of action [...] day for 30 day(s) Not-Taking Multivitamin-Minerals Active [place] 3 1000 MG 1 capsule Orally Once [...] 10/12/2023 Encounters Encounter Location Date Provider Diagnosis [facility] [address] [place] [address] 10/12/2023 Angela Henriquez Other hammer toe(s) (acquired), [...] * Lizzeth RAMIREZ GDOB:1945 (77 yo F)Acc No.[id number]:10/12/2023 Progress Notes Patient:?Lizzeth Ramirez Provider:?Angela Henriquez DPM :1945???Age:77 Y???Sex:Female D ate:10/12/2023 Address:[address] [place] [address] [place]y, [id number] Pcp:Rehan Guillaume Subjective: * Chief Complaints: * [...] yes, house work. ?Marital status: . ?Occupation: [employer]. * Medications:?TakingOmega 3 1 000 MG Capsule [...] 1 tablet Orally Three times a dayTaking [place] 3 1000 MG Capsule 1 capsule Orally [...] Henriquez DPM Date:?06/2023 Generated for Jojo zayas/Nirmal/Claudette on:?02/05/2025 04:55 PM EDT History and Physical Notes * [...]
--- OUTSIDE RECORDS SUMMARY | 2025-02-05 16:56 | XMS_ITS ---
Author Organization [facility] Address [address] [place] [address] Care Team Providers Care Plain Clothes Police Officer Name Role Phone Rehan Guillaume Primary Care Provider Unavailab Saba Callejas Unavailable [phone] Angela Henriquez Unavailable [phone] Allergies Allergen (clinical drug ingredient) Drug/Non Drug Allergy documented on EMR Reaction Allergy Type Onset Date Status sulfamethoxazole / trimethoprim Bactrim Unknown Drug Allergy Active losartan Losartan Potassium anaphylaxis Drug Allergy Active Substance with 1-vvfbkzn-4-methylglutar yl-coenzyme A reductase inhibitor mechanism of action [...] Once a day for 30 day(s) Active [place] 3 1000 MG 1 capsule Orally Once [...] 10/31/2023 Encounters Encounter Location Date [facility] [address] [place] [address] 10/31/2023 Angela Henriquez Type 2 diabetes mellitus [...] * Lizzeth RAMIREZ GDOB:1945 (77 yo F)Acc No.[id number]:10/31/2023 Progress Notes Patient:?Lizzeth Ramirez Umu Provider:?Angela Henriquez DPM :1945???Age:77 Y???Sex:Female D ate:10/31/2023 Address:[address] [place] [address] Pcp:Rehan Guillaume Subjective: * Chief Complaints: * [...] house work. ?Marital status: . 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 * Medications:?TakingOmega 3 1 000 MG Capsule [...] an empty stomach Orally Once a dayTaking [place] 3 1000 MG Capsule 1 capsule Orally [...] Henriquez DPM Date:? Generated for Jojo zayas/Nirmal/Claudette on:?02/05/2025 04:55 PM [...]
--- OUTSIDE RECORDS SUMMARY | 2025-02-05 16:56 | XMS_ITS ---
Author Organization [facility] Address [address] [place] [address] Care Team Providers Care Landcare Officer Name Role Phone Rehan Guillaume Primary Care Provider Unavailab Saba Callejas Unavailable [phone] Angela Henriquez Unavailable [phone] Encounters Encounter Location Date Provider Diagnosis [facility] [address] [place] [address] 10/16/2023 Angela Henriquez Plan Of Treatment No Information Progress Notes * Lizzeth RAMIREZ GDOB:1945 (79 yo F)Acc No.[id number]:10/16/2023 Progress Notes Patient:?Lizzeth RAMIREZ Provider:?Angela Henriquez DPM :1945???Age:77 Y???Sex:Female D ate:10/16/2023 Address:[address] [place] [address] Pcp:Rehan Guillaume Subjective: * Chief Complaints: * ??? * Medical History:? Objective: * Vitals:? Assessment: Plan: * Treatment: * Images: * The named appointment provid er may or may not be the originator of this progress note, and it is not deemed complete until electronically signed by the appointment provider. Sign off status: Pending * Provider:?Angela Henriquez DPM Date:?10/2023 Generated for Printi ng/Faxing/eTransmitting on:?02/05/2025 04:55 PM EDT
== END 2025-02-05 16:35 | disposition home or self-care (01) ==
LOC: HO.HUSH 15:36
PROVIDERS: PCP Physician Assistant; Visit Provider Urology
DX: Z13.9 Encounter for screening, unspecified (principal)

== ENCOUNTER 2025-02-05 15:36 | Outpatient (REF) | payer MEDICARE, OTHER, SELFPAY ==
[2025-02-05 17:05] LABS: Urine Cytology See Pathology rpt
== END 2025-02-05 15:37 | disposition home or self-care (01) ==
LOC: HO.LAB 15:36
PROVIDERS: PCP Physician Assistant; Visit Provider Urology
DX: N39.0 Urinary tract infection, site not specified (principal)
CPT/HCPCS: 81003; 87086; 88112

== ENCOUNTER 2025-02-27 08:53 | Outpatient (REF) | payer MEDICARE, OTHER, SELFPAY ==
--- OUTSIDE RECORDS SUMMARY | 2025-02-27 08:59 | XMS_ITS ---
Author Organization [facility] Address [address] [place] [address] Care Team Providers Care Punch Finisher Name Role Phone Rehan Guillaume Primary Care Provider Unavailab Saba Callejas Unavailable [phone] Angela Henriquez Unavailable [phone] Allergies Allergen (clinical drug ingredient) Drug/Non Drug Allergy documented on EMR Reaction Allergy Type Onset Date Status sulfamethoxazole / trimethoprim Bactrim Unknown Drug Allergy Active losartan Losartan Potassium anaphylaxis Drug Allergy Active Substance with 1-qdyetru-9-methylglutar yl-coenzyme A reductase inhibitor mechanism of action [...] Once a day for 30 day(s) Active [place] 3 1000 MG 1 capsule Orally Once [...] 10/31/2023 Encounters Encounter Location Date [facility] [address] [place] [address] 10/31/2023 Angela Henriquez Type 2 diabetes mellitus [...] * Lizzeth RAMIREZ GDOB:1945 (77 yo F)Acc No.[id number]:10/31/2023 Progress Notes Patient:?Lizzeth Ramirez Umu Provider:?Angela Henriquez DPM :1945???Age:77 Y???Sex:Female D ate:10/31/2023 Address:[address] [place] [address] Pcp:Rehan Guillaume Subjective: * Chief Complaints: * [...] house work. ?Marital status: . 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 * Medications:?TakingOmega 3 1 000 MG Capsule [...] an empty stomach Orally Once a dayTaking [place] 3 1000 MG Capsule 1 capsule Orally [...] Henriquez DPM Date:? Generated for Jojo zayas/Nirmal/Claudette on:?02/27/2025 08:59 AM EDT History and Physical Notes * [...]
--- OUTSIDE RECORDS SUMMARY | 2025-02-27 08:59 | XMS_ITS | Patient Health Record ---
Author Organization [facility] Address [address] [place] [address] Care Team Providers Care Vacuum Filter Operator Name Role Phone Rehan Guillaume Primary Care Provider Unavailab bethany Saba Diane Unavailable [phone] Allergies Allergen (clinical drug ingredient) Drug/Non Drug Allergy documented on EMR Reaction Allergy Type Onset Date Status sulfamethoxazole / trimethoprim Bactrim Unknown Drug Allergy Active losartan Losartan Potassium anaphylaxis Drug Allergy Active Substance with 0-ccquyca-1-methylglutar yl-coenzyme A reductase inhibitor mechanism of action (substance) Statins itching Drug Allergy Active Substance with sulfonamide structure and antibacterial mechanism of action (substance) Sulfa Antibiotics itching Drug Allergy Active Reason For Referral No Information Medications Medication SIG (Take, Route, Frequency, Duration) Notes Start Date End Date Status [place] 3 1000 MG 1 capsule Orally Once [...] Route Administration Date Status Comme nts COVID-19 SophonoNTech Vaccine Unknown 09/08/2021 Administered 1st 01/23/2021 2nd [...] Status Risk Notes Problem Ulcer of toe (216302217) 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.521) Active confirmed Problem Acquired hammer toe of left foot (027545235435420 3) Other hammer toe(s) (acquired), left foot (M20.42) Active confirmed Problem Type II diabetes mellitus without complication (762191162) Type 2 diabetes mellitus without complications (E11.9) Active confirmed Plan Of Treatment Pending Test Test Name Order Date Hemoglobin A1c 09/26/2023 X ray : Foot, left 3V 08/01/2023 X ray : Foot, left 3V 10/05/2023 63605- Debride <25 sq cm 12/05/2021 Insurance Providers Payer Name Payer Address Payer Phone Subscriber Number Group Number Insured Name Patient Relationship to Insured Coverage Start Date Coverage End Date Medicare National Govt Svcs Inc [address] [place] [phone] [id number] Lizzeth Farley Self - patient is the insured [employer] Medicare Supplement [address] [place] [phone] [id number] Lizzeth Farley Self - patient is the [...] Exostectomy L5th P/B Hospitalization History Reason Date(Month/Year) [facility] [place] Pleurisy 3 days 02/22 [facility] [place]ound 10/06/2004 [facility] Bone Density Scan 12/25/2006 Bradycardia, right distal ti vero and fibula fractured closed reduction and cast 03/30/2007 [facility] [place] right tibia intramedullary nailing for fracture 11/27/2007 [facility] [place] infection, absce ss, right lower leg, incision and drainage of abscess 08/13/2008 [facility]- Chest X-ray 05/23/2021 [facility]- UTI 05/27/2021
--- OUTSIDE RECORDS SUMMARY | 2025-02-27 08:59 | XMS_ITS ---
Author Organization [facility] Address [address] [place] [address] Care Team Providers Care Scaling Machine Operator Name Role Phone Rehan Guillaume Primary Care Provider Unavailab Saba Callejas Unavailable [phone] Angela Henriquez Unavailable [phone] Allergies Allergen (clinical drug ingredient) Drug/Non Drug Allergy documented on EMR Reaction Allergy Type Onset Date Status sulfamethoxazole / trimethoprim Bactrim Unknown Drug Allergy Active losartan Losartan Potassium anaphylaxis Drug Allergy Active Substance with 8-pzkrlby-9-methylglutar yl-coenzyme A reductase inhibitor mechanism of action [...] day for 30 day(s) Not-Taking Multivitamin-Minerals Active [place] 3 1000 MG 1 capsule Orally Once [...] 10/12/2023 Encounters Encounter Location Date Provider Diagnosis [facility] [address] [place] [address] 10/12/2023 Angela Henriquez Other hammer toe(s) (acquired), [...] , steri-strips applied Progress Notes * Lizzeth RMAIREZ GDOB:1945 (77 yo F)Acc No.[id number]:10/12/2023 Progress Notes Patient:?Lizzeth Ramirez Provider:?Angela Henriquez DPM :1945???Age:77 Y???Sex:Female D ate:10/12/2023 Address:[address] [place] [address] [place], [id number] Pcp:Rehan Guillaume Subjective: * Chief Complaints: * [...] yes, house work. ?Marital status: . ?Occupation: [employer]. * Medications:?TakingOmega 3 1 000 MG Capsule [...] 1 tablet Orally Three times a dayTaking [place] 3 1000 MG Capsule 1 capsule Orally [...] Henriquez DPM Date:?06/2023 Generated for Jojo zayas/Nirmal/Claudette on:?02/27/2025 08:59 AM [...]
--- OUTSIDE RECORDS SUMMARY | 2025-02-27 09:00 | XMS_ITS ---
Author Organization [facility] Address [address] [place] [address] Care Team Providers Care Goodwill Representative Name Role Phone Rehan Guillaume Primary Care Provider Unavailab Saba Callejas Unavailable [phone] Angela Henriquez Unavailable [phone] Encounters Encounter Location Date Provider Diagnosis [facility] [address] [place] [address] 10/16/2023 Angela Henriquez Plan Of Treatment No Information Progress Notes * Lizzeth RAMIREZ GDOB:1945 (79 yo F)Acc No.[id number]:10/16/2023 Progress Notes Patient:?Lizzeth RAMIREZ Provider:?Angela Henriquez DPM :1945???Age:77 Y???Sex:Female D ate:10/16/2023 Address:[address] [place] [address] Pcp:Rehan Guillaume Subjective: * Chief Complaints: * ??? * Medical History:? Objective: * Vitals:? Assessment: Plan: * Treatment: * Images: * The named appointment provid er may or may not be the originator of this progress note, and it is not deemed complete until electronically signed by the appointment provider. Sign off status: Pending * Provider:?Angela Henriquez DPM Date:?10/2023 Generated for Printi ng/Faxing/eTransmitting on:?02/27/2025 08:59 AM EDT
[2025-02-27 10:54] LABS: Appearance Urine Cloudy; Color Urine Dark Yellow; Glucose Urine UA Negative (Negative); Leukocyte Esterase Urine Large (3+) (Negative); Nitrite Urine Positive (Negative); Specific Gravity - Urine <= 1.005 (1.005-1.025); UMIC TRIGGER UACC YES; Urine Blood Moderate (2+) (Negative); Urine Ketones Negative (Negative); Urine Protein Trace mg/dL (Neg-Trace)
[2025-02-27 11:14] LABS: Bacteria Urine None Seen (None Seen); Hyaline Casts Urine 0-2 /LPF (0-2); RBC Urine 0-2 /HPF (0-2); Squamous Epithelial Cell Urine 0-2 /HPF (0-2); UACC Culture Trigger YES; WBC Clumps Urine Present; WBC Urine >50 /HPF (0-5)
== END 2025-02-27 08:54 | disposition home or self-care (01) ==
LOC: HO.HMGCLDS 08:53
PROVIDERS: Nurse Practitioner Family; PCP Physician Assistant; Visit Provider Physician Assistant
DX: N30.90 Cystitis, unspecified without hematuria (principal)
CPT/HCPCS: 81001; 87086

== ENCOUNTER 2025-03-12 14:21 | Outpatient (REF) | payer MEDICARE, OTHER, SELFPAY ==
[2025-03-12 16:10] LABS: Appearance Urine Clear; Color Urine Yellow; Glucose Urine UA Negative (Negative); Leukocyte Esterase Urine Large (3+) (Negative); Nitrite Urine Negative (Negative); Specific Gravity - Urine <= 1.005 (1.005-1.025); UMIC TRIGGER UACC YES; Urine Blood Trace (Negative); Urine Ketones Negative (Negative); Urine Protein Negative (Neg-Trace)
[2025-03-12 16:17] LABS: Bacteria Urine None Seen (None Seen); Hyaline Casts Urine 0-2 /LPF (0-2); RBC Urine 0-2 /HPF (0-2); Squamous Epithelial Cell Urine 0-2 /HPF (0-2); UACC Culture Trigger YES; WBC Urine >50 /HPF (0-5)
== END 2025-03-12 14:22 | disposition home or self-care (01) ==
LOC: HO.LAB 14:21
PROVIDERS: Nurse Practitioner Family; PCP Physician Assistant
DX: N39.0 Urinary tract infection, site not specified (principal)
CPT/HCPCS: 81001; 81003; 87086; 99212

== ENCOUNTER 2025-03-12 14:21 | Outpatient (AMB) | payer MEDICARE, OTHER, SELFPAY ==
[2025-03-12 14:34] VITALS: BP 130/84; PULSE 74; O2SAT 98
--- NOTE | 2025-03-12 14:34 | AM.OFFWIN_ITS ---
Intake Vital Signs 03/12/25 14:34 Weight 143 lb 2 oz BP 130/84 Blood Pressure Location Lt brachial Position Sitting Pulse 74 Pulse Source Pulse Oximeter Pulse Oximetry (%) 98 Oxygen Delivery Method Room Air Intake Visit Reasons: EP- Possible UTI, burning Intake Note: Patient here for burning sensation on urination that started this morning. Patient Tobacco Use Status: Never used Tobacco Allergies Yhlqxqp-KFG-DtH Reductase Inhibitor Allergy (Intermediate, Verified 03/12/25 14:39) Itching Sulfa (Sulfonamide Antibiotics) Allergy (Unknown, Verified 03/12/25 14:39) ITCHING Losartan Allergy (Severe, Uncoded 03/12/25 14:39) Anaphylaxis HPI HPI Comments History of Present Illness Details 79 y/o Female patient who presents to [facility] walk in clinic with c/o burning sensation with urination that started this morning. Pt has h/o Recurrent UTIs and currently takes Trimethoprim once daily for prevention. She sees a Urologist Dr. Vela. 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 Cystitis Arthralgia of left foot Strain of left biceps Pre-op evaluation Right shoulder pain Pre-diabetes Recurrent urinary tract infection Surgical History History of mastectomy History of lumpectomy History of tibial fracture History of colonoscopy History of cataract surgery History of hysterectomy Family History Mother Breast cancer Father Dementia Social History Housing: House Alcohol intake: current Alcohol intake frequency: a few times a month Alcohol type: other Patient Tobacco Use Status: Never used Tobacco e-Cigarette/Vaping Use: Never Used Second Hand Smoke Exposure: No service: No Current occupational status: retired Current occupational exposures/hazards: No Cognitive needs: No Hearing needs: No Vision needs: Yes Review of Systems Const All systems reviewed & are unremarkable except as noted in HPI and below Physical Exam Vital Signs: Last Vital Signs Pulse 74 03/12/25 14:34 BP 130/84 03/12/25 14:34 Pulse Ox 98 03/12/25 14:34 Oxygen Delivery Method Room Air 03/12/25 14:34 Const General: no acute distress Nutritional Appearance: overweight Orientation/consciousness: patient oriented x3 General: Yes no CVA tenderness Back/Spine/Pelvis Back: no CVA tenderness Neuro General: patient oriented x3, gait normal and moves all extremities Psych Speech and movement: Normal speech and movement present Results AMB Urinalysis, Automated UA Leukoctes 125 Renard/uL Last Edit by Josi Niño [facility] on 03/12/25 14: 46 UA Nitrite Negative Last Edit by KathyaVilma Niño [facility] on 03/12/25 14:46 UA Urobilinogen 0.2 mg/dL Last Edit by KathyaVilma Niño [facility] on 03/12/25 14:46 UA Protein 0 mg/dL Last Edit by Josi Niño [facility] on 03/12/25 14:46 UA pH 6.5 Last Edit by KathyaVilma Niño [facility] on 03/12/25 14:46 UA Blood 0 Jose/uL Last Edit by KathyaVilma Niño [facility] on 03/12/25 14:[address] [place] 1.005 Last Edit by KathyaVilma Niño [facility] on 03/12/25 14:46 UA Ketone Negative Last Edit by Josi Niño [facility] on 03/12/25 14:46 UA Bilirubin 0 mg/dL Last Edit by KathyaVilma Niño [facility] on 03/12/25 14:46 UA Glucose 0 mg/dL Last Edit by KathyaPiyush Niño [facility] on 03/12/25 14:46 Results Reviewed Results Reviewed: Laboratory Last Values Urine pH (Auto) 6.5 03/12/25 14:[address] [place] (Auto) 1.005 03/12/25 14:43 Urine Protein (Auto) 0 mg/dL 03/12/25 14:43 Glucose (UA)(Auto) 0 mg/dL 03/12/25 14:43 Urine Ketones (Auto) Negative 03/12/25 14:43 Urine Blood (Auto) 0 Jose/uL 03/12/25 14:43 Urine Nitrite (Auto) Negative 03/12/25 14:43 Urine Bilirubin (Auto) 0 mg/dL 03/12/25 14:43 Urine Urobilinogen (Auto) 0.2 mg/dL 03/12/25 14:43 Leukocyte Esterase (Auto) 125 Renard/uL 03/12/25 14:43 Assessment & Plan Assessment & Plan (1) Recurrent UTI: Code(s): N39.0 - Urinary tract infection, site not specified Plan: Rapid Urinalysis positive for Leuco Ordered Urine Culture and sensitivity Ordered Cipro F/U with Urology as scheduled. Orders: Orders AMB Urinalysis Automated Today Z13.9 - Encounter for screening, unspecified UA CC w/rflx Micro + Cult Today N39.0 - Urinary tract infection, site not specified Medications: New ciprofloxacin HCl 500 mg PO Q12H 5 days 10 tabs 0RF N39.0 - Urinary tract infection, site not specified Coding Level of Care Code Est Pt Level 4 (76320) Diagnoses Recurrent UTI N39.0 Time Spent (min) 20
--- OUTSIDE RECORDS SUMMARY | 2025-03-12 15:12 | XMS_ITS ---
Author Organization [facility] Address [address] [place] [address] Care Team Providers Care [employer] Director Name Role Phone Rehan Guillaume Primary Care Provider Unavailab Saba Callejas Unavailable [phone] Angela Henriquez Unavailable [phone] Allergies Allergen (clinical drug ingredient) Drug/Non Drug Allergy documented on EMR Reaction Allergy Type Onset Date Status sulfamethoxazole / trimethoprim Bactrim Unknown Drug Allergy Active losartan Losartan Potassium anaphylaxis Drug Allergy Active Substance with 8-llnbwnu-4-methylglutar yl-coenzyme A reductase inhibitor mechanism of action [...] day for 30 day(s) Not-Taking Multivitamin-Minerals Active [place] 3 1000 MG 1 capsule Orally Once [...] 10/12/2023 Encounters Encounter Location Date Provider Diagnosis [facility] [address] [place] [address] 10/12/2023 Angela Henriquez Other hammer toe(s) (acquired), [...] * Lizzeth RAMIREZ GDOB:1945 (77 yo F)Acc No.[id number]:10/12/2023 Progress Notes Patient:?Lizzeth Ramirez Provider:?Angela Henriquez DPM :1945???Age:77 Y???Sex:Female D ate:10/12/2023 Address:[address] [place] [address] [place], [id number] Pcp:Rehan Guillaume Subjective: * Chief Complaints: * [...] yes, house work. ?Marital status: . 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 * Medications:?TakingOmega 3 1 000 MG Capsule [...] 1 tablet Orally Three times a dayTaking [place] 3 1000 MG Capsule 1 capsule Orally [...] Henriquez DPM Date:?06/2023 Generated for Jojo zayas/Nirmal/Claudette on:?03/12/2025 03:11 PM EDT History and Physical Notes * [...]
--- OUTSIDE RECORDS SUMMARY | 2025-03-12 15:12 | XMS_ITS ---
Author Organization [facility] Address [address] [place] [address] Care Team Providers Care Line O Scribe Operator Name Role Phone Rehan Guillaume Primary Care Provider Unavailab Saba Callejas Unavailable [phone] Angela Henriquez Unavailable [phone] Allergies Allergen (clinical drug ingredient) Drug/Non Drug Allergy documented on EMR Reaction Allergy Type Onset Date Status sulfamethoxazole / trimethoprim Bactrim Unknown Drug Allergy Active losartan Losartan Potassium anaphylaxis Drug Allergy Active Substance with 3-eeaehqm-8-methylglutar yl-coenzyme A reductase inhibitor mechanism of action [...] Once a day for 30 day(s) Active [place] 3 1000 MG 1 capsule Orally Once [...] 10/31/2023 Encounters Encounter Location Date Provider [facility] [address] [place] [address] 10/31/2023 Angela Henriquez Type 2 diabetes mellitus [...] * Lizzeth RAMIREZ GDOB:1945 (77 yo F)Acc No.[id number]:10/31/2023 Progress Notes Patient:?Lizzeth Ramirez U[facility] Provider:?Angela Henriquez DPM :1945???Age:77 Y???Sex:Female D ate:10/31/2023 Address:[address] [place] [address] Pcp:Rehan Guillaume Subjective: * Chief Complaints: * [...] house work. ?Marital status: . 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 * Medications:?TakingOmega 3 1 000 MG Capsule [...] an empty stomach Orally Once a dayTaking [place] 3 1000 MG Capsule 1 capsule Orally [...] Henriquez DPM Date:? Generated for Jojo zayas/Nirmal/Claudette on:?03/12/2025 03:11 PM [...]
--- OUTSIDE RECORDS SUMMARY | 2025-03-12 15:12 | XMS_ITS | Patient Health Record ---
Author Organization [facility] Address [address] [place] [address] Care Team Providers Care Spring Coiling Machine Setter Name Role Phone Rehan Guillaume Primary Care Provider Unavailab bethany Saba Diane Unavailable [phone] Allergies Allergen (clinical drug ingredient) Drug/Non Drug Allergy documented on EMR Reaction Allergy Type Onset Date Status sulfamethoxazole / trimethoprim Bactrim Unknown Drug Allergy Active losartan Losartan Potassium anaphylaxis Drug Allergy Active Substance with 4-ogbxemc-9-methylglutar yl-coenzyme A reductase inhibitor mechanism of action (substance) Statins itching Drug Allergy Active Substance with sulfonamide structure and antibacterial mechanism of action (substance) Sulfa Antibiotics itching Drug Allergy Active Reason For Referral No Information Medications Medication SIG (Take, Route, Frequency, Duration) Notes Start Date End Date Status [place] 3 1000 MG 1 capsule Orally Once [...] Route Administration Date Status Comme nts COVID-19 [employer] Vaccine Unknown 09/08/2021 Administered 1st 01/23/2021 2nd [...] Status Risk Notes Problem Ulcer of toe (126391506) 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.521) Active confirmed Problem Acquired hammer toe of left foot (572367776209284 3) Other hammer toe(s) (acquired), left foot (M20.42) Active confirmed Problem Type II diabetes mellitus without complication (514010240) Type 2 diabetes mellitus without complications (E11.9) Active confirmed Plan Of Treatment Pending Test Test Name Order Date Hemoglobin A1c 09/26/2023 X ray : Foot, left 3V 08/01/2023 X ray : Foot, left 3V 10/05/2023 91919- Debride <25 sq cm 12/05/2021 Insurance Providers Payer Name Payer Address Payer Phone Subscriber Number Group Number Insured Name Patient Relationship to Insured Coverage Start Date Coverage End Date Medicare National Govt Svcs Inc [address] [place] [phone] [id number] Lizzeth Farley Self - patient is the insured [employer] Medicare Supplement [address] [place] [phone] [id number] Lizzeth Farley Self - patient is the [...] Exostectomy L5th P/B Hospitalization History Reason Date(Month/Year) [facility]- Pneumonia and Pleurisy 3 days 02/22 [facility]- Pelvic Ultrasound 10/06/2004 [facility]- Bone Density Scan 12/25/2006 Bradycardia, right distal ti vero and fibula fractured closed reduction and cast 03/30/2007 [facility]- right tibia intramedullary nailing for fracture 11/27/2007 [facility]- tibial infection, absce ss, right lower leg, incision and drainage of abscess 08/13/2008 [facility]- Chest X-ray 05/23/2021 [facility]- UTI 05/27/2021
--- OUTSIDE RECORDS SUMMARY | 2025-03-12 15:12 | XMS_ITS ---
Author Organization [facility] Address [address] [place] [address] Care Team Providers Care Aoc Operations Intelligence Chief Name Role Phone Rehan Guillaume Primary Care Provider Unavailab Saba Callejas Unavailable [phone] Angela Henriquez Unavailable [phone] Encounters Encounter Location Date Provider Diagnosis [facility] [address] [place] [address] 10/16/2023 Angela Henriquez Plan Of Treatment No Information Progress Notes * Lizzeth RAMIREZ GDOB:1945 (79 yo F)Acc No.[id number]:10/16/2023 Progress Notes Patient:?Lizzeth RAMIREZ Provider:?Angela Henriquez DPM :1945???Age:77 Y???Sex:Female D ate:10/16/2023 Address:[address] [place] [address] Pcp:Rehan Guillaume Subjective: * Chief Complaints: * ??? * Medical History:? Objective: * Vitals:? Assessment: Plan: * Treatment: * Images: * The named appointment provid er may or may not be the originator of this progress note, and it is not deemed complete until electronically signed by the appointment provider. Sign off status: Pending * Provider:?Angela Henriquez DPM Date:?10/2023 Generated for Printi ng/Faxing/eTransmitting on:?03/12/2025 03:11 PM EDT
== END 2025-03-12 15:14 | disposition home or self-care (01) ==
PROVIDERS: PCP Physician Assistant; Visit Provider Nurse Practitioner Family
DX: Z13.9 Encounter for screening, unspecified (principal); N39.0 Urinary tract infection, site not specified

== ENCOUNTER 2025-03-31 08:49 | Outpatient (REF) | payer MEDICARE, OTHER, SELFPAY ==
--- NOTE | ~2025-03-31 | US_ITS ---
CLINICAL HISTORY: N39.0 - Urinary tract infection, site not specified Retroperitoneal ultrasound Comparison: US/MS/SR - US BLADDER - 02/03/25 14:25 EDT US/SR - US RENAL BI - 08/03/23 09:46 EDT Findings: The kidneys are normal in echotexture bilaterally. The kidneys are lobular in contour. Minimal bilateral hydronephrosis. Left nephrolithiasis measures 7 mm. The right kidney is normal in size, measuring 8.2 cm in length. Parenchymal calcification measuring 3 mm. The left kidney is normal in size, measuring 9.9 cm in length. Impression: Minimal bilateral hydronephrosis can be seen in the setting of infection. Correlate with urinalysis. This document has been electronically signed by: Linsey Moon MD on 03/31/2025 15:10:21
--- OUTSIDE RECORDS SUMMARY | 2025-03-31 09:10 | XMS_ITS ---
Author Organization [facility] Address [address] [place] [address] Care Team Providers Care Information Technology Advisor Name Role Phone Rehan Guillaume Primary Care Provider Unavailab Saba Callejas Unavailable [phone] Angela Henriquez Unavailable [phone] Allergies Allergen (clinical drug ingredient) Drug/Non Drug Allergy documented on EMR Reaction Allergy Type Onset Date Status sulfamethoxazole / trimethoprim Bactrim Unknown Drug Allergy Active losartan Losartan Potassium anaphylaxis Drug Allergy Active Substance with 4-vltsmew-2-methylglutar yl-coenzyme A reductase inhibitor mechanism of action [...] day for 30 day(s) Not-Taking Multivitamin-Minerals Active [place] 3 1000 MG 1 capsule Orally Once [...] 10/12/2023 Encounters Encounter Location Date Provider Diagnosis [facility] [address] [place] [address] 10/12/2023 Angela Henriquez Other hammer toe(s) (acquired), [...] * Lizzeth RAMIREZ GDOB:1945 (77 yo F)Acc No.[id number]:10/12/2023 Progress Notes Patient:?Lizzeth Ramirez Provider:?Angela Henriquez DPM :1945???Age:77 Y???Sex:Female D ate:10/12/2023 Address:[address] [place] [address] [place], [id number] Pcp:Rehan Guillaume Subjective: * Chief Complaints: * [...] yes, house work. ?Marital status: . 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 * Medications:?TakingOmega 3 1 000 MG Capsule [...] 1 tablet Orally Three times a dayTaking [place] 3 1000 MG Capsule 1 capsule Orally [...] Henriquez DPM Date:?06/2023 Generated for Jojo zayas/Nirmal/Claudette on:?03/31/2025 09:10 AM EDT History and Physical Notes * [...]
== END 2025-03-31 08:50 | disposition home or self-care (01) ==
LOC: HO.HMGCX 08:49
PROVIDERS: PCP Physician Assistant; Visit Provider Urology
DX: N39.0 Urinary tract infection, site not specified (principal)
CPT/HCPCS: 76775

== ENCOUNTER → 2025-03-31 08:54 | Outpatient (BNV) | payer MEDICARE, OTHER, SELFPAY | PROVIDERS: PCP Physician Assistant; Visit Provider Radiology Diagnostic Radiology | DX: N39.0 Urinary tract infection, site not specified (principal) | CPT/HCPCS: 76775 ==

== ENCOUNTER 2025-04-06 09:16 | Outpatient (AMB) | payer MEDICARE, OTHER, SELFPAY ==
--- NOTE | 2025-04-06 09:21 | MHC.OFFVIS ---
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: No Accompanied by: Self / Same As Patient Allergies Hqtzape-IJG-ZtK Reductase Inhibitor Allergy (Intermediate, Verified 04/06/25 09:32) Itching Sulfa (Sulfonamide Antibiotics) Allergy (Unknown, Verified 04/06/25 09:32) ITCHING Losartan Allergy (Severe, Uncoded 03/12/25 14:39) Anaphylaxis Medication List - Last Reconciled 04/06/25 by Tina Vela MD alfuzosin ER 10 mg PO DAILY amlodipine 10 mg PO DAILY 90 days cholecalciferol (vitamin D3) 25 mcg PO DAILY cranberry extract 425 mg orally one to 2 x daily with meals; administer with meals epinephrine 0.3 mg (0.3 mL) IM Q10M PRN estradiol 0.01%(0.1mg/gram) (Estrace) Use pea-sized amount on fingertip apply at bedtime into vaginal area daily; ezetimibe (Zetia) 10 mg PO DAILY 90 days hydrochlorothiazide 12.5 mg PO DAILY 90 days levothyroxine 50 mcg PO DAILY metformin ER 500 mg PO DAILY 90 days twmqkqlpatfi-mepxpscq-llwmfl 1 tab PO DAILY trimethoprim 100 mg PO DAILY 90 days HPI Comments Details: 04/06/25--Lizzeth is a 7-year-old female who was last seen in the office on 02/05/2025. She is followed for recurrent UTIs and has had urinary symptoms of incomplete bladder emptying. She has had prior pelvic surgery. She is here for repeat office cystoscopy. Cystoscopy findings: Moderate trabeculations with weakened areas forming diverticuli posterior wall, no mesh visualized, no suspicious bladder lesions visualized. History of Present Illness The patient is a 79-year-old female presenting with recurrent urinary tract infections and incomplete bladder emptying. She has reported persistent urinary symptoms, particularly the sensation of incomplete bladder emptying likely exacerbated by a prior pelvic surgery. A recent bladder ultrasound showed a significant post-void residual, and mild bilateral hydronephrosis was noted on a renal ultrasound. The patient had previous cystoscopy and urethral dilation procedures. Her history is further complicated by prior breast cancer with subsequent mastectomy, which influences decisions regarding estrogen therapy for post-hysterectomy symptoms. The conversation addressed low-dose estrogen cream and acknowledged cystoscopy findings of bladder diverticula as a result of chronic incomplete voiding. Plan Estrogen cream pea-sized amount applied to vagina at bedtime daily, Alfuzosin 10 mg daily, Continue trimethoprim suppressive antibiotic therapy, Monitor postvoid residual. 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 Her recent UTI treatment addressed a Pseudomonas infection, resolved with antibiotic care, as indicated by a follow-up urine culture showing no growth. Despite this resolution, she still experiences urinary discomfort and incomplete voiding. The urinalysis conducted currently indicates a post-void residual of 237 mL, consistent with prior findings, and suggests ongoing urinary retention. She reports urinary urgency and dysuria, with persistent discomfort while voiding. I discussed with the patient her ongoing urinary symptoms and reviewed the previous management steps, including antibiotic treatments. Discussed further diagnostic evaluations, including a kidney ultrasound and office cystoscopy, to identify any underlying pathology contributing to urinary retention. 05/22/24--Lizzeth is a 78-year-old female who presents today to the office for a follow-up. She states she is doing well. She has had recurrent UTIs and lower urinary tract symptoms of urgency and urinary hesitancy. The patient has history of pelvic surgery including TVT that needed to be loosen due to urinary retention. Workup included cystoscopy on 08/22/2023 urethral dilation was done at that time. The patient states she has been doing well since urethral dilation. The patient is currently managed with daily cranberry supplements. Urinalysis 2+ blood, leukocytes trace. 11/23/23- - Lizzeth states she is doing well. Denies recurrent UTI symptoms. She ran out of cranberry and had a problem getting it refilled, she has changed her insurance coverage. I will still send a new script but if it is not covered she will get it OTC. 08/22/23? She is followed today for a Cystoscopy procedure. She was last seen by me on 07/20/23 for cystitis.? The Patient has a history of total vaginal hysterectomy, apical repair, with left uterosacral ligament suspension and right sacrospinous ligament suspen, with midurethral sling TVT done on 11/18/2017. She states about a week later they had to re-operate to loosen the sling as she was in retention. Cystoscopy findings: Urethral meatus was tight and required urethral dilation, it was dilated from 14 Indian to 20 Indian; bladder was visualized; there was no suspicious bladder lesions noted; there was no mesh visualized in the bladder, on the left lateral wall there were some changes of the bladder wall to small diverticuli. Doxycycline 100 mg BID for 5 days due to urethral dilation. Pt has history of breast cancer and I will hold on any estrogen therapy. Empirically start her on cranberry supplementation. US results from 08/03/23 revealed? no calculi or focal parenchymal lesions.? Urine culture results from 07/20/23 which came back Escherichia coli > 100,000 cfu/mL. Urine culture results from 05/30/2023 which came back Enterococcus faecalis? > 100,000 cfu/mL. 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 Cystitis Arthralgia of left foot Strain of left biceps Pre-op evaluation Right shoulder pain Pre-diabetes Recurrent urinary tract infection Surgical History History of mastectomy History of lumpectomy History of tibial fracture History of colonoscopy History of cataract surgery History of hysterectomy Family History Mother Breast cancer Father Dementia Social History Housing: House Alcohol intake: current Alcohol intake frequency: a few times a month Alcohol type: other Patient Tobacco Use Status: Never used Tobacco e-Cigarette/Vaping Use: Never Used Second Hand Smoke Exposure: No service: No Current occupational status: retired Current occupational exposures/hazards: No Cognitive needs: No Hearing needs: No Vision needs: Yes Review of Systems Const All systems reviewed & are unremarkable except as noted in HPI and below Reports no additional complaints Eyes Reports no additional complaints ENT Reports no additional complaints Card Reports no additional complaints Resp Reports no additional complaints GI Reports no additional complaints Reports as per HPI Musc Reports no additional complaints Skin/Breast Reports system reviewed and no additional complaints, except as documented Neuro Reports no additional complaints Psych Reports no additional complaints Endo Reports no additional complaints Hal/Lymph Reports no additional complaints Aller/Immun Reports no additional complaints Office Procedures Cystoscopy Consent Discussed risk and benefit or proposed procedure with the patient. Information consent for procedure given to the patient. Discussed technical aspects, risks, benefits and alternatives in full. Addressed all of the patient's questions and concerns regarding the procedure. The patient demonstrated knowledge and understanding. They wish to proceed with this procedure. Preparation The patient was prepped in the usual manner. A wood casket maker was present and in the room. Genitalia was prepped with betadine solution in a sterile manner. Lidocaine Jelly 2% was placed into the urethra and 16Fr flexible Olympus cystoscope was inserted into the meatus after adequate lubrication. Procedure Time out per protocol performed. Speculum used as indicated for adequate visualization of urethra, the flexible cystoscope is passed transurethrally: The bladder was inspected in its entirety with utilization retroflexion displaying: Tumor(s): no suspicious bladder lesions visualized Trabeculation: Moderate with cellule changes, and diverticuli Mucosal Erthema: NA Orifices: normal shape and position Urethra: urethral dilation today 14 fr to 24 fr Cystoscopy findings: Moderate trabeculations with weakened areas forming diverticuli posterior wall, no mesh visualized, no suspicious bladder lesions visualized [id number] DISPOSABLE SCOPE URO-G FLEXIBLE SCOPE Procedure code (CPT) selection complete Generic Document Section Details: Referr to cystoscopy procedure section: 2% lidocaine jelly for local-sequential dilation with Yin urethral sounds from 14 Indian to 24 fr. Office Meds lidocaine HCl 2 % mucosal jelly in applicator Performing Provider: Tina Vela MD [facility] Administered by: Cami Graves RN on 04/06/25 09:47 Dose Route Admin Location Dispensed Lot Number Expiration Date [facility] Property Management Coordinator 10 mL intra-urethral 20 mL ciprofloxacin HCl 500 mg tablet Performing Provider: Tina Vela MD Per[facility] Administered by: Cami Graves RN on 04/06/25 09:47 Dose Route Admin Location Dispensed Lot Number Expiration Date [employer] Property Management Coordinator 500 mg PO 1 tab phenazopyridine 200 mg tablet Performing Provider: Tina Vela MD Performing Location: [facility] Documented (not given) by: Cami Graves RN on 04/06/25 09:47 Dose Route Admin Location Dispensed Lot Number Expiration Date [employer] Property Management Coordinator 200 mg PO tab Results Reviewed Results Reviewed: Date of Service: 03/31/25 CLINICAL HISTORY: N39.0 - Urinary tract infection, site not specified Retroperitoneal ultrasound Comparison: US/TN/SR - US BLADDER - 02/03/25 14:25 EDT US/SR - US RENAL BI - 08/03/23 09:46 EDT Findings: The kidneys are normal in echotexture bilaterally. The kidneys are lobular in contour. Minimal bilateral hydronephrosis. Left nephrolithiasis measures 7 mm. The right kidney is normal in size, measuring 8.2 cm in length. Parenchymal calcification measuring 3 mm. The left kidney is normal in size, measuring 9.9 cm in length. Impression: Minimal bilateral hydronephrosis can be seen in the setting of infection. Correlate with urinalysis. Date of Service: 02/03/25 EXAMINATION: US BLADDER HISTORY: N39.0 - Urinary tract infection, site not specified COMPARISON: There are no prior studies for comparison. FINDINGS: Sonographic examination of the urinary bladder was performed before and after voiding. Before voiding, the urinary bladder measured 13.6 x 8.9 x 11.4, for an estimated volume of728 mL. After voiding, the urinary bladder measured 9.0 x 6.6 x 8.3, for an estimated volume of 257 mL. No intrinsic bladder abnormality is identified. Bilateral ureteral jets are identified. IMPRESSION: Post void bladder residual of 257 mL. No intrinsic bladder abnormality is identified. Collected: 12/22/24-UNK Status: COMP Req#: [id number] Received: 12/22/24 Source: [facility] Sp Desc: Clean Cat Subm Dr: Lizzeth Boudreaux BEVELER Ordered: Urine Culture Procedure Result Verified Urine Culture Final 12/26/24 Organism 1 Pseudomonas aeruginosa Quant 50,000 to 100,000 cfu/mL Sofia Weber RX --------- --- Cefepime 0.5 S Ciprofloxacin 0.12 S Gentamicin <=1 S Meropenem 0.5 S Piperacillin/Tazobactam <=4 S Ordered:? Urine Culture? Procedure?Result?Verified?Site ? Urine Culture? Final?07/22/23 ? ? ?Organism 1?Escherichia coli ? Quant?> 100,000 cfu/mL ? E coli? M.I.C.? ? RX? --------- ---?Ampicillin?8? S?Ceftriaxone? <=0.25? ? ?S?Gentamicin?<=1? S?Levofloxacin?>=8? R?Nitrofurantoin?<=16?S?Trimethoprim/Sulfamethoxazole? >=320? ? ? R?? Date of Service: 08/03/23 EXAMINATION:? US RETROPERITONEAL LIMITED (RENAL ONLY) CLINICAL INFORMATION: Cystitis, unspecified without hematuria. COMPARISON:? Ultrasound abdomen complete 07/04/2018. FINDINGS: RIGHT KIDNEY: 8.2 x 5.5 x 5.0 cm (SAG x AP x TRV). The kidney is normal in size, contour, and echogenicity. There are persistent lobulations. Renal cortical thickness is normal. No calculi or focal parenchymal lesions. No hydronephrosis. LEFT KIDNEY: 9.4 x 5.9 x 5.0 cm (SAG x AP x TRV). The kidney is normal in size, contour, and echogenicity. There are persistent lobulations. Renal cortical thickness is normal. No calculi or focal parenchymal lesions. There is mild pelviectasis, without adore hydronephrosis. IMPRESSION:? Unremarkable examination. Assessment & Plan Assessment & Plan (1) Cystitis with hematuria: Code(s): N30.91 - Cystitis, unspecified with hematuria Category: Medical (2) Recurrent UTI: Code(s): N39.0 - Urinary tract infection, site not specified Category: Medical (3) Incomplete bladder emptying: Code(s): R33.9 - Retention of urine, unspecified Category: Medical (4) Bladder outlet obstruction: Code(s): N32.0 - Bladder-neck obstruction Category: Medical (5) Vaginal atrophy: Code(s): N95.2 - Postmenopausal atrophic vaginitis Category: Medical Plan Estrogen cream pea-sized amount applied to vagina at bedtime daily Alfuzosin 10 mg daily Continue trimethoprim suppressive antibiotic therapy Monitor postvoid residual Orders: Orders Urethral Dilation Today N32.0 - Bladder-neck obstruction AMB Cystoscopy Today N30.91 - Cystitis, unspecified with hematuria Medications: New alfuzosin ER administer after the same meal each day 10 mg PO DAILY 90 tabs 2RF estradiol 0.01%(0.1mg/gram) (Estrace) Use pea-sized amount on fingertip apply at bedtime into vaginal area daily; 42.5 grams 1RF phenazopyridine 200 mg PO ONCE 1 tab 0RF N30.91 - Cystitis, unspecified with hematuria Patient Instructions: The patient had an opportunity to ask questions regarding treatment plan. The patient expressed understanding and agreement with the above treatment plan. The patient is aware they should contact our office by phone for worsening of their current condition or the appearance of new symptoms. Compliance is encouraged with any medications and followup testing that is ordered. It is a privilege to be allowed the opportunity to participate in the urologic care of your patient. If you have any questions or concerns regarding treatment for the above conditions please do not hesitate to contact me. The office telephone contact is [phone]. This note is constructed in part using voice recognition software. While every effort has been made to ensure accuracy orchard worker errors may have been included. Yours sincerely, Tina Vela MD Scribe Plan - Not visible on output: Patient was informed and verbally consented to the use of an ambient scribe for clinic note documentation during this visit. Coding Level of Care Code Est Pt Level 4 (15545) Complex EM visit Add On G2211 Diagnoses Cystitis with hematuria N30.91 Recurrent UTI N39.0 Incomplete bladder emptying R33.9 Bladder outlet obstruction N32.0 Vaginal atrophy N95.2 CPT Codes Cystoscopy - CPT: 77859-[id number] ([id number])
--- OUTSIDE RECORDS SUMMARY | 2025-04-06 09:56 | XMS_ITS | Patient Health Record ---
[facility] Address [address] [place] [address] Care Team Providers Care Cardiographer Name Role Phone Rehan Guillaume Primary Care Provider Unavailab bethany Saba Diane Unavailable [phone] Allergies Allergen (clinical drug ingredient) Drug/Non Drug Allergy documented on EMR Reaction Allergy Type Onset Date Status sulfamethoxazole / trimethoprim Bactrim Unknown Drug Allergy Active losartan Losartan Potassium anaphylaxis Drug Allergy Active Substance with 3-ktbcvbn-0-methylglutar yl-coenzyme A reductase inhibitor mechanism of action (substance) Statins itching Drug Allergy Active Substance with sulfonamide structure and antibacterial mechanism of action (substance) Sulfa Antibiotics itching Drug Allergy Active Reason For Referral No Information Medications Medication SIG (Take, Route, Frequency, Duration) Notes Start Date End Date Status [place] 3 1000 MG 1 capsule Orally Once [...] Route Administration Date Status Comme nts COVID-19 [employer]ar[employer] Vaccine Unknown 09/08/2021 Administered 1st 01/23/2021 2nd [...] Status Risk Notes Problem Ulcer of toe (464240351) 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.521) Active confirmed Problem Acquired hammer toe of left foot ([id number] 3) Other hammer toe(s) (acquired), left foot (M20.42) Active confirmed Problem Type II diabetes mellitus without complication (464436484) Type 2 diabetes mellitus without complications (E11.9) Active confirmed Plan Of Treatment Pending Test Test Name Order Date Hemoglobin A1c 09/26/2023 X ray : Foot, left 3V 08/01/2023 X ray : Foot, left 3V 10/05/2023 28852- Debride <25 sq cm 12/05/2021 Insurance Providers Payer Name Payer Address Payer Phone Subscriber Number Group Number Insured Name Patient Relationship to Insured Coverage Start Date Coverage End Date Medicare National [employer] Sv[employer] [address] ER[place] Coleman [phone] [id number] Lizzeth Farley Self - patient is the insured [employer] Medicare Supplement [address] [place]ros [phone] [id number] Lizzeth Farley Self - patient is the [...] Exostectomy L5th P/B Hospitalization History Reason Date(Month/Year) [facility] [place] and Pleurisy 3 days 02/22 [facility] [place] Pelvic Ultrasound 10/06/2004 [facility]- Bone Density Scan 12/25/2006 Bradycardia, right distal ti vero and fibula fractured closed reduction and cast 03/30/2007 [facility] [place] right tibia intramedullary nailing for fracture 11/27/2007 [facility] [place] tibial infection, absce ss, right lower leg, incision and drainage of abscess 08/13/2008 [facility]- Chest X-ray 05/23/2021 [facility]- UTI 05/27/2021
== END 2025-04-06 10:33 | disposition home or self-care (01) ==
LOC: HO.HUSH 09:17
PROVIDERS: PCP Physician Assistant; Visit Provider Urology
DX: N39.0 Urinary tract infection, site not specified (principal); R33.9 Retention of urine, unspecified; N32.0 Bladder-neck obstruction; N95.2 Postmenopausal atrophic vaginitis
CPT/HCPCS: 52000; 99214

== ENCOUNTER → 2025-04-06 09:16 | Outpatient (BNVA) | payer MEDICARE, OTHER, SELFPAY | PROVIDERS: PCP Physician Assistant; Visit Provider Urology | DX: N30.91 Cystitis, unspecified with hematuria (principal); N32.0 Bladder-neck obstruction; N95.2 Postmenopausal atrophic vaginitis; R33.9 Retention of urine, unspecified; Z87.440 Personal history of urinary (tract) infections | CPT/HCPCS: 52000; 81003; 99212 ==

== ENCOUNTER 2025-04-27 08:38 | Outpatient (AMB) | payer MEDICARE, OTHER, SELFPAY ==
[2025-04-27 08:43] VITALS: BP 136/64; PULSE 64; TEMP 36.5; O2SAT 98
--- NOTE | 2025-04-27 08:43 | AM.OFFWIN_ITS ---
Intake Vital Signs 04/27/25 08:43 Height 5 ft 2 in BP 136/64 Blood Pressure Location Rt brachial Position Sitting Pulse 64 Pulse Source Pulse Oximeter Temp 97.7 F Temp Source Oral Pulse Oximetry (%) 98 Oxygen Delivery Method Room Air Intake Visit Reasons: EP UTI Patient Tobacco Use Status: Never used Tobacco Allergies Aifrcwj-SBJ-EiW Reductase Inhibitor Allergy (Intermediate, Verified 04/27/25 08:54) Itching Sulfa (Sulfonamide Antibiotics) Allergy (Unknown, Verified 04/27/25 08:54) ITCHING Losartan Allergy (Severe, Uncoded 03/12/25 14:39) Anaphylaxis Do you need a note to return to daycare/school/sports/work: No HPI HPI Comments History of Present Illness Details History - The patient is a 79-year-old female pr esenting with pain with urination. - Symptoms began yesterday, including bu rning during urination and frequent urination. - The patient experiences incomplete kirill dder emptying and has been prescribed medication for this. - There is no associated nausea, vomitin g, diarrhea, fever, or blood in the urine, although there is a slight odor. - The patient had a UTI approximately on e month ago, but the specific antibiotic used was not recalled. - She denies CP, SOB, vaginal itch, or v aginal discharge. Physical Exam General: Cooperative, healthy appearing, comfortable, no acute distress and well developed Cardiac: Normal S1 and S2. RRR, no M/R/G noted. Respiratory: Normal respiratory effort and able to speak in complete sentences. Clear to auscultation bilaterally. No w/r/r noted. Skin: No rashes or lesions noted. GI: Normal inspection. Normal BS noted. Soft, non-tender, non-distended. No TTP of all 4 quadrants. No guarding or rebound tenderness noted. Back: Negative CVA bilaterally Patient was informed and verbally consented to the use of an ambient scribe for clinic note documentation during this visit. 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 Cystitis Arthralgia of left foot Strain of left biceps Pre-op evaluation Right shoulder pain Pre-diabetes Recurrent urinary tract infection Surgical History History of mastectomy History of lumpectomy History of tibial fracture History of colonoscopy History of cataract surgery History of hysterectomy Family History Mother Breast cancer Father Dementia Social History Housing: House Alcohol intake: current Alcohol intake frequency: a few times a month Alcohol type: other Patient Tobacco Use Status: Never used Tobacco e-Cigarette/Vaping Use: Never Used Second Hand Smoke Exposure: No service: No Current occupational status: retired Current occupational exposures/hazards: No Cognitive needs: No Hearing needs: No Vision needs: Yes Review of Systems Const All systems reviewed & are unremarkable except as noted in HPI and below Physical Exam Vital Signs: Last Vital Signs Temp 97.7 F 04/27/25 08:43 Pulse 64 04/27/25 08:43 BP 136/64 04/27/25 08:43 Pulse Ox 98 04/27/25 08:43 Oxygen Delivery Method Room Air 04/27/25 08:43 Results AMB Urinalysis, Automated UA Leukoctes 500 Renard/uL Last Edit by Farzana Portillo CMA on 04/27/25 09:00 UA Nitrite Negative Last Edit by Farzana Portillo CMA on 04/27/25 09:00 UA Urobilinogen 0.2 mg/dL Last Edit by Farzana Portillo CMA on 04/27/25 09:00 UA Protein 0 mg/dL Last Edit by Farzana Portillo CMA on 04/27/25 09:00 UA pH 6.5 Last Edit by Farzana Portillo CMA on 04/27/25 09:00 UA Blood 10 Jose/uL Last Edit by Farzana Portillo CMA on 04/27/25 09:00 UA Specific [place] 1.005 Last Edit by Farzana Portillo CMA on 04/27/25 09:00 UA Ketone Negative Last Edit by Farzana Portillo CMA on 04/27/25 09:00 UA Bilirubin 0 mg/dL Last Edit by Farzana Portillo CMA on 04/27/25 09:00 UA Glucose 0 mg/dL Last Edit by Farzana Portillo CMA on 04/27/25 09:00 Assessment & Plan Assessment & Plan (1) Dysuria: Comment: Urine culture pending at this time given her most recent acute urinary tract infection. Code(s): R30.0 - Dysuria Plan 1. Urinary Tract Infection (Uti) - Antibiotics will be prescribed and sent to the pharmacy for the UTI. - The patient opted not to use phenazopyridine for pain relief unless necessary. - Will send a urine culture - Drink lots of fluids - Follow up with PCP Orders: Orders AMB Urinalysis Automated Today Z13.9 - Encounter for screening, unspecified Coding Level of Care Code Est Pt Level 3 (93737) Diagnoses Dysuria R30.0
--- OUTSIDE RECORDS SUMMARY | 2025-04-27 08:54 | XMS_ITS | Patient Health Record ---
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 Name Role Phone Rehan Guillaume Primary Care Provider Unavailab bethany Saba Diane Unavailable [phone] Allergies Allergen (clinical drug ingredient) Drug/Non Drug Allergy documented on EMR Reaction Allergy Type Onset Date Status sulfamethoxazole / trimethoprim Bactrim Unknown Drug Allergy Active losartan Losartan Potassium anaphylaxis Drug Allergy Active Substance with 7-dauvuoo-8-methylglutar yl-coenzyme A reductase inhibitor mechanism of action (substance) Statins itching Drug Allergy Active Substance with sulfonamide structure and antibacterial mechanism of action (substance) Sulfa Antibiotics itching Drug Allergy Active Reason For Referral No Information Medications Medication SIG (Take, Route, Frequency, Duration) Notes Start Date End Date Status [place] 3 1000 MG 1 capsule Orally Once [...] Route Administration Date Status Comme nts COVID-19 Tip or SkipNTech Vaccine Unknown 09/08/2021 Administered 1st 01/23/2021 2nd [...] Status Risk Notes Problem Ulcer of toe (421578573) 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.521) Active confirmed Problem Acquired hammer toe of left foot (734167803198533 3) Other hammer toe(s) (acquired), left foot (M20.42) Active confirmed Problem Type II diabetes mellitus without complication (263809849) Type 2 diabetes mellitus without complications (E11.9) Active confirmed Plan Of Treatment Pending Test Test Name Order Date Hemoglobin A1c 09/26/2023 X ray : Foot, left 3V 08/01/2023 X ray : Foot, left 3V 10/05/2023 19387- Debride <25 sq cm 12/05/2021 Insurance Providers Payer Name Payer Address Payer Phone Subscriber Number Group Number Insured Name Patient Relationship to Insured Coverage Start Date Coverage End Date Medicare National [employer] [address] ER[place] Coleman [phone] [id number] Lizzeth Farley Self - patient is the insured [employer] Supplement [address] [place] [phone] [id number] Lizzeth Farley Self - patient is the [...] Exostectomy L5th P/B Hospitalization History Reason Date(Month/Year) [facility] [place]- Pneumonia and Pleurisy 3 days 02/22 [facility]- Pelvic Ultrasound 10/06/2004 [facility]- Bone Density Scan 12/25/2006 Bradycardia, right distal ti vero and fibula fractured closed reduction and cast 03/30/2007 [facility] [place]- right tibia intramedullary nailing for fracture 11/27/2007 [facility]- tibial infection, absce ss, right lower leg, incision and drainage of abscess 08/13/2008 [facility]- Chest X-ray 05/23/2021 [facility]- UTI 05/27/2021
== END 2025-04-27 10:29 | disposition home or self-care (01) ==
PROVIDERS: PCP Physician Assistant; Visit Provider Physician Assistant Medical
DX: R30.0 Dysuria (principal)

== ENCOUNTER → 2025-04-27 08:38 | Outpatient (BNVA) | payer MEDICARE, OTHER, SELFPAY | PROVIDERS: PCP Physician Assistant; Visit Provider Physician Assistant Medical | DX: R30.0 Dysuria (principal) | CPT/HCPCS: 81003; 99212 ==

== ENCOUNTER 2025-05-14 05:33 | Emergency (ER) | payer MEDICARE, OTHER, SELFPAY ==
--- NOTE | ~2025-05-14 | CT_ITS ---
EXAMINATION: CT ABDOMEN AND PELVIS WITH CONTRAST CLINICAL INFORMATION: Right lower quadrant abdominal pain COMPARISON: March 25, 2024. TECHNIQUE: Multidetector volumetric images were obtained from the superior aspect of the liver through the pubic symphysis following administration 85 mL of Omnipaque 350 intravenous contrast. Sagittal and coronal reformatted images were obtained on the technologist's workstation. Oral contrast: No This CT examination was performed using dose optimization techniques as appropriate, variously including the following: *Automated exposure control *Adjustment of mA and/or kV according to patient size (this includes techniques or standardized protocols for targeted exams where dose is matched to indication/reason for exam; i.e. extremities or head) *Use of iterative reconstruction technique DLP: 440 mg centimeter. FINDINGS: LUNG BASES: Centrilobular emphysematous changes. Patchy and nodular attenuation, right middle lung lobe. LIVER, GALLBLADDER, AND BILIARY TREE: Liver measures 15 cm. 2 mm hypodensities too small to be fully characterized by CT. Portal veins, hepatic veins and intrahepatic portion of the IVC are patent. No pericholecystic fluid collection or gallbladder wall thickening. No intrahepatic or extrahepatic biliary ductal dilatation. PANCREAS: No focal lesion. No peripancreatic fluid collection. No main pancreatic ductal dilatation. SPLEEN: 8 cm. No focal mass. ADRENAL GLANDS: No nodular lesions. KIDNEYS AND URETERS: No hydronephrosis. 2 mm nonobstructing calculus, lower pole left pelvicalyceal system. lobulations. No renal mass. Normal enhancement pattern of the renal parenchyma. No dilatation of the ureters. BLADDER: Fluid-filled. Trabeculation and the lateral nunn with the small diverticula. GASTROINTESTINAL TRACT: Intestinal wall thickening with gas and fluid-filled prominent small bowel loops. Fecal material, small intestine. No pneumatosis intestinalis. The appendix appears normal. Abundant stool, large intestine. No intestinal obstruction pattern. Ascites, small volume. No peripheral enhancing fluid collections, peritoneal cavity. No pneumoperitoneum. Small hiatal hernia. ABDOMINAL WALL: No gross umbilical hernia. LYMPH NODES: No specific prominent retroperitoneal. VASCULAR: Mixed plaques throughout the abdominal aorta wall and iliac arteries the mesenteric arteries, the splenic artery and at the origin of the mesenteric arteries and main renal arteries. No aneurysm or dissection, abdominal aorta. Calcified plaques in the coronary arteries. PELVIC VISCERA: Absent uterus. OSSEOUS STRUCTURES: Multilevel thoracolumbar spondylosis.. Tarlov cysts, sacrum. CT/CT abdomen pelvis w IV con IMPRESSION: Acute inflammatory versus infectious process versus autoimmune disease involving mostly the small intestine. Ischemic etiology seems less likely. Fleischner guidelines were followed. Electronically signed by: Herman Downs MD 05/14/2025 09:37 AM EDT
[2025-05-14 05:36] VITALS: BP 146/49; PULSE 68; RESP 20; TEMP 36.4; O2SAT 100; BMI 25.4
[2025-05-14 05:49] LABS: MANUAL DIFF FLAG NO
[2025-05-14 05:50] LABS: Hematocrit 37.5 % (37.0-47.0); Hemoglobin 13.4 g/dl (12.0-16.0); Imm Gran Abs Auto 0.03 X10*3/uL (0.00-0.03); Imm Gran Pct Auto 0.3 % (0.0-0.4); Lymphocytes Absolute Auto 0.9 X10*3/uL (1.2-4.9); Mean Corpuscular HGB Conc 35.7 g/dl (31.0-35.0); Mean Corpuscular Hemoglobin 30.9 pg (27.0-33.0); Mean Corpuscular Volume 86.4 fL (80.0-98.0); NRBC Abs Auto 0.000 X10*3/uL (0.0-0.012); NRBC Pct Auto 0.0 /100WBC (0.0-0.2); Platelet Count 290 X10*3/uL (160-400); Red Blood Count 4.34 X10*6/uL (4.20-5.50); White Blood Count 9.6 X10*3/uL (4.8-10.8)
--- OUTSIDE RECORDS SUMMARY | 2025-05-14 05:59 | XMS_ITS | Patient Health Record ---
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 Name Role Phone Rehan Guillaume Primary Care Provider Unavailab bethany Saba Diane Unavailable [phone] Allergies Allergen (clinical drug ingredient) Drug/Non Drug Allergy documented on EMR Reaction Allergy Type Onset Date Status sulfamethoxazole / trimethoprim Bactrim Unknown Drug Allergy Active losartan Losartan Potassium anaphylaxis Drug Allergy Active Substance with 6-uglbnkm-4-methylglutar yl-coenzyme A reductase inhibitor mechanism of action (substance) Statins itching Drug Allergy Active Substance with sulfonamide structure and antibacterial mechanism of action (substance) Sulfa Antibiotics itching Drug Allergy Active Reason For Referral No Information Medications Medication SIG (Take, Route, Frequency, Duration) Notes Start Date End Date Status [place] 3 1000 MG 1 capsule Orally Once a day Active Multivitamin-Minerals Active Losartan Potassium 100 MG 1 tablet Orall y Once a day; Duration: 30 day(s) Not-Taking hydroCHLOROthiazide 12.5 MG 1 capsule in the morning Orally Once a day Active EPINEPHrine 0.3 MG/0.3ML as directed Injection Active Vitamin D3 25 MCG (1000 UT) 1 capsule Or ally Once a day Active Levothyroxine Sodium 50 MCG 1 tablet in the morning on an empty stomach Orally Once a day; Duration: 30 day(s) Active Ibuprofen 800 MG 1 tablet Orally Three times a day; Duration: 14 days 09/19/2023 Not-Taking amLODIPine Besylate 10 MG 1 tablet Orall y Once a day Active metFORMIN HCl 500 MG 1 tablet with a magnus l Orally Once a day; Duration: 30 day(s) Active Immunizations Vaccine Route Administration [...] Problem Status W/U Status Risk Notes Problem 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.521) Active confirmed Problem Acquired hammer toe of left foot (915491665936736 3) Other hammer toe(s) (acquired), left foot (M20.42) Active confirmed Problem Type II diabetes mellitus without complication (464496920) Type 2 diabetes mellitus without complications (E11.9) Active confirmed Plan Of Treatment Pending Test Test Name Order Date Hemoglobin A1c 09/26/2023 X ray : Foot, left 3V 08/01/2023 X ray : Foot, left 3V 10/05/2023 13464- Debride <25 sq cm 12/05/2021 Insurance Providers Payer Name Payer Address Payer Phone Subscriber Number Group Number Insured Name Patient Relationship to Insured Coverage Start Date Coverage End Date Medicare [facility] [address] KaitlynnsivanERICK alvarez [phone] [id number] Lizzeth Farley Self - patient is the insured [employer] Supplement [address] [place] [phone] [id number] Lizzeth Farley Self - patient is the [...] P/B Hospitalization History Reason Date(Month/Year) [facility] and Pleurisy 3 days 02/22 [facility]ound 10/06/2004 [facility] Bone Density Scan 12/25/2006 Bradycardia, right distal ti vero and fibula fractured closed reduction and cast 03/30/2007 [facility] right tibia intramedullary nailing for fracture 11/27/2007 [facility] infection, absce ss, right lower leg, incision and drainage of abscess 08/13/2008 [facility]- Chest X-ray 05/23/2021 [facility] UTI 05/27/2021
--- OUTSIDE RECORDS SUMMARY | 2025-05-14 05:59 | XMS_ITS | Patient Health Record ---
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 Name Role Phone Aleah (RETIRED) Martin BROWER Primary Care Provid er Unavailable Martin De Los Santos Unavailable [phone] Allergies Allergen (clinical drug ingredient) Drug/Non Drug Allergy documented on EMR Reaction Allergy Type Onset Date Status Sulfa Unknown Drug Allergy Active Reason For Referral No Information Medications Medication SIG (Take, Route, Frequency, Duration) Notes Start Date End Date Status metFORMIN HCl 500 MG 1 tablet with meals Orally Once a day Active Levothyroxine Sodium 50 MCG 1 tablet Ora lly Once a day Active Losartan Potassium 100 MG 1 Orally qd Active Centrum Silver - as directed Orally Active Rosuvastatin Calcium 5 MG TAKE 1 TABLET BY MOUTH ONCE DAILY Oral for 90 Active Vitamin D3 25 MCG (1000 UT) 1 capsule Or ally Once a day for 30 day(s) Active Immunizations Vaccine Route Administration Date Status Comme nts Influenza Unknown 06/08/2020 Refused Social History Tobacco Use: Social History Observation Description Date Details (start date - stop date) Never Smoker NA - NA Tobacco Use/Smoking Question Answer Notes Patient is a nonsmoker Alcohol Screen Question Answer Notes Did you have a drink contain ing alcohol in the past year? Yes How often did you have a dri nk containing alcohol in the past year? 2 to 3 times a week (3 points) How many drinks did you have on a typical day when you were drinking in the past year? 1 or 2 drinks (0 point) How often did you have 6 or more drinks on one occasion in the past year? Never (0 point) Points 3 Interpretation Positive Section Notes: Nonsmoker; no sig alcohol Nonsmoker; no sig alcohol Nonsmoker; no sig alcohol (o cassional wine) Problems Problem Type SNOMED Code ICD Code Onset Dates Problem Status W/U Status Risk Notes Problem 490726196 Encounter for screening for malignant neoplasm of colon (Z12.11) Active confirmed Problem 818005614 History of adenomatous polyp of colon (Z86.010) Active confirmed Problem 953885554 Irritable bowel syndrome with diarrhea (K58.0) Active confirmed Problem 33625524 Hemorrhoids, unspecified hemorrhoid type (K64.9) Active confirmed Problem 26432234 Irritable bowel syndrome, unspecified type (K58.9) Active confirmed Plan Of Treatment Future Test Test Name Order Date COLONOSCOPY 07/20/2015 COLONOSCOPY 06/08/2020 Insurance Providers Payer Name Payer Address Payer Phone Subscriber Number Group Number Insured Name Patient Relationship to Insured Coverage Start Date Coverage End Date MEDICARE OF [place] [address] [place] [address] [id number] ELIZABETH RAMIREZ Self - patient is the insured [employer] [address] [place] [address] [id number] ELIZABETH RAMIREZ Self - patient is the insured Medical (General) History Medical History History ICD Code NIDDM HTN Left-sided breast cancer 1989 and 2013-- surgeries as below Denies [place],CVA,Lung disease,renal disease Hyperlipidemia Liver cysts and a hemangioma seen on a CAT scan and MRI of the abdomen in [address] Gemran in July of 2013 with a removal of a small tubular adenoma, and finding of diverticulosis and internal hemorrhoids--she also describes a negative colonoscopy about 10 years before that Colonoscopy in August 15 was completely normal, including biopsies from the terminal ileum and colon--she was started on cholestyramine with fairly good relief of her loose bowel movements Surgical History Surgery Date(Month/Year) Complete mastectomy-left--wi th reconstruction--had postop infection requiring surgeries and removal of tissue 2013 Right tibia nailing--for a fracture 2007 Lumpectomy-left 1989 Hysterectomy/bladder suspension/urethral mesh
[2025-05-14 06:04] LABS: Alanine Aminotransferase 24 U/L (0-31); Albumin Level 4.2 g/dL (3.5-5.0); Alkaline Phosphatase 70 U/L (39-117); Anion Gap 16 (12-20); Aspartate Amino Transferase 27 U/L (5-31); Blood Urea Nitrogen 11 mg/dL (9-16); Calcium 9.5 mg/dL (8.4-10.2); Carbon Dioxide 26 mmol/L (22-29); Chloride 100 mmol/L (96-108); Creatinine Clr Calc Pharmacy 36.1; Estimated Glomerular Filt Rate 47; Potassium 3.3 mmol/L (3.3-5.1); Sodium 139 mmol/L (135-145); Total Protein 7.4 g/dL (6.5-8.0)
--- NOTE | 2025-05-14 07:53 | ED.GENADULT ---
HPI - General Adult General Chief complaint: Nausea/Vomiting/Diarrhea Stated complaint: Abd pain n/v/d Time Seen by Provider: 05/14/25 07:51 Source: patient, RN notes reviewed and old records reviewed Mode of arrival: ambulatory Limitations: no limitations History of Present Illness ED Provider: Stanislaw HPI narrative: Patient is a 79-year-old female with history of recurrent UTIs, incomplete bladder emptying, HLD, HTN, hypothyroidism presenting to the emergency department with complaint of RLQ abdominal pain, nausea, vomiting, and diarrhea since around midnight. Denies hematemesis, hematochezia, or melena. Reports history of hysterectomy, denies other prior abdominal surgeries. Reports that she was profusely diaphoretic at home. Denies chest pain, palpitations, dyspnea. noting that patient has been having episodes of loose stools for several months, tried calling GI but their calls were not returned. Patient notes that her symptoms today feel different from her ongoing loose stools. MD complaint: abdominal pain Onset (ago): hour(s) Related Data Home Medications ?Medication ?Instructions ?Recorded ?Confirmed cholecalciferol (vitamin D3) 25 25 mcg PO DAILY 12/05/21 04/06/25 mcg (1,000 unit) capsule Previous Rx's ?Medication ?Instructions ?Recorded epinephrine 0.3 mg/0.3 mL 0.3 mg (0.3 mL) IM Q10M PRN 05/11/23 injection syringe anaphylaxis #2 ea metformin 500 mg tablet,extended 500 mg PO DAILY 90 days #90 tabs 07/23/24 release 24 hr trimethoprim 100 mg tablet 100 mg PO DAILY 90 days #90 tabs 01/20/25 cranberry extract 425 mg capsule 425 mg PO .COMPLEX #60 caps 02/04/25 levothyroxine 50 mcg tablet 50 mcg PO DAILY #90 tabs 03/02/25 amlodipine 10 mg tablet 10 mg PO DAILY 90 days #90 tabs 03/19/25 alfuzosin 10 mg tablet,extended 10 mg PO DAILY #90 tabs 04/06/25 release 24 hr estradiol 0.01% (0.1 mg/gram) See Rx Instructions vaginal DAILY 04/06/25 vaginal cream (Estrace) #42.5 grams cefuroxime axetil 500 mg tablet 500 mg PO Q12H #10 tabs 04/27/25 ezetimibe 10 mg tablet (Zetia) 10 mg PO DAILY 90 days #90 tabs 05/11/25 hydrochlorothiazide 12.5 mg tablet 12.5 mg PO DAILY 90 days #90 tabs 05/11/25 cefuroxime axetil 250 mg tablet 250 mg PO BID #14 tabs 05/14/25 ondansetron 4 mg disintegrating 4 mg PO Q8H PRN nausea and 05/14/25 tablet vomiting #10 tabs Allergies Allergy/AdvReac Type Severity Reaction Status Date / Time Yefnymm-MGR-MfS Reductase Allergy Intermediate Itching Verified 05/14/25 05:37 Inhibitor Sulfa (Sulfonamide Allergy Unknown ITCHING Verified 05/14/25 05:37 Antibiotics) Losartan Allergy Severe Anaphylaxis Uncoded 05/14/25 05:37 Review of Systems Review of Systems: As per HPI Yes all other systems are reviewed and are negative Constitutional: Constitutional: Reports as per HPI [facility] Past Medical History Medical History 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 Cystitis Arthralgia of left foot Strain of left biceps Pre-op evaluation Right shoulder pain Pre-diabetes Recurrent urinary tract infection Surgical History History of mastectomy History of lumpectomy History of tibial fracture History of colonoscopy History of cataract surgery History of hysterectomy Family History Family History Mother Breast cancer Father Dementia Social History Social History Housing: House Alcohol intake: current Alcohol intake frequency: a few times a month Alcohol type: other Patient Tobacco Use Status: Never used Tobacco Smoked in Last 30 Days: No e-Cigarette/Vaping Use: Never Used Second Hand Smoke Exposure: No Use of substances other than those prescribed or required for medical reasons: No Advance Directives: No Advance Directives Information Provided: Yes service: No Current occupational status: retired Current occupational exposures/hazards: No Cognitive needs: No Hearing needs: No Vision needs: Yes Physical Exam ED Vital Signs: Vital Signs - 24 hr 05/14/25 05:36 05/14/25 09:18 Temperature 97.5 F 97.7 F Pulse Rate 68 72 Respiratory Rate 20 18 Blood Pressure 146/49 H 134/61 Pulse Oximetry 100 95 Oxygen Delivery Method Room Air Room Air BMI result Body Mass Index 25.4 Vital signs have been reviewed and appear to be correct. Blood pressure normal. Heart rate normal. Respiratory rate normal. Temperature normal. Oxygen saturation normal. Const General: cooperative, healthy appearing and no acute distress Orientation/consciousness: oriented to person, oriented to place, oriented to time and patient oriented x3 Limitations: no limitations HENMT Head: Yes normocephalic and Yes atraumatic Ears: external ears normal General nose exam: Normal external nose present Face and sinus: Yes face symmetric Mouth: oropharynx normal and moist mucous membranes Throat: Yes uvula midline Eyes Pupils: Equal, round and reactive pupils present Neck Neck: Yes normal visual inspection and Yes supple Resp Effort & Inspection: normal respiratory effort and able to speak in complete sentences Auscultation: clear to auscultation bilaterally Cardio Rate: regular rate Rhythm: regular rhythm Heart sounds: S1 normal heart sound present and S2 normal heart sound present GI Palpation (GI): Soft to palpation, Tenderness to palpation present (GI) in the LLQ and in the RLQ, no guarding and No Rebound tenderness present Auscultation: normoactive bowel sounds General: Yes no CVA tenderness Back/Spine/Pelvis Back: no CVA tenderness Skin General skin exam: elasticity normal and turgor normal Neuro General: oriented to person, oriented to place, oriented to time, patient oriented x3, moves all extremities, no focal motor deficits and CN's II-XI intact bilaterally Cranial nerves: Yes Equal, round and reactive pupils present Cognition (Neuro): normal cognition Extrem General: Yes full ROM, Yes no pedal edema and Yes no calf tenderness Psych Mental Status: mental status grossly normal Affect: normal affect Thought process: Normal thought process present Medications Administered Discontinued Medications Generic Name Dose Route Start Last Admin Trade Name Freq PRN Reason Stop Dose Admin Iohexol 100 ml 05/14/25 08:58 05/14/25 08:59 Iohexol 350 Mg/Ml 100 Ml Infus..Btl IV 05/14/25 08:59 85 ml ONCE ONE Administration Medical Decision Making Medical Decision Making MDM Narrative: Patient is a 79-year-old female with history of recurrent UTIs, incomplete bladder emptying, HLD, HTN, hypothyroidism presenting to the emergency department with complaint of RLQ abdominal pain, nausea, vomiting, and diarrhea since around midnight. On exam patient is awake, A+Ox3, VS WNL, afebrile, normal neurological exam without focal deficits, physical exam findings as above. Given reported symptoms and physical exam findings, initial differential includes but is not limited to appendictis, diverticulitis, colitis, gastroenteritis. Labs notable for no leukocytosis, no significant electrolyte abnormalities. CT notable for acute inflammation of small intestine. My interpretation is in agreement with the radiologist's interpretation. Results discussed with patient and all questions answered. UA notable for 3+ leukocytes, >50 WBCs, 4+ bacteria. Treatment options discussed with patient including holding off on treatment until urine culture resulted. Patient stating that due to history of frequent UTIs, she would prefer to initiate treatment now. I am ok with this, will send prescription for cefuroxime as well as zofran. Advised to follow up with GI if she continues to have ongoing diarrhea. Return precautions discussed. Patient verbalized understanding of and agreement with plan. Differential Diagnosis Differential Diagnoses: The differential diagnosis associated with the presentation includes As per [facility] Admission/Observation Consideration of admission/observation: Escalation of care including admission/observation considered Patient would have been admitted to the hospital had their clinical presentation warranted hospital admission. Lab Data [facility] Lab Attestation statement: I reviewed the patient's lab results. As per [facility] 05/14/25 05:44 05/14/25 05:44 Labs: Lab Results 05/14/25 05/14/25 05/14/25 Range/Units 05:44 08:20 08:24 WBC 9.6 (4.8-10.8) X10*3/uL RBC 4.34 (4.20-5.50) X10*6/uL Hgb 13.4 (12.0-16.0) g/dl Hct 37.5 (37.0-47.0) % MCV 86.4 (80.0-98.0) fL MCH 30.9 (27.0-33.0) pg MCHC 35.7 H (31.0-35.0) g/dl RDW 13.1 (11.0-16.0) % Plt Count 290 (160-400) X10*3/uL MPV 8.9 L (9.4-12.3) fL Immature Gran % (Auto) 0.3 (0.0-0.4) % Neut % (Auto) 81.5 H (45-73) % Lymph % (Auto) 9.6 L (20-40) % [place] % (Auto) 7.3 (2-11) % Eos % (Auto) 0.6 (0-4) % Baso % (Auto) 0.7 (0-2) % Lymph # (Auto) 0.9 L (1.2-4.9) X10*3/uL [place] # (Auto) 0.7 (0.1-1.2) X10*3/uL Eos # (Auto) 0.1 (0.0-0.4) X10*3/uL Baso # (Auto) 0.1 (0.0-0.2) X10*3/uL Abs Immat Gran (auto) 0.03 (0.00-0.03) X10*3/uL Absolute Neuts (auto) 7.8 (2.0-8.3) x10*3/uL Absolute Nucleated RBC 0.000 (0.0-0.012) X10*3/uL Nucleated RBC % (auto) 0.0 (0.0-0.2) /100WBC Sodium 139 (135-145) mmol/L Potassium 3.3 (3.3-5.1) mmol/L Chloride 100 (96-108) mmol/L Carbon Dioxide 26 (22-29) mmol/L Anion Gap 16 (12-20) BUN 11 (9-16) mg/dL Creatinine 1.12 (0.5-1.4) mg/dL Estim Creat Clear Calc 36.1 Estimated GFR 47 Random Glucose 188 H (60-115) mg/dL Calcium 9.5 (8.4-10.2) mg/dL Magnesium 2.1 (1.6-2.6) mg/dL Total Bilirubin 0.4 (0.0-1.0) mg/dL AST 27 (5-31) U/L ALT 24 (0-31) U/L Alkaline Phosphatase 70 (39-117) U/L Total Protein 7.4 (6.5-8.0) g/dL Albumin 4.2 (3.5-5.0) g/dL Lipase 18 (8-78) U/L Urine Color Yellow Urine Appearance Cloudy Urine pH 8.0 (5.0-9.0) Ur Specific [place] 1.010 (1.005-1.025) Urine Protein Negative (Neg-Trace) mg/dL Urine Glucose (UA) Negative (Negative) mg/dL Urine Ketones Negative (Negative) mg/dL Urine Blood Negative (Negative) Urine Nitrite Negative (Negative) Ur Leukocyte Esterase Large (3+) H (Negative) Urine RBC 0-2 (0-2) /HPF Urine WBC >50 H (0-5) /HPF Ur Squamous Epith Cells 0-2 (0-2) /HPF Urine Bacteria 4+ (None Seen) Hyaline Casts 0-2 (0-2) /LPF Influenza Type A (PCR) NEGATIVE (Negative) Influenza Type B (PCR) NEGATIVE (Negative) RSV RNA Qual (PCR) NEGATIVE (Negative) SARS-CoV-2 RNA (RT-PCR) NEGATIVE (Negative) Independent Interpretation I performed an independent interpretation of an: CT Scan Interpretation: CT notable for acute inflammation of small intestine. Radiology Impression Discussion of test interpretation with radiology: I have reviewed the radiologist's reading. Radiologist Impression: CT/CT abdomen pelvis w IV con IMPRESSION: Acute inflammatory versus infectious process versus autoimmune disease involving mostly the small intestine. Ischemic etiology seems less likely. External Record Review External record reviewed: Inpatient record, Office record and Outpatient record Prescription Management I considered prescription management with: Antibiotic and Other Discharge Plan Discharge Clinical Impression: Gastroenteritis UTI (urinary tract infection) Qualifiers: Urinary tract infection type: acute cystitis Hematuria presence: without hematuria Qualified Code(s): N30.00 - Acute cystitis without hematuria Patient Disposition: Home, Self-Care Instructions: Urinary Tract Infection in Women (DC), Gastroenteritis (DC), Acute Nausea and Vomiting (DC), Acute Diarrhea (ED) Additional Instructions: You have been evaluated in the emergency department today for nausea, vomiting, and diarrhea. Your evaluation suggests that your symptoms are most likely due to a viral illness which will improve on it's own with rest and fluids. Remember to drink plenty of fluids at home. You are being prescribed ondansetron which you can use as per the prescription instructions for nausea. Your urine also showed evidence of infection and you are being treated with antibiotics for a UTI. Complete the full course of antibiotics as prescribed even in symptoms improve. Follow up with the residential carpet installer for ongoing diarrhea/other symptoms. Please follow up with your primary care provider within two days. Return to the emergency department if you experience worsening or uncontrolled pain, inability to tolerate fluids by mouth, difficulty breathing, fevers 100.4? F or greater, recurrent vomiting, or any other concerning symptoms. Prescriptions: New ondansetron 4 mg tablet,disintegrating 4 mg PO Q8H PRN (Reason: nausea and vomiting) Qty: 10 0RF cefuroxime axetil 250 mg tablet 250 mg PO BID Qty: 14 0RF No Action epinephrine 0.3 mg/0.3 mL syringe 0.3 mg IM Q10M PRN (Reason: anaphylaxis) Qty: 2 0RF Rx Instructions: for 2 doses cranberry extract 425 mg capsule 425 mg PO .COMPLEX Qty: 60 3RF Rx Instructions: 425 mg orally one to 2 x daily with meals; administer with meals levothyroxine 50 mcg tablet 50 mcg PO DAILY Qty: 90 0RF amlodipine 10 mg tablet 10 mg PO DAILY 90 Days Qty: 90 0RF ezetimibe [Zetia] 10 mg tablet 10 mg PO DAILY 90 Days Qty: 90 2RF hydrochlorothiazide 12.5 mg tablet 12.5 mg PO DAILY 90 Days Qty: 90 0RF cholecalciferol (vitamin D3) 25 mcg (1,000 unit) capsule 25 mcg PO DAILY metformin 500 mg tablet extended release 24 hr 500 mg PO DAILY 90 Days Qty: 90 3RF trimethoprim 100 mg tablet 100 mg PO DAILY 90 Days Qty: 90 1RF cefuroxime axetil 500 mg tablet 500 mg PO Q12H Qty: 10 0RF phenazopyridine 200 mg tablet 200 mg PO ONCE Qty: 1 0RF alfuzosin 10 mg tablet extended release 24 hr 10 mg PO DAILY Qty: 90 2RF Rx Instructions: administer after the same meal each day estradiol [Estrace] 0.01 % (0.1 mg/gram) cream See Rx Instructions vaginal DAILY Qty: 42.5 1RF Rx Instructions: Use pea-sized amount on fingertip apply at bedtime into vaginal area daily; Referrals: [facility] [place]Provider Group, Gastroenterology] - 1 week Referral Note: chronic diarrhea Print Language: Hebrew
--- NOTE | 2025-05-14 07:54 | ECG_ITS ---
Test Reason : ABD PAIN Blood Pressure : */* mmHG Vent. Rate : 65 BPM Atrial Rate : 65 BPM P-R Int : 204 ms QRS Dur : 84 ms QT Int : 430 ms P-R-T Axes : 86 23 72 degrees QTcB Int : 447 ms Normal sinus rhythm Possible Anterior infarct , age undetermined Abnormal ECG When compared with ECG of 20-Sep-2023 13:46, Nonspecific T wave abnormality, improved in Lateral leads Referred By: Sandy Dover Electronically Signed By: Jose Osorio
[2025-05-14 08:31] LABS: Appearance Urine Cloudy; Glucose Urine UA Negative (Negative); PH 8.0 (5.0-9.0); Specific Gravity - Urine 1.010 (1.005-1.025); UMIC TRIGGER UACC YES
[2025-05-14 08:33] LABS: UACC Culture Trigger YES
[2025-05-14 08:41] LABS: Lipase 18 U/L (8-78); Magnesium 2.1 mg/dL (1.6-2.6)
[2025-05-14] MEDS: iohexoL 350 MG/ML 100 ML INFUS..BTL IV (08:59)
[2025-05-14 09:03] LABS: Resp Syncy Virus RNA Qual PCR NEGATIVE (Negative); SARS COV2 PCR INHOUSE NEGATIVE (Negative)
[2025-05-14 09:18] VITALS: BP 134/61; PULSE 72; RESP 18; TEMP 36.5; O2SAT 95
[2025-05-14 10:41] VITALS: BP 130/64; PULSE 72; RESP 18; TEMP 36.5; O2SAT 96
== END 2025-05-14 11:02 | disposition home or self-care (01) ==
PROVIDERS: Registered Nurse Emergency; Emergency Provider Emergency Medicine; PCP Physician Assistant
DX: K52.9 Noninfective gastroenteritis and colitis, unspecified (principal); N39.0 Urinary tract infection, site not specified; R31.9 Hematuria, unspecified; E78.5 Hyperlipidemia, unspecified; Z03.818 Encounter for observation for suspected exposure to other biological agents ruled out; R11.2 Nausea with vomiting, unspecified; R10.31 Right lower quadrant pain
CPT/HCPCS: 36415; 74177; 80053; 81001; 83690; 83735; 85025; 87086; 87088; 87186; 87637; 93005; 99284; 99285; Q9967

== ENCOUNTER → 2025-05-14 07:54 | Outpatient (BNV) | payer MEDICARE, OTHER, SELFPAY | PROVIDERS: Emergency Provider Emergency Medicine; PCP Physician Assistant; Visit Provider Internal Medicine Cardiovascular Disease | DX: R94.31 Abnormal electrocardiogram [ECG] [EKG] (principal); R10.31 Right lower quadrant pain | CPT/HCPCS: 93010 ==

== ENCOUNTER → 2025-05-14 08:09 | Outpatient (BNV) | payer MEDICARE, OTHER, SELFPAY | PROVIDERS: Emergency Provider Emergency Medicine; PCP Physician Assistant; Visit Provider Radiology Diagnostic Radiology | DX: R10.31 Right lower quadrant pain (principal) | CPT/HCPCS: 74177 ==

== ENCOUNTER 2025-05-25 10:57 | Outpatient (AMB) | payer MEDICARE, OTHER, SELFPAY ==
--- NOTE | 2025-05-25 11:23 | MHC.PC.OV ---
Vital Signs 05/25/25 11:25 Height 5 ft 2 in Weight 140 lb 6 oz BMI 25.7 BP 130/66 Blood Pressure Location Lt brachial Position Sitting Pulse 68 Pulse Source Pulse Oximeter Temp 97.1 F Temp Source Temporal Artery Scan Pulse Oximetry (%) 96 Oxygen Delivery Method Room Air Intake Visit Reasons: [facility] [place] 05/14 Abd pain n/v/d Intake Note: Patient is here to follow-up after a visit the emergency department at [facility] [place] on 05/14/25 Multimedia Educational Specialist Required: No Barrel Scraper: Not Required per policy Accompanied by: Self / Same As Patient Allergies Ymvthhu-FCT-PuV Reductase Inhibitor Allergy (Intermediate, Verified 05/25/25 11:48) Itching Sulfa (Sulfonamide Antibiotics) Allergy (Unknown, Verified 05/25/25 11:48) ITCHING Losartan Allergy (Severe, Uncoded 05/25/25 11:48) Anaphylaxis Medication List - Last Reconciled 05/25/25 by Rehan Guillaume PA-C alfuzosin ER 10 mg PO DAILY amlodipine 10 mg PO DAILY 90 days cefuroxime axetil 250 mg PO BID cholecalciferol (vitamin D3) 25 mcg PO DAILY cranberry extract 425 mg orally one to 2 x daily with meals; administer with meals epinephrine 0.3 mg (0.3 mL) IM Q10M PRN estradiol 0.01%(0.1mg/gram) (Estrace) Use pea-sized amount on fingertip apply at bedtime into vaginal area daily; ezetimibe (Zetia) 10 mg PO DAILY 90 days hydrochlorothiazide 12.5 mg PO DAILY 90 days levothyroxine 50 mcg PO DAILY metformin ER 500 mg PO DAILY 90 days ondansetron 4 mg PO Q8H PRN trimethoprim 100 mg PO DAILY 90 days Tobacco use date assessed: 05/25/25 Fall risk assessment: No Falls in past year Last assessed Fall Risk: 05/25/25 Dental Screening Dental Screen Date: 01/20/25 HPI [facility] [place] 05/14 Abd pain n/v/d HPI Details Patient is a 79-year-old female here today for an ER follow-up visit. The patient initially visited the emergency room due to severe stomach pain, which was diagnosed as viral gastroenteritis. The pain was initially suspected to be related to appendicitis due to its severity, but this was ruled out. The patient was prescribed anti-nausea medication, which alleviated the pain. During the same visit, the patient was diagnosed with a urinary tract infection, for which she received antibiotic treatment. The patient has a history of recurrent urinary tract infections and has been referred to a urologist for further evaluation. She has been prescribed alfuzosin to aid in urination and uses it intermittently to prevent urinary retention. Urinalysis showing positive bacterial culture. 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 Cystitis Arthralgia of left foot Strain of left biceps Pre-op evaluation Right shoulder pain Pre-diabetes Recurrent urinary tract infection Surgical History History of mastectomy History of lumpectomy History of tibial fracture History of colonoscopy History of cataract surgery History of hysterectomy Family History Mother Breast cancer Father Dementia Social History Housing: House Alcohol intake: current Alcohol intake frequency: a few times a month Alcohol type: other Patient Tobacco Use Status: Never used Tobacco e-Cigarette/Vaping Use: Never Used Second Hand Smoke Exposure: No service: No Current occupational status: retired Current occupational exposures/hazards: No Cognitive needs: No Hearing needs: No Vision needs: Yes Questionnaire PHQ-9 Over the last 2 weeks, how often have you been bothered by any of the following problems? 1. Little interest or pleasure in doing things: not at all 2. Feeling down, depressed, or hopeless: not at all 3. Trouble falling or staying asleep, or sleeping too much: not at all 4. Feeling tired or having little energy: not at all 5. Poor appetite or overeating: not at all 6. Feeling bad about yourself - or that you are a failure or have let yourself or your family down: not at all 7. Trouble concentrating on things, such as reading the newspaper or watching television: not at all 8. Moving or speaking so slowly that other people could have noticed. Or the opposite - being so fidgety or restless that you have been moving around a lot more than usual: not at all 9. Thoughts that you would be better off or of hurting yourself in some way: not at all Total score: 0 Depression Screening Interpretation: Negative Depression Screening Done: Yes 51732 - PHQ-9 Billing: Yes Source: Developed by Drs. Martin Johnson, Constance Ross, Juan Garrido and colleagues, with an educational louis from [employer]. Thrive Questionnaire Date Thrive assessed: 05/23/25 I am a: Patient What is your living situation today?: I have a steady place to live Within the past 12 months, did the food you bought not last and you didn't have the money to get more?: Never true Within the past 12 months, did you worry whether your food would run out before you got money to buy more?: Never true Do you have trouble paying for medicines?: No Do you have trouble getting transportation to medical appointments?: No Do you have trouble paying your heating and electricity bill?: No Do you have trouble taking care of your child, family member or friend?: No Do you have trouble with day-to-day activities such as bathing, preparing meals, shopping, managing finances, etc.?: No Are you currently unemployed and looking for a job?: No Are you interested in more education?: No Please select the resources that you would like help with: None Currently or been in a relationship where the following occur: No concerns reported THRIVE Score: 0 AUDIT C Alcohol Use Questionnaire (AUDIT-C) 1. How often do you have a drink containing alcohol?: 2-3 times a week 2. How many drinks containing alcohol do you have on a typical day when you are drinking?: 1 or 2 Total Score: 3 ELFEGO-7 AMB Questionnaire ELFEGO-7 Date ELFEGO - 7 assessed: 05/25/25 Feeling nervous, anxious, or on edge: 0 = Not at all Not being able to stop or control worryin = Not at all Worrying too much about different things: 0 = Not at all Trouble relaxin = Not at all Being so restless that it is hard to sit still: 0 = Not at all Becoming easily annoyed or irritable: 0 = Not at all Feeling afraid as if something awful might happen: 0 = Not at all Total ELFEGO-7 score (0-4 normal; 5-9 mild; 10-14 moderate; 15-21 severe): 0 Source: Developed by Drs. Martin Johnson, Constance Ross, Juan Garrido and colleagues, with an educational louis from [employer]. Review of Systems Const Denies headache(s) Eyes Denies loss of vision ENT Denies vertigo, Denies dizziness, Denies headache(s) and Denies sore throat Card Denies chest pain, Denies leg edema and Denies lightheadedness Resp Denies cough, Denies hemoptysis and Denies wheezing GI Denies abdominal pain, Denies melena, Denies constipation, Denies diarrhea and Denies vomiting Denies urinary frequency, Denies dysuria and Denies urinary urgency Musc Denies arthralgias, Denies joint swelling, Denies numbness and Denies tingling Neuro Denies Abnormal speech present, Denies behavioral changes, Denies vertigo, Denies dizziness, Denies headache(s), Denies loss of vision, Denies memory loss, Denies numbness and Denies tingling Psych Denies anxiety, Denies behavioral changes, Denies depression, Denies memory loss and Denies panic attacks Hal/Lymph Denies easy bleeding and Denies easy bruising Aller/Immun Denies wheezing Physical exam (Primary Care) Vital Signs: Last Vital Signs Temp 97.1 F 05/25/25 11:25 Pulse 68 05/25/25 11:25 BP 130/66 05/25/25 11:25 Pulse Ox 96 05/25/25 11:25 Oxygen Delivery Method Room Air 05/25/25 11:25 BMI result Body Mass Index 25.7 Tobacco/Smoking Status: Tobacco use Status Tobacco use date assessed 05/25/25 05/25/25 11:42 Patient Tobacco Use Status Never used Tobacco 05/25/25 11:42 e-Cigarette/Vaping Use Never Used 05/25/25 11:42 PHQ-9: PHQ-9 Score PHQ-9: Total score 0 05/25/25 11:42 Depression Screening Interpretation: Negative Thrive Assessment: Date of Thrive Assessment Date Thrive assessed 05/23/25 05/25/25 11:42 Currently or been in a relationship where the following occur: No concerns reported Const General: healthy appearing, no acute distress, alert and awake Nutritional Appearance: well nourished Orientation/consciousness: oriented to person, oriented to place and oriented to time HENMT Ears: TM's normal bilaterally General nose exam: Normal nasal mucous membranes and turbinates present Eyes Conjunctivae: conjunctivae normal Sclerae: sclerae normal Pupils: Equal, round and reactive pupils present Neck Neck: Yes no lymphadenopathy and Yes no JVD Thyroid: Thyroid normal Carotids: no bruits Resp Effort & Inspection: normal respiratory effort and not tachypneic Auscultation: no crackles, no rales, no rhonchi and no wheezes Cardio Rate: regular rate Rhythm: regular rhythm Heart sounds: no murmurs and normal S1 and S2 GI Palpation (GI): Soft to palpation, nontender, no hepatomegaly and no splenomegaly Auscultation: normal bowel sounds Skin General skin exam: no rashes or lesions noted and dry skin Neuro General: oriented to person, oriented to place and oriented to time Cranial nerves: Yes Equal, round and reactive pupils present Speech: No Abnormal speech present Gait exam (Neuro): Normal gait present Motor exam (neuro): no tremor noted Extrem Right upper extremity: full ROM Left upper extremity: full ROM Right lower extremity: full ROM; no edema Left lower extremity: full ROM; no edema Psych Mental Status: mental status grossly normal Speech and movement: Normal speech and movement present Affect: normal affect Attitude: cooperative Thought process: Normal thought process present Coding Level of Care Code Est Pt Level 4 (63753) Diagnoses Cystitis with hematuria N30.91 Incomplete bladder emptying R33.9 Gastroenteritis K52.9 Additional Codes PHQ-9 - 40277 - PHQ-9 Billing: Yes ([id number]) Assessment & Plan Assessment & Plan (1) Cystitis with hematuria: Code(s): N30.91 - Cystitis, unspecified with hematuria Category: Medical Plan: As per HPI patient was found to have acute cystitis, she has recurrent cystitis to which she is seeing a urologist for. Has Estrace cream and alfuzosin available to her. She has had bladder outlet obstruction due to urethral stricture and has had a dilation which has been helpful. (2) Incomplete bladder emptying: Code(s): R33.9 - Retention of urine, unspecified Category: Medical Plan: Due to urethral obstruction, followed by Urology and has had urethral dilation. Does have alfuzosin available to her though she had reports only using it a few times a week. (3) Gastroenteritis: Code(s): K52.9 - Noninfective gastroenteritis and colitis, unspecified Category: Medical Plan: Has resolved
[2025-05-25 11:25] VITALS: BP 130/66; PULSE 68; TEMP 36.2; O2SAT 96; BMI 25.7
--- OUTSIDE RECORDS SUMMARY | 2025-05-25 12:08 | XMS_ITS | Patient Health Record ---
Author Organization [facility] Address [address] [place] [address] Care Team Providers Care Textile Screen Printer Name Role Phone Aleah (RETIRED) Martin BROWER Primary Care Provid er Unavailable Martin De Los Santos Unavailable [phone] Allergies Allergen (clinical drug ingredient) Drug/Non Drug [...] Problem Status W/U Status Risk Notes Problem 996044707 Encounter for screening for malignant neoplasm of colon (Z12.11) Active confirmed Problem 022126680 History of adenomatous polyp of colon (Z86.010) Active confirmed Problem 345314762 Irritable bowel syndrome with diarrhea (K58.0) Active confirmed Problem 46459116 Hemorrhoids, unspecified hemorrhoid type (K64.9) Active confirmed Problem 90899262 Irritable bowel syndrome, unspecified type (K58.9) Active confirmed Plan Of Treatment Future Test Test Name Order Date COLONOSCOPY 07/20/2015 COLONOSCOPY 06/08/2020 Insurance Providers Payer Name Payer Address Payer Phone Subscriber Number Group Number Insured Name Patient Relationship to Insured Coverage Start Date Coverage End Date MEDICARE OF [place] [address] [place] [address] [id number] ELIZABETH RAMIREZ Self - patient is the insured [employer] [address] [place] [address] [id number] ELIZABETH RAMIREZ Self - patient is the insured Medical (General) History Medical History History ICD Code NIDDM HTN Left-sided breast cancer 1989 and 2013-- surgeries as below Denies [place],CVA,Lung disease,renal disease Hyperlipidemia Liver cysts and a hemangioma seen on a CAT scan and MRI of the abdomen in [address] German in July of 2013 with a removal [...]
--- OUTSIDE RECORDS SUMMARY | 2025-05-25 12:08 | XMS_ITS | Patient Health Record ---
[facility] Address [address] [place] [address] Care Team Providers Care Catcher Helper Name Role Phone Rehan Guillaume Primary Care Provider Unavailab bethany Saba Diane Unavailable [phone] Allergies Allergen (clinical drug ingredient) Drug/Non Drug Allergy documented on EMR Reaction Allergy Type Onset Date Status sulfamethoxazole / trimethoprim Bactrim Unknown Drug Allergy Active losartan Losartan Potassium anaphylaxis Drug Allergy Active Substance with 9-ezyqnrc-4-methylglutar yl-coenzyme A reductase inhibitor mechanism of action (substance) Statins itching Drug Allergy Active Substance with sulfonamide structure and antibacterial mechanism of action (substance) Sulfa Antibiotics itching Drug Allergy Active Reason For Referral No Information Medications Medication SIG (Take, Route, Frequency, Duration) Notes Start Date End Date Status Tillar 3 1000 MG 1 capsule Orally Once [...] HCl 500 MG 1 tablet with a mangus l Orally Once a day; Duration: 30 [...] Problem Acquired hammer toe of left foot ([id number] 3) Other hammer toe(s) (acquired), left foot (M20.42) Active confirmed Problem Type II diabetes mellitus without complication (335500978) Type 2 diabetes mellitus without complications (E11.9) Active confirmed Plan Of Treatment Pending Test Test Name Order Date Hemoglobin A1c 09/26/2023 X ray : Foot, left 3V 08/01/2023 X ray : Foot, left 3V 10/05/2023 13052- Debride <25 sq cm 12/05/2021 Insurance Providers Payer Name Payer Address Payer Phone Subscriber Number Group Number Insured Name Patient Relationship to Insured Coverage Start Date Coverage End Date Medicare [facility] [address] [place]ait[place] alvarez [phone] [id number] Lizzeth Farley Self - patient is the insured [employer] Supplement [address] [place] [phone] [id number] Lizzeth Farley Self - patient is the [...] Exostectomy L5th P/B Hospitalization History Reason Date(Month/Year) [facility] [place]- Pneumonia and Pleurisy 3 days 02/22 [facility] [place]- Pelvic Ultrasound 10/06/2004 [facility] [place]- Bone Density Scan 12/25/2006 Bradycardia, right distal ti vero and fibula fractured closed reduction and cast 03/30/2007 [facility] [place]- right tibia intramedullary nailing for fracture 11/27/2007 [facility] [place]- tibial infection, absce ss, right lower leg, incision and drainage of abscess 08/13/2008 [facility]- Chest X-ray 05/23/2021 [facility]- UTI 05/27/2021
== END 2025-05-25 11:56 | disposition home or self-care (01) ==
LOC: HO.HMCH 10:59
PROVIDERS: PCP Physician Assistant; Visit Provider Physician Assistant
DX: N30.91 Cystitis, unspecified with hematuria (principal); R33.9 Retention of urine, unspecified; K52.9 Noninfective gastroenteritis and colitis, unspecified

== ENCOUNTER → 2025-05-25 10:57 | Outpatient (BNVA) | payer MEDICARE, OTHER, SELFPAY | PROVIDERS: PCP Physician Assistant; Visit Provider Physician Assistant | DX: N30.91 Cystitis, unspecified with hematuria (principal); R33.9 Retention of urine, unspecified; K52.9 Noninfective gastroenteritis and colitis, unspecified | CPT/HCPCS: 96127; 99212 ==

== ENCOUNTER 2025-07-09 08:27 | Outpatient (REF) | payer MEDICARE, OTHER, SELFPAY | END 2025-07-09 08:28 | disposition home or self-care (01) | LOC: HO.LAB 08:27 | PROVIDERS: PCP Physician Assistant; Visit Provider Urology | DX: N30.91 Cystitis, unspecified with hematuria (principal); N20.0 Calculus of kidney; N95.2 Postmenopausal atrophic vaginitis; R30.0 Dysuria; R33.9 Retention of urine, unspecified | CPT/HCPCS: 81003; 88112; 99212 ==

== ENCOUNTER 2025-07-09 08:27 | Outpatient (AMB) | payer MEDICARE, OTHER, SELFPAY ==
--- NOTE | 2025-07-09 08:43 | A.OFFVIS_ITS ---
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 Required: No Accompanied by: Self / Same As Patient Allergies Kifcotd-TOM-VmB Reductase Inhibitor Allergy (Intermediate, Verified 07/09/25 08:47) Itching Sulfa (Sulfonamide Antibiotics) Allergy (Unknown, Verified 07/09/25 08:47) ITCHING Losartan Allergy (Severe, Uncoded 05/25/25 11:48) Anaphylaxis Medication List - Last Reconciled 07/09/25 by Tina Vela MD alfuzosin ER 10 mg PO DAILY amlodipine 10 mg PO DAILY 90 days cholecalciferol (vitamin D3) 25 mcg PO DAILY cranberry extract 425 mg orally one to 2 x daily with meals; administer with meals epinephrine 0.3 mg (0.3 mL) IM Q10M PRN estradiol 0.01%(0.1mg/gram) (Estrace) Use pea-sized amount on fingertip apply at bedtime into vaginal area daily; ezetimibe (Zetia) 10 mg PO DAILY 90 days hydrochlorothiazide 12.5 mg PO DAILY 90 days levothyroxine 50 mcg PO DAILY metformin ER 500 mg PO DAILY 90 days methenamine hippurate 1 g orally take bid for 30 days then take one tablet daily; take bid for 30 days then take one tablet daily ondansetron 4 mg PO Q8H PRN HPI Comments Details: 07/09/25--Lizzeth is a 79-year-old female who is followed for recurrent UTIs and lower urinary tract symptoms of incomplete bladder emptying. She is on alfuzosin and estradiol. Bladder scan PVR today is 39 mL. In review of the chart the patient had a CAT scan abdomen and pelvis in May a 2 mm left kidney stone was noted no hydronephrosis bladder wall small diverticuli. History of Present Illness The patient is a 79-year-old female presenting with recurrent urinary tract infections and lower urinary tract symptoms of incomplete bladder emptying. She has been experiencing these symptoms for some time and is currently on alfuzosin and estradiol for management. Her post-void residual volume today is 39 mL, indicating some improvement in bladder emptying. The patient had a CAT scan of the abdomen and pelvis in May, which revealed a 2 mm left kidney stone and bladder wall diverticulae, but no hydronephrosis was noted. She recalls visiting the emergency room in May due to right lower quadrant pain, and was diagnosed with diverticulitis. Antibiotics were administered, and she reported improvement following the treatment. Urine culture was checked at that time which also came back positive for Enterococcus. I have discussed starting Hiprex 1 g b.i.d. for 30 days and then continue daily. She states she stopped the daily trimethoprim. We will send urine for cytology. Continue alfuzosin and Estrace and cranberry. Results - CAT scan of abdomen and pelvis: 2 mm left kidney stone, bladder wall diverticulae, no hydronephrosis - Post-void residual volume: 39 mL 04/06/25--Lizzeth is a 77-year-old female who was last seen in the office on 02/05/2025. She is followed for recurrent UTIs and has had urinary symptoms of incomplete bladder emptying. She has had prior pelvic surgery. She is here for repeat office cystoscopy. Cystoscopy findings: Moderate trabeculations with weakened areas forming diverticuli posterior wall, no mesh visualized, no suspicious bladder lesions visualized. History of Present Illness The patient is a 79-year-old female presenting with recurrent urinary tract infections and incomplete bladder emptying. She has reported persistent urinary symptoms, particularly the sensation of incomplete bladder emptying likely exacerbated by a prior pelvic surgery. A recent bladder ultrasound showed a significant post-void residual, and mild bilateral hydronephrosis was noted on a renal ultrasound. The patient had previous cystoscopy and urethral dilation procedures. Her history is further complicated by prior breast cancer with subsequent mastectomy, which influences decisions regarding estrogen therapy for post- hysterectomy symptoms. The conversation addressed low-dose estrogen cream and acknowledged cystoscopy findings of bladder diverticula as a result of chronic incomplete voiding. Plan Estrogen cream pea-sized amount applied to vagina at bedtime daily, Alfuzosin 10 mg daily, Continue trimethoprim suppressive antibiotic therapy, Monitor postvoid residual. Results - Bladder ultrasound on 02/03/25: Elevated post-void residual of 257 mL - Renal ultrasound on 03/31/25: Mild bilateral hydronephrosis 02/05/25--The patient's history includes pelvic surgery involving transvaginal tape placement, later revised due to urinary retention. Her recent UTI treatment addressed a Pseudomonas infection, resolved with antibiotic care, as indicated by a follow-up urine culture showing no growth. Despite this resolution, she still experiences urinary discomfort and incomplete voiding. The urinalysis conducted currently indicates a post-void residual of 237 mL, consistent with prior findings, and suggests ongoing urinary retention. She reports urinary urgency and dysuria, with persistent discomfort while voiding. I discussed with the patient her ongoing urinary symptoms and reviewed the previous management steps, including antibiotic treatments. Discussed further diagnostic evaluations, including a kidney ultrasound and office cystoscopy, to identify any underlying pathology contributing to urinary retention. 05/22/24--Lizzeth is a 78-year-old female who presents today to the office for a follow-up. She states she is doing well. She has had recurrent UTIs and lower urinary tract symptoms of urgency and urinary hesitancy. The patient has history of pelvic surgery including TVT that needed to be loosen due to urinary retention. Workup included cystoscopy on 08/22/2023 urethral dilation was done at that time. The patient states she has been doing well since urethral dilation. The patient is currently managed with daily cranberry supplements. Urinalysis 2+ blood, leukocytes trace. 11/23/23- - Lizzeth states she is doing well. Denies recurrent UTI symptoms. She ran out of cranberry and had a problem getting it refilled, she has changed her insurance coverage. I will still send a new script but if it is not covered she will get it OTC. 08/22/23? She is followed today for a Cystoscopy procedure. She was last seen by me on 07/20/23 for cystitis.? The Patient has a history of total vaginal hysterectomy, apical repair, with left uterosacral ligament suspension and right sacrospinous ligament suspen, with midurethral sling TVT done on 11/18/2017. She states about a week later they had to re-operate to loosen the sling as she was in retention. Cystoscopy findings: Urethral meatus was tight and required urethral dilation, it was dilated from 14 Liberian to 20 Liberian; bladder was visualized; there was no suspicious bladder lesions noted; there was no mesh visualized in the bladder, on the left lateral wall there were some changes of the bladder wall to small diverticuli. Doxycycline 100 mg BID for 5 days due to urethral dilation. Pt has history of breast cancer and I will hold on any estrogen therapy. Empirically start her on cranberry supplementation. US results from 08/03/23 revealed? no calculi or focal parenchymal lesions.? Urine culture results from 07/20/23 which came back Escherichia coli > 100,000 cfu/mL. Urine culture results from 05/30/2023 which came back Enterococcus faecalis? > 100,000 cfu/mL. 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 Cystitis Arthralgia of left foot Strain of left biceps Pre-op evaluation Right shoulder pain Pre-diabetes Recurrent urinary tract infection Surgical History History of mastectomy History of lumpectomy History of tibial fracture History of colonoscopy History of cataract surgery History of hysterectomy Family History (Reviewed 07/09/25 @ : by Tina Vela MD) Mother Breast cancer Father Dementia Social History Housing: House Alcohol intake: current Alcohol intake frequency: a few times a month Alcohol type: other Patient Tobacco Use Status: Never used Tobacco e-Cigarette/Vaping Use: Never Used Second Hand Smoke Exposure: No service: No Current occupational status: retired Current occupational exposures/hazards: No Cognitive needs: No Hearing needs: No Vision needs: Yes Review of Systems Const All systems reviewed & are unremarkable except as noted in HPI and below Reports no additional complaints Eyes Reports no additional complaints ENT Reports no additional complaints Card Reports no additional complaints Resp Reports no additional complaints GI Reports no additional complaints Reports as per HPI Musc Reports no additional complaints Skin/Breast Reports system reviewed and no additional complaints, except as documented Neuro Reports no additional complaints Psych Reports no additional complaints Endo Reports no additional complaints Hal/Lymph Reports no additional complaints Aller/Immun Reports no additional complaints Results Reviewed Results Reviewed: Collected: 05/14/25-UNK Status: COMP Req#: [id number] Received: 05/14/25 Source: [facility] Sp Desc: Clean Cat Subm Dr: Rosie Smith MD Ordered: Urine Culture Procedure Result Verified Urine Culture Final 05/16/25 Organism 1 Enterococcus faecalis Quant > 100,000 cfu/mL E faecalis M.I.C. RX --------- --- Ampicillin <=2 S Levofloxacin 0.5 S Nitrofurantoin <=16 S Tetracycline >=16 R Vancomycin 1 S Date of Service: 05/14/25 EXAMINATION: CT ABDOMEN AND PELVIS WITH CONTRAST CLINICAL INFORMATION: Right lower quadrant abdominal pain COMPARISON: March 25, 2024. TECHNIQUE: Multidetector volumetric images were obtained from the superior aspect of the liver through the pubic symphysis following administration 85 mL of Omnipaque 350 intravenous contrast. Sagittal and coronal reformatted images were obtained on the technologist's workstation. Oral contrast: No This CT examination was performed using dose optimization techniques as appropriate, variously including the following: *Automated exposure control *Adjustment of mA and/or kV according to patient size (this includes techniques or standardized protocols for targeted exams where dose is matched to indication/reason for exam; i.e. extremities or head) *Use of iterative reconstruction technique DLP: 440 mg centimeter. FINDINGS: LUNG BASES: Centrilobular emphysematous changes. Patchy and nodular attenuation, right middle lung lobe. LIVER, GALLBLADDER, AND BILIARY TREE: Liver measures 15 cm. 2 mm hypodensities too small to be fully characterized by CT. Portal veins, hepatic veins and intrahepatic portion of the IVC are patent. No pericholecystic fluid collection or gallbladder wall thickening. No intrahepatic or extrahepatic biliary ductal dilatation. PANCREAS: No focal lesion. No peripancreatic fluid collection. No main pancreatic ductal dilatation. SPLEEN: 8 cm. No focal mass. ADRENAL GLANDS: No nodular lesions. KIDNEYS AND URETERS: No hydronephrosis. 2 mm nonobstructing calculus, lower pole left pelvicalyceal system. lobulations. No renal mass. Normal enhancement pattern of the renal parenchyma. No dilatation of the ureters. BLADDER: Fluid-filled. Trabeculation and the lateral nunn with the small diverticula. GASTROINTESTINAL TRACT: Intestinal wall thickening with gas and fluid-filled prominent small bowel loops. Fecal material, small intestine. No pneumatosis intestinalis. The appendix appears normal. Abundant stool, large intestine. No intestinal obstruction pattern. Ascites, small volume. No peripheral enhancing fluid collections, peritoneal cavity. No pneumoperitoneum. Small hiatal hernia. ABDOMINAL WALL: No gross umbilical hernia. LYMPH NODES: No specific prominent retroperitoneal. VASCULAR: Mixed plaques throughout the abdominal aorta wall and iliac arteries the mesenteric arteries, the splenic artery and at the origin of the mesenteric arteries and main renal arteries. No aneurysm or dissection, abdominal aorta. Calcified plaques in the coronary arteries. PELVIC VISCERA: Absent uterus. OSSEOUS STRUCTURES: Multilevel thoracolumbar spondylosis.. Tarlov cysts, sacrum. IMPRESSION: Acute inflammatory versus infectious process versus autoimmune disease involving mostly the small intestine. Ischemic etiology seems less likely. Date of Service: 03/31/25 CLINICAL HISTORY: N39.0 - Urinary tract infection, site not specified Retroperitoneal ultrasound Comparison: US/OR/SR - US BLADDER - 02/03/25 14:25 EDT US/SR - US RENAL BI - 08/03/23 09:46 EDT Findings: The kidneys are normal in echotexture bilaterally. The kidneys are lobular in contour. Minimal bilateral hydronephrosis. Left nephrolithiasis measures 7 mm. The right kidney is normal in size, measuring 8.2 cm in length. Parenchymal calcification measuring 3 mm. The left kidney is normal in size, measuring 9.9 cm in length. Impression: Minimal bilateral hydronephrosis can be seen in the setting of infection. Correlate with urinalysis. Date of Service: 02/03/25 EXAMINATION: US BLADDER HISTORY: N39.0 - Urinary tract infection, site not specified COMPARISON: There are no prior studies for comparison. FINDINGS: Sonographic examination of the urinary bladder was performed before and after voiding. Before voiding, the urinary bladder measured 13.6 x 8.9 x 11.4, for an estimated volume of728 mL. After voiding, the urinary bladder measured 9.0 x 6.6 x 8.3, for an estimated volume of 257 mL. No intrinsic bladder abnormality is identified. Bilateral ureteral jets are identified. IMPRESSION: Post void bladder residual of 257 mL. No intrinsic bladder abnormality is identified. Collected: 12/22/24-UNK Status: COMP Req#: [id number] Received: 12/22/24 Source: [facility] Sp Desc: Clean Cat Subm Dr: Lizzeth Boudreaux NP Ordered: Urine Culture Procedure Result Verified Urine Culture Final 12/26/24 Organism 1 Pseudomonas aeruginosa Quant 50,000 to 100,000 cfu/mL P aerugino M.I.C. RX --------- --- Cefepime 0.5 S Ciprofloxacin 0.12 S Gentamicin <=1 S Meropenem 0.5 S Piperacillin/Tazobactam <=4 S Ordered:? Urine Culture? Procedure?Result?Verified?Site ? Urine Culture? Final?07/22/23 ? ? ?Organism 1?Escherichia coli ? Quant?> 100,000 cfu/mL ? E coli? M.I.C.? ? RX? --------- ---?Ampicillin?8? S?Ceftriaxone? <=0.25? ? ?S?Gentamicin?<=1? S?Levofloxacin?>=8? R?Nitrofurantoin?<=16?S?Trimethoprim/Sulfamethoxazole? >=320? ? ? R?? Date of Service: 08/03/23 EXAMINATION:? US RETROPERITONEAL LIMITED (RENAL ONLY) CLINICAL INFORMATION: Cystitis, unspecified without hematuria. COMPARISON:? Ultrasound abdomen complete 07/04/2018. FINDINGS: RIGHT KIDNEY: 8.2 x 5.5 x 5.0 cm (SAG x AP x TRV). The kidney is normal in size, contour, and echogenicity. There are persistent lobulations. Renal cortical thickness is normal. No calculi or focal parenchymal lesions. No hydronephrosis. LEFT KIDNEY: 9.4 x 5.9 x 5.0 cm (SAG x AP x TRV). The kidney is normal in size, contour, and echogenicity. There are persistent lobulations. Renal cortical thickness is normal. No calculi or focal parenchymal lesions. There is mild pelviectasis, without adore hydronephrosis. IMPRESSION:? Unremarkable examination. Assessment & Plan Assessment & Plan (1) Cystitis with hematuria: Code(s): N30.91 - Cystitis, unspecified with hematuria Category: Medical (2) Recurrent UTI: Code(s): N39.0 - Urinary tract infection, site not specified Category: Medical (3) Incomplete bladder emptying: Code(s): R33.9 - Retention of urine, unspecified Category: Medical (4) Bladder outlet obstruction: Code(s): N32.0 - Bladder-neck obstruction Category: Medical (5) Vaginal atrophy: Code(s): N95.2 - Postmenopausal atrophic vaginitis Category: Medical (6) Kidney stone on left side: Code(s): N20.0 - Calculus of kidney Category: Medical Plan Plan 1. Recurrent Urinary Tract Infections - Prescribe methenamine to help maintain urine pH and reduce bacterial count, starting with twice daily for a month, then once daily. - Follow-up with a bladder scan in 10 to 12 weeks to monitor urine status. 2. Lower Urinary Tract Symptoms Of Incomplete Bladder Emptying - Continue current medications, alfuzosin and estradiol, to manage symptoms. - Monitor post-void residual volume to assess improvement. 3. Left Kidney Stone - Monitor for any symptoms or complications related to the kidney stone. 4. Bladder Wall Diverticulae - Monitor for any symptoms or complications related to the diverticulae. Medications: New methenamine hippurate 1 g orally take bid for 30 days then take one tablet daily; take bid for 30 days then take one tablet daily 90 tabs 1RF Refilled cranberry extract 425 mg orally one to 2 x daily with meals; administer with meals 60 caps 5RF estradiol 0.01%(0.1mg/gram) (Estrace) Use pea-sized amount on fingertip apply at bedtime into vaginal area daily; 42.5 grams 1RF alfuzosin ER administer after the same meal each day 10 mg PO DAILY 90 tabs 2RF Discontinued cefuroxime axetil Discontinued Reason: Patient Completed Course 250 mg PO BID 14 tabs 0RF trimethoprim Discontinued Reason: Patient no longer taking 100 mg PO DAILY 90 days 90 tabs 1RF N39.0 - Urinary tract infection, site not specified Patient Instructions: The patient had an opportunity to ask questions regarding treatment plan. The patient expressed understanding and agreement with the above treatment plan. The patient is aware they should contact our office by phone for worsening of their current condition or the appearance of new symptoms. Compliance is encouraged with any medications and followup testing that is ordered. It is a privilege to be allowed the opportunity to participate in the urologic care of your patient. If you have any questions or concerns regarding treatment for the above conditions please do not hesitate to contact me. The office t elephone contact is [phone]. This note is constructed in part using voice recognition software. While every effort has been made to ensure accuracy machine assembler for puller over errors may have been included. Yours sincerely, Tina Vela MD Scribe Plan - Not visible on output: Patient was informed and verbally consented to the use of an ambient scribe for clinic note documentation during this visit. Coding Level of Care Code Est Pt Level 4 (54203) Complex EM visit Add On [id number] Diagnoses Cystitis with hematuria N30.91 Recurrent UTI N39.0 Incomplete bladder emptying R33.9 Bladder outlet obstruction N32.0 Vaginal atrophy N95.2 Kidney stone on left side N20.0
--- OUTSIDE RECORDS SUMMARY | 2025-07-09 08:55 | XMS_ITS | Patient Health Record ---
Author Organization [facility] Address [address] [place] [address] Care Team Providers Care Pc Technician Name Role Phone CARRIE GREGORY Primary Care Provider Lucy Cote [phone] Allergies Allergen (clinical drug ingredient) Drug/Non Drug Allergy documented on EMR Reaction Allergy Type Onset Date Status losartan Losartan Swelling of Tongue and Mouth Drug Allergy Active Reason For Referral No Information Medications Medication SIG (Take, Route, Frequency, Duration) Notes Start Date End Date Status Ezetimibe 10 MG 1 tablet Oral 2 Time s a Week; Duration: 90 days Active Alfuzosin HCl ER 10 MG Oral; Duration: 9 0 Days Active metFORMIN HCl ER 500 MG Oral; Duration: 90 Days Active Cranberry 06/25/2025 Active Biotin 5000 MCG 1 capsule Orally Onc e a day; Duration: 30 day(s) 06/25/2025 Active Centrum Silver 50+Women 06/25/2025 Active Vitamin D3 125 MCG (5000 UT) 1 capsule O rally Once a day; Duration: 30 day(s) 06/25/2025 Active Estradiol Vaginal Cream 0.01% 1 Gram to the affected area Vaginal/Vulva Twice a week; Duration: 90 Days 06/25/2025 Active amLODIPine Besylate 10 MG Oral; Duration : 90 Days Active Cranberry Juice Powder 425 MG TAKE 1 CAP CORIN BY MOUTH 1 TO 2 TIMES DAILY WITH MEALS Oral; Duration: 30 Days Active Estradiol 0.1 MG/GM Vaginal; Duration: 3 0 Days Active EpiPen 06/25/2025 Active Levothyroxine Sodium 50 MCG Oral; Durati on: 90 Days Active hydroCHLOROthiazide 12.5 MG Oral; Durati on: 90 Days Active Social History Tobacco Use: Social History Observation Description Date Details (start date - stop date) Never Smoker NA - NA Sexual History Question Answer Notes Had sex in the past 12 months (vaginal, oral, or anal)? Yes with Men only Prevention strategies discussed: Other AUDIT-C (Standard) Question Answer Notes Did you have a drink contain ing alcohol in the past year? Yes How often did you have a dri nk containing alcohol in the past year? 2 to 4 times a month (2 points) How many drinks did you have on a typical day when you were drinking in the past year? 3 or 4 drinks (1 point) How often did you have six o r more drinks on one occasion in the past year? Never (0 point) Points 3 Interpretation Positive Tobacco Control (Standard) Question Answer Notes Tobacco use: Nonsmoker Problems Problem Type SNOMED Code ICD Code Onset Dates Problem Status W/U Status Risk Notes Problem Postmenopausal atrophic vaginitis (96585965) Postmenopausal atrophic vaginitis (N95.2) Active confirmed Problem Essential hypertension (48177621) Essential (primary) hypertension (I10) Active confirmed Problem Malignant neoplasm of female breast (461052141) Malignant neoplasm of unspecified site of left female breast (C50.912) Active confirmed Problem Personal history of primary malignant neoplasm of breast (724281685) Personal history of malignant neoplasm of breast (Z85.3) Active confirmed Vital Signs Temperature 96.8 degrees Fahrenheit 06/25/2025 Blood pressure diastolic 64 mm Hg 06/25/2025 Height 62 in 06/25/2025 Blood pressure systolic 148 mm Hg 06/25/2025 Weight 140 lbs 06/25/2025 BMI 25.6 kg/m2 06/25/2025 Encounters Encounter Location Date Provider Diagnosis Total [address] [place] [address] 06/25/2025 Lucy Milligan Encounter for gynecological examination (general) (routine) without abnormal findings Z01.419 ; Encounter for screening mammogram for malignant neoplasm of breast Z12.31 ; Encounter for screening for osteoporosis Z13.820 ; Personal history of malignant neoplasm of breast Z85.3 ; Postmenopausal atrophic vaginitis N95.2 and Personal history of urinary (tract) infections Z87.440 Assessments Encounter Date Diagnosis (ICD Code) Assessment Notes Treatment Notes Treatment Clinical Notes Section Notes 06/25/2025 Encounter for screening mammogram for malignant neoplasm of breast (ICD-10 - Z12.31) REGULAR MAMMOGRAMS AND SBE'S WERE RECOMMENDED. 06/25/2025 Encounter for gynecological examination (general) (routine) without abnormal findings (ICD-10 - Z01.419) NO MORE PAP TESTS. 06/25/2025 Encounter for screening for osteoporosis (ICD-10 - Z13.820) BONE DENSITY WAS ORDERED. 06/25/2025 Personal history of malignant neoplasm of breast (ICD-10 - Z85.3) DISCUSSED HER PREVIOUS HX OF BREAST CA. CONTINUE FOLLOW UP AT [facility]. 06/25/2025 Postmenopausal atrophic vaginitis (ICD-10 - N95.2) CONTINUE ESTRADIOL CREAM. 06/25/2025 Personal history of urinary (tract) infections (ICD-10 - Z87.440) CONTINUE FOLLOW UP WITH UROLOGIST. Plan Of Treatment Pending Test Test Name Order Date MAMMOGRAM, SCREENING 06/25/2025 BONE DENSITY 06/25/2025 MM Digital Mammo Screening 06/25/2025 Next Appt Details Provider Name:Lucy lopez, 07/01/2026 11:00:00 AM, [address], [address], [place], [address], Insurance Providers Payer Name Payer Address Payer Phone Subscriber Number Group Number Insured Name Patient Relationship to Insured Coverage Start Date Coverage End Date MEDICARE [address] [place], [place] [id number] [phone] [id number] ELIZABETH RAMIREZ Self - patient is the insured 2 [facility] INSURANCE [address] [place] [id number] ELIZABETH RAMIREZ Self - patient is the insured 2 Medical (General) History Medical History History ICD Code Essential (primary) hypertension I10 Malignant neoplasm of unspecified site o f left female breast C50.912 Surgical History Surgery Date(Month/Year) Left 5th Hammertoe Repair 10/03/23 Cystoscopy 08/22/23 Left Shoulder Arthroscopy 02/26/23 Tooth Extraction 02/05/23 Right Cataracts Surgery 11/15/20 Colonoscopy 06/30/20, 08/23/15, Hysterectomy 11/15/17 Left Cataracts Surgery 09/14/16 Left Lumpectomy, Breast Cancer 11/06/13 Right Tibia, Intramedullary Nailing for Fracture 11/27/07 Right Foot Hammer Toe and Arthroplasty Chemotherapy and Radiation 12/1989 to 1990 Left Breast Cancer, Lumpectomy 11/26/89 Hospitalization History Reason Date(Month/Year) See Surgical Hx 1 Vaginal Delivery
--- OUTSIDE RECORDS SUMMARY | 2025-07-09 08:55 | XMS_ITS | Patient Health Record ---
Author Organization [facility] Address [address] [place] [address] Care Team Providers Care Stoker Mechanic Name Role Phone Aleah (RETIRED) Martin BROWER Primary Care Provid er Unavailable Martin De Los Santos Unavailable [phone] Allergies Allergen (clinical drug ingredient) Drug/Non Drug [...] Problem Status W/U Status Risk Notes Problem 989885125 Encounter for screening for malignant neoplasm of colon (Z12.11) Active confirmed Problem 655047169 History of adenomatous polyp of colon (Z86.010) Active confirmed Problem 378692656 Irritable bowel syndrome with diarrhea (K58.0) Active confirmed Problem 44100943 Hemorrhoids, unspecified hemorrhoid type (K64.9) Active confirmed Problem 69278947 Irritable bowel syndrome, unspecified type (K58.9) Active confirmed Plan Of Treatment Future Test Test Name Order Date COLONOSCOPY 07/20/2015 COLONOSCOPY 06/08/2020 Insurance Providers Payer Name Payer Address Payer Phone Subscriber Number Group Number Insured Name Patient Relationship to Insured Coverage Start Date Coverage End Date MEDICARE OF [place] [address] [place] [address] [id number] ELIZABETH RAMIREZ Self - patient is the insured [employer] INSURANCE [employer] [address] [place] [address] [id number] ELIZABETH RAMIREZ Self - patient is the insured Medical (General) History Medical History History ICD Code NIDDM HTN Left-sided breast cancer 1989 and 2013-- surgeries as below Denies NE,CVA,Lung disease,renal disease Hyperlipidemia Liver cysts and a [...]
--- OUTSIDE RECORDS SUMMARY | 2025-07-09 08:55 | XMS_ITS | Patient Health Record ---
Author Organization [facility] Address [address] [place] [address] Care Team Providers Care Gaming Commissioner Name Role Phone Rehan Guillaume Primary Care Provider Unavailab bethany Saba Diane Unavailable [phone] Allergies Allergen (clinical drug ingredient) Drug/Non Drug Allergy documented on EMR Reaction Allergy Type Onset Date Status sulfamethoxazole / trimethoprim Bactrim Unknown Drug Allergy Active losartan Losartan Potassium anaphylaxis Drug Allergy Active Substance with 3-tmwocfs-9-methylglutar yl-coenzyme A reductase inhibitor mechanism of action (substance) Statins itching Drug Allergy Active Substance with sulfonamide structure and antibacterial mechanism of action (substance) Sulfa Antibiotics itching Drug Allergy Active Reason For Referral No Information Medications Medication SIG (Take, Route, Frequency, Duration) Notes Start Date End Date Status [place] 3 1000 MG 1 capsule Orally Once [...] Problem Acquired hammer toe of left foot (409074370285028 3) Other hammer toe(s) (acquired), left foot (M20.42) Active confirmed Problem Type II diabetes mellitus without complication (260691646) Type 2 diabetes mellitus without complications (E11.9) Active confirmed Plan Of Treatment Pending Test Test Name Order Date Hemoglobin A1c 09/26/2023 X ray : Foot, left 3V 08/01/2023 X ray : Foot, left 3V 10/05/2023 48272- Debride <25 sq cm 12/05/2021 Insurance Providers Payer Name Payer Address Payer Phone Subscriber Number Group Number Insured Name Patient Relationship to Insured Coverage Start Date Coverage End Date Medicare [facility] [address] [place] [phone] [id number] Lizzeth Farley Self - patient is the insured [employer] Supplement [address] [place] [phone] [id number] Lizzeth Farley Self - patient is the [...] Exostectomy L5th P/B Hospitalization History Reason Date(Month/Year) [facility] [place] Pneumonia and Pleurisy 3 days 02/22 [facility] [place] Pelvic Ultrasound 10/06/2004 [facility] [place] Bone Density Scan 12/25/2006 Bradycardia, right distal ti vero and fibula fractured closed reduction and cast 03/30/2007 [facility] [place] right tibia intramedullary nailing for fracture 11/27/2007 [facility] [place] tibial infection, absce ss, right lower leg, incision and drainage of abscess 08/13/2008 [facility]- Chest X-ray 05/23/2021 [facility]- UTI 05/27/2021
== END 2025-07-09 09:29 | disposition home or self-care (01) ==
LOC: HO.HUSH 08:28
PROVIDERS: PCP Physician Assistant; Visit Provider Urology
DX: N30.91 Cystitis, unspecified with hematuria (principal); N39.0 Urinary tract infection, site not specified; R33.9 Retention of urine, unspecified; N32.0 Bladder-neck obstruction; N95.2 Postmenopausal atrophic vaginitis; N20.0 Calculus of kidney; Z13.9 Encounter for screening, unspecified
CPT/HCPCS: 99214; G2211

== ENCOUNTER 2025-07-14 07:16 | Outpatient (REF) | payer MEDICARE, OTHER, SELFPAY ==
--- OUTSIDE RECORDS SUMMARY | 2025-07-14 07:19 | XMS_ITS | Patient Health Record ---
Author Organization [facility] Address [address] [place] [address] Care Team Providers Care Dinner Cook Name Role Phone Rehan Guillaume Primary Care Provider Unavailab bethany Saba Diane Unavailable [phone] Allergies Allergen (clinical drug ingredient) Drug/Non Drug Allergy documented on EMR Reaction Allergy Type Onset Date Status sulfamethoxazole / trimethoprim Bactrim Unknown Drug Allergy Active losartan Losartan Potassium anaphylaxis Drug Allergy Active Substance with 3-gayjjqj-7-methylglutar yl-coenzyme A reductase inhibitor mechanism of action (substance) Statins itching Drug Allergy Active Substance with sulfonamide structure and antibacterial mechanism of action (substance) Sulfa Antibiotics itching Drug Allergy Active Reason For Referral No Information Medications Medication SIG (Take, Route, Frequency, Duration) Notes Start Date End Date Status [place] 3 1000 MG 1 capsule Orally Once [...] Problem Acquired hammer toe of left foot (223701440314606 3) Other hammer toe(s) (acquired), left foot (M20.42) Active confirmed Problem Type II diabetes mellitus without complication (769329244) Type 2 diabetes mellitus without complications (E11.9) Active confirmed Plan Of Treatment Pending Test Test Name Order Date Hemoglobin A1c 09/26/2023 X ray : Foot, left 3V 08/01/2023 X ray : Foot, left 3V 10/05/2023 48033- Debride <25 sq cm 12/05/2021 Insurance Providers Payer Name Payer Address Payer Phone Subscriber Number Group Number Insured Name Patient Relationship to Insured Coverage Start Date Coverage End Date Medicare National [facility] [address] [place] [phone] [id number] Lizzeth Farley Self - patient is the insured [employer] Supplement [address] [place] [id number] Lizzeth Farley Self - patient is the [...] Exostectomy L5th P/B Hospitalization History Reason Date(Month/Year) [facility] [place] Pneumonia and Pleurisy 3 days 02/22 [facility] [place] Pelvic Ultrasound 10/06/2004 [facility] [place] Bone Density Scan 12/25/2006 Bradycardia, right distal ti vero and fibula fractured closed reduction and cast 03/30/2007 [facility] [place] right tibia intramedullary nailing for fracture 11/27/2007 [facility] [place] tibial infection, absce ss, right lower leg, incision and drainage of abscess 08/13/2008 [facility]- Chest X-ray 05/23/2021 [facility]- UTI 05/27/2021
--- OUTSIDE RECORDS SUMMARY | 2025-07-14 07:19 | XMS_ITS | Patient Health Record ---
Author Organization [facility] Address [address] [place] [address] Care Team Providers Care Sales Project Manager Name Role Phone CARRIE GREGORY Primary Care Provider Lucy Cote [phone] Allergies Allergen (clinical drug ingredient) Drug/Non Drug [...] Status Risk Notes Problem Postmenopausal atrophic vaginitis (03445380) Postmenopausal atrophic vaginitis (N95.2) Active confirmed Problem Essential hypertension (27984964) Essential (primary) hypertension (I10) Active confirmed Problem Malignant neoplasm of female breast (124607717) Malignant neoplasm of unspecified site of left female breast (C50.912) Active confirmed Problem Personal history of primary malignant neoplasm of breast (643514951) Personal history of malignant neoplasm of breast (Z85.3) Active confirmed Vital Signs Temperature 96.8 degrees Fahrenheit 06/25/2025 Blood pressure diastolic 64 mm Hg 06/25/2025 Height 62 in 06/25/2025 Blood pressure systolic 148 mm Hg 06/25/2025 Weight 140 lbs 06/25/2025 BMI 25.6 kg/m2 06/25/2025 Encounters Encounter Location Date Provider Diagnosis Total [address] [place] [address] 06/25/2025 Lucy Milligan Encounter for gynecological examination [...] OF BREAST CA. CONTINUE FOLLOW UP AT [facility]. 06/25/2025 Postmenopausal atrophic vaginitis (ICD-10 - N95.2) CONTINUE ESTRADIOL CREAM. 06/25/2025 Personal history of urinary (tract) infections (ICD-10 - Z87.440) CONTINUE FOLLOW UP WITH UROLOGIST. Plan Of Treatment Pending Test Test Name Order Date MAMMOGRAM, SCREENING 06/25/2025 BONE DENSITY 06/25/2025 MM Digital Mammo Screening 06/25/2025 Next Appt Details Provider Name:Lucy lopez, 07/01/2026 11:00:00 AM, [address], [address], [place], [address], Insurance Providers Payer Name Payer Address Payer Phone Subscriber Number Group Number Insured Name Patient Relationship to Insured Coverage Start Date Coverage End Date MEDICARE [address] [place], [place] [id number] [phone] [id number] ELIZABETH RAMIREZ Self - patient is the insured 2 [facility] INSURANCE [address] [place] [id number] ELIZABETH RAMIREZ Self - patient is the [...]
--- OUTSIDE RECORDS SUMMARY | 2025-07-14 07:19 | XMS_ITS | Patient Health Record ---
Author Organization [facility] Address [address] [place] [address] Care Team Providers Care Evs Tech Name Role Phone Aleah (RETIRED) Martin BROWER Primary Care Provid er Unavailable Martin De Los Santos Unavailable [phone] Allergies Allergen (clinical drug ingredient) Drug/Non Drug [...] Problem Status W/U Status Risk Notes Problem 452643336 Encounter for screening for malignant neoplasm of colon (Z12.11) Active confirmed Problem 674650045 History of adenomatous polyp of colon (Z86.010) Active confirmed Problem 563964376 Irritable bowel syndrome with diarrhea (K58.0) Active confirmed Problem 62645951 Hemorrhoids, unspecified hemorrhoid type (K64.9) Active confirmed Problem 59581204 Irritable bowel syndrome, unspecified type (K58.9) Active confirmed Plan Of Treatment Future Test Test Name Order Date COLONOSCOPY 07/20/2015 COLONOSCOPY 06/08/2020 Insurance Providers Payer Name Payer Address Payer Phone Subscriber Number Group Number Insured Name Patient Relationship to Insured Coverage Start Date Coverage End Date MEDICARE OF [place] [address] [place] [address] [id number] ELIZABETH RAMIREZ Self - patient is the insured [employer] INSURANCE [employer] [address] [place] [id number] ELIZABETH RAMIREZ Self - patient is the insured Medical (General) History Medical History History ICD Code NIDDM HTN Left-sided breast cancer 1989 and 2013-- surgeries as below Denies [place],CVA,Lung disease,renal disease Hyperlipidemia Liver cysts and a [...]
[2025-07-14 10:13] LABS: Appearance Urine Clear; Glucose Urine UA Negative (Negative); PH 7.0 (5.0-9.0); Specific Gravity - Urine <= 1.005 (1.005-1.025)
[2025-07-14 10:14] LABS: Hematocrit 36.5 % (37.0-47.0); Hemoglobin 12.2 g/dl (12.0-16.0); Mean Corpuscular HGB Conc 33.4 g/dl (31.0-35.0); Mean Corpuscular Hemoglobin 29.5 pg (27.0-33.0); Mean Corpuscular Volume 88.4 fL (80.0-98.0); NRBC Abs Auto 0.000 X10*3/uL (0.0-0.012); NRBC Pct Auto 0.0 /100WBC (0.0-0.2); Platelet Count 340 X10*3/uL (160-400); Red Blood Count 4.13 X10*6/uL (4.20-5.50); White Blood Count 4.2 X10*3/uL (4.8-10.8)
[2025-07-14 10:16] LABS: Hemoglobin A1C 148.7017 umol/L; Total Hemoglobin (HGBA1C) 3223.4431 umol/L
[2025-07-14 10:52] LABS: Alanine Aminotransferase 28 U/L (0-31); Albumin Level 3.9 g/dL (3.5-5.0); Alkaline Phosphatase 67 U/L (39-117); Anion Gap 13 (12-20); Aspartate Amino Transferase 36 U/L (5-31); Blood Urea Nitrogen 8 mg/dL (9-16); Calcium 9.1 mg/dL (8.4-10.2); Carbon Dioxide 28 mmol/L (22-29); Chloride 105 mmol/L (96-108); Cholesterol 242 mg/dL (<200); Estimated Glomerular Filt Rate 54; HDL Cholesterol 80 mg/dL (>40); Potassium 3.4 mmol/L (3.3-5.1); Sodium 143 mmol/L (135-145); Total Protein 7.0 g/dL (6.5-8.0); Triglycerides 83 mg/dL (<150)
== END 2025-07-14 07:17 | disposition home or self-care (01) ==
LOC: HO.HMGCLDS 07:16
PROVIDERS: PCP Physician Assistant; Visit Provider Physician Assistant
DX: E78.2 Mixed hyperlipidemia (principal); R30.0 Dysuria; R73.09 Other abnormal glucose; E03.9 Hypothyroidism, unspecified; N39.0 Urinary tract infection, site not specified
CPT/HCPCS: 36415; 80053; 80061; 81003; 83036; 84443; 85027

== ENCOUNTER 2025-07-23 09:13 | Outpatient (AMB) | payer MEDICARE, OTHER, SELFPAY ==
--- NOTE | 2025-07-23 09:24 | A.OFFPC_ITS ---
Vital Signs 07/23/25 09:26 Height 5 ft 2 in Weight 140 lb 2 oz BMI 25.6 BP 130/64 Blood Pressure Location Lt brachial Position Sitting Pulse 63 Pulse Source Pulse Oximeter Temp 97.3 F Temp Source Temporal Artery Scan Pulse Oximetry (%) 97 Oxygen Delivery Method Room Air Intake Visit Reasons: f/u Hypothyroid Intake Note: Patient is here to follow up on Hypothyroid. Cardroom Attendant Required: No Public Relations Associate: Not Required per policy Accompanied by: Self / Same As Patient Allergies Tfdlgkq-PWA-VpN Reductase Inhibitor Allergy (Intermediate, Verified 07/23/25 09:33) Itching Sulfa (Sulfonamide Antibiotics) Allergy (Unknown, Verified 07/23/25 09:33) ITCHING Losartan Allergy (Severe, Uncoded 07/23/25 09:33) Anaphylaxis Medication List - Last Reconciled 07/23/25 by Rehan Guillaume PA-C alfuzosin ER 10 mg PO DAILY amlodipine 10 mg PO DAILY 90 days cholecalciferol (vitamin D3) 25 mcg PO DAILY cranberry extract 425 mg orally one to 2 x daily with meals; administer with meals epinephrine 0.3 mg (0.3 mL) IM Q10M PRN estradiol 0.01%(0.1mg/gram) (Estrace) Use pea-sized amount on fingertip apply at bedtime into vaginal area daily; ezetimibe (Zetia) 10 mg PO DAILY 90 days hydrochlorothiazide 12.5 mg PO DAILY 90 days levothyroxine 50 mcg PO DAILY metformin ER 500 mg PO BID 90 days methenamine hippurate 1 g orally take bid for 30 days then take one tablet daily; take bid for 30 days then take one tablet daily Tobacco use date assessed: 07/23/25 Fall risk assessment: No Falls in past year Last assessed Fall Risk: 07/23/25 Dental Screening Dental Screen Date: 01/20/25 HPI f/u Hypothyroid HPI Details Patient is a 79-year-old female here today for follow-up visit. Patient has a past medical history significant for pre diabetes, uncontrolled hypertension, hypothyroidism, history breast cancer. Concerns--> The fecal urgency has been ongoing for a while, characterized by a sudden need to defecate, sometimes triggered by carrying heavy objects. The patient has been unable to secure an appointment with a analytical chemistry teacher and has been using pads due to occasional incontinence. There is no presence of blood in the stool, and the patient has a history of hemorrhoids for several years, which may contribute to the symptoms. ..Hypertension:? Has been fairly well co ntrolled according to home readings which are ranging 110 to 130 systolic she is asymptomatic without any chest pain, headaches or vision issues. Today's blood pressure slightly elevated in office ? She continues on amlodipine 10 mg.?. .. Impaired glucose metabolism: Most recent A1c elevated at 6.4. Patient continues on metformin 500 mg ER daily. She does report some dietary indiscretion over the winter months. .. Hyperlipidemia:? She has only been using Zetia on a daily basis. Most recent lipid panel showing elevated total cholesterol and LDL. ? Has not been able to tolerate statins due to GI upset and itching.? She is also using Lantry threes. 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 Cystitis Arthralgia of left foot Strain of left biceps Pre-op evaluation Right shoulder pain Pre-diabetes Recurrent urinary tract infection Surgical History History of mastectomy History of lumpectomy History of tibial fracture History of colonoscopy History of cataract surgery History of hysterectomy Family History Mother Breast cancer Father Dementia Social History Housing: House Alcohol intake: current Alcohol intake frequency: a few times a month Alcohol type: other Patient Tobacco Use Status: Never used Tobacco e-Cigarette/Vaping Use: Never Used Second Hand Smoke Exposure: No service: No Current occupational status: retired Current occupational exposures/hazards: No Cognitive needs: No Hearing needs: No Vision needs: Yes Questionnaire Thrive Questionnaire Date Thrive assessed: 05/23/25 I am a: Patient What is your living situation today?: I have a steady place to live Within the past 12 months, did the food you bought not last and you didn't have the money to get more?: Never true Within the past 12 months, did you worry whether your food would run out before you got money to buy more?: Never true Do you have trouble paying for medicines?: No Do you have trouble getting transportation to medical appointments?: No Do you have trouble paying your heating and electricity bill?: No Do you have trouble taking care of your child, family member or friend?: No Do you have trouble with day-to-day activities such as bathing, preparing meals, shopping, managing finances, etc.?: No Are you currently unemployed and looking for a job?: No Are you interested in more education?: No Please select the resources that you would like help with: None Currently or been in a relationship where the following occur: No concerns reported THRIVE Score: 0 ELFEGO-7 AMB Questionnaire ELFEGO-7 Date ELFEGO - 7 assessed: 05/25/25 Source: Developed by Drs. Martin Johnson, Constance Ross, Juan Garrido and colleagues, with an educational louis from [email or web address]. Review of Systems Const Denies headache(s) Eyes Denies loss of vision ENT Denies vertigo, Denies dizziness, Denies headache(s) and Denies sore throat Card Denies chest pain, Denies leg edema and Denies lightheadedness Resp Denies cough, Denies hemoptysis and Denies wheezing GI Denies abdominal pain, Denies melena, Denies constipation, Denies diarrhea and Denies vomiting Denies urinary frequency, Denies dysuria and Denies urinary urgency Musc Denies arthralgias, Denies joint swelling, Denies numbness and Denies tingling Neuro Denies Abnormal speech present, Denies behavioral changes, Denies vertigo, Denies dizziness, Denies headache(s), Denies loss of vision, Denies memory loss, Denies numbness and Denies tingling Psych Denies anxiety, Denies behavioral changes, Denies depression, Denies memory loss and Denies panic attacks Hal/Lymph Denies easy bleeding and Denies easy bruising Aller/Immun Denies wheezing Physical exam (Primary Care) Vital Signs: Last Vital Signs Temp 97.3 F 07/23/25 09:26 Pulse 63 09/18/25 09:26 BP 130/64 07/23/25 09:26 Pulse Ox 97 07/23/25 09:26 Oxygen Delivery Method Room Air 07/23/25 09:26 BMI result Body Mass Index 25.6 Tobacco/Smoking Status: Tobacco use Status Tobacco use date assessed 07/23/25 07/23/25 09:30 Patient Tobacco Use Status Never used Tobacco 07/23/25 09:30 e-Cigarette/Vaping Use Never Used 07/23/25 09:30 Thrive Assessment: Date of Thrive Assessment Date Thrive assessed 05/23/25 07/23/25 09:30 Currently or been in a relationship where the following occur: No concerns reported Const General: healthy appearing, no acute distress, alert and awake Nutritional Appearance: well nourished Orientation/consciousness: oriented to person, oriented to place and oriented to time HENMT Ears: TM's normal bilaterally General nose exam: Normal nasal mucous membranes and turbinates present Eyes Conjunctivae: conjunctivae normal Sclerae: sclerae normal Pupils: Equal, round and reactive pupils present Neck Neck: Yes no lymphadenopathy and Yes no JVD Thyroid: Thyroid normal Carotids: no bruits Resp Effort & Inspection: normal respiratory effort and not tachypneic Auscultation: no crackles, no rales, no rhonchi and no wheezes Cardio Rate: regular rate Rhythm: regular rhythm Heart sounds: no murmurs and normal S1 and S2 GI Palpation (GI): Soft to palpation, nontender, no hepatomegaly and no splenomegaly Auscultation: normal bowel sounds Skin General skin exam: no rashes or lesions noted and dry skin Neuro General: oriented to person, oriented to place and oriented to time Cranial nerves: Yes Equal, round and reactive pupils present Speech: No Abnormal speech present Gait exam (Neuro): Normal gait present Motor exam (neuro): no tremor noted Extrem Right upper extremity: full ROM Left upper extremity: full ROM Right lower extremity: full ROM; no edema Left lower extremity: full ROM; no edema Psych Mental Status: mental status grossly normal Speech and movement: Normal speech and movement present Affect: normal affect Attitude: cooperative Thought process: Normal thought process present Coding Level of Care Code Est Pt Level 4 (75354) Diagnoses Essential hypertension I10 Fecal urgency R15.2 Cystitis with hematuria N30.91 Mixed hyperlipidemia E78.2 Hyperlipidemia type: mixed hyperlipidemia Hypothyroidism, unspecified type E03.9 Hypothyroidism type: unspecified Impaired glucose metabolism R73.09 Assessment & Plan Assessment & Plan (1) Essential hypertension: Code(s): I10 - Essential (primary) hypertension Category: Medical Plan: Patient's blood pressure acceptable today in office. Continue current dose of antihypertensive medication with goal blood pressure to be below 140/90 (2) Fecal urgency: Code(s): R15.2 - Fecal urgency Category: Medical Plan: The patient experiences sudden fecal urgency, sometimes triggered by carrying heavy objects, and uses pads due to occasional incontinence. A referral to a analytical chemistry teacher will be made to further evaluate the condition, although there may be a delay in securing an appointment. The patient is advised to try Metamucil to bulk up the stool and regulate bowel movements. (3) Cystitis with hematuria: Code(s): N30.91 - Cystitis, unspecified with hematuria Category: Medical Plan: As per HPI patient was found to have acute cystitis, she has recurrent cystitis to which she is seeing a urologist for. 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 She is also on a PH balance her for her urine which has been helpful (4) HLD (hyperlipidemia): Code(s): E78.5 - Hyperlipidemia, unspecified Category: Medical Qualifiers: Hyperlipidemia type: mixed hyperlipidemia Qualified Code(s): E78.2 - Mixed hyperlipidemia Plan: Patient's most recent lipid panel showing improved cholesterol and elevated LDL. Fortunately HDL elevated. She continues with a ezetimibe daily. She is not interested in statin therapy due to intolerable side effects. (5) Hypothyroidism: Code(s): E03.9 - Hypothyroidism, unspecified Category: Medical Qualifiers: Hypothyroidism type: unspecified Qualified Code(s): E03.9 - Hypothyroidism, unspecified Plan: Patient's most recent TSH stable and we will continue current dose of levothyroxine. (6) Impaired glucose metabolism: Code(s): R73.09 - Other abnormal glucose Category: Medical Plan: Patient's most recent fasting blood sugar 129 and an A1c at 6.4. She reports only using 1 metformin a day though was prescribed as 2 metformin daily. She will increase her metformin to a 1000 mg daily Continue to follow fasting lab Goal A1c is to remain below 6.0 Orders: Orders Comprehensive [place]. Panel Fast Today I10 - Essential (primary) hypertension Hemoglobin A1c Today R73.09 - Other abnormal glucose Lipid Panel Today E78.2 - Mixed hyperlipidemia Complete Blood Count no Diff Today I10 - Essential (primary) hypertension Referrals Gastroenterology Referral R15.2 - Fecal urgency
[2025-07-23 09:26] VITALS: BP 130/64; PULSE 63; TEMP 36.3; O2SAT 97; BMI 25.6
--- OUTSIDE RECORDS SUMMARY | 2025-07-23 10:42 | XMS_ITS | Patient Health Record ---
Author Organization [facility] Address [address] [place] [address] Care Team Providers Care Medical Practice Assistant Name Role Phone CARRIE GREGORY Primary Care Provider Lucy Cote [phone] Allergies Allergen (clinical drug ingredient) Drug/Non Drug [...] Status Risk Notes Problem Postmenopausal atrophic vaginitis (25841310) Postmenopausal atrophic vaginitis (N95.2) Active confirmed Problem Essential hypertension (51254001) Essential (primary) hypertension (I10) Active confirmed Problem Malignant neoplasm of female breast (533818635) Malignant neoplasm of unspecified site of left female breast (C50.912) Active confirmed Problem Personal history of primary malignant neoplasm of breast (964371390) Personal history of malignant neoplasm of breast (Z85.3) Active confirmed Vital Signs Temperature 96.8 degrees Fahrenheit 06/25/2025 Blood pressure diastolic 64 mm Hg 06/25/2025 Height 62 in 06/25/2025 Blood pressure systolic 148 mm Hg 06/25/2025 Weight 140 lbs 06/25/2025 BMI 25.6 kg/m2 06/25/2025 Encounters Encounter Location Date Provider Diagnosis Total [address] [place] [address] 06/25/2025 Lucy Milligan Encounter for gynecological examination [...] OF BREAST CA. CONTINUE FOLLOW UP AT [facility]. 06/25/2025 Postmenopausal atrophic vaginitis (ICD-10 - N95.2) CONTINUE ESTRADIOL CREAM. 06/25/2025 Personal history of urinary (tract) infections (ICD-10 - Z87.440) CONTINUE FOLLOW UP WITH UROLOGIST. Plan Of Treatment Pending Test Test Name Order Date MAMMOGRAM, SCREENING 06/25/2025 BONE DENSITY 06/25/2025 MM Digital Mammo Screening 06/25/2025 Next Appt Details Provider Name:Lucy lopez, 07/01/2026 11:00:00 AM, [address], [place], [address], Insurance Providers Payer Name Payer Address Payer Phone Subscriber Number Group Number Insured Name Patient Relationship to Insured Coverage Start Date Coverage End Date MEDICARE [address] [place], [place] [id number] [phone] [id number] ELIZABETH RAMIREZ Self - patient is the insured 2 [facility] [employer]ANCE [address] [place] [id number] ELIZABETH RAMIREZ Self - patient is the [...]
--- OUTSIDE RECORDS SUMMARY | 2025-07-23 10:43 | XMS_ITS | Patient Health Record ---
Author Organization [facility] Address [address] [place] [address] Care Team Providers Care Metal Machine Setter Name Role Phone Rehan Guillaume Primary Care Provider Unavailab bethany Saba Diane Unavailable [phone] Allergies Allergen (clinical drug ingredient) Drug/Non Drug Allergy documented on EMR Reaction Allergy Type Onset Date Status sulfamethoxazole / trimethoprim Bactrim Unknown Drug Allergy Active losartan Losartan Potassium anaphylaxis Drug Allergy Active Substance with 7-zjdcweb-0-methylglutar yl-coenzyme A reductase inhibitor mechanism of action (substance) Statins itching Drug Allergy Active Substance with sulfonamide structure and antibacterial mechanism of action (substance) Sulfa Antibiotics itching Drug Allergy Active Reason For Referral No Information Medications Medication SIG (Take, Route, Frequency, Duration) Notes Start Date End Date Status [place] 3 1000 MG 1 capsule Orally Once [...] Problem Acquired hammer toe of left foot (380231058640376 3) Other hammer toe(s) (acquired), left foot (M20.42) Active confirmed Problem Type II diabetes mellitus without complication (372310604) Type 2 diabetes mellitus without complications (E11.9) Active confirmed Plan Of Treatment Pending Test Test Name Order Date Hemoglobin A1c 09/26/2023 X ray : Foot, left 3V 08/01/2023 X ray : Foot, left 3V 10/05/2023 40380- Debride <25 sq cm 12/05/2021 Insurance Providers Payer Name Payer Address Payer Phone Subscriber Number Group Number Insured Name Patient Relationship to Insured Coverage Start Date Coverage End Date Medicare [facility] [address] KaitlynnsivanERICK alvarez [phone] [id number] Lizzeth Farley Self - patient is the insured [employer] Supplement [address] [place] [phone] [id number] Lizzeth Farley Self - patient is the [...] Exostectomy L5th P/B Hospitalization History Reason Date(Month/Year) [facility]- Pneumonia and Pleurisy 3 days 02/22 [facility]- Pelvic Ultrasound 10/06/2004 [facility]- Bone Density Scan 12/25/2006 Bradycardia, right distal ti vero and fibula fractured closed reduction and cast 03/30/2007 [facility]- right tibia intramedullary nailing for fracture 11/27/2007 [facility]- tibial infection, absce ss, right lower leg, incision and drainage of abscess 08/13/2008 [facility]- Chest X-ray 05/23/2021 [facility]- UTI 05/27/2021
--- OUTSIDE RECORDS SUMMARY | 2025-07-23 10:43 | XMS_ITS | Patient Health Record ---
Author Organization [facility] Address [address] [place] [address] Care Team Providers Care Technical Specialist Name Role Phone Aleah (RETIRED) Martin BROWER Primary Care Provid er Unavailable Martin De Los Santos Unavailable [phone] Allergies Allergen (clinical drug ingredient) Drug/Non Drug [...] Problem Status W/U Status Risk Notes Problem [id number] Encounter for screening for malignant neoplasm of colon (Z12.11) Active confirmed Problem 336670396 History of adenomatous polyp of colon (Z86.010) Active confirmed Problem 999834551 Irritable bowel syndrome with diarrhea (K58.0) Active confirmed Problem 73243007 Hemorrhoids, unspecified hemorrhoid type (K64.9) Active confirmed Problem 17002471 Irritable bowel syndrome, unspecified type (K58.9) Active confirmed Plan Of Treatment Future Test Test Name Order Date COLONOSCOPY 07/20/2015 COLONOSCOPY 06/08/2020 Insurance Providers Payer Name Payer Address Payer Phone Subscriber Number Group Number Insured Name Patient Relationship to Insured Coverage Start Date Coverage End Date MEDICARE OF [place] [address] [place] [address] [id number] ELIZABETH RAMIREZ Self - patient is the insured [employer] [address] [place] [id number] ELIZABETH RAMIREZ Self - patient is the [...]
== END 2025-07-23 09:49 | disposition home or self-care (01) ==
LOC: HO.HMCH 09:14
PROVIDERS: PCP Physician Assistant; Visit Provider Physician Assistant
DX: I10 Essential (primary) hypertension (principal); R15.2 Fecal urgency; N30.91 Cystitis, unspecified with hematuria; E78.2 Mixed hyperlipidemia; E03.9 Hypothyroidism, unspecified; R73.09 Other abnormal glucose

== ENCOUNTER → 2025-07-23 09:13 | Outpatient (BNVA) | payer MEDICARE, OTHER, SELFPAY | PROVIDERS: PCP Physician Assistant; Visit Provider Physician Assistant | DX: I10 Essential (primary) hypertension (principal); R15.2 Fecal urgency; E03.9 Hypothyroidism, unspecified; R73.03 Prediabetes; Z79.84 Long term (current) use of oral hypoglycemic drugs; N30.91 Cystitis, unspecified with hematuria; E78.2 Mixed hyperlipidemia; R73.09 Other abnormal glucose | CPT/HCPCS: 99212 ==

== ENCOUNTER 2025-08-20 13:54 | Outpatient (REF) | payer MEDICARE, OTHER, SELFPAY ==
--- NOTE | ~2025-08-20 | MM_ITS ---
EXAMINATION: DXA BONE DENSITY AXIAL HISTORY: Z78.0 TECHNIQUE: [employer] Dual energy absorptiometry (DEXA) of the lumbar spine, total left hip, and femoral neck was performed. COMPARISON: Comparison is made with the prior examination dated 12/25/2006. FINDINGS: The bone mineral density of the lumbar spine is 1.078 g/cm2, corresponding to a T-score of -0.8, and a Z-score of 1.0. This is indicative of normal bone mineral density. This represents a BMD change of 11.7% compared to the prior exam. This is statistically significant. The bone mineral density of the left total hip is 0.773 g/cm2, corresponding to a T-score of -1.9, and a Z-score of 0.1. This is indicative of osteopenia. This represents a BMD change of -12.5% compared to the prior exam. This is statistically significant. The bone mineral density of the left femoral neck is 0.808 g/cm2, corresponding to a T-score of -1.7, and a Z-score of 0.5. This is indicative of osteopenia. This represents a BMD change of -7.6% compared to the prior exam. FRACTURE RISK: The FRAX index suggests a ten year probability of major osteoporotic fracture of 13.8%, and of hip fracture 3.4%. MM/XR DEXA axial skeleton IMPRESSION: Based on bone mineral density, and according to World Health Organization (WHO) criteria, the diagnosis is consistent with osteopenia. Statistically, 68% of repeat scans fall within 1 SD (+/- 0.010 g/cm2 for AP spine L1-L4) and 1 SD (+/- 0.012 g/cm2 for femur total) FRAX is a trademark of the [employer]'s [employer] [facility] Met[employer] Disease, a World Health Organization (WHO) Collaborating Center. Electronically signed by: Martin Veronica MD 08/20/2025 02:53 PM EDT
--- NOTE | ~2025-08-20 | MM_ITS ---
EXAMINATION: MM SCREENING DIGITAL BREAST TOMOSYNTHESIS, RIGHT CLINICAL INFORMATION: Screening. Asymptomatic. History of left mastectomy for breast cancer. COMPARISON: Comparison made to multiple prior, most recent January 07, 2024, and most remote November 17, 2016. TECHNIQUE: Digital breast tomosynthesis is performed in mediolateral oblique and craniocaudal views along with computer-aided detection (CAD). Synthesized 2D images are generated from the tomosynthesis. FINDINGS: BREAST COMPOSITION: The breasts are heterogeneously dense, which may obscure small masses. RIGHT BREAST: No significant masses, suspicious calcifications or other abnormalities are seen. MM/MM tomosynthesis screening BI IMPRESSION: RIGHT BREAST: Negative, no mammographic evidence of malignancy. Normal interval follow-up is recommended in 12 months. ASSESSMENT: BI-RADS: Category 1: Negative RECOMMENDATION: Routine annual mammography screening. FOLLOW-UP: 1 year F/U This examination should not preclude the clinical evaluation of a suspicious palpable abnormality. This patient's information was entered into a reminder system with a target due date for their next mammogram. Electronically signed by: Jackie Gibson MD 08/23/2025 01:42 PM EDT
--- OUTSIDE RECORDS SUMMARY | 2025-08-20 17:44 | XMS_ITS | Patient Health Record ---
Author Organization [facility] Address [address] [place] [address] Care Team Providers Care Lotus Notes Administrator Name Role Phone Rehan Guillaume Primary Care Provider Unavailab bethany Saba Diane Unavailable [phone] Allergies Allergen (clinical drug ingredient) Drug/Non Drug Allergy documented on EMR Reaction Allergy Type Onset Date Status sulfamethoxazole / trimethoprim Bactrim Unknown Drug Allergy Active losartan Losartan Potassium anaphylaxis Drug Allergy Active Substance with 8-uvptsza-2-methylglutar yl-coenzyme A reductase inhibitor mechanism of action (substance) Statins itching Drug Allergy Active Substance with sulfonamide structure and antibacterial mechanism of action (substance) Sulfa Antibiotics itching Drug Allergy Active Reason For Referral No Information Medications Medication SIG (Take, Route, Frequency, Duration) Notes Start Date End Date Status [place] 3 1000 MG 1 capsule Orally Once [...] Problem Acquired hammer toe of left foot (119087457908967 3) Other hammer toe(s) (acquired), left foot (M20.42) Active confirmed Problem Type II diabetes mellitus without complication (356291854) Type 2 diabetes mellitus without complications (E11.9) Active confirmed Plan Of Treatment Pending Test Test Name Order Date Hemoglobin A1c 09/26/2023 X ray : Foot, left 3V 08/01/2023 X ray : Foot, left 3V 10/05/2023 31834- Debride <25 sq cm 12/05/2021 Insurance Providers Payer Name Payer Address Payer Phone Subscriber Number Group Number Insured Name Patient Relationship to Insured Coverage Start Date Coverage End Date Medicare [facility] [address] [place]aitlynnsivanER[place] alvarez [phone] [id number] Lizzeth Farley Self - patient is the insured [employer] Supplement [address] [place] [id number] Lizzeth Farley Self - patient is the [...] Exostectomy L5th P/B Hospitalization History Reason Date(Month/Year) [facility]neum[place] Pleurisy 3 days 02/22 [facility] Pelvic [place]trasound 10/06/2004 [facility] Bone Density Scan 12/25/2006 Bradycardia, right distal ti vero and fibula fractured closed reduction and cast 03/30/2007 [facility] right tibia intramedullary nailing for fracture 11/27/2007 [facility] tibial infection, absce ss, right lower leg, incision and drainage of abscess 08/13/2008 [facility]- Chest X-ray 05/23/2021 [facility]- UTI 05/27/2021
--- OUTSIDE RECORDS SUMMARY | 2025-08-20 17:44 | XMS_ITS | Patient Health Record ---
Author Organization [facility] Address [address] [place] [address] Care Team Providers Care Instrumentation Designer Name Role Phone CARRIE GREGORY Primary Care Provider Lucy Cote [phone] Allergies Allergen (clinical drug ingredient) Drug/Non Drug [...] Status Risk Notes Problem Postmenopausal atrophic vaginitis (91892210) Postmenopausal atrophic vaginitis (N95.2) Active confirmed Problem Essential hypertension (60910381) Essential (primary) hypertension (I10) Active confirmed Problem Malignant neoplasm of female breast (918728070) Malignant neoplasm of unspecified site of left female breast (C50.912) Active confirmed Problem Personal history of primary malignant neoplasm of breast (260059843) Personal history of malignant neoplasm of breast (Z85.3) Active confirmed Vital Signs Temperature 96.8 degrees Fahrenheit 06/25/2025 Blood pressure diastolic 64 mm Hg 06/25/2025 Height 62 in 06/25/2025 Blood pressure systolic 148 mm Hg 06/25/2025 Weight 140 lbs 06/25/2025 BMI 25.6 kg/m2 06/25/2025 Encounters Encounter Location Date Provider Diagnosis Total [address] [place] [address] 06/25/2025 Lucy Milligan Encounter for gynecological examination [...] OF BREAST CA. CONTINUE FOLLOW UP AT [facility]. 06/25/2025 Postmenopausal atrophic vaginitis (ICD-10 - N95.2) CONTINUE ESTRADIOL CREAM. 06/25/2025 Personal history of urinary (tract) infections (ICD-10 - Z87.440) CONTINUE FOLLOW UP WITH UROLOGIST. Plan Of Treatment Pending Test Test Name Order Date MAMMOGRAM, SCREENING 06/25/2025 BONE DENSITY 06/25/2025 MM Digital Mammo Screening 06/25/2025 Next Appt Details Provider Name:Lucy lopez, 07/01/2026 11:00:00 AM, [address], [place], [address], Insurance Providers Payer Name Payer Address Payer Phone Subscriber Number Group Number Insured Name Patient Relationship to Insured Coverage Start Date Coverage End Date MEDICARE [address] [place], [place] [id number] [phone] [id number] ELIZABETH RAMIREZ Self - patient is the insured [address] [facility] [employer]URANCE [address] [place] [id number] ELIZABETH RAMIREZ Self - patient is the [...]
--- OUTSIDE RECORDS SUMMARY | 2025-08-20 17:44 | XMS_ITS | Patient Health Record ---
Author Organization [facility] Address [address] [place] [address] Care Team Providers Care Igniter Assembler Name Role Phone Aleah (RETIRED) Martin BROWER Primary Care Provid er Unavailable Martin De Los Santos Unavailable [phone] Allergies Allergen (clinical drug ingredient) Drug/Non Drug [...] TAKE 1 TABLET BY MOUTH ONCE DAILY Oral; Duration: 90 Active Vitamin D3 25 MCG (1000 UT) 1 capsule Or ally Once a day; Duration: 30 day(s) Active [...] Problem Status W/U Status Risk Notes Problem Screening for malignant neoplasm of colon (599437480) Encounter for screening for malignant neoplasm of colon (Z12.11) Active confirmed Problem History of adenomatous polyp of colon (340338635) History of adenomatous polyp of colon (Z86.010) Active confirmed Problem Irritable bowel syndrome with diarrhea (309832618) Irritable bowel syndrome with diarrhea (K58.0) Active confirmed Problem Hemorrhoids without complication (17429282) Hemorrhoids, unspecified hemorrhoid type (K64.9) Active confirmed Problem Irritable bowel syndrome (75826918) Irritable bowel syndrome, unspecified type (K58.9) Active confirmed Plan Of Treatment Future Test Test Name Order Date COLONOSCOPY 07/20/2015 COLONOSCOPY 06/08/2020 Next Appt Details Provider Name:Martin Toledo Filiberto , 11/18/2025 02:20:00 PM, [address] [place] [address], [address], [place], [address], Insurance Providers Payer Name Payer Address Payer Phone Subscriber Number Group Number Insured Name Patient Relationship to Insured Coverage Start Date Coverage End Date MEDICARE OF [place] [address] [place] [address] [id number] ELIZABETH RAMIREZ Self - patient is the insured [employer] [address] [place] [address] [id number] ELIZABETH RAMIREZ Self - patient is the insured Medical (General) History Medical History History ICD Code NIDDM HTN Left-sided breast cancer 1989 and 2013-- surgeries as below Denies [place],CVA,Lung disease,renal disease Hyperlipidemia Liver cysts and a [...] movements Surgical History Surgery Date(Month/Year) Complete mastectomy-left--wi reconstruction--had postop infection requiring surgeries and removal of tissue 2013 Right tibia nailing--for a fracture 2007 Lumpectomy-left 1989 Hysterectomy/bladder suspension/urethral mesh
== END 2025-08-20 13:55 | disposition home or self-care (01) ==
LOC: HO.MAMMO 13:54
PROVIDERS: PCP Physician Assistant; Visit Provider Obstetrics & Gynecology Gynecology
DX: Z12.31 Encounter for screening mammogram for malignant neoplasm of breast (principal); Z13.820 Encounter for screening for osteoporosis; Z78.0 Asymptomatic menopausal state
CPT/HCPCS: 77063; 77067; 77080

== ENCOUNTER → 2025-08-20 14:30 | Outpatient (BNV) | payer MEDICARE, OTHER, SELFPAY | PROVIDERS: PCP Physician Assistant; Visit Provider Radiology Diagnostic Radiology | DX: E28.39 Other primary ovarian failure (principal) | CPT/HCPCS: 77080 ==

== ENCOUNTER 2025-09-28 08:45 | Outpatient (AMB) | payer MEDICARE, OTHER, SELFPAY ==
--- OUTSIDE RECORDS SUMMARY | 2025-09-10 05:40 | XMS_ITS ---
Author Organization [facility] Address [address] [place] [address] Care Team Providers Care Firer Electric Locomotive Name Role Phone Rehan Guillaume Primary Care Provider UnavailMartin Funez Unavailable [phone] Allergies Allergen (clinical drug ingredient) Drug/Non Drug Allergy documented on EMR Reaction Allergy Type Onset Date Status Sulfa Unknown Drug Allergy Active REASON FOR VISIT Patient presents today for screening colonoscopy Medications Medication SIG (Take, Route, Frequency, Duration) Notes Start Date End Date Status Losartan Potassium 100 MG Tablet 1 Orally qd Not-Taking/PRN Centrum Silver - Tablet as directed Orally Active Vitamin D3 25 MCG (1000 UT) Capsule 1 capsule Orally Once a day; Duration: 30 day(s) Active metFORMIN HCl 500 MG Tablet 1 tablet wit h meals Orally twice a day Active Rosuvastatin Calcium 5 MG Tablet TAKE 1 TABLET BY MOUTH ONCE DAILY Oral; Duration: 90 Not-Taking/WI N Levothyroxine Sodium 50 MCG Tablet 1 tablet Orally Once a day Active amLODIPine Besylate 10 MG Tablet 1 tablet Orally Once a day Active Cranberry 425 MG Capsule as directed Ora lly daily Active hydroCHLOROthiazide 12.5 MG Capsule 1 capsule in the morning Orally Once a day Active Estradiol 0.01 % Cream as directed Vaginal Active Biotin 5000 MCG Tablet Sublingual as directed Sublingual Active Cholestyramine 4 GM/DOSE Powder Use1/4 of a scoop up to 1 full scoop mixed with 4 to 8 ounces of water or non-carbonated drink Orally Once or Twice a day for diarrhea; Duration: 30 days 08/14/2015 Active Immunizations Vaccine Route Administration Date Status Comme nts Influenza Unknown 09/10/2025 Refused Social History Tobacco Use: Social History Observation Description Date Details (start date - stop date) Never Smoker NA - NA Social History Drugs/Alcohol: Social Info Question Answer Notes Alcohol Screen Did you have a drink containing alcohol in the past year? Yes How often did you have a drink containing alcohol in the past year? 2 to 3 times a week (3 points) How many drinks did you have on a typical day when you were drinking in the past year? 1 or 2 drinks (0 point) How often did you have 6 or more drinks on one occasion in the past year? Never (0 point) Points 3 Interpretation Positive Drug/Alcohol: Social Info Question Answer Notes AUDIT-C (Standard) Did you have a drink containing alcohol in the past year? Yes How often did you have a drink containing alcohol in the past year? 2 to 3 times a week (3 points) How many drinks did you have on a typical day when you were drinking in the past year? 1 or 2 drinks (0 point) How often did you have six or more drinks on one occasion in the past year? Never (0 point) Points 3 Interpretation Positive Tobacco Use: Social Info Question Answer Notes Tobacco Use/Smoking Patient is a nonsmoker Section Notes: Nonsmoker; no sig alcohol (o cassional wine) Vital Signs Temperature 96.2 degrees Fahrenheit 09/10/20 25 Blood pressure systolic 001 mm Hg 09/10/20 25 Blood pressure diastolic 01 mm Hg 025 Height 63 in 09/10/2025 Weight 140.6 lbs 09/10/2025 BMI 24.9 kg/m2 09/10/2025 Encounters Encounter Location Date Provider Diagnosis [facility] [address] [facility] [address] [place] [id number] 09/10/2025 Martin De Los Santos Irritable bowel syndrome with diarrhea K58.0 Assessments Encounter Date Diagnosis (ICD Code) Assessment Notes Treatment Notes Treatment Clinical Notes Section Notes 09/10/2025 Irritable bowel syndrome with diarrhea (ICD-10 - K58.0) Ask Carlo Guillaume about possibly switching Metformin if the diarrhea remains a problem I will send over a prescription for a powder to use as needed for the diarrhea Overall, Elizabeth appears quite well. Given her longstanding history of intermittent diarrhea, her good clinical appearance, and the negative workups over the years, I advised her that her symptoms seem quite consistent with that of irritable bowel syndrome. She had responded to cholestyramine in the past and I did advise her that I will send over a prescription for that to have on hand if the diarrhea becomes problematic again. She does report that things have improved currently and I advised her not to use the cholestyramine unless the diarrhea becomes problematic. We also discussed that metformin can cause diarrhea and that she can review that with you to see if it needs to be changed to a different medication if the diarrhea becomes problematic again. Given her previous workups I do not think a repeat colonoscopy is required. I do not think she needs any imaging studies nor laboratories at this time either. If things remain stable and improved she can see me on a prn basis. However, I did advise her to certainly call me if she has any problems or questions that I can be of assistance with in the future. Elizabeth was very comfortable with that plan. Thank you again for allowing me to have participated in Elizabeth's care. Please do not hesitate to contact me if I can be of any further assistance in the future. Plan Of Treatment Medication Medication Name Sig Start Date Stop Date Notes Cholestyramine 4 GM/DOSE Powder Use1/4 o f a scoop up to 1 full scoop mixed with 4 to 8 ounces of water or non-carbonated drink Orally Once or Twice a day for diarrhea; Duration: 30 days 08/14/2015 Treatment Notes Assessment Notes Irritable bowel syndrome with diarrhea Ask Carlo Markell about possibly switching Metformin if the diarrhea remains a problem I will send over a prescription for a powder to use as needed for the diarrhea History and Physical Notes * HPI (History of Present Illness) Category Sub-Category Detail Notes Category Not es incontinence I saw Elizabethin consultation today in regard to further evaluation of her diarrhea. I last saw Elizabeth in June 2020, at which time she underwent a negative screening colonoscopy. She has had a longstanding history of intermittent diarrhea for which she underwent previous colonoscopies which were negative for any sign of inflammatory bowel disease or microscopic colitis. She also had negative laboratories for celiac disease. Overall her diagnosis has been that of irritable bowel syndrome. I had treated her with cholestyramine about 10 years ago which gave her relief of her symptoms at that time but she ultimately was able to stop that and had remained stable. She reports that she has had about 1 year of intermittent diarrhea now. She has she describes that over the past couple weeks her bowel movements have been somewhat improved to where she is now having a formed stool about every other day. She has been on metformin for a long time and recently increased that as well. She has not been noticing any signs of bleeding with the bowel movements. When her diarrhea has been active she would have frequent bowel movements in the morning but then usually things will remain stable during the rest of the day. She enjoys a good appetite and denies any problems with nausea or vomiting. She denies any significant heartburn or dysphagia. She denies any abdominal pain, jaundice, nor any unintentional weight loss. There is no family history of colorectal cancer nor inflammatory bowel disease. Laboratories in July revealed a hemoglobin of 12.2 with a normal MCV, normal chemistries and renal function, normal LFTs, and a normal TSH. She was seen in the ER in May for some abdominal discomfort and diarrhea at that time a CT scan described some intestinal wall thickening in the small bowel which was felt to represent an inflammatory process. However that episode but the pain and increasing diarrhea resolved and she went home from the ER. Progress Notes * ELIZABETH RAMIREZ GDOB:1945 (79 yo F)Acc No.[id number]:09/10/2025 Progress Notes Patient: ELIZABETH SHUKLA Provider: María De Los Santos MD :1945 A ge:79 Y S ex:Female Date:09/10/2025 Address:[address] [place], [place] [id number] Pcp:Rehan Guillaume Subjective: * Chief Complaints: * P atient presents today for screening colonoscopy * HPI: i ncontinence: I saw Elizabethin consultation today in regard to further evaluation of her diarrhea. I last saw Elizabeth in June 2020, at which time she underwent a negative screening colonoscopy. She has had a longstanding history of intermittent diarrhea for which she underwent previous colonoscopies which were negative for any sign of inflammatory bowel disease or microscopic colitis. She also had negative laboratories for celiac disease. Overall her diagnosis has been that of irritable bowel syndrome. I had treated her with cholestyramine about 10 years ago which gave her relief of her symptoms at that time but she ultimately was able to stop that and had remained stable. She reports that she has had about 1 year of intermittent diarrhea now. She has she describes that over the past couple weeks her bowel movements have been somewhat improved to where she is now having a formed stool about every other day. She has been on metformin for a long time and recently increased that as well. She has not been noticing any signs of bleeding with the bowel movements. When her diarrhea has been active she would have frequent bowel movements in the morning but then usually things will remain stable during the rest of the day. She enjoys a good appetite and denies any problems with nausea or vomiting. She denies any significant heartburn or dysphagia. She denies any abdominal pain, jaundice, nor any unintentional weight loss. There is no family history of colorectal cancer nor inflammatory bowel disease. Laboratories in July revealed a hemoglobin of 12.2 with a normal MCV, normal chemistries and renal function, normal LFTs, and a normal TSH. She was seen in the ER in May for some abdominal discomfort and diarrhea at that time a CT scan described some intestinal wall thickening in the small bowel which was felt to represent an inflammatory process. However that episode but the pain and increasing diarrhea resolved and she went home from the ER. * Medical History: NIDDM HTN Left-sided breast cancer 1989 and 2013- surgeries as below Denies [place],CVA,Lung disease,renal disease Hyperlipidemia Liver cysts and a hemangioma seen on a CAT scan and MRI of the abdomen in [address] German in July of 2013 with a removal of a small tubular adenoma, and finding of diverticulosis and internal hemorrhoids- she also describes a negative colonoscopy about 10 years before that Colonoscopy in August of 2015 was completely normal, including biopsies from the terminal ileum and colon- she was started on cholestyramine with fairly good relief of her loose bowel movements UTI Mammogram Neg. screening colonoscopy in 06/2020 Medical History Verified * Surgical History: Complete mastectomy-left- with reconstruction- had postop infection requiring surgeries and removal of tissue 2013 Right tibia nailing- for a fracture 2007 Lumpectomy-left 1989 Hysterectomy/bladder suspension/urethral mesh Surgical History verified. * Hospitalization/Major Diagno stic Procedure: No Hospitalization Documented. Hospitalization Verified. * Family History: F ather: . M other: alive, diagnosed with HTN (hypertension), Heart disease. F amily History Verified.. No family hx of colon or liver cancer. * Social History: T obacco Use: T obacco Use/Smoking P atient is a n onsmoker. D rugs/Alcohol: A lcohol Screen D id you have a drink containing alcohol in the past year? Y es, H ow often did you have a drink containing alcohol in the past year? 2 to 3 times a week (3 points), H ow many drinks did you have on a typical day when you were drinking in the past year??1 or 2 drinks (0 point), H ow often did you have 6 or more drinks on one occasion in the past year? N ever (0 point), P oints 3 , I nterpretation P ositive. D rug/Alcohol: A ONEAL-C (Standard) D id you have a drink containing alcohol in the past year? Y es,?How often did you have a drink containing alcohol in the past year? 2 to 3 times a week (3 points), H ow many drinks did you have on a typical day when you were drinking in the past year??1 or 2 drinks (0 point), H ow often did you have six or more drinks on one occasion in the past year? N ever (0 point), P oints 3 , I nterpretation P ositive. Social History Verified. N onsmoker; no sig alcohol (ocassional wine). * Medications: T akingBiotin 5000 MCG Tablet Sublingual as directed Sublingual Cranberry 425 MG Capsule as directed Orally daily Estradiol 0.01 % Cream as directed Vaginal hydroCHLOROthiazide 12.5 MG Capsule 1 capsule in the morning Orally Once a day amLODIPine Besylate 10 MG Tablet 1 tablet Orally Once a day Levothyroxine Sodium 50 MCG Tablet 1 tablet Orally Once a day metFORMIN HCl 500 MG Tablet 1 tablet with meals Orally twice a day Vitamin D3 25 MCG (1000 UT) Capsule 1 capsule Orally Once a day Centrum Silver - Tablet as directed Orally Taking Biotin 5000 MCG Tablet Sublingual as directed Sublingual Taking Cranberry 425 MG Capsule as directed Orally daily Taking Estradiol 0.01 % Cream as directed Vaginal Taking hydroCHLOROthiazide 12.5 MG Capsule 1 capsule in the morning Orally Once a day Taking amLODIPine Besylate 10 MG Tablet 1 tablet Orally Once a day Taking Levothyroxine Sodium 50 MCG Tablet 1 tablet Orally Once a day Taking metFORMIN HCl 500 MG Tablet 1 tablet with meals Orally twice a day Taking Vitamin D3 25 MCG (1000 UT) Capsule 1 capsule Orally Once a day Taking Centrum Silver - Tablet as directed Orally Not-Taking/PRNLosartan Potassium 100 MG Tablet 1 Orally qd Rosuvastatin Calcium 5 MG Tablet TAKE 1 TABLET BY MOUTH ONCE DAILY Oral Medication List reviewed and reconciled with the patientNot-Taking/PRN Losartan Potassium 100 MG Tablet 1 Orally qd Not-Taking/PRN Rosuvastatin Calcium 5 MG Tablet TAKE 1 TABLET BY MOUTH ONCE DAILY Oral Medication List reviewed and reconciled with the patient * Allergies: S tanafayesAllerjeison Verified. Objective: * Vitals: W t: 140.6 lbs, Ht: 63 in, BMI: 24.9 Index, BP: 001/01 mm Hg, Temp: 96.2 F, Wt-k.78 kg. Assessment: * Assessment: 1. I rritable bowel syndrome with diarrhea - K58.0 (Primary) Overall, Elizabeth appears q uite well. Given her longstanding history of intermittent diarrhea, her good clinical appearance, and the negative workups over the years, I advised her that her symptoms seem quite consistent with that of irritable bowel syndrome. She had responded to cholestyramine in the past and I did advise her that I will send over a prescription for that to have on hand if the diarrhea becomes problematic again. She does report that things have improved currently and I advised her not to use the cholestyramine unless the diarrhea becomes problematic. We also discussed that metformin can cause diarrhea and that she can review that with you to see if it needs to be changed to a different medication if the diarrhea becomes problematic again. Given her previous workups I do not think a repeat colonoscopy is required. I do not think she needs any imaging studies nor laboratories at this time either. If things remain stable and improved she can see me on a prn basis. However, I did advise her to certainly call me if she has any problems or questions that I can be of assistance with in the future. Elizabeth was very comfortable with that plan. Thank you again for allowing me to have participated in Elizabeth's care. Please do not hesitate to contact me if I can be of any further assistance in the future. Plan: * Treatment: 2. O thers Refill Cholestyramine Powder, 4 GM/DOSE, Use1/4 of a scoop up to 1 full scoop mixed with 4 to 8 ounces of water or non-carbonated drink, Orally, Once or Twice a day for diarrhea, 30 days, 1, Refills 3. * Immunizations: Influenza (Not administered - Refused: Patient decision) * Preventive Medicine: Urinary Incontinence: U rinary Incontinence A ssessment: A bsent, P medardo of care documented: N o, reason not specified. Screenings: F all Risk Screening F all Risk Assessment: N o falls in the past year, S creening: N o falls in the past year, A ssessment: N ot performed, no reason specified, P medardo of Care: N ot documented, no reason specified. Billing Information: * Procedure Codes: * The named appointment provid er may or may not be the originator of this progress note, and it is not deemed complete until electronically signed by the appointment provider. Sign off status: Pending * Provider: María De Los Santos MD Date: 11/10/2024 Generated for Jojo zayas/Nirmal/Mandeepitting on: 11/28/2024 09:13 AM EST
--- NOTE | 2025-09-28 08:56 | AM.OFFVISNUR ---
Intake Visit Reasons: PVR/UA Allergies [id number] Reductase Inhibitor Allergy (Intermediate, Verified 07/23/25 09:33) Itching Sulfa (Sulfonamide Antibiotics) Allergy (Unknown, Verified 07/23/25 09:33) ITCHING Losartan Allergy (Severe, Uncoded 07/23/25 09:33) Anaphylaxis Office Procedures Post Void Residual Post Residual Void Details: Patient presents to office for UA and PVR. 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 Patient urine reviewed with Dr. Graham- no need for culture to be sent. Bladder scanned for 8mls. Patient to make follow up with Dr. Graham at checkout if does not have appointment Post Void Residual (PVR): [id number] Void Residual by ultrasound Results AMB Urinalysis, Automated UA Leukoctes 500 Renard/uL Last Edit by Arian Bowden LPN on 09/28/25 09:12 UA Nitrite Negative Last Edit by Arian Bowden LPN on 09/28/25 09:12 UA Urobilinogen 0.2 mg/dL Last Edit by Arian Bowden LPN on 09/28/25 09:12 UA Protein 0 mg/dL Last Edit by Arian Bowden LPN on 09/28/25 09:12 UA pH 7.0 Last Edit by Arian Bowden LPN on 09/28/25 09:12 UA Blood 0 Jose/uL Last Edit by Arian Bowden LPN on 09/28/25 09:12 UA Specific [place] 1.000 Last Edit by Arian Bowden LPN on 09/28/25 09:12 UA Ketone Negative Last Edit by Arian Bowden LPN on 09/28/25 09:12 UA Bilirubin 0 mg/dL Last Edit by Arian Bowden LPN on 09/28/25 09:12 UA Glucose 0 mg/dL Last Edit by Arian Bowden LPN on 09/28/25 09:12 Assessment & Plan Assessment & Plan Orders: Orders AMB Post Void Residual by ultrasound Today N39.0 - Urinary tract infection, site not specified, R33.9 - Retention of urine, unspecified AMB Urinalysis Automated Today N39.0 - Urinary tract infection, site not specified, R33.9 - Retention of urine, unspecified Coding CPT Codes Post Residual Void - PVR CPT Code: 61810-Apbz Void Residual by ultrasound ([id number])
--- OUTSIDE RECORDS SUMMARY | 2025-09-28 09:13 | XMS_ITS | Patient Health Record ---
[facility] Address [address] [place] [address] Care Team Providers Care Housing Assistant Name Role Phone Rehan Guillaume Primary Care Provider Unavailab bethany Saba Diane Unavailable [phone] Allergies Allergen (clinical drug ingredient) Drug/Non Drug Allergy documented on EMR Reaction Allergy Type Onset Date Status sulfamethoxazole / trimethoprim Bactrim Unknown Drug Allergy Active losartan Losartan Potassium anaphylaxis Drug Allergy Active Substance with 4-klrfqvh-5-methylglutar yl-coenzyme A reductase inhibitor mechanism of action (substance) Statins itching Drug Allergy Active Substance with sulfonamide structure and antibacterial mechanism of action (substance) Sulfa Antibiotics itching Drug Allergy Active Reason For Referral No Information Medications Medication SIG (Take, Route, Frequency, Duration) Notes Start Date End Date Status [place] 3 1000 MG 1 capsule Orally Once [...] Problem Acquired hammer toe of left foot (904116965925347 3) Other hammer toe(s) (acquired), left foot (M20.42) Active confirmed Problem Type II diabetes mellitus without complication (701969580) Type 2 diabetes mellitus without complications (E11.9) Active confirmed Plan Of Treatment Pending Test Test Name Order Date Hemoglobin A1c 09/26/2023 X ray : Foot, left 3V 08/01/2023 X ray : Foot, left 3V 10/05/2023 77722- Debride <25 sq cm 12/05/2021 Insurance Providers Payer Name Payer Address Payer Phone Subscriber Number Group Number Insured Name Patient Relationship to Insured Coverage Start Date Coverage End Date Medicare [facility] [address] [place]aitlyn[place]ivanER[place] alvarez [phone] [id number] Lizzeth Farley Self - patient is the insured [employer] [address] [place] [phone] [id number] Lizzeth Farley Self - patient is the [...] L5th P/B Hospitalization History Reason Date(Month/Year) [facility] [place] Pneumonia and Pleurisy 3 days 02/22 [facility] [place] Pelvic Ultrasound 10/06/2004 [facility] [place]- Bone Density Scan 12/25/2006 Bradycardia, right distal ti vero and fibula fractured closed reduction and cast 03/30/2007 [facility] [place] right tibia intramedullary nailing for fracture 11/27/2007 [facility] [place]- tibial infection, absce ss, right lower leg, incision and drainage of abscess 08/13/2008 [facility]- Chest X-ray 05/23/2021 [facility]- UTI 05/27/2021
--- OUTSIDE RECORDS SUMMARY | 2025-09-28 09:13 | XMS_ITS | Patient Health Record ---
Author Organization [facility] Address [address] [place] [address] Care Team Providers Care Traffic Ii Manager Name Role Phone CARRIE GREGORY Primary Care Provider Lucy Cote [phone] Allergies Allergen (clinical drug ingredient) Drug/Non Drug [...] Status Risk Notes Problem Postmenopausal atrophic vaginitis (82455107) Postmenopausal atrophic vaginitis (N95.2) Active confirmed Problem Essential hypertension (11911300) Essential (primary) hypertension (I10) Active confirmed Problem Malignant neoplasm of female breast (371289228) Malignant neoplasm of unspecified site of left female breast (C50.912) Active confirmed Problem Personal history of primary malignant neoplasm of breast (930449695) Personal history of malignant neoplasm of breast (Z85.3) Active confirmed Vital Signs Temperature 96.8 degrees Fahrenheit 06/25/2025 Blood pressure diastolic 64 mm Hg 06/25/2025 Height 62 in 06/25/2025 Blood pressure systolic 148 mm Hg 06/25/2025 Weight 140 lbs 06/25/2025 BMI 25.6 kg/m2 06/25/2025 Encounters Encounter Location Date Provider Diagnosis Total [address] [place] [address] 06/25/2025 Lucy Milligan Encounter for gynecological examination [...] OF BREAST CA. CONTINUE FOLLOW UP AT [facility]. 06/25/2025 Postmenopausal atrophic vaginitis (ICD-10 - N95.2) CONTINUE ESTRADIOL CREAM. 06/25/2025 Personal history of urinary (tract) infections (ICD-10 - Z87.440) CONTINUE FOLLOW UP WITH UROLOGIST. Plan Of Treatment Pending Test Test Name Order Date MAMMOGRAM, SCREENING 06/25/2025 BONE DENSITY 06/25/2025 MM Digital Mammo Screening 06/25/2025 Next Appt Details Provider Name:Lucy lopez, 07/01/2026 11:00:00 AM, [address], [address], [place], [address], Insurance Providers Payer Name Payer Address Payer Phone Subscriber Number Group Number Insured Name Patient Relationship to Insured Coverage Start Date Coverage End Date MEDICARE [address] [place], [place] [id number] [phone] [id number] ELIZABETH RAMIREZ Self - patient is the insured 2 [facility] [employer] [address] [place] [id number] ELIZABETH RAMIREZ Self - patient is the [...]
--- OUTSIDE RECORDS SUMMARY | 2025-09-28 09:14 | XMS_ITS | Patient Health Record ---
Author Organization [facility] Address [address] [place] [address] Care Team Providers Care Road Equipment Operator Name Role Phone Rehan Guillaume Primary Care Provider UnavailMartin Funez Unavailable [phone] Allergies Allergen (clinical drug ingredient) Drug/Non Drug Allergy documented on EMR Reaction Allergy Type Onset Date Status Sulfa Unknown Drug Allergy Active Reason For Referral No Information Medications Medication SIG (Take, Route, Frequency, Duration) Notes Start Date End Date Status Losartan Potassium 100 MG Tablet 1 Orally qd Not-Taking/PRN Centrum Silver - Tablet as directed Orally Active Levothyroxine Sodium 50 MCG Tablet 1 tablet Orally Once a day Active amLODIPine Besylate 10 MG Tablet 1 tablet Orally Once a day Active Vitamin D3 25 MCG (1000 UT) Capsule 1 capsule Orally Once a day; Duration: 30 day(s) Active metFORMIN HCl 500 MG Tablet 1 tablet wit h meals Orally twice a day Active Cranberry 425 MG Capsule as directed Ora lly daily Active Biotin 5000 MCG Tablet Sublingual as directed Sublingual Active Cholestyramine 4 GM/DOSE Powder Use1/4 of a scoop up to 1 full scoop mixed with 4 to 8 ounces of water or non-carbonated drink Orally Once or Twice a day for diarrhea; Duration: 30 days 08/14/2015 Active hydroCHLOROthiazide 12.5 MG Capsule 1 capsule in the morning Orally Once a day Active Estradiol 0.01 % Cream as directed Vaginal Active Rosuvastatin Calcium 5 MG Tablet TAKE 1 TABLET BY MOUTH ONCE DAILY Oral; Duration: 90 Not-Taking/SD N Immunizations Vaccine Route Administration Date Status Comme nts Influenza Unknown 06/08/2020 Refused Influenza Unknown 09/10/2025 Refused Social History Tobacco Use: Social History Observation Description Date Details (start date - stop date) Never Smoker NA - NA Social History Drug/Alcohol: Social Info Question Answer Notes AUDIT-C [...] Notes Tobacco Use/Smoking Patient is a nonsmoker Additional Details Category Social Info Options Details Miscellaneous: Marital status: 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 Caffeine: more than 4 cups per day Section Notes: Nonsmoker; no sig alcohol Nonsmoker; no sig alcohol Nonsmoker; no sig alcohol (o cassional wine) Nonsmoker; no sig alcohol (o cassional wine) Problems Problem Type SNOMED Code ICD Code Onset Dates Problem Status W/U Status Risk Notes Problem Screening for malignant neoplasm of colon (375147563) Encounter for screening for malignant neoplasm of colon (Z12.11) Active confirmed Problem History of adenomatous polyp of colon (208070646) History of adenomatous polyp of colon (Z86.010) Active confirmed Problem Irritable bowel syndrome with diarrhea (812080222) Irritable bowel syndrome with diarrhea (K58.0) Active confirmed Problem Hemorrhoids without complication (27151649) Hemorrhoids, unspecified hemorrhoid type (K64.9) Active confirmed Problem Irritable bowel syndrome (21889222) Irritable bowel syndrome, unspecified type (K58.9) Active confirmed Vital Signs Temperature 96.2 degrees Fahrenheit 09/10/2025 Blood pressure diastolic 01 mm Hg 09/10/2025 Height 63 in 09/10/2025 Blood pressure systolic 001 mm Hg 09/10/2025 Weight 140.6 lbs 09/10/2025 BMI 24.9 kg/m2 09/10/2025 Encounters Encounter Location Date Provider Diagnosis [facility] [address] [place] [address] 09/10/2025 Martin De Los Santos Irritable bowel [...] assistance in the future. Plan Of Treatment Future Test Test Name Order Date COLONOSCOPY 07/20/2015 COLONOSCOPY 06/08/2020 Insurance Providers Payer Name Payer Address Payer Phone Subscriber Number Group Number Insured Name Patient Relationship to Insured Coverage Start Date Coverage End Date MEDICARE OF [place] [address] [address] [id number] ELIZABETH RAMIREZ Self - patient is the insured [employer] [address] [place] [phone] [id number] ELIZABETH RAMIREZ Self - patient is the insured Medical (General) History Medical History History ICD Code NIDDM HTN Left-sided breast cancer 1989 and 2013- surgeries as below Denies MS,CVA,Lung disease,renal disease Hyperlipidemia Liver cysts and a [...] UTI Mammogram Neg. screening colonoscopy in 06/2020 Surgical History Surgery Date(Month/Year) Complete mastectomy-left- th reconstruction- had postop infection requiring surgeries and removal of tissue 2013 Right tibia nailing- for a fracture 2007 Lumpectomy-left 1989 Hysterectomy/bladder suspension/urethral mesh
== END 2025-09-28 09:42 | disposition home or self-care (01) ==
LOC: HO.HUSH 08:46
PROVIDERS: PCP Physician Assistant; Visit Provider Urology
DX: N39.0 Urinary tract infection, site not specified (principal); R33.9 Retention of urine, unspecified

== ENCOUNTER → 2025-09-28 08:45 | Outpatient (BNVA) | payer MEDICARE, OTHER, SELFPAY | PROVIDERS: PCP Physician Assistant; Visit Provider Urology | DX: N39.0 Urinary tract infection, site not specified (principal); R33.9 Retention of urine, unspecified | CPT/HCPCS: 51798; 81003 ==

== ENCOUNTER 2025-11-02 15:14 | Outpatient (REF) | payer MEDICARE, OTHER, SELFPAY ==
[2025-11-02 18:08] LABS: Resp Syncy Virus RNA Qual PCR NEGATIVE (Negative); SARS COV2 PCR INHOUSE NEGATIVE (Negative)
== END 2025-11-02 15:15 | disposition home or self-care (01) ==
LOC: HO.LAB 15:14
PROVIDERS: PCP Physician Assistant; Visit Provider Student in an Organized Health Care Education/Training Program
DX: R53.1 Weakness (principal); R05.9 Cough, unspecified; R19.7 Diarrhea, unspecified
CPT/HCPCS: 87637; 96127; 99212